=== PATIENT | female | born 1940 | race Caucasian/White ===

== ENCOUNTER → 2018-04-23 08:45 | Outpatient (CLI) | payer MEDICARE, OTHER, SELFPAY | PROVIDERS: PCP Family Medicine; Visit Provider Student in an Organized Health Care Education/Training Program | DX: M25.532 Pain in left wrist (principal); M65.4 Radial styloid tenosynovitis [de Quervain] | CPT/HCPCS: 20605; 99213; J1030 ==

== ENCOUNTER → 2018-04-30 02:07 | Outpatient (CLI) | payer MEDICARE, OTHER, SELFPAY ==
[2018-04-30 10:00] LABS: INR 2.4 (1.0-3.5); Prothrombin Time 22.4 sec (9.3-10.8)
== END ==
PROVIDERS: PCP Family Medicine; Visit Provider Family Medicine
DX: I34.0 Nonrheumatic mitral (valve) insufficiency (principal); Z95.2 Presence of prosthetic heart valve; Z79.01 Long term (current) use of anticoagulants
CPT/HCPCS: 36415; 85610

== ENCOUNTER → 2018-05-14 03:05 | Outpatient (CLI) | payer MEDICARE, OTHER, SELFPAY ==
[2018-05-14 11:35] LABS: INR 1.5 (1.0-3.5); Prothrombin Time 14.8 sec (9.3-10.8)
== END ==
PROVIDERS: PCP Family Medicine; Visit Provider Family Medicine
DX: I34.0 Nonrheumatic mitral (valve) insufficiency (principal); Z95.2 Presence of prosthetic heart valve; Z79.01 Long term (current) use of anticoagulants
CPT/HCPCS: 36415; 85610

== ENCOUNTER 2018-05-22 02:32 | Outpatient (CLI) | payer MEDICARE, SELFPAY ==
[2018-05-22 12:36] LABS: INR 2.2 (1.0-3.5); Prothrombin Time 21.3 sec (9.3-10.8)
== END 2018-05-22 02:52 ==
LOC: LBO 02:32 → LOS 12:49
PROVIDERS: PCP Family Medicine; Visit Provider Family Medicine
DX: Z95.2 Presence of prosthetic heart valve (principal); Z79.01 Long term (current) use of anticoagulants
CPT/HCPCS: 36415; 85610

== ENCOUNTER → 2018-05-23 05:48 | Outpatient (CLI) | payer MEDICARE, OTHER, SELFPAY ==
--- NOTE | 2018-05-23 11:50 | DI.RAD_ITS ---
SYMPTOMS/DIAGNOSIS: PAIN RT SHOULDER, M25.511 RIGHT SHOULDER: Five views. Mild hypertrophic changes are seen at the acromioclavicular joint. The glenohumeral joint appears well maintained. There are calcifications adjacent to the greater tuberosity suggesting calcific tendinitis. No acute fracture, dislocation, lytic or sclerotic lesion is seen. The soft tissues are unremarkable. IMPRESSION: Mild degenerative changes of the right shoulder.
== END ==
PROVIDERS: PCP Family Medicine; Visit Provider Family Medicine
DX: M25.511 Pain in right shoulder (principal); M19.011 Primary osteoarthritis, right shoulder
CPT/HCPCS: 73030

== ENCOUNTER 2018-05-29 01:53 | Outpatient (CLI) | payer MEDICARE, OTHER, SELFPAY ==
[2018-05-29 11:10] LABS: INR 3.8 (1.0-3.5); Prothrombin Time 35.8 sec (9.3-10.8)
== END 2018-05-29 02:13 ==
PROVIDERS: PCP Family Medicine; Visit Provider Family Medicine
DX: Z95.2 Presence of prosthetic heart valve (principal); Z79.01 Long term (current) use of anticoagulants; I34.0 Nonrheumatic mitral (valve) insufficiency
CPT/HCPCS: 36415; 85610

== ENCOUNTER 2018-06-05 02:23 | Outpatient (CLI) | payer MEDICARE, OTHER, SELFPAY ==
[2018-06-05 11:23] LABS: Prothrombin Time 45.9 sec (9.3-10.8)
== END 2018-06-05 02:43 ==
PROVIDERS: PCP Family Medicine; Visit Provider Family Medicine
DX: I34.0 Nonrheumatic mitral (valve) insufficiency (principal); Z79.52 Long term (current) use of systemic steroids; Z79.01 Long term (current) use of anticoagulants
CPT/HCPCS: 36415; 85610

== ENCOUNTER 2018-06-08 01:05 | Outpatient (CLI) | payer MEDICARE, OTHER, SELFPAY ==
[2018-06-08 11:42] LABS: INR 2.4 (1.0-3.5); Prothrombin Time 22.8 sec (9.3-10.8)
== END 2018-06-08 01:25 ==
PROVIDERS: PCP Family Medicine; Visit Provider Family Medicine
DX: Z95.2 Presence of prosthetic heart valve (principal); I48.91 Unspecified atrial fibrillation; Z79.01 Long term (current) use of anticoagulants
CPT/HCPCS: 36415; 85610

== ENCOUNTER 2018-06-15 00:54 | Outpatient (CLI) | payer MEDICARE, OTHER, SELFPAY ==
[2018-06-15 12:47] LABS: INR 2.7 (1.0-3.5); Prothrombin Time 25.2 sec (9.3-10.8)
== END 2018-06-15 01:14 ==
LOC: LBO 00:54 → LOS 12:31
PROVIDERS: PCP Family Medicine; Visit Provider Family Medicine
DX: I35.1 Nonrheumatic aortic (valve) insufficiency (principal); Z79.01 Long term (current) use of anticoagulants; Z95.2 Presence of prosthetic heart valve
CPT/HCPCS: 36415; 85610

== ENCOUNTER 2018-06-28 02:04 | Outpatient (CLI) | payer MEDICARE, OTHER, SELFPAY ==
[2018-06-28 12:57] LABS: INR 2.4 (1.0-3.5)
== END 2018-06-28 02:24 ==
PROVIDERS: PCP Family Medicine; Visit Provider Family Medicine
DX: Z95.2 Presence of prosthetic heart valve (principal); Z79.01 Long term (current) use of anticoagulants; I34.0 Nonrheumatic mitral (valve) insufficiency
CPT/HCPCS: 36415; 85610

== ENCOUNTER 2018-07-26 01:06 | Outpatient (CLI) | payer MEDICARE, OTHER, SELFPAY ==
[2018-07-26 11:19] LABS: INR 2.3 (1.0-3.5); Prothrombin Time 21.4 sec (9.3-10.8)
== END 2018-07-26 01:26 ==
PROVIDERS: PCP Family Medicine; Visit Provider Family Medicine
DX: I51.9 Heart disease, unspecified (principal); Z95.2 Presence of prosthetic heart valve; Z79.01 Long term (current) use of anticoagulants
CPT/HCPCS: 36415; 85610

== ENCOUNTER 2018-08-02 01:45 | Outpatient (CLI) | payer MEDICARE, OTHER, SELFPAY ==
[2018-08-02 11:38] LABS: INR 2.5 (1.0-3.5); Prothrombin Time 23.9 sec (9.3-10.8)
== END 2018-08-02 02:05 ==
PROVIDERS: PCP Family Medicine; Visit Provider Family Medicine
DX: Z79.01 Long term (current) use of anticoagulants (principal); Z95.2 Presence of prosthetic heart valve; I50.9 Heart failure, unspecified
CPT/HCPCS: 36415; 85610

== ENCOUNTER 2018-08-27 10:03 | Outpatient (CLI) | payer MEDICARE, OTHER, SELFPAY | END 2018-08-27 10:23 | PROVIDERS: PCP Family Medicine; Visit Provider Internal Medicine Interventional Cardiology | DX: I42.9 Cardiomyopathy, unspecified (principal); Z95.828 Presence of other vascular implants and grafts; I51.9 Heart disease, unspecified; I49.3 Ventricular premature depolarization; I47.1 Supraventricular tachycardia; I11.9 Hypertensive heart disease without heart failure | CPT/HCPCS: 93005; 93010; 99213 ==

== ENCOUNTER 2018-08-30 02:00 | Outpatient (CLI) | payer MEDICARE, OTHER, SELFPAY ==
[2018-08-30 11:29] LABS: Prothrombin Time 22.3 sec (9.3-10.8)
[2018-08-30 11:34] LABS: INR 2.4 (1.0-3.5)
== END 2018-08-30 02:20 ==
PROVIDERS: PCP Family Medicine; Visit Provider Family Medicine
DX: I34.0 Nonrheumatic mitral (valve) insufficiency (principal); Z95.2 Presence of prosthetic heart valve; Z79.01 Long term (current) use of anticoagulants
CPT/HCPCS: 36415; 85610

== ENCOUNTER 2018-09-16 11:05 | Emergency (ER) | payer MEDICARE, OTHER, SELFPAY ==
[2018-09-16 11:14] VITALS: BP 114/88; PULSE 70; RESP 17; TEMP 36.8; O2SAT 95
[2018-09-16 11:50] LABS: Abs Immature Grans 0.02 k/cumm (0.0-0.09); Absolute Basophil Count 0.02 k/cumm (0.0-0.2); Absolute Eosinophil Count 0.12 k/cumm (0.0-0.7); Absolute Lymphocyte Count 0.76 k/cumm (1.2-3.4); Absolute Monocyte Count 0.34 k/cumm (0.11-0.7); Absolute Neutrophil Count 4.33 k/cumm (1.2-6.7); Basophils % 0.4; Eosinophils % 2.1; HCT 39.9 % (36.0-46.0); HGB 13.2 g/dL (12.0-15.5); Immature Grans % 0.4; Lymphocytes % 13.6; Mean Corp. HGB Concentration 33.1 g/dL (32.0-36.0); Mean Corpuscular Hemoglobin 32.4 pg (27.0-33.0); Mean Corpuscular Volume 97.8 fL (80-95); Mean Platelet Volume 9.9 fL (8.0-11.0); Monocytes % 6.1; Neutrophils % 77.4; Platelet Count 218 x1000/uL (130-400); RBC 4.08 m/cumm (4.00-5.20); RBC Distribution Width 13.7 % (11.7-14.6); White Blood Cell Count 5.59 k/cumm (4.4-10.8)
[2018-09-16 12:03] LABS: ALT 34 U/L (12-78); AST 30 U/L (15-37); Albumin 3.9 g/dL (3.4-5.0); Alkaline Phosphatase 58 U/L (46-116); Anion Gap 8.9 mmol/L (3-11); BUN 27 mg/dL (7-18); Bilirubin, Total 0.5 mg/dL (0.2-1.0); CO2 27.1 mmol/L (21.0-32.0); Calcium 9.9 mg/dL (8.5-10.1); Chloride 102 mmol/L (98-107); Estimated GFR 53.62 (mL/min/1.73m2); Glucose 99 mg/dL (70-100); Potassium 4.5 mmol/L (3.5-5.1); Sodium 138 mmol/L (136-145); Total Protein 7.6 g/dL (6.4-8.2)
[2018-09-16 12:04] LABS: INR 2.8 (1.0-3.5); PTT Activated 32.7 sec (21.0-31.4); Prothrombin Time 27.9 sec (9.3-11.0)
--- NOTE | 2018-09-16 12:51 | ED.GENADUL_ITS ---
Discharge Plan Disposition Patient Disposition: HOME Condition: Stable Discharge Details Chief Complaint: EarProblem Clinical Impression: Otitis media, serous, TM rupture, Anticoagulated on warfarin Primary Care Provider: Tamanna Li ED Provider: Mino Vazquez Home Meds and New Rx's Prescriptions: New amoxicillin 875 mg tablet 875 mg PO BID Qty: 14 RF: 0 Continued metoprolol succinate 50 mg tablet extended release 24 hr 50 mg PO DAILY Qty: 90 RF: 4 docusate sodium [Colace] 100 MG capsule 100 mg PO BID Qty: 180 RF: 4 aspirin [Aspirin Low-Strength] 81 MG tablet,chewable 81 mg PO DAILY RF: 0 Centrum Silver 1 EACH tablet 1 ea PO DAILY RF: 0 calcium carbonate-vitamin D3 [Caltrate with Vitamin D3] 1 EACH tablet 1 ea PO BID RF: 0 melatonin-pyridoxine HCl (B6) 1 EACH tablet 5 mg PO HS RF: 0 nystatin 15 GM cream 1 applic Topical BID PRN (Reason: yeast) Qty: 30 RF: 12 simvastatin [Zocor] 40 MG tablet 40 mg PO HS Qty: 90 RF: 4 escitalopram oxalate 20 mg tablet 20 mg PO DAILY Qty: 90 RF: 11 metoprolol succinate 100 mg tablet extended release 24 hr 100 mg PO DAILY Qty: 90 RF: 3 warfarin [Coumadin] 2.5 mg tablet 2.5 mg PO DIRECTED Qty: 100 RF: 3 lisinopril 10 mg tablet 10 mg PO DAILY Qty: 90 RF: 12 spironolactone 25 mg tablet 25 mg PO DAILY Qty: 90 RF: 12 cholecalciferol (vitamin D3) 5,000 UNIT tablet 5,000 unit PO DAILY RF: 0 acetaminophen [Tylenol] 325 MG tablet 650 mg PO Q6H PRN PRNQty: 60 RF: 0 Discharge Instructions Instructions: Ruptured Eardrum (ED) Additional Instructions: Please take antibiotic as prescribed and until fully gone. Follow-up with your primary care provider for reassessment or return for any new or significant worsening symptoms Referrals: Tamanna Li MD, [place] [Primary Care Provider] - Discharge Data Discharge Date/Time-TO BE ENTERED AT DEPARTURE: 09/16/18 13:01 Medical Decision Making Patient presenting the emergency department for complaint of bleeding from left ear. Patient states that she woke up this morning and noticed significant spot of blood on her pillow. She states that she did not have any further bleeding. Patient denies any hearing loss, recent colds or infections, fever or chills. Patient is on Coumadin and she denies any other signs of bleeding, changes in medication, or any trauma to the head or ear pain. Physical exam shows a normal right TM, left TM has a clot present but no active bleeding. TM otherwise looks clear but there is concern for possible serous otitis media or acute otitis media causing ruptured TM. Plan to check patient's labs and INR level for any other signs of acute bleeding due to Coumadin but otherwise plan to place patient on amoxicillin for concern of otitis media causing TM rupture. Review of labs show an appropriate INR and no acute anemia otherwise nondiagnostic labs. patient to follow-up with primary care provider for reasse ssment and take amoxicillin for 7 days HPI General Mode of arrival: ambulatory . Date/Time Provider Initiated Documentation: 09/16/18 11:17 . Limitations to Documentation: no limitations . Information obtained by: patient, family and RN notes reviewed . History of Present Illness 78 year old F presents to the emergency department with the chief complaint of Bleeding from left ear, Quality is described as other (denies pain), and is localized to the left (ear). Patient started experiencing this hour(s) (3) and it has been now resolved. No relieving factors improve symptom(s), Patient notes no other symptoms.. Patient did receive the following treatments prior to arrival, none Related Data Home Medications Medication Instructions Recorded Confirmed Centrum Silver 1 ea PO DAILY tab 01/28/13 09/16/18 aspirin [Aspirin Low-Strength] 81 mg PO DAILY tab.chew 01/28/13 09/16/18 calcium carbonate-vitamin D3 1 ea PO BID tab 01/28/13 09/16/18 [Caltrate with Vitamin D3] docusate sodium [Colace] 100 mg PO BID #180 tab-cap 01/28/13 09/16/18 melatonin-pyridoxine HCl (B6) 5 mg PO HS 02/13/13 09/16/18 nystatin 100,000 unit/gram topical 1 applic TOPICAL BID PRN #30 gm 03/17/15 09/16/18 cream cholecalciferol (vitamin D3) 5,000 unit PO DAILY 03/03/17 09/16/18 simvastatin [Zocor] 40 mg PO HS #90 tab-cap 09/25/17 09/16/18 acetaminophen [Tylenol] 650 mg PO Q6H PRN PRN #60 tab 01/02/18 09/16/18 escitalopram 20 mg tablet 20 mg PO DAILY #90 tab-cap 18 09/16/18 metoprolol succinate ER 100 mg 100 mg PO DAILY #90 tab-cap 18 09/16/18 tablet,extended release 24 hr warfarin 2.5 mg tablet 2.5 mg PO DIRECTED #100 tab-cap 07/17/18 09/16/18 lisinopril 10 mg tablet 10 mg PO DAILY #90 tab-cap 08/16/18 09/16/18 spironolactone 25 mg tablet 25 mg PO DAILY #90 tab-cap 08/16/18 09/16/18 metoprolol succinate ER 50 mg 50 mg PO DAILY #90 tab 08/29/18 09/16/18 tablet,extended release 24 hr amoxicillin 875 mg PO BID #14 tab 09/16/18 Previous Rx's Medication Instructions Recorded simvastatin [Zocor] 40 mg PO HS #90 tab-cap 09/25/17 acetaminophen [Tylenol] 650 mg PO Q6H PRN PRN #60 tab 01/02/18 escitalopram 20 mg tablet 20 mg PO DAILY #90 tab-cap 07/17/18 metoprolol succinate ER 100 mg 100 mg PO DAILY #90 tab-cap 07/17/18 tablet,extended release 24 hr warfarin 2.5 mg tablet 2.5 mg PO DIRECTED #100 tab-cap 07/17/18 lisinopril 10 mg tablet 10 mg PO DAILY #90 tab-cap 08/16/18 spironolactone 25 mg tablet 25 mg PO DAILY #90 tab-cap 08/16/18 metoprolol succinate ER 50 mg 50 mg PO DAILY #90 tab 08/29/18 tablet,extended release 24 hr amoxicillin 875 mg PO BID #14 tab 09/16/18 Allergies Allergy/AdvReac Type Severity Reaction Status Date / Time No Known Allergies Allergy Unverified 09/16/18 11:54 General Stated Complaint: EarProblem EVELIA: 4 Review of Systems Constitutional Denies body ache(s), Denies chills and Denies fever(s) ENT Reports as per HPI, Reports ear discharge, Denies otalgia, Denies facial pain, Denies epistaxis, Denies mouth pain and Denies nasal discharge Gastrointestinal Denies melena, Denies hematochezia, Denies change in stool character, Denies coffee ground emesis and Denies hematemesis Integumentary/Breasts Denies unusual bruising [facility] Medical History Anticoagulated HTN (hypertension) Heart valve replaced Polyp of colon, adenomatous Surgical History AORTIC VALVE REPLACEMENT (~2001) Abdominal hysterectomy (~1979) Colonoscopy - IV Sedation (07/05/16) Extraction of cataract (07/17/13) Open Carpal Tunnel release (01/02/18) Family History Mother Essential hypertension Heart disease Father Essential hypertension Sister Alzheimer disease Maternal Grandmother Heart disease Paternal Grandmother Heart disease Lymphoma Daughter Heart disease Social History household members: other details: 2 current occupational status: retired pets and animals: Yes pets and animals: dog(s) frequency: 1-2 times per week duration: 45-60 minutes/day Smoking/Tobacco Use Status: Never alcohol intake: current alcohol intake frequency: a few times a month substance use type: does not use ag/bahai: Faith special ag needs: No Exam Const General: cooperative, no acute distress and not ill appearing Orientation: alert, awake and oriented x3 HENMT Head: normal to inspection, normocephalic and atraumatic Ears: TM normal on the right, mastoids normal, no periauricular adenopathy and EAC abnormal otic discharge bloody on the left General nose exam: external nose normal Face and sinus: normal facial exam Mouth: moist mucous membranes Resp Effort & Inspection: normal respiratory effort, able to speak in complete sentences and no respiratory distress Cardio Rate: regular rate Rhythm: regular rhythm Skin General skin exam: no rashes or lesions noted Neuro General: alert, awake, oriented x3, moves all extremities and no focal motor deficits Sensory Exam: no sensory deficits noted Course Vital Signs Temperature 36.8 C 12/30/18 11:14 Pulse 70 09/16/18 11:14 Respiratory Rate 17 09/16/18 11:14 Blood Pressure 114/88 09/16/18 11:14 Pulse Oximetry 95 09/16/18 11:14 Temperature 36.8 C 09/16/18 11:14 Temperature Source Skin 09/16/18 11:14 Pulse 70 09/16/18 11:14 Respiratory Rate 17 09/16/18 11:14 Respiratory Effort Non-Labored 09/16/18 11:52 Blood Pressure 114/88 09/16/18 11:14 Blood Pressure Position Sitting 09/16/18 11:14 Pulse Oximetry 95 09/16/18 11:14 Oxygen Delivery Method Room Air 09/16/18 11:14 Oxygen Flow Rate 0 09/16/18 11:14 Pain Level 0 09/16/18 11:53 Lab/Test Results Lab/Test Results: Laboratory Tests Range/Units 09/16/18 09/16/18 09/16/18 11:45 11:45 11:45 WBC (4.4-10.8) k/cumm 5.59 RBC (4.00-5.20) m/cumm 4.08 Hgb (12.0-15.5) g/dL 13.2 Hct (36.0-46.0) % 39.9 MCV (80-95) fL 97.8 H MCH (27.0-33.0) pg 32.4 MCHC (32.0-36.0) g/dL 33.1 RDW (11.7-14.6) % 13.7 Plt Count (130-400) x1000/uL 218 MPV (8.0-11.0) fL 9.9 Immature Gran % 0.4 Neutrophils % 77.4 Lymphocytes % 13.6 Monocytes % 6.1 Eosinophils % 2.1 Basophils % 0.4 Absolute Neutrophils (1.2-6.7) k/cumm 4.33 Absolute Lymphocytes (1.2-3.4) k/cumm 0.76 L Absolute Monocytes (0.11-0.7) k/cumm 0.34 Absolute Eosinophils (0.0-0.7) k/cumm 0.12 Absolute Basophils (0.0-0.2) k/cumm 0.02 PT (9.3-11.0) sec 27.9 H INR (1.0-3.5) 2.8 APTT (21.0-31.4) sec 32.7 H Sodium (136-145) mmol/L 138 Potassium (3.5-5.1) mmol/L 4.5 Chloride (98-107) mmol/L 102 Carbon Dioxide (21.0-32.0) mmol/L 27.1 Anion Gap (3-11) mmol/L 8.9 BUN (7-18) mg/dL 27 H Creatinine (0.55-1.02) mg/dL 1.00 Estimated GFR/1.73 m2 (mL/min/1.73m2) 53.62 Glucose (70-100) mg/dL 99 Calcium (8.5-10.1) mg/dL 9.9 Total Bilirubin (0.2-1.0) mg/dL 0.5 AST (15-37) U/L 30 ALT (12-78) U/L 34 Alkaline Phosphatase (46-116) U/L 58 Total Protein (6.4-8.2) g/dL 7.6 Albumin (3.4-5.0) g/dL 3.9
== END 2018-09-16 13:01 | disposition home or self-care (01) ==
PROVIDERS: Emergency Provider Nurse Practitioner Family; PCP Family Medicine
DX: H65.02 Acute serous otitis media, left ear (principal); H72.92 Unspecified perforation of tympanic membrane, left ear; Z79.01 Long term (current) use of anticoagulants; I10 Essential (primary) hypertension
CPT/HCPCS: 36415; 80053; 99283; 85025; 85610; 85730

== ENCOUNTER 2018-09-24 01:43 | Outpatient (CLI) | payer MEDICARE, OTHER, SELFPAY ==
[2018-09-24 11:51] LABS: INR 2.3 (0.9-1.1); Prothrombin Time 22.9 sec (9.3-11.0)
== END 2018-09-24 02:03 ==
PROVIDERS: PCP Family Medicine; Visit Provider Family Medicine
DX: I34.0 Nonrheumatic mitral (valve) insufficiency (principal); Z95.2 Presence of prosthetic heart valve; Z79.01 Long term (current) use of anticoagulants
CPT/HCPCS: 36415; 85610

== ENCOUNTER 2018-10-22 02:21 | Outpatient (CLI) | payer MEDICARE, OTHER, SELFPAY ==
[2018-10-22 13:07] LABS: INR 2.5 (0.9-1.1)
== END 2018-10-22 02:41 ==
PROVIDERS: PCP Family Medicine; Visit Provider Family Medicine
DX: Z95.2 Presence of prosthetic heart valve (principal); Z79.01 Long term (current) use of anticoagulants; I47.1 Supraventricular tachycardia
CPT/HCPCS: 36415; 85610

== ENCOUNTER 2018-11-19 02:35 | Outpatient (CLI) | payer MEDICARE, OTHER, SELFPAY ==
[2018-11-19 12:21] LABS: Prothrombin Time 20.1 sec (9.3-11.0)
== END 2018-11-19 02:55 ==
PROVIDERS: PCP Family Medicine; Visit Provider Family Medicine
DX: Z95.2 Presence of prosthetic heart valve (principal); Z79.01 Long term (current) use of anticoagulants; I34.0 Nonrheumatic mitral (valve) insufficiency
CPT/HCPCS: 36415; 85610

== ENCOUNTER → 2018-11-28 13:16 | Outpatient (BNVA) | payer MEDICARE, OTHER, SELFPAY | PROVIDERS: PCP Family Medicine; Referring Provider Family Medicine; Visit Provider Student in an Organized Health Care Education/Training Program | DX: M65.4 Radial styloid tenosynovitis [de Quervain] (principal); M25.531 Pain in right wrist; I10 Essential (primary) hypertension | CPT/HCPCS: 99212; 99213 ==

== ENCOUNTER 2018-12-03 09:09 | Outpatient (CLI) | payer MEDICARE, OTHER, SELFPAY ==
[2018-12-03 11:29] LABS: INR 1.8 (0.9-1.1); Prothrombin Time 18.4 sec (9.3-11.0)
== END 2018-12-03 09:29 ==
PROVIDERS: PCP Family Medicine; Visit Provider Family Medicine
DX: Z95.2 Presence of prosthetic heart valve (principal); Z79.01 Long term (current) use of anticoagulants
CPT/HCPCS: 36415; 85610

== ENCOUNTER 2018-12-10 01:59 | Outpatient (CLI) | payer MEDICARE, OTHER, SELFPAY ==
[2018-12-10 13:07] LABS: INR 2.9 (0.9-1.1); Prothrombin Time 29.2 sec (9.3-11.0)
== END 2018-12-10 02:19 ==
PROVIDERS: PCP Family Medicine; Visit Provider Family Medicine
DX: I34.0 Nonrheumatic mitral (valve) insufficiency (principal); Z95.2 Presence of prosthetic heart valve; Z79.01 Long term (current) use of anticoagulants
CPT/HCPCS: 36415; 85610

== ENCOUNTER 2019-01-07 01:52 | Outpatient (CLI) | payer MEDICARE, OTHER, SELFPAY ==
[2019-01-07 12:59] LABS: INR 3.2 (0.9-1.1); Prothrombin Time 32.8 sec (9.3-11.0)
== END 2019-01-07 02:12 ==
PROVIDERS: PCP Family Medicine; Visit Provider Family Medicine
DX: I34.0 Nonrheumatic mitral (valve) insufficiency (principal); Z95.2 Presence of prosthetic heart valve; Z79.01 Long term (current) use of anticoagulants
CPT/HCPCS: 36415; 85610

== ENCOUNTER 2019-01-30 02:25 | Outpatient (CLI) | payer MEDICARE, OTHER, SELFPAY ==
[2019-01-30 11:11] LABS: ALT 41 U/L (12-78); AST 34 U/L (15-37); Albumin 3.7 g/dL (3.4-5.0); Alkaline Phosphatase 60 U/L (46-116); Anion Gap 8.8 mmol/L (3-11); BUN 22 mg/dL (7-18); Bilirubin, Total 0.4 mg/dL (0.2-1.0); CO2 27.2 mmol/L (21.0-32.0); CREATININE 0.96 mg/dL (0.55-1.02); Calcium 9.5 mg/dL (8.5-10.1); Chloride 104 mmol/L (98-107); Estimated GFR 56.21 (mL/min/1.73m2); Glucose 94 mg/dL (70-100); Potassium 4.8 mmol/L (3.5-5.1); Sodium 140 mmol/L (136-145); Total Protein 6.8 g/dL (6.4-8.2)
[2019-01-30 11:48] LABS: Cholesterol 229 mg/dL (50-200); HDL Cholesterol 42 mg/dL (40-60); LDL CHOLESTEROL 142 mg/dL (<100); Triglyceride 195 mg/dL (30-150)
[2019-01-30 11:55] LABS: INR 4.6 (0.9-1.1)
== END 2019-01-30 02:45 ==
PROVIDERS: PCP Family Medicine; Visit Provider Family Medicine
DX: I10 Essential (primary) hypertension (principal); I25.10 Atherosclerotic heart disease of native coronary artery without angina pectoris; Z95.2 Presence of prosthetic heart valve; Z79.01 Long term (current) use of anticoagulants
CPT/HCPCS: 36415; 80053; 80061; 83721; 85610

== ENCOUNTER 2019-02-14 02:18 | Outpatient (CLI) | payer MEDICARE, OTHER, SELFPAY ==
[2019-02-14 12:57] LABS: INR 3.5 (0.9-1.1); Prothrombin Time 35.6 sec (9.3-11.0)
== END 2019-02-14 02:38 ==
PROVIDERS: PCP Family Medicine; Visit Provider Family Medicine
DX: I25.10 Atherosclerotic heart disease of native coronary artery without angina pectoris (principal); Z79.01 Long term (current) use of anticoagulants; Z95.2 Presence of prosthetic heart valve
CPT/HCPCS: 36415; 85610

== ENCOUNTER 2019-02-18 02:26 | Outpatient (CLI) | payer MEDICARE, OTHER, SELFPAY ==
--- NOTE | 2019-02-25 09:30 | HOLTER_ITS ---
DATE OF DICTATION: February 22, 2019 INDICATION: Atrial fibrillation. Baseline sinus rhythm. Average heart rate 72 bpm, minimum heart rate 58 bpm, maximum heart rate 91 bpm. Frequent ventricular ectopy. Predominantly isolated, accounting for 10.3% of total beats. Frequent ventricular couplets. One short burst of non-sustained VT lasting 4 beats. Rare isolated PAC's. No atrial fibrillation detected. No diary entries noted. No significant pauses or bradyarrhythmias. Overall sinus rhythm with frequent ventricular ectopy.
== END 2019-02-18 02:46 ==
PROVIDERS: PCP Family Medicine; Visit Provider Internal Medicine Interventional Cardiology
DX: I48.91 Unspecified atrial fibrillation (principal); I49.3 Ventricular premature depolarization; I47.1 Supraventricular tachycardia
CPT/HCPCS: 93225

== ENCOUNTER 2019-02-20 16:44 | Outpatient (CLI) | payer MEDICARE, OTHER, SELFPAY | END 2019-02-20 17:04 | PROVIDERS: PCP Family Medicine; Visit Provider Family Medicine | DX: I48.91 Unspecified atrial fibrillation (principal); I49.3 Ventricular premature depolarization; I47.1 Supraventricular tachycardia | CPT/HCPCS: 93226 ==

== ENCOUNTER 2019-02-21 02:05 | Outpatient (CLI) | payer MEDICARE, OTHER, SELFPAY ==
[2019-02-21 12:42] LABS: Prothrombin Time 47.3 sec (9.3-11.0)
[2019-02-21 12:56] LABS: INR 4.7 (0.9-1.1)
== END 2019-02-21 02:25 ==
PROVIDERS: PCP Family Medicine; Visit Provider Family Medicine
DX: I25.10 Atherosclerotic heart disease of native coronary artery without angina pectoris (principal); Z79.01 Long term (current) use of anticoagulants; Z95.2 Presence of prosthetic heart valve
CPT/HCPCS: 36415; 85610

== ENCOUNTER 2019-02-22 16:01 | Outpatient (CLI) | payer MEDICARE, OTHER, SELFPAY | END 2019-02-22 16:21 | PROVIDERS: PCP Family Medicine; Referring Provider Family Medicine; Visit Provider Internal Medicine Cardiovascular Disease | DX: I48.91 Unspecified atrial fibrillation (principal); I49.3 Ventricular premature depolarization; I47.1 Supraventricular tachycardia | CPT/HCPCS: 93227 ==

== ENCOUNTER 2019-02-25 02:15 | Outpatient (CLI) | payer MEDICARE, OTHER, SELFPAY ==
[2019-02-25 10:53] LABS: INR 2.7 (0.9-1.1)
== END 2019-02-25 02:35 ==
LOC: LBO 02:15 → LOS 11:52
PROVIDERS: PCP Family Medicine; Visit Provider Family Medicine
DX: Z79.01 Long term (current) use of anticoagulants (principal); Z95.2 Presence of prosthetic heart valve; R69 Illness, unspecified
CPT/HCPCS: 36415; 85610

== ENCOUNTER → 2019-02-25 11:19 | Outpatient (CLI) | payer MEDICARE, OTHER, SELFPAY | PROVIDERS: PCP Family Medicine; Visit Provider Internal Medicine Interventional Cardiology | DX: I42.9 Cardiomyopathy, unspecified (principal); Z95.2 Presence of prosthetic heart valve; I51.9 Heart disease, unspecified; I49.3 Ventricular premature depolarization; I47.1 Supraventricular tachycardia; I11.9 Hypertensive heart disease without heart failure; Z79.01 Long term (current) use of anticoagulants | CPT/HCPCS: 36415; 99214; 85610; 93005; 93010 ==

== ENCOUNTER 2019-03-11 02:31 | Outpatient (CLI) | payer MEDICARE, OTHER, SELFPAY ==
[2019-03-11 10:57] LABS: INR 2.5 (0.9-1.1); Prothrombin Time 25.6 sec (9.3-11.0)
== END 2019-03-11 02:51 ==
PROVIDERS: PCP Family Medicine; Visit Provider Family Medicine
DX: Z95.2 Presence of prosthetic heart valve (principal); Z79.01 Long term (current) use of anticoagulants
CPT/HCPCS: 36415; 85610

== ENCOUNTER 2019-04-08 01:49 | Outpatient (CLI) | payer MEDICARE, OTHER, SELFPAY ==
[2019-04-08 13:17] LABS: INR 2.7 (0.9-1.1); Prothrombin Time 26.9 sec (9.3-11.0)
== END 2019-04-08 02:09 ==
PROVIDERS: PCP Family Medicine; Visit Provider Family Medicine
DX: I25.10 Atherosclerotic heart disease of native coronary artery without angina pectoris (principal); I48.91 Unspecified atrial fibrillation; Z95.2 Presence of prosthetic heart valve; Z79.01 Long term (current) use of anticoagulants
CPT/HCPCS: 36415; 85610

== ENCOUNTER 2019-05-06 02:06 | Outpatient (CLI) | payer MEDICARE, OTHER, SELFPAY ==
[2019-05-06 12:58] LABS: INR 2.9 (0.9-1.1); Prothrombin Time 29.7 sec (9.3-11.0)
== END 2019-05-06 02:26 ==
PROVIDERS: PCP Family Medicine; Visit Provider Family Medicine
DX: I48.91 Unspecified atrial fibrillation (principal); Z95.2 Presence of prosthetic heart valve; Z79.01 Long term (current) use of anticoagulants
CPT/HCPCS: 36415; 85610

== ENCOUNTER 2019-05-15 02:47 | Outpatient (CLI) | payer MEDICARE, OTHER, SELFPAY | END 2019-05-15 03:07 | PROVIDERS: PCP Family Medicine; Visit Provider Internal Medicine Interventional Cardiology | DX: I49.3 Ventricular premature depolarization (principal); I47.1 Supraventricular tachycardia ==

== ENCOUNTER 2019-05-16 00:43 | Outpatient (CLI) | payer MEDICARE, OTHER, SELFPAY ==
--- NOTE | 2019-05-16 14:51 | MERGE_ITS ---
*[facility]* *[facility]* [address] [place] [address] Date of study: 05/16/2019 Transthoracic Echocardiography M-mode, complete 2D, complete spectral Doppler, and color Doppler *STUDY CONCLUSIONS* Summary: 1. Left ventricle: The cavity size was normal. Systolic function was mildly to moderately reduced. The estimated ejection fraction was 40-45%. Diffuse hypokinesis. 2. Ventricular septum: Septal motion showed paradoxical motion. 3. Aortic valve: A mechanical prosthesis was present. The prosthesis diskhad a normal range of motion. The sewing ring appeared normal. There was mild regurgitation. Peak velocity (S): 1.7m/sec. Mean gradient (S): 6.7mm Hg. VTI ratio of LVOT to aortic valve: 0.48. No PVL. 4. Mitral valve: Mildly calcified annulus. There was moderate regurgitation. 5. Left atrium: The atrium was mildly dilated. 6. Right ventricle: The cavity size was normal. Wall thickness was normal. Systolic function was normal. 7. Right atrium: The atrium was mildly dilated. 8. Atrial septum: No defect or patent foramen ovale was identified. 9. Tricuspid valve: There was moderate regurgitation. 10. Pulmonic valve: Peak gradient (S): 2.8mm Hg. *PATIENT PRESENTATION* Height: 160cm (63in ) S/D Pressure: 128 / 60 Weight: 82.6kg (181.6lb ) BSA: 1.95m^2 Test start time: 02:00 PM. Test stop time: 03:10 PM. CONSULTING Guillermo Muñoz MD ORDERING Guillermo Muñoz MD REFERRING Guillermo Muñoz MD PERFORMING Unknown PERFORMING [facility] QUILTING MACHINE OPERATOR Zeynep Palafoxpe, RT (R)(CT), RDCS *PROCEDURE DATA* Procedure information: This study was interpreted by [facility]. Pertinent images and digital data are archived for permanent storage and are available for subsequent review. Comparison was made to the study of 02/14/2018. Study status: Routine. Transthoracic echocardiography. M-mode, complete 2D, complete spectral Doppler, and color Doppler. A Transthoracic Echocardiogram was performed. Scanning was performed from the parasternal, apical, subcostal, and suprasternal notch acoustic windows. Images were obtained using an [id number] cardiac ultrasound machine. Image quality was adequate. Study completion: The patient tolerated the procedure well. 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 *CARDIAC ANATOMY* Left ventricle: The cavity size was normal. Systolic function was mildly to moderately reduced. The estimated ejection fraction was 40-45%. Diffuse hypokinesis. The study is not technically sufficient to allow evaluation of LV diastolic function. Aortic valve: A mechanical prosthesis was present. The prosthesis diskhad a normal range of motion. The sewing ring appeared normal. Doppler: There was mild regurgitation. VTI ratio of LVOT to aortic valve: 0.48. Valve area (VTI): 1.5cm^2. Indexed valve area (VTI): 0.8cm^2/m^2. Peak velocity ratio of LVOT to aortic valve: 0.44. Valve area (Vmax): 1.4cm^2. Indexed valve area (Vmax): 0.7cm^2/m^2. Mean velocity ratio of LVOT to aortic valve: 0.46. Valve area (Vmean): 1.4cm^2. Indexed valve area (Vmean): 0.7cm^2/m^2. Mean gradient (S): 6.7mm Hg. Peak gradient (S): 11.2mm Hg. Aorta: Aortic root: The aortic root was normal in size. Ascending aorta: The ascending aorta was moderately dilated. Mitral valve: Mildly calcified annulus. Doppler: There was no evidence for stenosis. There was moderate regurgitation. Peak gradient (D): 9mm Hg. Left atrium: The atrium was mildly dilated. Atrial septum: No defect or patent foramen ovale was identified. Right ventricle: The cavity size was normal. Wall thickness was normal. Systolic function was normal. Ventricular septum: Septal motion showed paradoxical motion. Pulmonic valve: Doppler: There was no evidence for stenosis. There was mild regurgitation. Peak gradient (S): 2.8mm Hg. Tricuspid valve: Doppler: There was moderate regurgitation. Pulmonary artery: Poorly visualized. Pulmonary systolic pressure was in the range of 30mm Hg to 40mm Hg. Right atrium: The atrium was mildly dilated. Pericardium: There was no pericardial effusion. Systemic veins: Inferior vena cava: Well visualized. The vessel was patent and normal in size. The respirophasic diameter changes were in the normal range (greater than or equal to 50%), consistent with normal central venous pressure. Measurements Left ventricle Value 02/14/2018 Reference LV ID, ED, PLAX 5.7 cm 5.3 3.5 - 6.0 LV ID, ES, PLAX (H) 4.6 cm 4.1 2.1 - 4.0 LV PW thickness, ED, PLAX 1.1 cm 1.2 LV end-diastolic volume, 95 ml 60 1-p A2C LV ejection fraction, 1-p 50 % 47 A2C LV end-diastolic volume, 76 ml 58 1-p A4C LV ejection fraction, 1-p 49 % 38 A4C LV e', lateral 0.106 m/sec 0.065 LV E/e', lateral 14 11 LV e', medial 0.073 m/sec 0.048 LV E/e', medial 20 15 LV e', average 0.09 m/sec 0.056 LV E/e', average 17 13 Ventricular septum Value 02/14/2018 Reference IVS thickness, ED, PLAX 1.3 cm 1.2 LVOT Value 02/14/2018 Reference LVOT ID, A-P 2.0 cm 2.0 LVOT area 3.1 cm^2 3.1 LVOT peak velocity, S 0.73 m/sec 0.92 LVOT mean velocity, S 0.57 m/sec 0.76 LVOT VTI, S 16.9 cm 21.8 LVOT peak gradient, S 2.1 mm Hg 3.4 LVOT mean gradient, S 1.5 mm Hg 2.4 Stroke volume (SV), LVOT 52 ml 68 DP Stroke index (SV/bsa), 27 ml/m^2 35 LVOT DP Aortic valve Value 02/14/2018 Reference Aortic valve peak 1.7 m/sec 1.9 velocity, S Aortic valve mean 1.2 m/sec 1.4 velocity, S Aortic valve VTI, S 35.0 cm 43.6 Aortic mean gradient, S 6.7 mm Hg 8.5 Aortic peak gradient, S 11.2 mm Hg 14 VTI ratio, LVOT/AV 0.48 0.5 Aortic valve area, VTI 1.5 cm^2 1.6 Velocity ratio, peak, 0.44 0.49 LVOT/AV Aortic valve area, peak 1.4 cm^2 1.5 velocity Velocity ratio, mean, 0.46 0.54 LVOT/AV Aortic valve area, mean 1.4 cm^2 1.7 velocity Aortic valve area/bsa, 0.7 cm^2/m^2 0.9 mean velocity Aorta Value 02/14/2018 Reference Aortic root ID, ED 3.2 cm 3.1 Ascending aorta ID, A-P, S 3.9 cm 3.7 Left atrium Value 02/14/2018 Reference LA ID, A-P, ES 3.3 cm LA ID/bsa, A-P 1.7 cm/m^2 <=2.2 LA volume/bsa, ES, 1-p A4C 46 ml/m^2 49 LA/aortic root ratio 1.03 Mitral valve Value 02/14/2018 Reference Mitral E-wave peak 1.5 m/sec 0.72 velocity Mitral peak gradient, D 9 mm Hg 2.1 Tricuspid valve Value 02/14/2018 Reference Tricuspid regurg peak 2.7 m/sec 2.7 velocity Tricuspid peak RV-RA 29.7 mm Hg 29.7 gradient Right atrium Value 02/14/2018 Reference RA area, ES, A4C (H) 19.7 cm^2 18.6 8.3 - 19.5 Pulmonic valve Value 02/14/2018 Reference Pulmonic peak gradient, S 2.8 mm Hg 3.1 Legend: (L) and (H) jasiel values outside specified reference range. I have personally reviewed the images and have reviewed and edited the reported findings. Electronically signed by Guillermo Muñoz MD 05/16/2019 17:30
== END 2019-05-16 01:03 ==
PROVIDERS: PCP Family Medicine; Visit Provider Internal Medicine Interventional Cardiology
DX: I49.3 Ventricular premature depolarization (principal); Z95.2 Presence of prosthetic heart valve; I08.3 Combined rheumatic disorders of mitral, aortic and tricuspid valves; I51.7 Cardiomegaly; I47.1 Supraventricular tachycardia
CPT/HCPCS: 93306; 93225

== ENCOUNTER 2019-05-20 11:26 | Outpatient (CLI) | payer MEDICARE, OTHER, SELFPAY ==
--- NOTE | 2019-05-23 06:59 | HOLTER_ITS ---
HOLTER MONITOR DATE OF DICTATION May 22, 2019 48 -Hour Study Baseline rhythm sinus. Rare single PAC. No SVT or atrial fibrillation. Very frequent single PVC, 23,231 total, 11.6% total beat. 6,488 couplet, 355 triplet. 6 burst NSVT, l ongest 4-beat duration, fastest 170 beats per minute. Complex ventricular ectopy appears to occur both during daytime and nocturnal hours. Ventricular ecto py would appear mostly monomorphic. No bradycardia. No symptoms. Average heart rate 78 beats per minute, range 60-104 beats per minute. Guillermo Muñoz M.D. VANESSA/itz T - 05/23/2019
== END 2019-05-20 11:46 ==
PROVIDERS: PCP Family Medicine; Visit Provider Internal Medicine Interventional Cardiology
DX: I49.3 Ventricular premature depolarization (principal); I47.1 Supraventricular tachycardia
CPT/HCPCS: 93226

== ENCOUNTER 2019-05-22 17:36 | Outpatient (CLI) | payer MEDICARE, OTHER, SELFPAY | END 2019-05-22 17:56 | PROVIDERS: PCP Family Medicine; Referring Provider Family Medicine; Visit Provider Internal Medicine Interventional Cardiology | DX: I49.3 Ventricular premature depolarization (principal); I47.1 Supraventricular tachycardia | CPT/HCPCS: 93227 ==

== ENCOUNTER 2019-05-27 12:54 | Outpatient (CLI) | payer MEDICARE, OTHER, SELFPAY ==
--- NOTE | 2019-05-27 13:00 | DI.RAD_ITS ---
SYMPTOMS/DIAGNOSIS: LOW BACK PAIN, M54.5, BILATERAL HIP PAIN, M25.559 LUMBOSACRAL SPINE: Five views were obtained. There is a marked right convex lumbar scoliosis. There is multilevel disc space narrowing and vacuum disc phenomenon consistent with disc degeneration throughout the lumbar spine. No gross compression fractures seen. Prominent hypertrophic spurring noted involving the vertebral endplates and facet joints throughout the lumbar region. CONCLUSION: Severe DJD, lumbar spine, associated with right convex lumbar scoliosis. BILATERAL HIPS AND PELVIS: Marked degenerative changes of the lumbar spine noted as described on radiographs of the lumbar spine. There is loss of the cartilaginous joint spaces of both hips superiorly with subchondral sclerosis and moderate acetabular spurring bilaterally. No other significant bony abnormality seen. Mild bilateral SI DJD noted. CONCLUSION: Moderate degenerative changes of both hips.
== END 2019-05-27 13:14 ==
PROVIDERS: PCP Family Medicine; Visit Provider Family Medicine
DX: M54.5 Low back pain (principal); M25.551 Pain in right hip; M25.552 Pain in left hip; M47.816 Spondylosis without myelopathy or radiculopathy, lumbar region; M16.0 Bilateral primary osteoarthritis of hip
CPT/HCPCS: 73521; 72110

== ENCOUNTER 2019-05-29 00:48 | Outpatient (CLI) | payer MEDICARE, OTHER, SELFPAY ==
--- NOTE | 2019-05-29 13:57 | DI.COMBO_ITS ---
SYMPTOM/DIAGNOSIS: RT BREAST LUMP DIAGNOSTIC BILATERAL MAMMOGRAM, RIGHT BREAST ULTRASOUND: Mammograms were interpreted according to the usual protocol including computer analysis with CAD system, tomosynthesis and C view imaging. A palpable abnormality is noted in the right breast near the nipple. Comparison is made with mammograms from 2010 through 2017. The breasts are composed of scattered fibroglandular densities, breast density category B. LEFT BREAST: Left Breast shows no evidence of masses or suspicious microcalcifications. There has been no change when compared with previous exams. IMPRESSION: Left breast Category 1, negative. breast density category B. RIGHT BREAST: In the subareolar tissue medial and superior to the nipple, there is an irregular mass measuring 2 x 2.6 cm. The margins appear spiculated. There is essential low density within the spiculated area which could represent fat necrosis. The patient relates a history of trauma to this area. The remainder of the breast shows no mass or suspicious calcifications. RIGHT BREAST ULTRASOUND: In the region of the palpable abnormality, 2 cm from the nipple, in the 12 o'clock position, there is an ovoid area of slightly hypoechoic echogenicity which appears homogeneous. There is some peripheral increased blood flow. There is no significant posterior shadowing. The findings could represent an area of fat necrosis. It measures 2.5 x 1.1 x 1.9 cm. There is a peripheral echogenic halo. IMPRESSION: Category 3, probably benign mammogram. Short interval follow up is recommended. Mammographic findings and ultrasound findings are suggestive of fat necrosis. MQSA ASSESSMENT OF FINDINGS: Probably benign. Three month follow-up recommended. Category 3. Patient will receive a letter notifying them of these results. BI-RADS category B. There are scattered areas of fibroglandular density.
== END 2019-05-29 01:08 ==
PROVIDERS: PCP Family Medicine; Visit Provider Family Medicine
DX: N63.10 Unspecified lump in the right breast, unspecified quadrant; N60.81 Other benign mammary dysplasias of right breast; N64.1 Fat necrosis of breast
CPT/HCPCS: 76642; 77062; 77066; G0279

== ENCOUNTER 2019-06-03 01:33 | Outpatient (CLI) | payer MEDICARE, OTHER, SELFPAY ==
[2019-06-03 13:14] LABS: INR 3.1 (0.9-1.1)
== END 2019-06-03 01:53 ==
PROVIDERS: PCP Family Medicine; Visit Provider Family Medicine
DX: I48.91 Unspecified atrial fibrillation (principal); Z95.2 Presence of prosthetic heart valve; Z79.01 Long term (current) use of anticoagulants
CPT/HCPCS: 36415; 85610

== ENCOUNTER 2019-06-10 08:14 | Outpatient (CLI) | payer MEDICARE, OTHER, SELFPAY | END 2019-06-10 08:34 | PROVIDERS: PCP Family Medicine; Visit Provider Internal Medicine Interventional Cardiology | DX: I42.9 Cardiomyopathy, unspecified (principal); Z95.2 Presence of prosthetic heart valve; I51.89 Other ill-defined heart diseases; I10 Essential (primary) hypertension | CPT/HCPCS: 99214; 93005; 93010 ==

== ENCOUNTER 2019-06-14 09:27 | Inpatient (IN) | payer MEDICARE, OTHER, SELFPAY ==
[2019-06-14] VITALS (34 sets, daily range): BP systolic 113–152; BP diastolic 54–91; PULSE 44–94; RESP 15–24; TEMP 36.6–36.9; O2SAT 93–97
[2019-06-14 09:59] LABS: Abs Immature Grans 0.03 k/cumm (0.0-0.09); Absolute Basophil Count 0.02 k/cumm (0.0-0.2); Absolute Eosinophil Count 0.06 k/cumm (0.0-0.7); Absolute Lymphocyte Count 0.86 k/cumm (1.2-3.4); Absolute Neutrophil Count 9.29 k/cumm (1.2-6.7); Basophils % 0.2; Eosinophils % 0.5; HCT 40.9 % (36.0-46.0); HGB 13.6 g/dL (12.0-15.5); Immature Grans % 0.3; Lymphocytes % 7.7; Mean Corp. HGB Concentration 33.3 g/dL (32.0-36.0); Mean Corpuscular Hemoglobin 31.6 pg (27.0-33.0); Mean Corpuscular Volume 95.1 fL (80-95); Mean Platelet Volume 10.1 fL (8.0-11.0); Monocytes % 8.1; Neutrophils % 83.2; Platelet Count 223 x1000/uL (130-400); RBC Distribution Width 14.9 % (11.7-14.6); White Blood Cell Count 11.16 k/cumm (4.4-10.8)
--- NOTE | 2019-06-14 10:03 | DI.CT_ITS ---
EXAM: CT ABDOMEN PELVIS W CLINICAL HISTORY: rectal bleeding, on warfarin, crampy abd pain. TECHNIQUE: COMPARISON: RENAL COLIC WO CONTRAST from 03/22/2014 FINDINGS: CT examination of the abdomen and pelvis was performed bolus infusion of 100 cc of Omnipaque 350. Im ages obtained through the lung bases show 5 millimeter intrapulmonary nodule which appears to have be en present on prior CT of 2013. Additionally a 4 millimeter pulmonary nodule is noted more superiorl y which appears to be located in portion the lung above prior scanning field. The liver and spleen appear normal. Pancreas is unremarkable. No biliary dilatation. Gallbladder i s CT normal. Adrenals and kidneys appear normal with no evidence of urinary tract calcification or o bstruction. Abdominal aorta shows significant wall calcification. No abdominal aortic aneurysm. Ce liac axis shows stenosis of probably 50-70 percent of the luminal diameter proximally. SMA renal art eries and FIDENCIO unremarkable. No significant abdominal wall hernia seen. No abdominal or pelvic adenopathy. Appendix is normal. There is marked wall thickening and edema of the colon from distal descending colon to the rectum. T here is associated pericolonic fat edema and there is a small quantity of free fluid in the pelvis. Findings as described are consistent with colitis of uncertain etiology. IMPRESSION: Findings consistent with colitis involving the distal colon as described above. the differential di agnosis would include infectious, inflammatory or ischemic etiology.
--- NOTE | 2019-06-14 10:05 | ED.GENADUL_ITS ---
Discharge Plan Disposition Patient Disposition: [facility] INPATIENT Condition: Stable Discharge Details Chief Complaint: GI Bleed Clinical Impression: Colitis Admit Date/Time: 06/14/19 14:09 Admit Provider: Jodee Do Attending Provider: Jodee Do Primary Care Provider: Tamanna Li ED Provider: Lee Ace Medical Decision Making 79-year-old female presents from home stating that she had large soft brown stool yesterday with bloody tinged, this morning 5 additional episodes of urge to defecate followed by predominantly bloody mucus in stool. Associated with crampy abdominal pain. She is anticoagulated on warfarin for mechanical aortic valve. She did not take today's dose due to the bleeding that began last night. She is afebrile, well-appearing with normal vital signs. Rectal exam reveals bloody tinged, heme positive mucus. No mass appreciated. IV placed, screening labs and type and screen obtained. Her INR is 2.4. Blood work otherwise notable for hematocrit of 40. White blood cell count 11, platelets 223. CT reveals thickened colonic wall consistent with colitis. No free air or perforation. Please see formal report. I did discuss the case with on-call surgery, Dr. Garcia. She recommends medical admission, clinical observation, deferred colonoscopy unless patient has brisk and persistent rectal bleeding. Case discussed with Dr. Do, patient be admitted for ongoing observation and management. Lab Data Lab results reviewed: Yes I reviewed the patient's lab results. Labs: Laboratory Results - last 24 hr 06/14/19 06/14/19 06/14/19 09:50 09:50 09:50 WBC 11.16 H RBC 4.30 Hgb 13.6 Hct 40.9 MCV 95.1 H MCH 31.6 MCHC 33.3 RDW 14.9 H Plt Count 223 MPV 10.1 Immature Gran % 0.3 Neutrophils % 83.2 Lymphocytes % 7.7 Monocytes % 8.1 Eosinophils % 0.5 Basophils % 0.2 Absolute Neutrophils 9.29 H Absolute Lymphocytes 0.86 L Absolute Monocytes 0.90 H Absolute Eosinophils 0.06 Absolute Basophils 0.02 PT 23.7 H INR 2.4 H APTT 34.5 H Sodium 138 Potassium 4.1 Chloride 104 Carbon Dioxide 27.8 Anion Gap 6.2 BUN 21 H Creatinine 1.06 H Estimated GFR/1.73 m2 50.01 Glucose 116 H Calcium 8.9 Magnesium Total Bilirubin 0.7 AST 29 ALT 33 Alkaline Phosphatase 65 Total Protein 7.6 Albumin 3.8 Patient ABO/Rh Antibody Screen 06/14/19 06/14/19 10:03 11:30 WBC RBC Hgb Hct MCV MCH MCHC RDW Plt Count MPV Immature Gran % Neutrophils % Lymphocytes % Monocytes % Eosinophils % Basophils % Absolute Neutrophils Absolute Lymphocytes Absolute Monocytes Absolute Eosinophils Absolute Basophils PT INR APTT Sodium Cancelled Potassium Cancelled Chloride Cancelled Carbon Dioxide Cancelled Anion Gap Cancelled BUN Cancelled Creatinine Cancelled Estimated GFR/1.73 m2 Cancelled Glucose Cancelled Calcium Cancelled Magnesium Cancelled Total Bilirubin Cancelled AST Cancelled ALT Cancelled Alkaline Phosphatase Cancelled Total Protein Cancelled Albumin Cancelled Patient ABO/Rh A Negative Antibody Screen Negative HPI General Mode of arrival: ambulatory . Date/Time Provider Initiated Documentation: 06/14/19 09:32 . Limitations to Documentation: no limitations . Information obtained by: patient . History of Present Illness 79 year old F presents to the emergency department with the chief complaint of Rectal bleeding with stool yesterday, predominantly blood today, described as moderate, Quality is described as constant, and is localized to the abdomen. Patient reports no radiation. Patient started experiencing this hour(s) and it has b een intermittent. No relieving factors improve symptom(s), No exacerbating factors reported . Patient notes other (Crampy abdominal pain); denies fever/chills. Patient did receive the following treatments prior to arrival, none Related Data Home Medications Medication Instructions Recorded Confirmed Centrum Silver 1 ea PO DAILY tab 01/28/13 06/14/19 aspirin [Aspirin Low-Strength] 81 mg PO DAILY tab.chew 01/28/13 06/14/19 calcium carbonate-vitamin D3 1 ea PO BID tab 01/28/13 06/14/19 [Caltrate with Vitamin D3] docusate sodium [Colace] 100 mg PO BID #180 tab-cap 01/28/13 06/14/19 cholecalciferol (vitamin D3) 5,000 unit PO DAILY 03/03/17 06/14/19 acetaminophen [Tylenol] 650 mg PO Q6H PRN PRN #60 tab 01/02/18 06/14/19 escitalopram oxalate 20 mg tablet 20 mg PO DAILY #90 tab-cap 05/27/19 06/14/19 spironolactone 25 mg tablet 25 mg PO DAILY #90 tab-cap 05/27/19 06/14/19 warfarin 2.5 mg tablet 2.5 mg PO DIRECTED #100 tab-cap 05/27/19 06/14/19 metoprolol succinate 200 mg 200 mg PO DAILY 06/11/19 06/14/19 tablet,extended release 24 hr Previous Rx's Medication Instructions Recorded acetaminophen [Tylenol] 650 mg PO Q6H PRN PRN #60 tab 01/02/18 escitalopram oxalate 20 mg tablet 20 mg PO DAILY #90 tab-cap 05/27/19 spironolactone 25 mg tablet 25 mg PO DAILY #90 tab-cap 05/27/19 warfarin 2.5 mg tablet 2.5 mg PO DIRECTED #100 tab-cap 05/27/19 Allergies Allergy/AdvReac Type Severity Reaction Status Date / Time No Known Allergies Allergy Unverified 06/10/19 13:23 General Stated Complaint: GI Bleed EVELIA: 3 Review of Systems Review of Systems Narrative: 6 systems reviewed and otherwise negative [facility] Medical History Anticoagulated Anticoagulated on warfarin (Chronic) AVR; INR goal 2.5-3.5 Arthralgia of ankle (Resolved) 01/13/08 ankle and/or foot Colette infection (Resolved) 03/17/15 Cardiac LV ejection fraction 21-40% (Chronic 03/22/17) Cholelithiasis without obstruction (Chronic) De Quervain's tenosynovitis, 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) De Quervain's tenosynovitis, right (Chronic 02/21/18) Injection: 02/21/18 Elev transaminase/LDH (Resolved) 03/24/09 Endometriosis (Resolved) s/p POOJA BSO 1980 Essential hypertension (Chronic) Fracture, tibial plateau (Resolved) 02/13/13 Heart valve replaced HTN (hypertension) Hydronephrosis (Resolved) 12/25/08 R UJV Calculus causing very mild hydronephrosis right Hyperlipidemia (Chronic) Low back pain (Chronic 08/17/04) per Xray-L2-L3 DDD/DJD, L3-L4; L4-L5 DDD and scoliosis Moderate obstructive sleep apnea (Chronic 05/30/17) Nuclear cataract (Resolved) 07/17/13 [facility]; S/P surgery right eye; 08/06/13 [facility] right eye Pain of left calf (Resolved) Pap smear vagina w LGSIL (Resolved) 08/17/03 neg HPV Polyp of colon, adenomatous Polyp of colon, adenomatous (Chronic) 2001 2011; 3 TUBULAR ADENOMAS 2012; 1 TUBULAR ADENOMA Proteinuria (Resolved) 08/17/052005; now resolved Right anterior shoulder pain (Resolved) Right carpal tunnel syndrome (Chronic 01/12/18) Ruptured eardrum (Acute) Strep throat (Resolved) 01/05/16 x 2 Stress due to spouse with dementia (Chronic 02/20/18) Wrist pain, chronic (Acute) Surgical History Abdominal hysterectomy (~1979) and BSO; endometriosis AORTIC VALVE REPLACEMENT (~2001) Colonoscopy - IV Sedation (07/05/16) Extraction of cataract (07/17/13) 07/17/13 [facility]; RIGHT EYE 08/06/13 [facility] LEFT EYE H/O aortic valve replacement (Resolved) 09/18/01 H/O cataract removal with insertion of prosthetic lens (Resolved) Open Carpal Tunnel release (01/02/18) (R) Presence of other heart-valve replacement (Chronic) last echo 04/24; reg. echos-stable EF=50%; aortic; 07/04 ECHO;[facility] [place] S/P abdominal hysterectomy (Resolved) and BSO; endometriosis Family History (Updated 05/27/19 @ 14:34 by Lucius Singh) Mother , AGE 75 Essential hypertension Heart disease Father , FALL/HEAD INJURY at age 90. Essential hypertension Sister Alzheimer disease Maternal Grandmother , AGE 61 Heart disease Paternal Grandmother , AGE 80 Heart disease Lymphoma Daughter Heart disease Sister No problems noted. Son No problems noted. Social History Smoking/Tobacco Use Status: Never Alcohol Intake: current Alcohol Intake frequency: holidays/special occasions only Alcohol type: wine Drug use: Never Substance use type: does not use Caregiver/Support person: No Household members: none Housing: house Communication Needs: None Do you need help understanding health information?: Often Pets and animals: Yes Pets and animals: dog(s) Sexually active: No Do you think of yourself as: straight/heterosexual What is your relationship status?: How often do you talk on the phone with friends or family?: three or more times per week How often do you get together with friends or relatives?: twice per week How often do you attend sabianist or gnosticism services?: decline to answer Do you belong to any clubs or organized social groups?: yes Panel score (0-1 are the most socially isolated patients): 2 What type of physical activity do you participate in: other Duration: 45-60 minutes/day Frequency: 1-2 times per week Antonia/Buddhist: Yarsani Special antonia needs: No Seatbelt use: always Helmet use: No Drive intox or ride w/intox bung driver: No Do you feel safe at home: Yes Do you feel safe in your relationship?: Yes Exam Narrative Exam Narrative: GEN: awake, alert, oriented 3. Pleasant, well groomed, interactive. HEAD: Normocephalic, atraumatic ENT: Mucous membranes moist, oropharynx unremarkable, External ear exam unremarkable EYES: PERRL, EOMI NECK: Full ROM, no DONAVON, no menigismus CHEST/RESP: Nontender, clear to auscultation bilateral, no wheeze/rhonchi/rales CARDIOVASCULAR: RRR, mechanical click. 2+ Rad pulse bilateral ABDOMEN: Soft, nontender, no mass. +Bowel sounds. Heme positive pink-tinged mucus on rectal exam, no mass. EXT: Full ROM, no edema, no rash Neuro: Grossly normal neurologic exam, conversant, interactive. Psych: Speech fluent, thoughts congruent, affect normal Course Vital Signs Vital signs: Vital Signs Temperature 36.7 C 06/14/19 09:32 Pulse 78 06/14/19 09:32 Respiratory Rate 16 06/14/19 09:32 Blood Pressure 115/74 06/14/19 09:32 Pulse Oximetry 97 06/14/19 09:32 Temperature 36.7 C 06/14/19 09:32 Temperature Source Tympanic 06/14/19 09:32 Pulse 78 06/14/19 09:32 Respiratory Rate 16 06/14/19 09:32 Respiratory Effort Non-Labored 06/14/19 09:57 Blood Pressure 115/74 06/14/19 09:32 Pulse Oximetry 97 06/14/19 09:32 Oxygen Delivery Method Room Air 06/14/19 09:32 Oxygen Flow Rate 0 06/14/19 09:32 Pain Level 0 06/14/19 09:32
[2019-06-14 10:13] LABS: INR 2.4 (0.9-1.1); PTT Activated 34.5 sec (21.0-31.4); Prothrombin Time 23.7 sec (9.3-11.0)
[2019-06-14 10:15] LABS: ALT 33 U/L (14-59); AST 29 U/L (15-37); Albumin 3.8 g/dL (3.4-5.0); Alkaline Phosphatase 65 U/L (46-116); Anion Gap 6.2 mmol/L (3-11); BUN 21 mg/dL (7-18); Bilirubin, Total 0.7 mg/dL (0.2-1.0); CO2 27.8 mmol/L (21.0-32.0); CREATININE 1.06 mg/dL (0.55-1.02); Calcium 8.9 mg/dL (8.5-10.1); Chloride 104 mmol/L (98-107); Estimated GFR 50.01 (mL/min/1.73m2); Glucose 116 mg/dL (70-100); Potassium 4.1 mmol/L (3.5-5.1); Sodium 138 mmol/L (136-145); Total Protein 7.6 g/dL (6.4-8.2)
[2019-06-14] MEDS: Omnipaque 350 MG/ML 100 ML BTL IJ (11:56)
--- NOTE | 2019-06-14 12:17 | NUR.NOTE ---
pt back from ct fluids cont pt resting in bed offers no new complaints Nursing Note:
--- NOTE | 2019-06-14 13:06 | NUR.NOTE ---
pt resting in bed no distress noted none stated Nursing Note:
--- NOTE | 2019-06-14 16:11 | HPE_ITS ---
Date of service: 06/14/19 Time of Service: 16:11 Assessment and Plan Assessment and plan (1) Bright red blood per rectum: Status: Acute Assessment and plan: In setting of anticoagulation with coumadin. Consult surgery. Colitis on CT - no fever, leucocytosis is very borderline. I do not see a strong indication to start antiboitics at this time. Hold coumadin tonight. Lowest permissible INR is 1.8 for mechanical AVR before requirements for bridging. Ok for clear liquids tonight. Monitor in ICU due to the risk of bleeding while anticoagulated. (2) History of aortic valve replacement: Status: Acute Assessment and plan: As above. Bridge with heparin gtt if INR<1.8. (3) Cardiomyopathy: Status: Chronic Assessment and plan: EF is 45% on latest echo. While patient is on clears, hold aldactone and provide gentle IVF. Carefully monitor respiratory status. (4) Moderate obstructive sleep apnea: Status: Chronic Assessment and plan: Provide CPAP at night - patient did not bring her own. 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 The blood is bright red. She has not had abdominal pain per se, but has had some cramping and tenesmus, mild nausea this morning, but no vomiting. No fevers. She did not take her coumadin yesterday when she noticed the bleeding. Denies dizziness, chest pain, palpiations, shortness of breath, nausea. The patient just had her last BM now, and there was a lot less blood in it. She last ate yesterday evening. Her INR is 2.4, and her HgB is 13.6. Review of Systems Review of Systems Narrative: 12 systems reviewed. Pertinent positives and negatives are as per HPI. 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, right (Chronic 02/21/18) Injection: 02/21/18 Elev transaminase/LDH (Resolved) 03/24/09 Endometriosis (Resolved) s/p POOJA BSO 1979 Essential hypertension (Chronic) Fracture, tibial plateau (Resolved) 02/13/13 Heart valve replaced HTN (hypertension) Hydronephrosis (Resolved) 12/25/08 R UJV Calculus causing very mild hydronephrosis right Hyperlipidemia (Chronic) Low back pain (Chronic 08/17/04) per Xray-L2-L3 DDD/DJD, L3-L4; L4-L5 DDD and scoliosis Moderate obstructive sleep apnea (Chronic 05/30/17) Nuclear cataract (Resolved) 07/17/13 [facility]; S/P surgery right eye; 08/06/13 [facility] right eye Pain of left calf (Resolved) Pap smear vagina w LGSIL (Resolved) 08/17/03 neg HPV Polyp of colon, adenomatous Polyp of colon, adenomatous (Chronic) 2001 2011; 3 TUBULAR ADENOMAS 2012; 1 TUBULAR ADENOMA Proteinuria (Resolved) 08/17/052005; now resolved Right anterior shoulder pain (Resolved) Right carpal tunnel syndrome (Chronic 01/12/18) Ruptured eardrum (Acute) Strep throat (Resolved) 01/05/16 x 2 Stress due to spouse with dementia (Chronic 02/20/18) Wrist pain, chronic (Acute) Surgical History Abdominal hysterectomy (~1979) and BSO; endometriosis AORTIC VALVE REPLACEMENT (~2001) Colonoscopy - IV Sedation (07/05/16) Extraction of cataract (07/17/13) 07/17/13 [facility]; RIGHT EYE 08/06/13 [facility] LEFT EYE H/O aortic valve replacement (Resolved) 09/18/01 H/O cataract removal with insertion of prosthetic lens (Resolved) Open Carpal Tunnel release (01/02/18) (R) Presence of other heart-valve replacement (Chronic) last echo 04/24; reg. echos-stable EF=50%; aortic; 07/04 ECHO;[facility] [place] S/P abdominal hysterectomy (Resolved) and BSO; endometriosis Family History (Updated 05/27/19 @ 14:34 by Lucius Singh) Mother , AGE 75 Essential hypertension Heart disease Father , FALL/HEAD INJURY at age 90. Essential hypertension Sister Alzheimer disease Maternal Grandmother , AGE 61 Heart disease Paternal Grandmother , AGE 80 Heart disease Lymphoma Daughter Heart disease Sister No problems noted. Son No problems noted. Social History Smoking/Tobacco Use Status: Never Alcohol Intake: current Alcohol Intake frequency: holidays/special occasions only Alcohol type: wine Drug use: Never Substance use type: does not use Caregiver/Support person: No Household members: none Housing: house Communication Needs: None Do you need help understanding health information?: Often Pets and animals: Yes Pets and animals: dog(s) Sexually active: No Do you think of yourself as: straight/heterosexual What is your relationship status?: How often do you talk on the phone with friends or family?: three or more times per week How often do you get together with friends or relatives?: twice per week How often do you attend episcopalian or hoahaoism services?: decline to answer Do you belong to any clubs or organized social groups?: yes Panel score (0-1 are the most socially isolated patients): 2 What type of physical activity do you participate in: other Duration: 45-60 minutes/day Frequency: 1-2 times per week Antonia/Confucianism: Quaker Special antonia needs: No Seatbelt use: always Helmet use: No Drive intox or ride w/intox recycle driver: No Do you feel safe at home: Yes Do you feel safe in your relationship?: Yes Meds Home Medications and Allergies Home Medications Medication Instructions Recorded Confirmed Type aspirin [Aspirin Low-Strength] 81 mg PO DAILY tab.chew 01/28/13 06/14/19 History docusate sodium [Colace] 100 mg PO BID #180 tab-cap 01/28/13 06/14/19 History cholecalciferol (vitamin D3) 5,000 unit PO DAILY 03/03/17 06/14/19 History acetaminophen [Tylenol] 650 mg PO Q6H PRN PRN #60 tab 01/02/18 06/14/19 Rx escitalopram oxalate 20 mg tablet 20 mg PO DAILY #90 tab-cap 05/27/19 06/14/19 Rx spironolactone 25 mg tablet 25 mg PO DAILY #90 tab-cap 05/27/19 06/14/19 Rx metoprolol succinate 200 mg 200 mg PO DAILY 06/11/19 06/14/19 History tablet,extended release 24 hr calcium citrate-vitamin D3 2 tab PO BID 06/14/19 06/14/19 History [Citracal + D Maximum] multivitamin with minerals 1 tab PO DAILY 06/14/19 06/14/19 History warfarin [Coumadin] 2.5 mg PO QPM 06/14/19 06/14/19 History Allergies Allergy/AdvReac Type Severity Reaction Status Date / Time No Known Allergies Allergy Unverified 06/10/19 13:23 Exam Narrative Exam Narrative: General: pale obese female, laying comfortably flat in bed, A&Ox3 Neuro: A&Ox3, no focal deficits Psych: appropriate speech pattern/content Skin: pale, dry, intact HEENT: Atraumatic, normocephalic, EOMI, dry MM, clear oropharynx, no submandibular or cervical lymphadenopathy, no goiter or JVD Heart: RRR with many extra beats, murmur of a mechanical aortic valve Lungs: coarse at B bases GI: abdomen is soft, nontender, nondistended Extremities: no e/c/c BLE's, 1+ pedal pulses B Results Imaging Additional studies: CT abdomen/pelvis: Findings consistent with colitis involving the distal colon as described above. the differential diagnosis would include infectious, inflammatory or ischemic etiology. Labs Result diagrams: 06/14/19 09:50 06/14/19 09:50 Labs: Laboratory Results - last 24 hr 06/14/19 06/14/19 06/14/19 09:50 09:50 09:50 WBC 11.16 H RBC 4.30 Hgb 13.6 Hct 40.9 MCV 95.1 H MCH 31.6 MCHC 33.3 RDW 14.9 H Plt Count 223 MPV 10.1 Immature Gran % 0.3 Neutrophils % 83.2 Lymphocytes % 7.7 Monocytes % 8.1 Eosinophils % 0.5 Basophils % 0.2 Absolute Neutrophils 9.29 H Absolute Lymphocytes 0.86 L Absolute Monocytes 0.90 H Absolute Eosinophils 0.06 Absolute Basophils 0.02 PT 23.7 H INR 2.4 H APTT 34.5 H Sodium 138 Potassium 4.1 Chloride 104 Carbon Dioxide 27.8 Anion Gap 6.2 BUN 21 H Creatinine 1.06 H Estimated GFR/1.73 m2 50.01 Glucose 116 H Calcium 8.9 Magnesium Total Bilirubin 0.7 AST 29 ALT 33 Alkaline Phosphatase 65 Total Protein 7.6 Albumin 3.8 Patient ABO/Rh Antibody Screen 06/14/19 06/14/19 10:03 11:30 WBC RBC Hgb Hct MCV MCH MCHC RDW Plt Count MPV Immature Gran % Neutrophils % Lymphocytes % Monocytes % Eosinophils % Basophils % Absolute Neutrophils Absolute Lymphocytes Absolute Monocytes Absolute Eosinophils Absolute Basophils PT INR APTT Sodium Cancelled Potassium Cancelled Chloride Cancelled Carbon Dioxide Cancelled Anion Gap Cancelled BUN Cancelled Creatinine Cancelled Estimated GFR/1.73 m2 Cancelled Glucose Cancelled Calcium Cancelled Magnesium Cancelled Total Bilirubin Cancelled AST Cancelled ALT Cancelled Alkaline Phosphatase Cancelled Total Protein Cancelled Albumin Cancelled Patient ABO/Rh A Negative Antibody Screen Negative Last Vital Signs Temp 36.6 C 06/14/19 15:08 Pulse 80 06/14/19 14:54 Resp 15 06/14/19 14:54 BP 146/65 H 06/14/19 14:54 Pulse Ox 96 06/14/19 14:54
[2019-06-14] MEDS: Normal Saline Flush 10 ML SYR IVP (16:14)
[2019-06-14] MEDS: Normal Saline 1,000 ML 75 ML IV (16:14)
[2019-06-14 16:37] LABS: HCT 38.9 % (36.0-46.0); HGB 12.7 g/dL (12.0-15.5)
[2019-06-14 16:50] LABS: Lactate 0.7 mmol/L (0.6-1.4)
--- NOTE | 2019-06-14 18:00 | W.SURGCON ---
Date of service: 06/14/19 Time of Service: 18:26 Assessment and Plan Assessment and plan (1) Bright red blood per rectum: Status: Acute Assessment and plan: 79 y/o female on chronic anticoagulation with Coumadin who presents with blood per rectum. H&P reviewed. CT findings suggestive of colitis. This correlates with reported cramping, loose stool, and mucus per rectum. Agree with bowel rest on clear liquids. Stool studies ordered to r/o infectious colitis. Differential diagnosis includes ischemic colitis. No plans for antibiotics at this time. Follow H/H. Continue supportive care. If patient clinically improves and H/H remains stable, then would recommend conservative management and possibly advancing diet in am with plans for follow-up colonoscopy as an outpatient in 4-6 weeks. If bleeding persists or worsens, then will plan on proceeding with sigmoidoscopy/ colonoscopy more urgently on this admission. Will continue to follow. Discussed with patient and daughter. All questions answered. They agree with plans. History of Present Illness History of Present Illness Chief Complaint: Blood per rectum Narrative: 79 y/o female seen with her daughter at the bedside in the ICU. Patient came to the ED this am for evaluation after noting blood in her stool. She has had some abdominal cramping and tenesmus but no pain per se. Occasional mild nausea but no emesis. She denies fevers, chills, dysuria, or hematuria. Patient had eaten a salad for lunch yesterday. She notes that salads sometimes bother her. She had a mushy brown bowel movement with streaks of blood yesterday afternoon followed by more gross blood mixed with stool. She denies any definite clots. She denies rectal pain. She had a mechanical heart valve placed in 2001. She has been on meterman anticoagulation with Coumadin. She notes that she has had a small amount of blood with bowel movements off and on since she has been anticoagulated but only a tiny amount at a time and none recently. She has had colonoscopies performed every 5 years or so. Her last colonoscopy was 3-4 years ago and unremarkable per patient. There is a colonoscopy report at [facility] from 06/2016 which notes a normal colon. Patient had a prior history of polyps. She had a total abdominal hysterectomy but denies any other abdominal surgeries. She has passed some mucus per rectum. Per discussion with Dr. Ace in the ED, patient was noted to have pinkish mucus which was hemoccult (+) on rectal exam in the ED. No rectal mass noted. CT abd/pelvis obtained in the ED. Report notes findings suggestive of colitis involving the distal descending colon down to the rectum. Consults Consult date: 06/14/19 Requesting physician: Jodee Do Review of Systems Review of Systems ROS Unobtainable: All systems reviewed & are unremarkable except as noted in HPI and below Constitutional Constitutional: Denies chills and Denies fever(s) Cardiovascular Cardiovascular: Denies chest pain, Reports chest pain at rest, Denies rapid heart rate and Denies dyspnea Respiratory Respiratory: Denies cough and Denies dyspnea Gastrointestinal Gastrointestinal: Reports melena, Reports hematochezia, Reports tenesmus, Denies constipation, Reports cramping, Reports loose stools and Denies vomiting [facility] Medical History Anticoagulated Anticoagulated on warfarin (Chronic) AVR; INR goal 2.5-3.5 Arthralgia of ankle (Resolved) 01/13/08 ankle and/or foot Colette infection (Resolved) 03/17/15 Cardiac LV ejection fraction 21-40% (Chronic 03/22/17) Cardiomyopathy (Chronic) Cholelithiasis without obstruction (Chronic) De Quervain's tenosynovitis, 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) De Quervain's tenosynovitis, right (Chronic 02/21/18) Injection: 02/21/18 Elev transaminase/LDH (Resolved) 03/24/09 Endometriosis (Resolved) s/p POOJA BSO 1979 Essential hypertension (Chronic) Fracture, tibial plateau (Resolved) 02/13/13 Heart valve replaced HTN (hypertension) Hydronephrosis (Resolved) 12/25/08 R UJV Calculus causing very mild hydronephrosis right Hyperlipidemia (Chronic) Low back pain (Chronic 08/17/04) per Xray-L2-L3 DDD/DJD, L3-L4; L4-L5 DDD and scoliosis Moderate obstructive sleep apnea (Chronic 05/30/17) Nuclear cataract (Resolved) 07/17/13 [facility]; S/P surgery right eye; 08/06/13 [facility] right eye Pain of left calf (Resolved) Pap smear vagina w LGSIL (Resolved) 08/17/03 neg HPV Polyp of colon, adenomatous Polyp of colon, adenomatous (Chronic) 2001 2011; 3 TUBULAR ADENOMAS 2012; 1 TUBULAR ADENOMA Proteinuria (Resolved) 08/17/052005; now resolved Right anterior shoulder pain (Resolved) Right carpal tunnel syndrome (Chronic 01/12/18) Ruptured eardrum (Acute) Strep throat (Resolved) 01/05/16 x 2 Stress due to spouse with dementia (Chronic 02/20/18) Wrist pain, chronic (Acute) Surgical History Abdominal hysterectomy (~1979) and BSO; endometriosis AORTIC VALVE REPLACEMENT (~2001) Colonoscopy - IV Sedation (07/05/16) Extraction of cataract (07/17/13) 07/17/13 [facility]; RIGHT EYE 08/06/13 [facility] LEFT EYE H/O aortic valve replacement (Resolved) 09/18/01 H/O cataract removal with insertion of prosthetic lens (Resolved) Open Carpal Tunnel release (01/02/18) (R) Presence of other heart-valve replacement (Chronic) last echo 04/24; reg. echos-stable EF=50%; aortic; 07/04 ECHO;[facility] S/P abdominal hysterectomy (Resolved) and BSO; endometriosis Family History Mother , AGE 75 Essential hypertension Heart disease Father , FALL/HEAD INJURY at age 90. Essential hypertension Sister Alzheimer disease Maternal Grandmother , AGE 61 Heart disease Paternal Grandmother , AGE 80 Heart disease Lymphoma Daughter Heart disease Sister No problems noted. Son No problems noted. Social History Smoking/Tobacco Use Status: Never Alcohol Intake: current Alcohol Intake frequency: holidays/special occasions only Alcohol type: wine Drug use: Never Substance use type: does not use Caregiver/Support person: No Household members: none Housing: house Communication Needs: None Do you need help understanding health information?: Often Pets and animals: Yes Pets and animals: dog(s) Sexually active: No Do you think of yourself as: straight/heterosexual What is your relationship status?: How often do you talk on the phone with friends or family?: three or more times per week How often do you get together with friends or relatives?: twice per week How often do you attend buddhism or jewish services?: decline to answer Do you belong to any clubs or organized social groups?: yes Panel score (0-1 are the most socially isolated patients): 2 What type of physical activity do you participate in: other Duration: 45-60 minutes/day Frequency: 1-2 times per week Antonia/Taoist: Anabaptist Special antonia needs: No Seatbelt use: always Helmet use: No Drive intox or ride w/intox set key driver: No Do you feel safe at home: Yes Do you feel safe in your relationship?: Yes Exam Const General: cooperative, comfortable, no acute distress and well developed Nutritional Appearance: well nourished Orientation: alert and oriented x3 HENMT Head: normocephalic and atraumatic Eyes Sclera: sclerae normal Neck Neck: no lymphadenopathy, supple, nontender and no JVD Resp Effort & Inspection: normal respiratory effort and able to speak in complete sentences Auscultation: clear to auscultation bilaterally Cardio Jugular venous pressure: no JVD Rate: regular rate Rhythm: regular rhythm GI Inspection: non-distended and obesity Palpation: soft, not firm, no guarding, no masses and nontender Auscultation: normal bowel sounds (active) Skin General skin exam: no rashes or lesions noted and no jaundice Neuro General: alert and oriented x3 Speech: speech normal Psych Affect: normal affect Attitude: cooperative Results Last Vital Signs Temp 36.6 C 06/14/19 15:08 Pulse 77 06/14/19 15:16 Resp 18 06/14/19 15:16 BP 152/64 H 06/14/19 15:16 Pulse Ox 94 L 06/14/19 15:01 Labs Result diagrams: 06/14/19 16:18 06/14/19 09:50 Labs: Laboratory Results - last 24 hr 06/14/19 06/14/19 06/14/19 09:50 09:50 09:50 WBC 11.16 H RBC 4.30 Hgb 13.6 Hct 40.9 MCV 95.1 H MCH 31.6 MCHC 33.3 RDW 14.9 H Plt Count 223 MPV 10.1 Immature Gran % 0.3 Neutrophils % 83.2 Lymphocytes % 7.7 Monocytes % 8.1 Eosinophils % 0.5 Basophils % 0.2 Absolute Neutrophils 9.29 H Absolute Lymphocytes 0.86 L Absolute Monocytes 0.90 H Absolute Eosinophils 0.06 Absolute Basophils 0.02 PT 23.7 H INR 2.4 H APTT 34.5 H Sodium 138 Potassium 4.1 Chloride 104 Carbon Dioxide 27.8 Anion Gap 6.2 BUN 21 H Creatinine 1.06 H Estimated GFR/1.73 m2 50.01 Glucose 116 H Lactate Calcium 8.9 Magnesium Total Bilirubin 0.7 AST 29 ALT 33 Alkaline Phosphatase 65 Total Protein 7.6 Albumin 3.8 Patient ABO/Rh Antibody Screen 06/14/19 06/14/19 06/14/19 10:03 11:30 16:18 WBC RBC Hgb 12.7 Hct 38.9 MCV MCH MCHC RDW Plt Count MPV Immature Gran % Neutrophils % Lymphocytes % Monocytes % Eosinophils % Basophils % Absolute Neutrophils Absolute Lymphocytes Absolute Monocytes Absolute Eosinophils Absolute Basophils PT INR APTT Sodium Cancelled Potassium Cancelled Chloride Cancelled Carbon Dioxide Cancelled Anion Gap Cancelled BUN Cancelled Creatinine Cancelled Estimated GFR/1.73 m2 Cancelled Glucose Cancelled Lactate Calcium Cancelled Magnesium Cancelled Total Bilirubin Cancelled AST Cancelled ALT Cancelled Alkaline Phosphatase Cancelled Total Protein Cancelled Albumin Cancelled Patient ABO/Rh A Negative Antibody Screen Negative 06/14/19 16:40 WBC RBC Hgb Hct MCV MCH MCHC RDW Plt Count MPV Immature Gran % Neutrophils % Lymphocytes % Monocytes % Eosinophils % Basophils % Absolute Neutrophils Absolute Lymphocytes Absolute Monocytes Absolute Eosinophils Absolute Basophils PT INR APTT Sodium Potassium Chloride Carbon Dioxide Anion Gap BUN Creatinine Estimated GFR/1.73 m2 Glucose Lactate 0.7 Calcium Magnesium Total Bilirubin AST ALT Alkaline Phosphatase Total Protein Albumin Patient ABO/Rh Antibody Screen Imaging CT scan - pelvis: report reviewed and image reviewed Imaging Studies: Patient Name: RADHA WHELAN #: [id number]: ER Ordering Provider: Lee Ace M.D. : REG ER Primary Care Provider: Tamanna Li M.D., DCDate of Exam: 06/14/19Sex: F : 1940Age: 79 Exam(s) a CT:CT abdomen & pelvis w EXAM: CT ABDOMEN PELVIS W CLINICAL HISTORY: rectal bleeding, on warfarin, crampy abd pain. TECHNIQUE: COMPARISON: RENAL COLIC WO CONTRAST from 03/22/2014 FINDINGS: CT examination of the abdomen and pelvis was performed bolus infusion of 100 cc of Omnipaque 350. Images obtained through the lung bases show 5 millimeter intrapulmonary nodule which appears to have been present on prior CT of 2013. Additionally a 4 millimeter pulmonary nodule is noted more superiorly which appears to be located in portion the lung above prior scanning field. The liver and spleen appear normal. Pancreas is unremarkable. No biliary dilatation. Gallbladder is CT normal. Adrenals and kidneys appear normal with no evidence of urinary tract calcification or obstruction. Abdominal aorta shows significant wall calcification. No abdominal aortic aneurysm. Celiac axis shows stenosis of probably 50-70 percent of the luminal diameter proximally. SMA renal arteries and FIDENCIO unremarkable. No significant abdominal wall hernia seen. No abdominal or pelvic adenopathy. Appendix is normal. There is marked wall thickening and edema of the colon from distal descending colon to the rectum. There is associated pericolonic fat edema and there is a small quantity of free fluid in the pelvis. Findings as described are consistent with colitis of uncertain etiology. IMPRESSION: Findings consistent with colitis involving the distal colon as described above. the differential diagnosis would include infectious, inflammatory or ischemic etiology. [id number]: Total DLP = 0.00 mGy-cm Ordered By: Lee Ace M.D. CC:
[2019-06-14] MEDS: Metoprolol CR 50 MG TABCR 200 MG PO (19:29)
[2019-06-14 22:35] LABS: HCT 37.5 % (36.0-46.0); HGB 12.3 g/dL (12.0-15.5)
[2019-06-15] VITALS (22 sets, daily range): BP systolic 105–142; BP diastolic 45–89; PULSE 61–116; RESP 12–28; TEMP 36.1–37.1; O2SAT 94–95
[2019-06-15] MEDS: Normal Saline 1,000 ML 75 ML IV ×2 (05:28→18:59)
[2019-06-15 07:31] LABS: INR 1.9 (0.9-1.1); Prothrombin Time 18.4 sec (9.3-11.0)
[2019-06-15 07:37] LABS: Abs Immature Grans 0.01 k/cumm (0.0-0.09); Absolute Basophil Count 0.01 k/cumm (0.0-0.2); Absolute Eosinophil Count 0.13 k/cumm (0.0-0.7); Absolute Lymphocyte Count 0.81 k/cumm (1.2-3.4); Absolute Monocyte Count 0.63 k/cumm (0.11-0.7); Absolute Neutrophil Count 5.43 k/cumm (1.2-6.7); Basophils % 0.1; Eosinophils % 1.9; HCT 37.5 % (36.0-46.0); HGB 12.1 g/dL (12.0-15.5); Immature Grans % 0.1; Lymphocytes % 11.5; Mean Corp. HGB Concentration 32.3 g/dL (32.0-36.0); Mean Corpuscular Hemoglobin 31.3 pg (27.0-33.0); Mean Corpuscular Volume 96.9 fL (80-95); Mean Platelet Volume 10.3 fL (8.0-11.0); Neutrophils % 77.4; Platelet Count 185 x1000/uL (130-400); RBC 3.87 m/cumm (4.00-5.20); RBC Distribution Width 14.9 % (11.7-14.6); White Blood Cell Count 7.02 k/cumm (4.4-10.8)
[2019-06-15 07:46] LABS: Anion Gap 8.8 mmol/L (3-11); BUN 10 mg/dL (7-18); CO2 24.2 mmol/L (21.0-32.0); CREATININE 0.81 mg/dL (0.55-1.02); Calcium 8.3 mg/dL (8.5-10.1); Chloride 109 mmol/L (98-107); Glucose 101 mg/dL (70-100); Magnesium 1.9 mg/dL (1.8-2.4); Potassium 3.9 mmol/L (3.5-5.1); Sodium 142 mmol/L (136-145)
--- NOTE | 2019-06-15 08:20 | PDOC.CMIN ---
- If Service Date Differs Date of service: 06/15/19 Time of Service: 08:20 Care Management Initial Assess REASON FOR HOSPITALIZATION:: Lower GI bleed, on anticoagulation r/t mechanical valve PAST MEDICAL HISTORY/PAST SURGICAL HISTORY:: Anticoagulated on warfarin (Chronic). AVR; INR goal 2.5-3.5 Arthralgia of ankle (Resolved). Cardiac LV ejection fraction 21-40% (Chronic 03/22/17). Cholelithiasis without obstruction (Chronic). 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 Essential hypertension (Chronic). Fracture, tibial plateau (Resolved). Heart valve replaced. HTN (hypertension). Hydronephrosis (Resolved). 12/25/08 R UJV Calculus causing very mild hydronephrosis right. Hyperlipidemia (Chronic). Low back pain (Chronic 08/17/04). DJD, L3-L4; L4-L5 DDD and scoliosis. Moderate obstructive sleep apnea (Chronic 05/30/17). [facility]; S/P surgery right eye; 08/06/13 [facility] right eye. Pap smear vagina w LGSIL (Resolved). 08/17/03 neg HPV. Polyp of colon, adenomatous. Right anterior shoulder pain (Resolved). Right carpal tunnel syndrome (Chronic 01/12/18). Ruptured eardrum (Acute). Stress due to spouse with dementia (Chronic 02/20/18). Surgical History . Abdominal hysterectomy (~1979). and BSO; endometriosis. AORTIC VALVE REPLACEMENT (~2001). Colonoscopy - IV Sedation (07/05/16). Extraction of cataract (07/17/13). H/O aortic valve replacement (Resolved). H/O cataract removal with insertion of prosthetic lens (Resolved). Open Carpal Tunnel release (01/02/18). Presence of other heart-valve replacement (Chronic). last echo 04/24; reg. echos-stable EF=50%; aortic; 2001. S/P abdominal hysterectomy (Resolved). and BSO; endometriosis PREVIOUS FUNCTIONAL STATUS/SOCIAL/FAMILY SUPPORTS:: Susan lives alone in [place], [place] her spouse a few months ago. Susan is independent at home her children are local and supportive. Her primary care is whom she reports a good relationship with. Susan is [facility]. CURRENT FUNCTIONAL STATUS:: Susan is sitting up in bed in the ICU during CM assessment. She states she feels she is improving. She is able to discuss the details prior to admission. She states she normally is constipated and takes stool softners twice a day. When she started feeling the cramping she did not realize she was having rectal bleeding once she did notice it she held of being taken to the hosptial as she did not want to worry her children or friends. She is currently on a Heparin drip and her coumadin is being restarted. She is now on bowel rest and states she had a form stool this afternoon. Susan remains in the ICU with a surgical consult. ADVANCE DIRECTIVES:: On file Has patient been provided with information about the portal?: Yes Did the patient sign up for the portal?: No CODE STATUS:: Full Code INSURANCE COVERAGE / FINANCIAL ISSUES:: Medicare and [employer] CURRENT HOME/COMMUNITY SERVICES/EQUIPMENT:: None PRIMARY CARE PHYSICIAN:: POTENTIAL DISCHARGE NEEDS:: Follow up with [facility] post discharge and recomended by surgery to have a colonoscopy in 4-6 weeks per notes. PATIENT/FAMILY EDUCATION NEEDS:: Discharge education, limitations and follow up plan of care including ask me three and self management. ANTICIPATED BARRIERS TO DISCHARGE:: None TRANSPORTATION:: Via private car with family at time of discharge. PLAN:: Susan will be discharged home with no anticipated services at time of discharge. will continue to provide support discharged planning and disposition.
[2019-06-15] MEDS: Cholecalciferol (Vitamin D3) 1,000 UNIT TAB 5000 UNITS PO (09:08)
[2019-06-15] MEDS: Escitalopram 20 MG TAB PO (09:09)
[2019-06-15] MEDS: Multivitamin w/Minerals TAB 1 TAB PO (09:09)
[2019-06-15] MEDS: Magnesium Oxide 400 MG TAB PO (09:34)
[2019-06-15] MEDS: Potassium Chloride 10 MEQ TABCR PO (09:34)
[2019-06-15 09:54] LABS: PTT Activated 32.6 sec (21.0-31.4)
--- NOTE | 2019-06-15 10:51 | IN_ITS ---
Date of service: 06/15/19 Time of Service: 10:00 PT Notes Inpatient Physical Therapy Evaluation Date: 06/15/19 Referring Doctor: Dr. Do PT Orders: PT CONSULT: limited ability to ambulate Precautions: fall, standard Patient Profile/Admitting Diagnosis: Patient admitted from ED after experiencing rectal bleeding. She's being monitored in ICU currently. PMHX: cardiomyopathy and aortic valve replacement, on chronic anti-coagulation; STEFANIE; chronic LBP managed with outpatient PT Social History/Home Situation: Patient lives alone in home with 3 ERIBERTO. She ambulates without assistive device, and states that she typically ambulates household and community distances, limited only by LBP. She denies history of falls. Current Functional Limitations: reports that her mobility feels at baseline to her Equipment Owned/DME: none Subjective: Patient states that she is feeling well. She has been up to the commode this morning, and states that she feels that she is moving at her baseline. Objective: General Observation: Resting in bed at initiation of session. IV in right upper extremity, telemetry in place. Mental Status: A and O x3 Pain: Left-sided low back pain, at baseline level of pain Vital Signs: Monitored on telemetry throughout ROM: Right Upper Extremity: WFL Left Upper Extremity: WFL Right Lower Extremity: WFL Left Lower Extremity: WFL Strength: Right Upper Extremity: 3/5 or greater for all shoulder and elbow motions. Lottery Sales Clerk is strong and equal. Left Upper Extremity: 3/5 or greater for all shoulder and elbow motions. Lottery Sales Clerk is strong and equal. Right Lower Extremity: Hip flexion 5/5. Quads 5/5. Hamstrings 4+/5. Ankle dorsiflexion 5/5. Left Lower Extremity: Hip flexion 5/5. Quads 5/5. Hamstrings 4+/5. Ankle dorsiflexion 5/5. Bed Mobility/Transfers: Supine?sit: Independent Sit?supine: Independent Sit?stand: Independent Stand?sit: Independent Gait: Patient ambulates 120 feet with supervision, and assistance for management of IV pole and telemetry. She ambulates without assistive device, without any significant ataxia. Balance: Static Sitting: Normal Dynamic Sitting: Normal Static Standing: Good Dynamic Standing: Good Patient tolerates small KEVON standing without UE support for 10 seconds. She tolerates partial tandem stance for 10 seconds without upper extremity support. Unable to transition to tandem stance without assistance (4 position balance test 2/4). Special Tests: Mobility Limitations Standardized Measure [facility] AM-PAC 6 clicks Basic Mobility Inpatient Short Form: Raw Score: 22 CMS Score: 20% Informed Consent/Education: Patient instructed in purpose of PT consult and plan of care. Assessment: Patient is a 79 year old female referred to physical therapy services with the diagnosis of rectal bleeding in patient on chronic anticoagulant. Patient presents with baseline level mobility, and demonstrates good safety and independence on evaluation today. She requires minimal level of assistance, exclusively to address her multiple lines. She will benefit from return to outpatient PT upon discharge, and does not require any additional PT intervention in acute care setting. Patient is assessed as a Low 32293 complexity based on the following: History: 79-year-old female admitted for medical management of rectal bleeding with chronic anticoagulation. Mobility is at baseline level. Examination: Patient demonstrates mild balance deficit and limitations in activity tolerance due to chronic LBP, both of which should be addressed in outpatient setting Presentation: stable Decision Making: low Plan of Care/Treatment Plan: No further PT intervention required in acute care setting. Patient is safe to return home once medically stable, with recommendation to return to outpatient PT. DISCHARGE RECOMMENDATIONS: outpatient PT TREATMENT CODE/TIME: 71939 (10:00-10:20) Lucille Aaron, PT, DPT [facility]
--- NOTE | 2019-06-15 11:08 | PHARADMIT ---
Addendum entered by Philipp Hernandez III 06/17/19 11:54: Pharmacy Note Subjective Patient continues to not have bloody stools and h&h has risen. INR 91.4) still sub-therapeutic. wants to keep her until INR therapeutic. (2-3) Heparin drip continues. Objective BP-149/68 HR-82 INR-1.4 H&H,Plts-up Lytes-OK, Wgt-83.7 kg Assessment Extra Warfarin given this AM Plan Awaiting INR Addendum entered by Philipp Hernandez III 06/16/19 10:28: Pharmacy Note Subjective Distal colitis, very little bleeding, H&H unchanged. Patient hasmechanical Aortic valve and requires anticoagulation. Both Heparin drip and Warfarin are ordered until INR of 2-3 is reached or bleed resurfaces. has advanced diet Objective VS-OK INR-1.4 Assessment Nurse held last nights Warfarin, extra dose give this AM. Plan To be transferred to Med/Surg later today. Original Note: Admission Pharmacy Clinical Review LOWER GI BLEED, H/O mechanical Aortic Valve (on Warfarin) Code Status Full Code Current Weight Wgt-83.2 kg Renally Cleared and Narrow Therapeutic Index Meds CrCl~ 54.7 mL/min Meds-OK QTc Value / Action Taken QTc-481 (Lexapro) BP Control, Fever BP 142/89 Tmax- 36.9C Electrolytes reviewed Na-142 K+3.9 Mag-1.9 DVT Prophylaxis Heparin drip, Warfarin Opiate Usage / Scheduled Bowel Regimen Ordered No Yes Plt/SCr for Heparin / Enoxaparin Plts-185 SCr-0.81 INR for Warfarin INR-1.9 (needs INR between 2-3) H/H stable, WBC/Bands H&H- 12.1/37.5 WBC- 7.02 Antibiotic appropriateness none Cultures and Sensitivities none Surgical ABX d/c within 24 hr NA DM control / Insulin Dosing BG-101 Heart Failure (Check EF%) (SADIE's, B-Block, Diuretics) Toprol-XL, IV to PO Switch No Home Meds Reviewed Yes Home Meds Not OrderedASA, Lisinopril, Spironolactne, Zocor, Nystatin, Comments
--- NOTE | 2019-06-15 11:31 | W.PM.PROGNOT ---
Date of Service Date of service: 06/15/19 Time of Service: 11:38 Assessment and Plan Assessment and plan (1) Bright red blood per rectum: Status: Acute Assessment and plan: 79 y/o female on chronic anticoagulation with Coumadin who presents with blood per rectum. H&P reviewed. CT findings suggestive of colitis. This correlates with reported cramping, loose stool, and mucus per rectum. Stool studies ordered to r/o infectious colitis are pending. Differential diagnosis includes ischemic colitis. No plans for antibiotics at this time. Follow H/H. Continue supportive care. Will advance diet to full liquids. If patient clinically improves and H/H remains stable, then would recommend conservative management and possibly advancing diet to regular in am with plans for follow-up colonoscopy as an outpatient in 4-6 weeks. If bleeding persists or worsens, then will plan on proceeding with sigmoidoscopy/ colonoscopy more urgently on this admission. Will continue to follow. Discussed with patient, nurse, and Dr. Dorantes. Subjective Subjective Interval history since last seen: Patient is sitting up in bed. Feels better overall. Notes only mild intermittent cramping. Had a small, loose, maroon stool this am. Decreased bowel movement frequency overnight. Denies abd pain, nausea, or vomiting. H/H stable at 12.1/37.5. Exam Const General: cooperative, comfortable, no acute distress and well developed Nutritional Appearance: well nourished Orientation: alert and oriented x3 HENMT Head: normocephalic and atraumatic Resp Effort & Inspection: normal respiratory effort and able to speak in complete sentences GI Inspection: non-distended Palpation: soft, not firm, no guarding, not rigid and tender (mildly tender lower abdomen) Skin General skin exam: no rashes or lesions noted and no jaundice Objective Objective Clinical Data: Abnormal lab results 06/15/19 06/15/19 06/15/19 Range/Units 06:35 07:10 07:10 RBC 3.87 L (4.00-5.20) m/cumm MCV 96.9 H (80-95) fL RDW 14.9 H (11.7-14.6) % Absolute Lymphocytes 0.81 L (1.2-3.4) k/cumm PT 18.4 H D (9.3-11.0) sec INR 1.9 H (0.9-1.1) APTT 32.6 H (21.0-31.4) sec Chloride 109 H (98-107) mmol/L Glucose 101 H (70-100) mg/dL Calcium 8.3 L (8.5-10.1) mg/dL Vital Signs Temperature 36.2 C L 06/15/19 08:45 Temperature Source Temporal Artery Scan 06/15/19 08:45 Pulse 116 H 06/15/19 10:30 Pulse 93 H 06/15/19 10:30 Respiratory Rate 17 06/15/19 10:30 Respiratory Effort 06/15/19 08:45 Respiratory Depth Normal 06/15/19 08:45 Respiratory Pattern Normal 06/15/19 08:45 Blood Pressure 142/89 H 06/15/19 10:30 Blood Pressure Mean 100 06/15/19 10:30 Blood Pressure Position Sitting 06/15/19 08:45 Pulse Oximetry 95 06/15/19 08:45 Oxygen Delivery Method Room Air 06/15/19 08:45 Oxygen Flow Rate 0 06/15/19 08:45 Pain Level 0 06/15/19 08:45 Intake & Output 06/14/19 06/14/19 06/15/19 11:59 23:59 11:59 Intake Total 150 / 150 1487.5 / 1487.5 Output Total 1000 / 1000 350 / 350 Balance -850 / -850 1137.5 / 1137.5 Weight 81.647 kg 81.647 kg 83.2 kg Intake: IV 992.5 / 992.5 Oral 150 / 150 495 / 495 Output: Urine 1000 / 1000 350 / 350 Other: Urine Color Yellow Yellow Urine Appearance Clear Clear Urine Odor Normal Comment mixed w/ bloody mucous/stool Emesis Description None Laboratory Results WBC 7.02 k/cumm (4.4-10.8) D 06/15/19 07:10 RBC 3.87 m/cumm (4.00-5.20) L 06/15/19 07:10 Hgb 12.1 g/dL (12.0-15.5) 06/15/19 07:10 Hct 37.5 % (36.0-46.0) 06/15/19 07:10 MCV 96.9 fL (80-95) H 06/15/19 07:10 MCH 31.3 pg (27.0-33.0) 06/15/19 07:10 MCHC 32.3 g/dL (32.0-36.0) 06/15/19 07:10 RDW 14.9 % (11.7-14.6) H 06/15/19 07:10 Plt Count 185 x1000/uL (130-400) 06/15/19 07:10 MPV 10.3 fL (8.0-11.0) 06/15/19 07:10 Immature Gran % 0.1 06/15/19 07:10 Neutrophils % 77.4 06/15/19 07:10 Lymphocytes % 11.5 06/15/19 07:10 Monocytes % 9.0 06/15/19 07:10 Eosinophils % 1.9 06/15/19 07:10 Basophils % 0.1 06/15/19 07:10 Absolute Neutrophils 5.43 k/cumm (1.2-6.7) 06/15/19 07:10 Absolute Lymphocytes 0.81 k/cumm (1.2-3.4) L 06/15/19 07:10 Absolute Monocytes 0.63 k/cumm (0.11-0.7) 06/15/19 07:10 Absolute Eosinophils 0.13 k/cumm (0.0-0.7) 06/15/19 07:10 Absolute Basophils 0.01 k/cumm (0.0-0.2) 06/15/19 07:10 PT 18.4 sec (9.3-11.0) H D 06/15/19 06:35 INR 1.9 (0.9-1.1) H 06/15/19 06:35 APTT 32.6 sec (21.0-31.4) H 06/15/19 06:35 Sodium 142 mmol/L (136-145) 06/15/19 07:10 Potassium 3.9 mmol/L (3.5-5.1) 06/15/19 07:10 Chloride 109 mmol/L (98-107) H 06/15/19 07:10 Carbon Dioxide 24.2 mmol/L (21.0-32.0) 06/15/19 07:10 Anion Gap 8.8 mmol/L (3-11) 06/15/19 07:10 BUN 10 mg/dL (7-18) D 06/15/19 07:10 Creatinine 0.81 mg/dL (0.55-1.02) 06/15/19 07:10 Estimated GFR/1.73 m2 >= 60.00 (mL/min/1.73m2) 06/15/19 07:10 Glucose 101 mg/dL (70-100) H 06/15/19 07:10 Lactate 0.7 mmol/L (0.6-1.4) 06/14/19 16:40 Calcium 8.3 mg/dL (8.5-10.1) L 06/15/19 07:10 Magnesium 1.9 mg/dL (1.8-2.4) 06/15/19 07:10 Total Bilirubin Cancelled 06/14/19 10:03 AST Cancelled 06/14/19 10:03 ALT Cancelled 06/14/19 10:03 Alkaline Phosphatase Cancelled 06/14/19 10:03 Total Protein Cancelled 06/14/19 10:03 Albumin Cancelled 06/14/19 10:03 Patient ABO/Rh A Negative 06/14/19 11:30 Antibody Screen Negative 06/14/19 11:30
--- NOTE | 2019-06-15 14:24 | PGE_ITS ---
Date of Service Date of service: 06/15/19 Time of Service: 14:24 Assessment and Plan Assessment and plan (1) Bright red blood per rectum: Status: Acute Assessment and plan: Potential colitis clinically and by imaging. - Await stool studies to rule out infectious etiology, and continue to hold off on antibiotic therapy at this time. - Continue to manage conservatively and monitor clinically. Will stop trending H/H as clinically patient has improved and remains with a normal Hemoglobin. - Advance diet today, resume anticoagulation, and monitor symptoms. If worsening will benefit from urgent [place]/Sigmoidoscopy as inpatient. Surgery aware and following. (2) Cardiomyopathy: Status: Chronic Assessment and plan: Last ECHO last month, LVEF 40-45%. Currently appears euvolemic. - Continue BB, restart Spironolactone tomorrow morning. Not on SADIE-I/ARB by home medication review. - Appears euvolemic. Monitor daily weights, ensure low sodium diet. (3) History of aortic valve replacement: Status: Acute Assessment and plan: INR subtherapeutic, and Hgb stable despite BRBPR. Given history of Mechanical Valve will initiate Heparin gtt, restart Warfarin, and monitor daily weights carefully. (4) Moderate obstructive sleep apnea: Status: Chronic Assessment and plan: Continue home CPAP. (5) DVT prophylaxis: Status: Acute Assessment and plan: On active anticoagulation. (6) Advance directive on file: Status: Acute Assessment and plan: Full Code. Subjective Subjective Interval history since last seen: 79 year old woman with a history of Mechanical Aortic Valve on chronic anticoagulation, admitted from [facility] Emergency Department on 06/14 with BRBPR. Mrs. Ash has a past Medical History significant for s/p AVR with a Mecha nical Aortic Valve in place, on chronic anticoagulation with Warfarin. Her other history includes cardiomyopathy with LVEF 45%, STEFANIE on CPAP therapy, PHTN, Dyslipidemia, and HTN. The patient initially presented to the ED complaining of BRBPR, with concurrent mild abdominal cramps. Labwork was essentially unremarkable, with an INR noted to be therapeutic, and Hgb that was normal. Imaging with CT showed findings consistent with potential colitis involving the distal colon, thought secondary to inflammatory, infectious, or ischemic etiology. Following admission her coumadin was held, and she was maintained on NPO status and off anticoagulation, with H/H trended over the day. This morning she reports some improvement in her bleeding overall, and stool is now reportedly blood streaked. No other events reported. Remains afebrile. Exam Narrative Exam Narrative: General: Patient appears comfortable, AAOX3, NAD Neck: Supple CV: Regular with mild ectopy, nontachycardic, S1S2, No rubs, murmurs, or gallops. Pulmonary: Clear to auscultation bilaterally, no crackles, wheezing, or rhonchi Abdomen: + Bowel Sounds, soft, nondistended. Mild LLQ discomfort with palpation. Vascular: No lower extremity edema Psych: Normal mood and affect. Objective Objective Clinical Data: Abnormal lab results 06/15/19 06/15/19 06/15/19 Range/Units 06:35 07:10 07:10 RBC 3.87 L (4.00-5.20) m/cumm MCV 96.9 H (80-95) fL RDW 14.9 H (11.7-14.6) % Absolute Lymphocytes 0.81 L (1.2-3.4) k/cumm PT 18.4 H D (9.3-11.0) sec INR 1.9 H (0.9-1.1) APTT 32.6 H (21.0-31.4) sec Chloride 109 H (98-107) mmol/L Glucose 101 H (70-100) mg/dL Calcium 8.3 L (8.5-10.1) mg/dL Vital Signs Temperature 36.1 C L 06/15/19 12:30 Temperature Source Temporal Artery Scan 06/15/19 12:30 Pulse 81 06/15/19 12:30 Pulse 77 06/15/19 12:24 Respiratory Rate 25 H 06/15/19 12:30 Respiratory Effort 06/15/19 12:30 Respiratory Depth Normal 06/15/19 12:30 Respiratory Pattern Normal 06/15/19 12:30 Blood Pressure 140/85 06/15/19 12:30 Blood Pressure Mean 103 06/15/19 12:30 Blood Pressure Position Sitting 06/15/19 12:30 Pulse Oximetry 95 06/15/19 12:30 Oxygen Delivery Method Room Air 06/15/19 12:30 Oxygen Flow Rate 0 06/15/19 12:30 Pain Level 0 06/15/19 12:30 Intake & Output 06/14/19 06/15/1906/15/19 23:59 11:59 23:59 Intake Total 150 / 150 1487.5 / 2067.5 580 / 2067.5 Output Total 1000 / 1000 350 / 1000 650 / 1000 Balance -850 / -850 1137.5 / 1067.5 -70 / 1067.5 Weight 81.647 kg 83.2 kg Intake: IV 992.5 / 992.5 Oral 150 / 150 495 / 1075 580 / 1075 Output: Urine 1000 / 1000 350 / 1000 650 / 1000 Other: Urine Color Yellow Yellow Light Supriya Urine Appearance Clear Clear Urine Odor Normal Comment mixed w/ bloody mucous/stool mixed w/ stool Stool Size Small Stool Characteristics Soft Liquid Brown Laboratory Results WBC 7.02 k/cumm (4.4-10.8) D 06/15/19 07:10 RBC 3.87 m/cumm (4.00-5.20) L 06/15/19 07:10 Hgb 12.1 g/dL (12.0-15.5) 06/15/19 07:10 Hct 37.5 % (36.0-46.0) 06/15/19 07:10 MCV 96.9 fL (80-95) H 06/15/19 07:10 MCH 31.3 pg (27.0-33.0) 06/15/19 07:10 MCHC 32.3 g/dL (32.0-36.0) 06/15/19 07:10 RDW 14.9 % (11.7-14.6) H 06/15/19 07:10 Plt Count 185 x1000/uL (130-400) 06/15/19 07:10 MPV 10.3 fL (8.0-11.0) 06/15/19 07:10 Immature Gran % 0.1 06/15/19 07:10 Neutrophils % 77.4 06/15/19 07:10 Lymphocytes % 11.5 06/15/19 07:10 Monocytes % 9.0 06/15/19 07:10 Eosinophils % 1.9 06/15/19 07:10 Basophils % 0.1 06/15/19 07:10 Absolute Neutrophils 5.43 k/cumm (1.2-6.7) 06/15/19 07:10 Absolute Lymphocytes 0.81 k/cumm (1.2-3.4) L 06/15/19 07:10 Absolute Monocytes 0.63 k/cumm (0.11-0.7) 06/15/19 07:10 Absolute Eosinophils 0.13 k/cumm (0.0-0.7) 06/15/19 07:10 Absolute Basophils 0.01 k/cumm (0.0-0.2) 06/15/19 07:10 PT 18.4 sec (9.3-11.0) H D 06/15/19 06:35 INR 1.9 (0.9-1.1) H 06/15/19 06:35 APTT 32.6 sec (21.0-31.4) H 06/15/19 06:35 Sodium 142 mmol/L (136-145) 06/15/19 07:10 Potassium 3.9 mmol/L (3.5-5.1) 06/15/19 07:10 Chloride 109 mmol/L (98-107) H 06/15/19 07:10 Carbon Dioxide 24.2 mmol/L (21.0-32.0) 06/15/19 07:10 Anion Gap 8.8 mmol/L (3-11) 06/15/19 07:10 BUN 10 mg/dL (7-18) D 06/15/19 07:10 Creatinine 0.81 mg/dL (0.55-1.02) 06/15/19 07:10 Estimated GFR/1.73 m2 >= 60.00 (mL/min/1.73m2) 06/15/19 07:10 Glucose 101 mg/dL (70-100) H 06/15/19 07:10 Lactate 0.7 mmol/L (0.6-1.4) 06/14/19 16:40 Calcium 8.3 mg/dL (8.5-10.1) L 06/15/19 07:10 Magnesium 1.9 mg/dL (1.8-2.4) 06/15/19 07:10 Total Bilirubin Cancelled 06/14/19 10:03 AST Cancelled 06/14/19 10:03 ALT Cancelled 06/14/19 10:03 Alkaline Phosphatase Cancelled 06/14/19 10:03 Total Protein Cancelled 06/14/19 10:03 Albumin Cancelled 06/14/19 10:03 Patient ABO/Rh A Negative 06/14/19 11:30 Antibody Screen Negative 06/14/19 11:30
[2019-06-15 16:50] LABS: PTT Activated 54.9 sec (21.0-31.4)
[2019-06-15] MEDS: Metoprolol CR 50 MG TABCR 200 MG PO (19:47)
[2019-06-16] VITALS (50 sets, daily range): BP systolic 124–137; BP diastolic 48–88; PULSE 44–106; RESP 13–32; TEMP 36.2–37.1; O2SAT 95–97
[2019-06-16 07:18] LABS: Abs Immature Grans 0.01 k/cumm (0.0-0.09); Absolute Basophil Count 0.02 k/cumm (0.0-0.2); Absolute Eosinophil Count 0.14 k/cumm (0.0-0.7); Absolute Lymphocyte Count 0.94 k/cumm (1.2-3.4); Absolute Neutrophil Count 4.34 k/cumm (1.2-6.7); Basophils % 0.3; Eosinophils % 2.4; HCT 37.6 % (36.0-46.0); Immature Grans % 0.2; Lymphocytes % 15.8; Mean Corp. HGB Concentration 31.9 g/dL (32.0-36.0); Mean Corpuscular Hemoglobin 31.2 pg (27.0-33.0); Mean Corpuscular Volume 97.7 fL (80-95); Mean Platelet Volume 10.5 fL (8.0-11.0); Monocytes % 8.4; Neutrophils % 72.9; Platelet Count 186 x1000/uL (130-400); RBC 3.85 m/cumm (4.00-5.20); RBC Distribution Width 14.9 % (11.7-14.6); White Blood Cell Count 5.95 k/cumm (4.4-10.8)
[2019-06-16 07:20] LABS: PTT Activated 67.9 sec (21.0-31.4); Prothrombin Time 14.4 sec (9.3-11.0)
[2019-06-16 07:25] LABS: Anion Gap 7.6 mmol/L (3-11); BUN 10 mg/dL (7-18); CO2 24.4 mmol/L (21.0-32.0); CREATININE 0.78 mg/dL (0.55-1.02); Calcium 8.2 mg/dL (8.5-10.1); Chloride 110 mmol/L (98-107); Glucose 98 mg/dL (70-100); Magnesium 1.9 mg/dL (1.8-2.4); Sodium 142 mmol/L (136-145)
[2019-06-16 07:37] LABS: INR 1.4 (0.9-1.1)
[2019-06-16] MEDS: Cholecalciferol (Vitamin D3) 1,000 UNIT TAB 5000 UNITS PO (07:58)
[2019-06-16] MEDS: Normal Saline 1,000 ML 75 ML IV (07:58)
[2019-06-16] MEDS: Spironolactone 25 MG TAB PO (07:59)
[2019-06-16] MEDS: Docusate Sodium 100 MG CAP PO ×2 (07:59→20:17)
[2019-06-16] MEDS: Multivitamin w/Minerals TAB 1 TAB PO (07:59)
[2019-06-16] MEDS: Escitalopram 20 MG TAB PO (07:59)
--- NOTE | 2019-06-16 08:41 | CMPROGNOTE_ITS ---
- If Service Date Differs Date of service: 06/16/19 Time of Service: 08:41 Care Management Progress Note S/O: Susan will change to acute status today. She states she is feeling better and not having the cramping she had on admission. Her abdomen is internal grinder tender. She is moving out to the medical surgical unit today. She is hopeful her INR will become therapeutic as she does not want to return home on Lovenox injections. CM will continue to follow and support discharge planning. A: Susan is a 79 year old female admitted with Lower GI bleed, on anticoagulation r/t mechanical valve P: Susan will be discharged home when medically ready. She is currently receiving heparin and her Coumadin was restarted, goal INR needs to be between 2-3 r/t mechanical valve. Susan will transport home with family at time of discharge.
[2019-06-16] MEDS: Magnesium Oxide 400 MG TAB PO (10:00)
--- NOTE | 2019-06-16 10:30 | W.PM.PROGNOT ---
Date of Service Date of service: 06/16/19 Time of Service: 10:31 Assessment and Plan Assessment and plan (1) Bright red blood per rectum: Status: Acute Assessment and plan: 79 y/o female on chronic anticoagulation with Coumadin who presented with blood per rectum. H&P reviewed. CT findings suggestive of colitis. This correlates with reported cramping, loose stool, and mucus per rectum. Abdomen mildly tender to palpation across lower abdomen. This may be related to bruising as well. Stool studies ordered to r/o infectious colitis are still pending. Differential diagnosis includes ischemic colitis. No plans for antibiotics at this time. H/H has remained stable. No further gross blood per rectum this morning. Continue supportive care. Will advance diet to soft/ regular. If patient clinically improves and H/H remains stable, then would recommend conservative management with plans for follow-up colonoscopy as an outpatient in 4-6 weeks. If bleeding persists or worsens, then will plan on proceeding with sigmoidoscopy/ colonoscopy more urgently on this admission. Discussed with patient, nurse, and Dr. Dorantes. Will sign out to Dr. Gamez in am. Subjective Subjective Interval history since last seen: Patient seen at bedside in the ICU. She denies any abdominal cramping this am. Still notes some mild tenderness to palpation across lower abdomen, about the same. She denies nausea or vomiting. She denies abdominal pain with eating. She is tolerating full liquids. She has had some small brown bowel movements this morning with no gross blood seen per patient. Exam Const General: cooperative, comfortable, no acute distress and well developed Nutritional Appearance: well nourished Orientation: alert and oriented x3 Resp Effort & Inspection: normal respiratory effort and able to speak in complete sentences GI Inspection: abdominal wall ecchymosis (bruising right lower quadrant abdominal wall), non-distended, obesity and other Palpation: soft, not firm, no guarding, not rigid and tender (mildly tender to palpation across lower abdomen) Other: Patient notes diffuse bruising secondary to chronic anticoagulation Skin General skin exam: no jaundice Objective Objective Clinical Data: Abnormal lab results 06/15/19 06/16/19 06/16/19 Range/Units 16:25 06:30 06:30 RBC 3.85 L (4.00-5.20) m/cumm MCV 97.7 H (80-95) fL MCHC 31.9 L (32.0-36.0) g/dL RDW 14.9 H (11.7-14.6) % Absolute Lymphocytes 0.94 L (1.2-3.4) k/cumm PT (9.3-11.0) sec INR (0.9-1.1) APTT 54.9 H D (21.0-31.4) sec Chloride 110 H (98-107) mmol/L Calcium 8.2 L (8.5-10.1) mg/dL 06/16/19 Range/Units 06:30 RBC (4.00-5.20) m/cumm MCV (80-95) fL MCHC (32.0-36.0) g/dL RDW (11.7-14.6) % Absolute Lymphocytes (1.2-3.4) k/cumm PT 14.4 H (9.3-11.0) sec INR 1.4 H (0.9-1.1) APTT 67.9 H (21.0-31.4) sec Chloride (98-107) mmol/L Calcium (8.5-10.1) mg/dL Vital Signs Temperature 36.2 C L 06/16/19 09:00 Temperature Source Temporal Artery Scan 06/16/19 09:00 Pulse 106 H 06/16/19 06:42 Pulse 86 06/16/19 06:42 Respiratory Rate 17 06/16/19 09:00 Respiratory Effort 06/16/19 09:00 Respiratory Depth Normal 06/16/19 09:00 Respiratory Pattern Normal 06/16/19 09:00 Blood Pressure 137/86 06/16/19 06:42 Blood Pressure Mean 94 06/16/19 06:42 Blood Pressure Position Supine 06/16/19 04:02 Pulse Oximetry 96 06/16/19 09:00 Oxygen Delivery Method Room Air 06/16/19 09:00 Oxygen Flow Rate 0 06/16/19 09:00 Pain Level 0 06/16/19 09:00 Intake & Output 06/15/19 06/15/19 06/16/19 11:59 23:59 11:59 Intake Total 1487.5 / 3629.833 2142.333 / 3629.833 1213.75 / 1213.75 Output Total 350 / 2100 1750 / 2100 1250 / 1250 Balance 1137.5 / 1529.833 392.333 / 1529.833 -36.25 / -36.25 Weight 83.2 kg 84.3 kg Intake: IV 992.5 / 4.833 1072.333 / 4.833 973.75 / 973.75 Oral 495 / 1565 1070 / 1565 240 / 240 Output: Urine 350 / 2100 1750 / 2100 1250 / 1250 Other: Urine Color Yellow Yellow Yellow Urine Appearance Clear Clear Cloudy Urine Odor Normal Normal Comment mixed with some stool. Small stool contamination. Stool Size Small Stool Characteristics Soft Brown Voiding Methods Bedside Commode Bedside Commode Laboratory Results WBC 5.95 k/cumm (4.4-10.8) 06/16/19 06:30 RBC 3.85 m/cumm (4.00-5.20) L 06/16/19 06:30 Hgb 12.0 g/dL (12.0-15.5) 06/16/19 06:30 Hct 37.6 % (36.0-46.0) 06/16/19 06:30 MCV 97.7 fL (80-95) H 06/16/19 06:30 MCH 31.2 pg (27.0-33.0) 06/16/19 06:30 MCHC 31.9 g/dL (32.0-36.0) L 06/16/19 06:30 RDW 14.9 % (11.7-14.6) H 06/16/19 06:30 Plt Count 186 x1000/uL (130-400) 06/16/19 06:30 MPV 10.5 fL (8.0-11.0) 06/16/19 06:30 Immature Gran % 0.2 06/16/19 06:30 Neutrophils % 72.9 06/16/19 06:30 Lymphocytes % 15.8 06/16/19 06:30 Monocytes % 8.4 06/16/19 06:30 Eosinophils % 2.4 06/16/19 06:30 Basophils % 0.3 06/16/19 06:30 Absolute Neutrophils 4.34 k/cumm (1.2-6.7) 06/16/19 06:30 Absolute Lymphocytes 0.94 k/cumm (1.2-3.4) L 06/16/19 06:30 Absolute Monocytes 0.50 k/cumm (0.11-0.7) 06/16/19 06:30 Absolute Eosinophils 0.14 k/cumm (0.0-0.7) 06/16/19 06:30 Absolute Basophils 0.02 k/cumm (0.0-0.2) 06/16/19 06:30 PT 14.4 sec (9.3-11.0) H 06/16/19 06:30 INR 1.4 (0.9-1.1) H 06/16/19 06:30 APTT 67.9 sec (21.0-31.4) H 06/16/19 06:30 Sodium 142 mmol/L (136-145) 06/16/19 06:30 Potassium 4.0 mmol/L (3.5-5.1) 06/16/19 06:30 Chloride 110 mmol/L (98-107) H 06/16/19 06:30 Carbon Dioxide 24.4 mmol/L (21.0-32.0) 06/16/19 06:30 Anion Gap 7.6 mmol/L (3-11) 06/16/19 06:30 BUN 10 mg/dL (7-18) 06/16/19 06:30 Creatinine 0.78 mg/dL (0.55-1.02) 06/16/19 06:30 Estimated GFR/1.73 m2 >= 60.00 (mL/min/1.73m2) 06/16/19 06:30 Glucose 98 mg/dL (70-100) 06/16/19 06:30 Lactate 0.7 mmol/L (0.6-1.4) 06/14/19 16:40 Calcium 8.2 mg/dL (8.5-10.1) L 06/16/19 06:30 Magnesium 1.9 mg/dL (1.8-2.4) 06/16/19 06:30 Total Bilirubin Cancelled 06/14/19 10:03 AST Cancelled 06/14/19 10:03 ALT Cancelled 06/14/19 10:03 Alkaline Phosphatase Cancelled 06/14/19 10:03 Total Protein Cancelled 06/14/19 10:03 Albumin Cancelled 06/14/19 10:03 Patient ABO/Rh A Negative 06/14/19 11:30 Antibody Screen Negative 06/14/19 11:30
--- NOTE | 2019-06-16 12:50 | PGE_ITS ---
Date of Service Date of service: 06/16/19 Time of Service: 12:52 Assessment and Plan Assessment and plan (1) Bright red blood per rectum: Status: Acute Assessment and plan: Potential colitis clinically and by imaging. - Await stool studies to rule out infectious etiology, and continue to hold off on antibiotic therapy at this time. - Continue to manage conservatively. Will stop trending H/H as clinically patient has improved and remains with a normal Hemoglobin. - Advance diet again today, continue anticoagulation, and monitor symptoms. If worsening will benefit from urgent [place]/Sigmoidoscopy as inpatient. Surgery aware and following. Patient remains stable and minimally symptomatic. Will benefit from an additional day of monitoring. If continued improvement/resolution of symptoms, plan on outpatient colonoscopy in 4-6 weeks. (2) Cardiomyopathy: Status: Chronic Assessment and plan: Last ECHO last month, LVEF 40-45%. Currently appears euvolemic. - Continue BB, with Spironolactone resumed this morning. Not on SADIE-I/ARB by home medication review. - Appears euvolemic. Monitor daily weights, ensure low sodium diet. Discontinue IVFs as patient has adequate oral intake at this time. (3) History of aortic valve replacement: Status: Acute Assessment and plan: INR subtherapeutic, and Hgb stable despite BRBPR. Given history of Mechanical Valve will need Heparin gtt as bridge. Continue Warfarin, and monitor daily weights carefully. (4) Moderate obstructive sleep apnea: Status: Chronic Assessment and plan: Continue home CPAP. (5) DVT prophylaxis: Status: Acute Assessment and plan: On active anticoagulation. (6) Advance directive on file: Status: Acute Assessment and plan: Full Code. Subjective Subjective Interval history since last seen: 79 year old woman with a history of Mechanical Aortic Valve on chronic anticoagulation, admitted from [facility] Emergency Department on 06/14 with BRBPR. Mrs. Ash has a past Medical History significant for s/p AVR with a Mechanical Aortic Valve in place, on chronic anticoagulation with Warfarin. Her other history includes cardiomyopathy with LVEF 45%, STEFANIE on CPAP therapy, PHTN, Dyslipidemia, and HTN. The patient initially presented to the ED complaining of BRBPR, with concurrent mild abdominal cramps. Labwork was essentially unremarkable, with an INR noted to be therapeutic, and Hgb that was normal. Imaging with CT showed findings consistent with potential colitis involving the distal colon, thought secondary to inflammatory, infectious, or ischemic etiology. Following admission her coumadin was held, and she was maintained on NPO status and off anticoagulation, with H/H trended over the day. This morning she reports continued improvement, now without a bowel movement over the last 12 hours, and with decreased abdominal cramping. She is also tolerating a full liquid diet. Hemoglobin remains stable and normal. No other events reported. Remains afebrile. Exam Narrative Exam Narrative: General: Patient appears comfortable, AAOX3, NAD Neck: Supple CV: Regular with mild ectopy, nontachycardic, S1S2, No rubs, murmurs, or gallops. Pulmonary: Clear to auscultation bilaterally, no crackles, wheezing, or rhonchi Abdomen: + Bowel Sounds, soft, nondistended. Mild LLQ discomfort with palpation, although improved. Vascular: No lower extremity edema Psych: Normal mood and affect. Objective Objective Clinical Data: Abnormal lab results 06/15/19 06/16/19 06/16/19 Range/Units 16:25 06:30 06:30 RBC 3.85 L (4.00-5.20) m/cumm MCV 97.7 H (80-95) fL MCHC 31.9 L (32.0-36.0) g/dL RDW 14.9 H (11.7-14.6) % Absolute Lymphocytes 0.94 L (1.2-3.4) k/cumm PT (9.3-11.0) sec INR (0.9-1.1) APTT 54.9 H D (21.0-31.4) sec Chloride 110 H (98-107) mmol/L Calcium 8.2 L (8.5-10.1) mg/dL 06/16/19 Range/Units 06:30 RBC (4.00-5.20) m/cumm MCV (80-95) fL MCHC (32.0-36.0) g/dL RDW (11.7-14.6) % Absolute Lymphocytes (1.2-3.4) k/cumm PT 14.4 H (9.3-11.0) sec INR 1.4 H (0.9-1.1) APTT 67.9 H (21.0-31.4) sec Chloride (98-107) mmol/L Calcium (8.5-10.1) mg/dL Vital Signs Temperature 36.2 C L 06/16/19 09:00 Temperature Source Temporal Artery Scan 06/16/19 09:00 Pulse 63 06/16/19 08:01 Pulse 77 06/16/19 11:00 Respiratory Rate 18 06/16/19 11:00 Respiratory Effort 06/16/19 09:00 Respiratory Depth Normal 06/16/19 09:00 Respiratory Pattern Normal 06/16/19 09:00 Blood Pressure 135/68 06/16/19 08:01 Blood Pressure Mean 84 06/16/19 08:01 Blood Pressure Position Supine 06/16/19 04:02 Pulse Oximetry 96 06/16/19 10:00 Oxygen Delivery Method Room Air 06/16/19 09:00 Oxygen Flow Rate 0 06/16/19 09:00 Pain Level 0 06/16/19 09:00 Intake & Output 06/15/19 06/16/19 06/16/19 23:59 11:59 23:59 Intake Total 2142.333 / 3629.833 1389.042 / 1389.042 Output Total 1750 / 2100 1250 / 1250 Balance 392.333 / 1529.833 139.042 / 139.042 Weight 84.3 kg Intake: IV 1072.333 / 2064.833 1149.042 / 1149.042 Oral 1070 / 1565 240 / 240 Output: Urine 1750 / 2100 1250 / 1250 Other: Urine Color Yellow Yellow Urine Appearance Clear Cloudy Urine Odor Normal Comment mixed with some stool. Small stool contamination. Stool Size Small Stool Characteristics Soft Brown Voiding Methods Bedside Commode Bedside Commode Laboratory Results WBC 5.95 k/cumm (4.4-10.8) 06/16/19 06:30 RBC 3.85 m/cumm (4.00-5.20) L 06/16/19 06:30 Hgb 12.0 g/dL (12.0-15.5) 06/16/19 06:30 Hct 37.6 % (36.0-46.0) 06/16/19 06:30 MCV 97.7 fL (80-95) H 06/16/19 06:30 MCH 31.2 pg (27.0-33.0) 06/16/19 06:30 MCHC 31.9 g/dL (32.0-36.0) L 06/16/19 06:30 RDW 14.9 % (11.7-14.6) H 06/16/19 06:30 Plt Count 186 x1000/uL (130-400) 06/16/19 06:30 MPV 10.5 fL (8.0-11.0) 06/16/19 06:30 Immature Gran % 0.2 06/16/19 06:30 Neutrophils % 72.9 06/16/19 06:30 Lymphocytes % 15.8 06/16/19 06:30 Monocytes % 8.4 06/16/19 06:30 Eosinophils % 2.4 06/16/19 06:30 Basophils % 0.3 06/16/19 06:30 Absolute Neutrophils 4.34 k/cumm (1.2-6.7) 06/16/19 06:30 Absolute Lymphocytes 0.94 k/cumm (1.2-3.4) L 06/16/19 06:30 Absolute Monocytes 0.50 k/cumm (0.11-0.7) 06/16/19 06:30 Absolute Eosinophils 0.14 k/cumm (0.0-0.7) 06/16/19 06:30 Absolute Basophils 0.02 k/cumm (0.0-0.2) 06/16/19 06:30 PT 14.4 sec (9.3-11.0) H 06/16/19 06:30 INR 1.4 (0.9-1.1) H 06/16/19 06:30 APTT 67.9 sec (21.0-31.4) H 06/16/19 06:30 Sodium 142 mmol/L (136-145) 06/16/19 06:30 Potassium 4.0 mmol/L (3.5-5.1) 06/16/19 06:30 Chloride 110 mmol/L (98-107) H 06/16/19 06:30 Carbon Dioxide 24.4 mmol/L (21.0-32.0) 06/16/19 06:30 Anion Gap 7.6 mmol/L (3-11) 06/16/19 06:30 BUN 10 mg/dL (7-18) 06/16/19 06:30 Creatinine 0.78 mg/dL (0.55-1.02) 06/16/19 06:30 Estimated GFR/1.73 m2 >= 60.00 (mL/min/1.73m2) 06/16/19 06:30 Glucose 98 mg/dL (70-100) 06/16/19 06:30 Lactate 0.7 mmol/L (0.6-1.4) 06/14/19 16:40 Calcium 8.2 mg/dL (8.5-10.1) L 06/16/19 06:30 Magnesium 1.9 mg/dL (1.8-2.4) 06/16/19 06:30 Total Bilirubin Cancelled 06/14/19 10:03 AST Cancelled 06/14/19 10:03 ALT Cancelled 06/14/19 10:03 Alkaline Phosphatase Cancelled 06/14/19 10:03 Total Protein Cancelled 06/14/19 10:03 Albumin Cancelled 06/14/19 10:03 Patient ABO/Rh A Negative 06/14/19 11:30 Antibody Screen Negative 06/14/19 11:30
--- NOTE | 2019-06-16 14:21 | NUR.NOTE ---
Nursing Note: Pt transferred from ICU to room 214. LS clear, HR irregular, click noted. denies all pain. up with SBG with steady gait. A&Ox3. no edema noted. Heparin drip running. Oriented to room.
[2019-06-16 17:08] LABS: PTT Activated 50.9 sec (21.0-31.4)
[2019-06-16] MEDS: Metoprolol CR 50 MG TABCR 200 MG PO (20:17)
[2019-06-17] VITALS (10 sets, daily range): BP systolic 114–149; BP diastolic 58–68; PULSE 43–94; RESP 16–18; TEMP 36.3–37.4; O2SAT 95–96
--- NOTE | 2019-06-17 07:07 | W.PM.PROGNOT ---
Date of Service Date of service: 06/17/19 Time of Service: 07:07 Assessment and Plan Assessment and plan (1) Bright red blood per rectum: Status: Acute Assessment and plan: Denies any further rectal bleeding. Tolerating Heart healthy diet. Will continue to monitor and will discuss follow up Colonoscopy. Subjective Subjective Interval history since last seen: Patient reports she was able to get a few hours sleep last night. (+) BM yesterday. Denies any further rectal bleeding. Exam Const General: cooperative, healthy appearing and comfortable Orientation: alert and oriented x3 Resp Effort & Inspection: normal respiratory effort, no audible wheezes and no cough GI Inspection: normal to inspection Palpation: soft, no guarding and tender in the RLQ Objective Objective Clinical Data: Abnormal lab results 06/16/19 06/16/19 06/16/19 Range/Units 06:30 06:30 06:30 RBC 3.85 L (4.00-5.20) m/cumm MCV 97.7 H (80-95) fL MCHC 31.9 L (32.0-36.0) g/dL RDW 14.9 H (11.7-14.6) % Absolute Lymphocytes 0.94 L (1.2-3.4) k/cumm PT 14.4 H (9.3-11.0) sec INR 1.4 H (0.9-1.1) APTT 67.9 H (21.0-31.4) sec Chloride 110 H (98-107) mmol/L Calcium 8.2 L (8.5-10.1) mg/dL 06/16/19 Range/Units 16:40 RBC (4.00-5.20) m/cumm MCV (80-95) fL MCHC (32.0-36.0) g/dL RDW (11.7-14.6) % Absolute Lymphocytes (1.2-3.4) k/cumm PT (9.3-11.0) sec INR (0.9-1.1) APTT 50.9 H D (21.0-31.4) sec Chloride (98-107) mmol/L Calcium (8.5-10.1) mg/dL Vital Signs Temperature 36.9 C 06/17/19 03:45 Temperature Source Tympanic 06/17/19 03:45 Pulse 77 06/17/19 03:45 Pulse Rhythm Irregular 06/17/19 00:20 Pulse 79 06/16/19 13:20 Respiratory Rate 17 06/17/19 03:45 Respiratory Effort 06/17/19 00:20 Respiratory Depth Normal 06/17/19 00:20 Respiratory Pattern Normal 06/17/19 00:20 Blood Pressure 149/66 H 06/17/19 03:45 Blood Pressure Mean 97 06/16/19 12:02 Blood Pressure Position Supine 06/16/19 04:02 Pulse Oximetry 95 06/17/19 03:45 Oxygen Delivery Method Room Air 06/17/19 03:45 Oxygen Flow Rate 0 06/17/19 03:45 Pain Level 0 06/17/19 03:45 Intake & Output 06/16/19 06/17/19 06/17/19 18:59 06:59 18:59 Intake Total 2238.400 / 2488.400 250 / 2488.400 Output Total 1300 / 1300 Balance 938.400 / 1188.400 250 / 1188.400 Intake: IV 1628.400 / 1628.400 Oral 610 / 860 250 / 860 Output: Urine 1300 / 1300 Other: Urine Color Yellow Yellow Urine Appearance Clear Clear Comment Small stool contamination. Voids independently in the toilet. NO voiding difficulties raised Stool Size Small Stool Characteristics Soft Voiding Methods Bedside Commode Toilet Laboratory Results WBC 5.95 k/cumm (4.4-10.8) 06/16/19 06:30 RBC 3.85 m/cumm (4.00-5.20) L 06/16/19 06:30 Hgb 12.0 g/dL (12.0-15.5) 06/16/19 06:30 Hct 37.6 % (36.0-46.0) 06/16/19 06:30 MCV 97.7 fL (80-95) H 06/16/19 06:30 MCH 31.2 pg (27.0-33.0) 06/16/19 06:30 MCHC 31.9 g/dL (32.0-36.0) L 06/16/19 06:30 RDW 14.9 % (11.7-14.6) H 06/16/19 06:30 Plt Count 186 x1000/uL (130-400) 06/16/19 06:30 MPV 10.5 fL (8.0-11.0) 06/16/19 06:30 Immature Gran % 0.2 06/16/19 06:30 Neutrophils % 72.9 06/16/19 06:30 Lymphocytes % 15.8 06/16/19 06:30 Monocytes % 8.4 06/16/19 06:30 Eosinophils % 2.4 06/16/19 06:30 Basophils % 0.3 06/16/19 06:30 Absolute Neutrophils 4.34 k/cumm (1.2-6.7) 06/16/19 06:30 Absolute Lymphocytes 0.94 k/cumm (1.2-3.4) L 06/16/19 06:30 Absolute Monocytes 0.50 k/cumm (0.11-0.7) 06/16/19 06:30 Absolute Eosinophils 0.14 k/cumm (0.0-0.7) 06/16/19 06:30 Absolute Basophils 0.02 k/cumm (0.0-0.2) 06/16/19 06:30 PT 14.4 sec (9.3-11.0) H 06/16/19 06:30 INR 1.4 (0.9-1.1) H 06/16/19 06:30 APTT 50.9 sec (21.0-31.4) H D 06/16/19 16:40 Sodium 142 mmol/L (136-145) 06/16/19 06:30 Potassium 4.0 mmol/L (3.5-5.1) 06/16/19 06:30 Chloride 110 mmol/L (98-107) H 06/16/19 06:30 Carbon Dioxide 24.4 mmol/L (21.0-32.0) 06/16/19 06:30 Anion Gap 7.6 mmol/L (3-11) 06/16/19 06:30 BUN 10 mg/dL (7-18) 06/16/19 06:30 Creatinine 0.78 mg/dL (0.55-1.02) 06/16/19 06:30 Estimated GFR/1.73 m2 >= 60.00 (mL/min/1.73m2) 06/16/19 06:30 Glucose 98 mg/dL (70-100) 06/16/19 06:30 Lactate 0.7 mmol/L (0.6-1.4) 06/14/19 16:40 Calcium 8.2 mg/dL (8.5-10.1) L 06/16/19 06:30 Magnesium 1.9 mg/dL (1.8-2.4) 06/16/19 06:30 Total Bilirubin Cancelled 06/14/19 10:03 AST Cancelled 06/14/19 10:03 ALT Cancelled 06/14/19 10:03 Alkaline Phosphatase Cancelled 06/14/19 10:03 Total Protein Cancelled 06/14/19 10:03 Albumin Cancelled 06/14/19 10:03 Stool Source Cancelled 06/16/19 18:04 Stool Campylobacter PCR Cancelled 06/16/19 18:04 Stool Salmonella PCR Cancelled 06/16/19 18:04 Stool Shigella PCR Cancelled 06/16/19 18:04 Cryptosporidium/Giardia Cancelled 06/16/19 18:04 Shiga Toxin (PCR) Cancelled 06/16/19 18:04 Parasite Rprt Status Cancelled 06/16/19 18:04 Patient ABO/Rh A Negative 06/14/19 11:30 Antibody Screen Negative 06/14/19 11:30
[2019-06-17 07:23] LABS: Abs Immature Grans 0.02 k/cumm (0.0-0.09); Absolute Basophil Count 0.02 k/cumm (0.0-0.2); Absolute Eosinophil Count 0.13 k/cumm (0.0-0.7); Absolute Lymphocyte Count 0.87 k/cumm (1.2-3.4); Absolute Monocyte Count 0.58 k/cumm (0.11-0.7); Absolute Neutrophil Count 4.27 k/cumm (1.2-6.7); Basophils % 0.3; Eosinophils % 2.2; HCT 38.2 % (36.0-46.0); HGB 12.5 g/dL (12.0-15.5); Immature Grans % 0.3; Lymphocytes % 14.8; Mean Corp. HGB Concentration 32.7 g/dL (32.0-36.0); Mean Corpuscular Hemoglobin 31.6 pg (27.0-33.0); Mean Corpuscular Volume 96.5 fL (80-95); Mean Platelet Volume 10.6 fL (8.0-11.0); Monocytes % 9.8; Neutrophils % 72.6; Platelet Count 202 x1000/uL (130-400); RBC 3.96 m/cumm (4.00-5.20); RBC Distribution Width 14.9 % (11.7-14.6); White Blood Cell Count 5.89 k/cumm (4.4-10.8)
[2019-06-17 07:33] LABS: Prothrombin Time 14.4 sec (9.3-11.0)
[2019-06-17 07:35] LABS: Anion Gap 9.3 mmol/L (3-11); BUN 14 mg/dL (7-18); CO2 26.7 mmol/L (21.0-32.0); CREATININE 0.92 mg/dL (0.55-1.02); Calcium 9.1 mg/dL (8.5-10.1); Chloride 105 mmol/L (98-107); Estimated GFR 58.89 (mL/min/1.73m2); Glucose 112 mg/dL (70-100); Magnesium 1.9 mg/dL (1.8-2.4); Potassium 4.2 mmol/L (3.5-5.1); Sodium 141 mmol/L (136-145)
[2019-06-17 07:39] LABS: INR 1.4 (0.9-1.1)
[2019-06-17] MEDS: Multivitamin w/Minerals TAB 1 TAB PO (08:06)
[2019-06-17] MEDS: Escitalopram 20 MG TAB PO (08:06)
[2019-06-17] MEDS: Cholecalciferol (Vitamin D3) 1,000 UNIT TAB 5000 UNITS PO (08:06)
[2019-06-17] MEDS: Docusate Sodium 100 MG CAP PO ×2 (08:06→19:47)
[2019-06-17] MEDS: Spironolactone 25 MG TAB PO (08:06)
--- NOTE | 2019-06-17 11:37 | W.PM.PROGNOT ---
Date of Service Date of service: 06/17/19 Time of Service: 11:37 Assessment and Plan Assessment and plan (1) Bright red blood per rectum: Status: Acute Assessment and plan: Potential colitis clinically and by imaging. - Await stool studies to rule out infection - although Fecal Leukocytes negative. Question possible ischemic colitis as etiology. - Continue to manage conservatively. Will stop trending H/H as clinically patient has improved and remains with a normal Hemoglobin. - Continue regular diet, continue anticoagulation, and monitor symptoms. At this point will plan on [place]/Sigmoidoscopy as outpatient. Surgery aware and following. Patient remains stable and minimally symptomatic. Will benefit from an additional day of monitoring. If continued improvement/resolution of symptoms, plan on outpatient colonoscopy in 4-6 weeks. (2) Cardiomyopathy: Status: Chronic Assessment and plan: Last ECHO last month, LVEF 40-45%. Currently appears euvolemic. - Continue BB, with Spironolactone resumed this morning. Not on SADIE-I/ARB by home medication review. - Appears euvolemic. Monitor daily weights, which appear stable, and ensure low sodium diet. (3) History of aortic valve replacement: Status: Acute Assessment and plan: INR subtherapeutic again, and Hgb stable despite prior BRBPR. Given history of Mechanical Valve will continue to need Heparin gtt as bridge. Continue Warfarin, administer another additional dose today, and monitor daily INR. If subtherapeutic again tomorrow, will plan on discharge with [place] Enoxaparin as bridge. (4) Moderate obstructive sleep apnea: Status: Chronic Assessment and plan: Continue home CPAP. (5) DVT prophylaxis: Status: Acute Assessment and plan: On active anticoagulation. (6) Advance directive on file: Status: Acute Assessment and plan: Full Code. Subjective Subjective Interval history since last seen: 79 year old woman with a history of Mechanical Aortic Valve on chronic anticoagulation, admitted from [facility] Emergency Department on 06/14 with BRBPR. Mrs. Ash has a past Medical History significant for s/p AVR with a Mechanical Aortic Valve in place, on chronic anticoagulation with Warfarin. Her other history includes cardiomyopathy with LVEF 45%, STEFANIE on CPAP therapy, PHTN, Dyslipidemia, and HTN. The patient initially presented to the ED complaining of BRBPR, with concurrent mild abdominal cramps. Labwork was essentially unremarkable, with an INR noted to be therapeutic, and Hgb that was normal. Imaging with CT showed findings consistent with potential colitis involving the distal colon, thought secondary to inflammatory, infectious, or ischemic etiology. Following admission her coumadin was held, and she was maintained on NPO status and off anticoagulation, with H/H trended over the day. This morning she reports continued improvement, no further blood in her stool, and vastly improved abdominal cramping. She is also tolerating a normal diet. Hemoglobin remains stable and normal. No other events reported. Remains afebrile. Exam Narrative Exam Narrative: General: Patient appears comfortable, AAOX3, NAD Neck: Supple CV: Regular with mild continued ectopy, nontachycardic, S1S2, No rubs, murmurs, or gallops. Pulmonary: Clear to auscultation bilaterally, no crackles, wheezing, or rhonchi Abdomen: + Bowel Sounds, soft, nondistended. Vascular: No lower extremity edema Psych: Normal mood and affect. Objective Objective Clinical Data: Abnormal lab results 06/16/19 06/17/19 06/17/19 Range/Units 16:40 06:55 06:55 RBC 3.96 L (4.00-5.20) m/cumm MCV 96.5 H (80-95) fL RDW 14.9 H (11.7-14.6) % Absolute Lymphocytes 0.87 L (1.2-3.4) k/cumm PT (9.3-11.0) sec INR (0.9-1.1) APTT 50.9 H D (21.0-31.4) sec Glucose 112 H (70-100) mg/dL 06/17/19 Range/Units 06:55 RBC (4.00-5.20) m/cumm MCV (80-95) fL RDW (11.7-14.6) % Absolute Lymphocytes (1.2-3.4) k/cumm PT 14.4 H (9.3-11.0) sec INR 1.4 H (0.9-1.1) APTT (21.0-31.4) sec Glucose (70-100) mg/dL Vital Signs Temperature 36.7 C 06/17/19 07:20 Temperature Source Tympanic 06/17/19 07:20 Pulse 82 06/17/19 07:32 Pulse Rhythm Irregular 06/17/19 08:00 Pulse 79 06/16/19 13:20 Respiratory Rate 18 06/17/19 07:20 Respiratory Effort 06/17/19 08:00 Respiratory Depth Normal 06/17/19 08:00 Respiratory Pattern Normal 06/17/19 08:00 Blood Pressure 149/68 H 06/17/19 07:20 Blood Pressure Mean 97 06/16/19 12:02 Blood Pressure Position Supine 06/16/19 04:02 Pulse Oximetry 96 06/17/19 07:20 Oxygen Delivery Method Room Air 06/17/19 07:20 Oxygen Flow Rate 0 06/17/19 07:20 Pain Level 0 06/17/19 08:00 Intake & Output 06/16/19 06/16/19 06/17/19 11:59 23:59 11:59 Intake Total 1509.042 / 2478.400 969.358 / 2478.400 490 / 490 Output Total 1250 / 1900 650 / 1900 Balance 259.042 / 578.400 319.358 / 578.400 490 / 490 Weight 84.3 kg 83.7 kg Intake: IV 1149.042 / 1628.400 479.358 / 1628.400 Oral 360 / 850 490 / 850 490 / 490 Output: Urine 1250 / 1900 650 / 1900 Other: Urine Color Yellow Yellow Urine Appearance Cloudy Clear Clear Urine Odor Normal Comment Small stool contamination. Voids independently in the toilet. NO voiding difficulties raised Stool Size Small Stool Characteristics Soft Voiding Methods Bedside Commode Toilet Laboratory Results WBC 5.89 k/cumm (4.4-10.8) 06/17/19 06:55 RBC 3.96 m/cumm (4.00-5.20) L 06/17/19 06:55 Hgb 12.5 g/dL (12.0-15.5) 06/17/19 06:55 Hct 38.2 % (36.0-46.0) 06/17/19 06:55 MCV 96.5 fL (80-95) H 06/17/19 06:55 MCH 31.6 pg (27.0-33.0) 06/17/19 06:55 MCHC 32.7 g/dL (32.0-36.0) 06/17/19 06:55 RDW 14.9 % (11.7-14.6) H 06/17/19 06:55 Plt Count 202 x1000/uL (130-400) 06/17/19 06:55 MPV 10.6 fL (8.0-11.0) 06/17/19 06:55 Immature Gran % 0.3 06/17/19 06:55 Neutrophils % 72.6 06/17/19 06:55 Lymphocytes % 14.8 06/17/19 06:55 Monocytes % 9.8 06/17/19 06:55 Eosinophils % 2.2 06/17/19 06:55 Basophils % 0.3 06/17/19 06:55 Absolute Neutrophils 4.27 k/cumm (1.2-6.7) 06/17/19 06:55 Absolute Lymphocytes 0.87 k/cumm (1.2-3.4) L 06/17/19 06:55 Absolute Monocytes 0.58 k/cumm (0.11-0.7) 06/17/19 06:55 Absolute Eosinophils 0.13 k/cumm (0.0-0.7) 06/17/19 06:55 Absolute Basophils 0.02 k/cumm (0.0-0.2) 06/17/19 06:55 PT 14.4 sec (9.3-11.0) H 06/17/19 06:55 INR 1.4 (0.9-1.1) H 06/17/19 06:55 APTT 50.9 sec (21.0-31.4) H D 06/16/19 16:40 Sodium 141 mmol/L (136-145) 06/17/19 06:55 Potassium 4.2 mmol/L (3.5-5.1) 06/17/19 06:55 Chloride 105 mmol/L (98-107) 06/17/19 06:55 Carbon Dioxide 26.7 mmol/L (21.0-32.0) 06/17/19 06:55 Anion Gap 9.3 mmol/L (3-11) 06/17/19 06:55 BUN 14 mg/dL (7-18) 06/17/19 06:55 Creatinine 0.92 mg/dL (0.55-1.02) 06/17/19 06:55 Estimated GFR/1.73 m2 58.89 (mL/min/1.73m2) 06/17/19 06:55 Glucose 112 mg/dL (70-100) H 06/17/19 06:55 Lactate 0.7 mmol/L (0.6-1.4) 06/14/19 16:40 Calcium 9.1 mg/dL (8.5-10.1) 06/17/19 06:55 Magnesium 1.9 mg/dL (1.8-2.4) 06/17/19 06:55 Total Bilirubin Cancelled 06/14/19 10:03 AST Cancelled 06/14/19 10:03 ALT Cancelled 06/14/19 10:03 Alkaline Phosphatase Cancelled 06/14/19 10:03 Total Protein Cancelled 06/14/19 10:03 Albumin Cancelled 06/14/19 10:03 Stool Source Cancelled 06/16/19 18:04 Stool Campylobacter PCR Cancelled 06/16/19 18:04 Stool Salmonella PCR Cancelled 06/16/19 18:04 Stool Shigella PCR Cancelled 06/16/19 18:04 Cryptosporidium/Giardia Cancelled 06/16/19 18:04 Shiga Toxin (PCR) Cancelled 06/16/19 18:04 Parasite Rprt Status Cancelled 06/16/19 18:04 Patient ABO/Rh A Negative 06/14/19 11:30 Antibody Screen Negative 06/14/19 11:30
--- NOTE | 2019-06-17 14:22 | CHAPLAIN ---
I had a short visit with Susan. She had family/friends visiting. I introduced myself, explained my role and offered support. I will visit tomorrow.
--- NOTE | 2019-06-17 16:01 | PDOC.CMPRO ---
Care Management Progress Note S/O: Susan continues to be closely monitored at this time. Per MD, her symptoms have resolved and she will discharge once her INR is stable per MD. CM will continue to follow and support discharge planning. CM continues to follow. A: Susan is a 79 year old female admitted with Lower GI bleed, on anticoagulation r/t mechanical valve P: Susan will be discharged home when medically ready-per MD when her INR becomes therapeutic. Susan will transport home with family at time of discharge, no additional services anticipated at this time.
[2019-06-17] MEDS: Metoprolol CR 50 MG TABCR 200 MG PO (19:45)
[2019-06-18] VITALS (8 sets, daily range): BP systolic 120–152; BP diastolic 55–84; PULSE 62–82; RESP 16–18; TEMP 36.2–36.8; O2SAT 94–98
[2019-06-18 07:11] LABS: Abs Immature Grans 0.02 k/cumm (0.0-0.09); Absolute Basophil Count 0.02 k/cumm (0.0-0.2); Absolute Eosinophil Count 0.19 k/cumm (0.0-0.7); Absolute Lymphocyte Count 0.89 k/cumm (1.2-3.4); Absolute Monocyte Count 0.49 k/cumm (0.11-0.7); Absolute Neutrophil Count 4.28 k/cumm (1.2-6.7); Basophils % 0.3; Eosinophils % 3.2; HCT 39.7 % (36.0-46.0); HGB 12.8 g/dL (12.0-15.5); Immature Grans % 0.3; Lymphocytes % 15.1; Mean Corp. HGB Concentration 32.2 g/dL (32.0-36.0); Mean Corpuscular Hemoglobin 31.1 pg (27.0-33.0); Mean Corpuscular Volume 96.4 fL (80-95); Mean Platelet Volume 10.5 fL (8.0-11.0); Monocytes % 8.3; Neutrophils % 72.8; Platelet Count 208 x1000/uL (130-400); RBC 4.12 m/cumm (4.00-5.20); RBC Distribution Width 14.8 % (11.7-14.6); White Blood Cell Count 5.89 k/cumm (4.4-10.8)
--- NOTE | 2019-06-18 07:13 | W.PM.PROGNOT ---
Date of Service Date of service: 06/18/19 Time of Service: 07:14 Assessment and Plan Assessment and plan (1) Bright red blood per rectum: Status: Acute Assessment and plan: Patient is tolerating regular diet. No further BRB with BMs, however BM yesterday was hemoccult (+). Denies any abdominal pain or discomfort. Stool studies results were negative. She is over due for screening Colonoscopy. Her last screening was in 2011 which was remarkable for Tubular adenoma x2 and Tubulovillious adenoma x 1. Upon D/C will set her up with outpatient pre-op for Colonoscopy in 4-6 weeks. Subjective Subjective Interval history since last seen: Patient reports she is feeling better. Denies any abdominal pain or BRB with BMs. Tolerating regular diet. Exam Const General: cooperative, healthy appearing and comfortable Resp Effort & Inspection: normal respiratory effort, no audible wheezes and no cough Objective Objective Clinical Data: Abnormal lab results 06/17/19 06/17/19 06/17/19 Range/Units 06:55 06:55 06:55 RBC 3.96 L (4.00-5.20) m/cumm MCV 96.5 H (80-95) fL RDW 14.9 H (11.7-14.6) % Absolute Lymphocytes 0.87 L (1.2-3.4) k/cumm PT 14.4 H (9.3-11.0) sec INR 1.4 H (0.9-1.1) Glucose 112 H (70-100) mg/dL Vital Signs Temperature 36.5 C 06/18/19 05:00 Temperature Source Tympanic 06/18/19 05:00 Pulse 72 06/18/19 05:00 Pulse Rhythm Irregular 06/18/19 03:00 Pulse 79 06/16/19 13:20 Respiratory Rate 17 06/18/19 05:00 Respiratory Effort 06/18/19 03:00 Respiratory Depth Normal 06/18/19 03:00 Respiratory Pattern Normal 06/18/19 03:00 Blood Pressure 138/82 06/18/19 05:00 Blood Pressure Mean 97 06/16/19 12:02 Blood Pressure Position Supine 06/16/19 04:02 Pulse Oximetry 98 06/18/19 05:00 Oxygen Delivery Method Room Air 06/18/19 05:00 Oxygen Flow Rate 0 06/18/19 05:00 Pain Level 0 06/18/19 05:00 Intake & Output 06/17/19 06/18/19 06/18/19 18:59 06:59 18:59 Intake Total 409.008 / 818.016 409.008 / 818.016 Balance 409.008 / 818.016 409.008 / 818.016 Intake: IV 169.008 / 338.016 169.008 / 338.016 Oral 240 / 480 240 / 480 Other: Urine Color Yellow Urine Appearance Clear Urine Odor None Comment VOIDED IN TOILET BUT VERY SMALL AMT GOT INTO HAT IN TOILET TO CAPTURE BMs THAT URINE WAS CLEAR, YELLOW. Stool Occult Blood Positive Stool Size Large Stool Characteristics Soft Voiding Methods Toilet Laboratory Results WBC 5.89 k/cumm (4.4-10.8) 06/17/19 06:55 RBC 3.96 m/cumm (4.00-5.20) L 06/17/19 06:55 Hgb 12.5 g/dL (12.0-15.5) 06/17/19 06:55 Hct 38.2 % (36.0-46.0) 06/17/19 06:55 MCV 96.5 fL (80-95) H 06/17/19 06:55 MCH 31.6 pg (27.0-33.0) 06/17/19 06:55 MCHC 32.7 g/dL (32.0-36.0) 06/17/19 06:55 RDW 14.9 % (11.7-14.6) H 06/17/19 06:55 Plt Count 202 x1000/uL (130-400) 06/17/19 06:55 MPV 10.6 fL (8.0-11.0) 06/17/19 06:55 Immature Gran % 0.3 06/17/19 06:55 Neutrophils % 72.6 06/17/19 06:55 Lymphocytes % 14.8 06/17/19 06:55 Monocytes % 9.8 06/17/19 06:55 Eosinophils % 2.2 06/17/19 06:55 Basophils % 0.3 06/17/19 06:55 Absolute Neutrophils 4.27 k/cumm (1.2-6.7) 06/17/19 06:55 Absolute Lymphocytes 0.87 k/cumm (1.2-3.4) L 06/17/19 06:55 Absolute Monocytes 0.58 k/cumm (0.11-0.7) 06/17/19 06:55 Absolute Eosinophils 0.13 k/cumm (0.0-0.7) 06/17/19 06:55 Absolute Basophils 0.02 k/cumm (0.0-0.2) 06/17/19 06:55 PT 14.4 sec (9.3-11.0) H 06/17/19 06:55 INR 1.4 (0.9-1.1) H 06/17/19 06:55 APTT 50.9 sec (21.0-31.4) H D 06/16/19 16:40 Sodium 141 mmol/L (136-145) 06/17/19 06:55 Potassium 4.2 mmol/L (3.5-5.1) 06/17/19 06:55 Chloride 105 mmol/L (98-107) 06/17/19 06:55 Carbon Dioxide 26.7 mmol/L (21.0-32.0) 06/17/19 06:55 Anion Gap 9.3 mmol/L (3-11) 06/17/19 06:55 BUN 14 mg/dL (7-18) 06/17/19 06:55 Creatinine 0.92 mg/dL (0.55-1.02) 06/17/19 06:55 Estimated GFR/1.73 m2 58.89 (mL/min/1.73m2) 06/17/19 06:55 Glucose 112 mg/dL (70-100) H 06/17/19 06:55 Lactate 0.7 mmol/L (0.6-1.4) 06/14/19 16:40 Calcium 9.1 mg/dL (8.5-10.1) 06/17/19 06:55 Magnesium 1.9 mg/dL (1.8-2.4) 06/17/19 06:55 Total Bilirubin Cancelled 06/14/19 10:03 AST Cancelled 06/14/19 10:03 ALT Cancelled 06/14/19 10:03 Alkaline Phosphatase Cancelled 06/14/19 10:03 Total Protein Cancelled 06/14/19 10:03 Albumin Cancelled 06/14/19 10:03 Stool Source Cancelled 06/16/19 18:04 Stool Campylobacter PCR Cancelled 06/16/19 18:04 Stool Salmonella PCR Cancelled 06/16/19 18:04 Stool Shigella PCR Cancelled 06/16/19 18:04 Cryptosporidium/Giardia Cancelled 06/16/19 18:04 Shiga Toxin (PCR) Cancelled 06/16/19 18:04 Parasite Rprt Status Cancelled 06/16/19 18:04 Patient ABO/Rh A Negative 06/14/19 11:30 Antibody Screen Negative 06/14/19 11:30
[2019-06-18 07:28] LABS: Anion Gap 8.3 mmol/L (3-11); BUN 16 mg/dL (7-18); CO2 25.7 mmol/L (21.0-32.0); Chloride 106 mmol/L (98-107); Estimated GFR 53.48 (mL/min/1.73m2); Glucose 108 mg/dL (70-100); Magnesium 1.9 mg/dL (1.8-2.4); Potassium 4.3 mmol/L (3.5-5.1); Sodium 140 mmol/L (136-145)
[2019-06-18 07:33] LABS: INR 1.9 (0.9-1.1); PTT Activated 52.4 sec (21.0-31.4); Prothrombin Time 18.5 sec (9.3-11.0)
[2019-06-18] MEDS: Escitalopram 20 MG TAB PO (07:41)
[2019-06-18] MEDS: Multivitamin w/Minerals TAB 1 TAB PO (07:41)
[2019-06-18] MEDS: Docusate Sodium 100 MG CAP PO (07:42)
[2019-06-18] MEDS: Cholecalciferol (Vitamin D3) 1,000 UNIT TAB 5000 UNITS PO (07:42)
[2019-06-18] MEDS: Spironolactone 25 MG TAB PO (07:42)
[2019-06-18] MEDS: Warfarin 1 MG TAB PO (09:33)
[2019-06-18 11:32] LABS: Campylobacter PCR SEE COMMENTS; Salmonella PCR SEE COMMENTS; Shiga Toxin PCR SEE COMMENTS; Shigella/Enteroinvasive Ecoli SEE COMMENTS
[2019-06-18 12:25] LABS: Prothrombin Time 19.6 sec (9.3-11.0)
--- NOTE | 2019-06-18 13:25 | W.PM.DS.N ---
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 Mrs. Ash has a past Medical History significant for s/p AVR with a Mechanical Aortic Valve in place, on chronic anticoagulation with Warfarin. Her other history includes cardiomyopathy with LVEF 45%, STEFANIE on CPAP therapy, PHTN, Dyslipidemia, and HTN. The patient initially presented to the ED complaining of BRBPR, with concurrent mild abdominal cramps. Labwork was essentially unremarkable, with an INR noted to be therapeutic, and Hgb that was normal. Imaging with CT showed findings consistent with potential colitis involving the distal colon, thought secondary to inflammatory, infectious, or ischemic etiology. Following admission her coumadin was initially held, and she was maintained on NPO status and off anticoagulation, with H/H trended over the day. Over the following days Mrs. Ash's symptoms rapidly improved, with no further blood in her stool, and vastly improved abdominal cramping. She was maintained on a heparin drip and Coumadin was reinitiated. Today her INR is 2. She is also tolerating a normal diet. Hemoglobin remains stable, normal, and essentially unchanged. No other events reported. Remains afebrile. Hospital Course: (1) Bright red blood per rectum: Potential colitis clinically and by imaging. - Stool studies to rule out infection still pending at time of discharge, although Fecal Leukocytes are negative. Question possible ischemic colitis as etiology. - Symptoms are resolved and patient has tolerated being on anticoagulation without further discomfort or significant bleeding. At this point will plan on [place]/Sigmoidoscopy as outpatient in 4-6 weeks - follow-up appointment with surgical services made prior to discharge. (2) Cardiomyopathy: ECHO last month, LVEF 40-45%. Currently appears euvolemic. - Continue BB, with Spironolactone resumed previously. Not on SADIE-I/ARB by home medication review. - Appears euvolemic with stable weights while hospitalized. Was maintained on low sodium diet while hospitalized. (3) History of aortic valve replacement: INR subtherapeutic again but climbing and now at 2. Given patient's Mechanical Aortic Valve with concurrent LV Systolic dysfunction, INR goal is 3 (2.5-3.5). - Continue home Coumadin dose, and will continue bridge with change to Enoxaparin for an additional 3 days tostart. - Plan will be to repeat INR in 2 days, with close outpatient PCP or cardiology clinic follow-up for further adjustment as necessary. - Patient is aware and has utilized bridge with Lovenox in the past. She does not wish to administer her own lovenox shots, but assures me that her neighbor is an RN and will be administering her shots. Declined Home Health. (4) Moderate obstructive sleep apnea: Continue home CPAP. (5) Advance directive on file: Full Code. Home Meds and New Rx's Prescriptions: New enoxaparin 80 mg/0.8 mL syringe 85 mg SC Q12H Qty: 8 RF: 0 Continued spironolactone 25 mg tablet 25 mg PO DAILY Qty: 90 RF: 12 escitalopram oxalate 20 mg tablet 20 mg PO DAILY Qty: 90 RF: 11 metoprolol succinate 200 mg tablet extended release 24 hr 200 mg PO QPM RF: 0 docusate sodium [Colace] 100 MG capsule 100 mg PO BID Qty: 180 RF: 4 aspirin [Aspirin Low-Strength] 81 MG tablet,chewable 81 mg PO QPM RF: 0 cholecalciferol (vitamin D3) 5,000 UNIT tablet 5,000 unit PO DAILY RF: 0 acetaminophen [Tylenol] 325 MG tablet 650 mg PO Q6H PRN PRNQty: 60 RF: 0 multivitamin with minerals Tablet 1 tab PO DAILY RF: 0 calcium citrate-vitamin D3 [Citracal + D Maximum] 315 mg- 250 unit Tablet 2 tab PO BID RF: 0 warfarin [Coumadin] 2.5 mg tablet 2.5 mg PO QPM RF: 0 Discharge Instructions Stand Alone Forms: Nursing Discharge Form Referrals: Rula Arora PA [[facility] [employer] [facility]] - 07/18/19 9:00 am Tamanna Li MD, [place] [Primary Care Provider] - 07/01/19 11:00 am Activity:: No strenuous activity Equipment/Supplies:: No Equipment Needed Diet:: Low Sodium Discharge Orders Discharge Orders: Discharge Order (Routine); Ordered 06/18/19 Ordered By: Lamine Dorantes DS: Summary Status at Discharge Functional status at discharge: independent ambulation Overall status at discharge: patient is back to baseline Mental Status: mental status grossly normal Speech and Movement: speech and movement normal Mood: congruent mood Affect: normal affect Exam Psych Mental Status: mental status grossly normal Speech and Movement: speech and movement normal Mood: congruent mood Affect: normal affect DS: Data Vitals/I&O Vitals and I&O: Vital Signs Temperature 36.8 C 06/18/19 11:45 Temperature Source Tympanic 06/18/19 11:45 Pulse 69 06/18/19 11:45 Pulse Rhythm Irregular 06/18/19 07:40 Pulse 79 06/16/19 13:20 Respiratory Rate 18 06/18/19 11:45 Respiratory Effort 06/18/19 07:40 Respiratory Depth Normal 06/18/19 07:40 Respiratory Pattern Normal 06/18/19 07:40 Blood Pressure 149/83 H 06/18/19 11:45 Blood Pressure Mean 97 06/16/19 12:02 Blood Pressure Position Supine 06/16/19 04:02 Pulse Oximetry 95 06/18/19 11:45 Oxygen Delivery Method Room Air 06/18/19 11:45 Oxygen Flow Rate 0 06/18/19 11:45 Pain Level 0 06/18/19 11:45 Comment 06/18/19 07:30 Intake & Output 06/17/19 06/18/19 06/18/19 23:59 11:59 23:59 Intake Total 578.016 / 1068.016 370 / 490 120 / 490 Balance 578.016 / 1068.016 370 / 490 120 / 490 Weight 83.8 kg Intake: IV 338.016 / 338.016 Oral 240 / 730 370 / 490 120 / 490 Other: Urine Color Yellow Urine Appearance Clear Urine Odor None Comment VOIDED IN TOILET BUT VERY SMALL AMT GOT INTO HAT IN TOILET TO CAPTURE BMs THAT URINE WAS CLEAR, YELLOW. Stool Occult Blood Positive Stool Size Large Stool Characteristics Soft Voiding Methods Toilet Data Completed and Pending Completed studies during hospitalization [Text1]: Exam(s) a CT:CT abdomen & pelvis w EXAM: CT ABDOMEN PELVIS W CLINICAL HISTORY: rectal bleeding, on warfarin, crampy abd pain. TECHNIQUE: COMPARISON: RENAL COLIC WO CONTRAST from 03/22/2014 FINDINGS: CT examination of the abdomen and pelvis was performed bolus infusion of 100 cc of Omnipaque 350. Images obtained through the lung bases show 5 millimeter intrapulmonary nodule which appears to have been present on prior CT of 2013. Additionally a 4 millimeter pulmonary nodule is noted more superiorly which appears to be located in portion the lung above prior scanning field. The liver and spleen appear normal. Pancreas is unremarkable. No biliary dilatation. Gallbladder is CT normal. Adrenals and kidneys appear normal with no evidence of urinary tract calcification or obstruction. Abdominal aorta shows significant wall calcification. No abdominal aortic aneurysm. Celiac axis shows stenosis of probably 50-70 percent of the luminal diameter proximally. SMA renal arteries and FIDENCIO unremarkable. No significant abdominal wall hernia seen. No abdominal or pelvic adenopathy. Appendix is normal. There is marked wall thickening and edema of the colon from distal descending colon to the rectum. There is associated pericolonic fat edema and there is a small quantity of free fluid in the pelvis. Findings as described are consistent with colitis of uncertain etiology. IMPRESSION: Findings consistent with colitis involving the distal colon as described above. the differential diagnosis would include infectious, inflammatory or ischemic etiology. Labs on day of discharge: Labs from last 24 hours 06/18/19 06/18/19 06/18/19 11:58 06:55 06:55 WBC 5.89 RBC 4.12 Hgb 12.8 Hct 39.7 MCV 96.4 H MCH 31.1 MCHC 32.2 RDW 14.8 H Plt Count 208 MPV 10.5 Immature Gran % 0.3 Neutrophils % 72.8 Lymphocytes % 15.1 Monocytes % 8.3 Eosinophils % 3.2 Basophils % 0.3 Absolute Neutrophils 4.28 Absolute Lymphocytes 0.89 L Absolute Monocytes 0.49 Absolute Eosinophils 0.19 Absolute Basophils 0.02 PT 19.6 H 18.5 H INR 2.0 H 1.9 H APTT 52.4 H Sodium Potassium Chloride Carbon Dioxide Anion Gap BUN Creatinine Estimated GFR/1.73 m2 Glucose Calcium Magnesium Stool Campylobacter PCR Stool Salmonella PCR Stool Shigella PCR Shiga Toxin (PCR) 06/18/19 06/16/19 06:55 20:30 WBC RBC Hgb Hct MCV MCH MCHC RDW Plt Count MPV Immature Gran % Neutrophils % Lymphocytes % Monocytes % Eosinophils % Basophils % Absolute Neutrophils Absolute Lymphocytes Absolute Monocytes Absolute Eosinophils Absolute Basophils PT INR APTT Sodium 140 Potassium 4.3 Chloride 106 Carbon Dioxide 25.7 Anion Gap 8.3 BUN 16 Creatinine 1.00 Estimated GFR/1.73 m2 53.48 Glucose 108 H Calcium 9.0 Magnesium 1.9 Stool Campylobacter PCR See comments Stool Salmonella PCR See comments Stool Shigella PCR See comments Shiga Toxin (PCR) See comments [facility] Medical History Anticoagulated Anticoagulated on warfarin (Chronic) AVR; INR goal 2.5-3.5 Arthralgia of ankle (Resolved) 01/13/08 ankle and/or foot Colette infection (Resolved) 03/17/15 Cardiac LV ejection fraction 21-40% (Chronic 03/22/17) Cardiomyopathy (Chronic) Cholelithiasis without obstruction (Chronic) De Quervain's tenosynovitis, 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) De Quervain's tenosynovitis, right (Chronic 02/21/18) Injection: 02/21/18 Elev transaminase/LDH (Resolved) 03/24/09 Endometriosis (Resolved) s/p POOJA BSO 1979 Essential hypertension (Chronic) Fracture, tibial plateau (Resolved) 02/13/13 Heart valve replaced HTN (hypertension) Hydronephrosis (Resolved) 12/25/08 R UJV Calculus causing very mild hydronephrosis right Hyperlipidemia (Chronic) Low back pain (Chronic 08/17/04) per Xray-L2-L3 DDD/DJD, L3-L4; L4-L5 DDD and scoliosis Moderate obstructive sleep apnea (Chronic 05/30/17) Nuclear cataract (Resolved) 07/17/13 [facility]; S/P surgery right eye; 08/06/13 [facility] right eye Pain of left calf (Resolved) Pap smear vagina w LGSIL (Resolved) 08/17/03 neg HPV Polyp of colon, adenomatous Polyp of colon, adenomatous (Chronic) 2001 2011; 3 TUBULAR ADENOMAS 2012; 1 TUBULAR ADENOMA Proteinuria (Resolved) 08/17/052005; now resolved Right anterior shoulder pain (Resolved) Right carpal tunnel syndrome (Chronic 01/12/18) Ruptured eardrum (Acute) Strep throat (Resolved) 01/05/16 x 2 Stress due to spouse with dementia (Chronic 02/20/18) Wrist pain, chronic (Acute) Surgical History Abdominal hysterectomy (~1979) and BSO; endometriosis AORTIC VALVE REPLACEMENT (~2001) Colonoscopy - IV Sedation (07/05/16) Extraction of cataract (07/17/13) 07/17/13 [facility]; RIGHT EYE 08/06/13 [facility] LEFT EYE H/O aortic valve replacement (Resolved) 09/18/01 H/O cataract removal with insertion of prosthetic lens (Resolved) Open Carpal Tunnel release (01/02/18) (R) Presence of other heart-valve replacement (Chronic) last echo 04/24; reg. echos-stable EF=50%; aortic; 07/04 ECHO;[facility] [place] S/P abdominal hysterectomy (Resolved) and BSO; endometriosis Family History Mother , AGE 75 Essential hypertension Heart disease Father , FALL/HEAD INJURY at age 90. Essential hypertension Sister Alzheimer disease Maternal Grandmother , AGE 61 Heart disease Paternal Grandmother , AGE 80 Heart disease Lymphoma Daughter Heart disease Sister No problems noted. Son No problems noted. Social History Smoking/Tobacco Use Status: Never Alcohol Intake: current Alcohol Intake frequency: holidays/special occasions only Alcohol type: wine Drug use: Never Substance use type: does not use Caregiver/Support person: No Household members: none Housing: house Communication Needs: None Do you need help understanding health information?: Often Pets and animals: Yes Pets and animals: dog(s) Sexually active: No Do you think of yourself as: straight/heterosexual What is your relationship status?: How often do you talk on the phone with friends or family?: three or more times per week How often do you get together with friends or relatives?: twice per week How often do you attend denominational or latter-day services?: decline to answer Do you belong to any clubs or organized social groups?: yes Panel score (0-1 are the most socially isolated patients): 2 What type of physical activity do you participate in: other Duration: 45-60 minutes/day Frequency: 1-2 times per week Antonia/Caodaism: Jain Special antonia needs: No Seatbelt use: always Helmet use: No Drive intox or ride w/intox power screwdriver operator: No Do you feel safe at home: Yes Do you feel safe in your relationship?: Yes
--- NOTE | 2019-06-18 18:25 | PDOC.CMDIS ---
LACE Index Scoring Tool - Questions: Length of Stay (in days): 3 Acuity (Admit via E.D.?): Yes Comorbidities: Cerebrovascular Disease E.D. Visits: 2 - Answers: Total Score: 9 Risk of Readmission: Low Risk Care Management Discharge Reason for Hospitalization: Lower GI bleed, on anticoagulation r/t mechanical valve Discharge Plan: Susan will return home when ready per MD. CM supported coordination of new Lovenox prescription. Susan will have her INR checked within a few days. She will follow up with her PCP and plan of care as prescribed. She will transport via private vehicle with her daughter. Patient/Family Education Needs: Review discharge instructions, discuss Ask Me Three.
== END 2019-06-18 16:10 | disposition home or self-care (01) | DRG 378 ==
LOC: ER 14:27 → ICU 14:52 → MS 06-16 16:21 → ICU 06-25 15:21
PROVIDERS: Surgery; Admitting Provider Internal Medicine; Emergency Provider Emergency Medicine; PCP Family Medicine; Visit Provider Internal Medicine
DX: K62.5 Hemorrhage of anus and rectum (principal); I42.9 Cardiomyopathy, unspecified; K52.9 Noninfective gastroenteritis and colitis, unspecified; R10.9 Unspecified abdominal pain; R19.8 Other specified symptoms and signs involving the digestive system and abdomen; Z95.2 Presence of prosthetic heart valve; Z79.01 Long term (current) use of anticoagulants; G47.33 Obstructive sleep apnea (adult) (pediatric); I27.20 Pulmonary hypertension, unspecified; E78.5 Hyperlipidemia, unspecified; I10 Essential (primary) hypertension; Z23 Encounter for immunization
CPT/HCPCS: 36415; 80048; 80053; 86850; 86900; 86901; 87329; 87505; 97161; 99221; 99223; 99232; 99233; 99239; 99252; 99285; 74177; 83605; 83630; 83735; 85014; 85018; 85025; 85610; 85730; 99284; J3490

== ENCOUNTER 2019-06-20 01:35 | Outpatient (CLI) | payer MEDICARE, OTHER, SELFPAY ==
[2019-06-20 13:22] LABS: INR 3.6 (0.9-1.1); Prothrombin Time 34.9 sec (9.3-11.0)
== END 2019-06-20 01:55 ==
PROVIDERS: PCP Family Medicine; Visit Provider Family Medicine
DX: I48.91 Unspecified atrial fibrillation (principal); Z95.2 Presence of prosthetic heart valve; Z79.01 Long term (current) use of anticoagulants
CPT/HCPCS: 36415; 85610

== ENCOUNTER 2019-06-22 14:09 | Outpatient (CLI) | payer MEDICARE, OTHER, SELFPAY ==
[2019-06-22 14:32] LABS: Prothrombin Time 34.6 sec (9.3-11.0)
[2019-06-22 14:42] LABS: INR 3.6 (0.9-1.1)
== END 2019-06-22 14:29 ==
PROVIDERS: PCP Family Medicine; Visit Provider Family Medicine
DX: I48.91 Unspecified atrial fibrillation (principal); Z95.2 Presence of prosthetic heart valve; Z79.01 Long term (current) use of anticoagulants
CPT/HCPCS: 36415; 85610

== ENCOUNTER 2019-06-28 02:45 | Outpatient (CLI) | payer MEDICARE, OTHER, SELFPAY ==
[2019-06-28 13:29] LABS: Prothrombin Time 29.6 sec (9.3-11.0)
== END 2019-06-28 03:05 ==
PROVIDERS: PCP Family Medicine; Visit Provider Family Medicine
DX: I35.1 Nonrheumatic aortic (valve) insufficiency (principal); Z95.2 Presence of prosthetic heart valve; Z79.01 Long term (current) use of anticoagulants
CPT/HCPCS: 36415; 85610

== ENCOUNTER 2019-07-12 01:56 | Outpatient (CLI) | payer MEDICARE, OTHER, SELFPAY ==
[2019-07-12 11:54] LABS: INR 3.4 (0.9-1.1); Prothrombin Time 33.3 sec (9.3-11.0)
== END 2019-07-12 02:16 ==
PROVIDERS: PCP Family Medicine; Visit Provider Family Medicine
DX: Z95.2 Presence of prosthetic heart valve (principal); Z79.01 Long term (current) use of anticoagulants; I35.1 Nonrheumatic aortic (valve) insufficiency
CPT/HCPCS: 36415; 85610

== ENCOUNTER → 2019-07-18 08:54 | Outpatient (BNVA) | payer MEDICARE, OTHER, SELFPAY | PROVIDERS: PCP Family Medicine; Referring Provider Family Medicine; Visit Provider Physical Therapy Assistant | DX: Z12.11 Encounter for screening for malignant neoplasm of colon (principal); I10 Essential (primary) hypertension ==

== ENCOUNTER 2019-07-18 12:02 | Outpatient (RCR) | payer SELFPAY ==
--- NOTE | 2019-07-09 10:32 | PR3E_ITS ---
79 year old female who graduated Cardiac Rehabilitation Phase 2 in 2017 and has returned to the maintenance phase, 2 days per week. PMH: Cardiomyopathy EF 40-45% April 2019, LHC 2016, AVR 2001, STEFANIE CPAP compliant, HTN, HLD, Obese, Sedentary First day of exercise: 07/04/19: BP at rest 159/77 , HR rest 79 bpm. Patient completed 20 minutes of exercise: NuStep 5 minutes, UBE 5 minutes X2, treadmill 5 minutes. HR w/ exercise ranged 75-107 bpm. ILDA RPB/RPE scores 11 . BP with exercise ranged 124-159/54-108. Tolerated exercise regimen without any adverse signs or symptoms. No concerns at this time, will continue to progress as tolerated.
== END 2019-07-18 23:59 | disposition home or self-care (01) ==
LOC: CR 12:02
PROVIDERS: PCP Family Medicine; Visit Provider Family Medicine
DX: Z51.89 Encounter for other specified aftercare (principal)

== ENCOUNTER 2019-07-25 00:04 | Outpatient (CLI) | payer MEDICARE, OTHER, SELFPAY ==
[2019-07-25 13:22] LABS: INR 2.6 (0.9-1.1); Prothrombin Time 25.4 sec (9.3-11.0)
== END 2019-07-25 00:24 ==
PROVIDERS: PCP Family Medicine; Visit Provider Family Medicine
DX: I25.10 Atherosclerotic heart disease of native coronary artery without angina pectoris (principal); Z95.2 Presence of prosthetic heart valve; Z79.01 Long term (current) use of anticoagulants
CPT/HCPCS: 36415; 85610

== ENCOUNTER 2019-08-06 06:03 | Day surgery (SDC) | payer MEDICARE, OTHER, SELFPAY ==
--- NOTE | 2019-08-06 06:19 | W.COLOREPORT ---
Date of service: 08/06/19 Time of Service: Colonoscopy Report Date of procedure: 08/06/19 Pre-op diagnosis general: Rectal bleeding and colitis on CT scan Post-op diagnosis procedure note: other (2 small polyps and Grade 1 internal hemorrhoids) Procedure: Colonoscopy with polypectomy Surgeon: Rosa Verma Anesthesia proc note operative: other (General/ ASA 2/Vik Fried, NURIA) Estimated blood loss (mL): 3 Pathology: other (Ascending polyp and transverse polyp) Complications: None Disposition: same day Indications: Mrs. Ash is a pleasant 79-year-old female who had a colonoscopy in 2016 which was unremarkable. She then came to the emergency department this year with some rectal bleeding and a CT scan showing colitis. A colonoscopy was recommended. Risks, benefits and complications have been reviewed. Complications include but are not limited to bleeding, pain, perforation, missed small lesion/polyp, sore throat, aspiration and adverse reaction to the medications. Questions were entertained and answered to their satisfaction and they wished to proceed. No guarantees were given or implied. Prep: Miralax/Dulcolax Procedure Start Time: Procedure End Time: : Retraction Time: 15 minutes Findings: 2 <5 mm sessile polyps Procedure Description: After informed consent was obtained the patient was taken to the procedure room and placed in a left decubitous position. Monitors were applied and a time out was done. The patients name, date of , procedure, allergies to medications and metal in their body was reviewed. The patient was then sedated. Once sedated and comfortable a rectal exam was done. External exam was normal. Internal exam revealed a normal sphincter tone and no palpable masses. The scope was then introduced and retro-flexed. Grade 1 internal hemorrhoids were identified. There were no masses or polyps noted on retro-flexion. The scope was then advanced to the cecum with some difficulty due to a tortuous colon. The TI and appendiceal orifice were identified. The prep was adequate. The scope was then slowly retracted over 15 minutes back into the rectum. Polyps were removed with cold forceps in the ascending colon x1 and Transverse colon x1. NO inflammation was noted throughout the colon. The scope was removed and the patient was woken up and taken back to Same day surgery in stable condition. The patient tolerated the procedure well and there were no immediate complications. Follow up: The patient should follow up as needed if they develop changes in bowel habits or other new gastrointestinal complaints.
--- NOTE | 2019-08-06 06:22 | W.PM.DSUDISC ---
Discharge Plan Disposition Patient Disposition: HOME Condition: Good Discharge Details Reason For Visit: rectal bleeding Attending Provider: Rosa Verma Primary Care Provider: Tamanna Li Home Meds and New Rx's Prescriptions: Continued spironolactone 25 mg tablet 25 mg PO DAILY Qty: 90 RF: 12 escitalopram oxalate 20 mg tablet 20 mg PO DAILY Qty: 90 RF: 11 metoprolol succinate 200 mg tablet extended release 24 hr 200 mg PO QPM RF: 0 docusate sodium [Colace] 100 MG capsule 100 mg PO BID Qty: 180 RF: 4 aspirin [Aspirin Low-Strength] 81 MG tablet,chewable 81 mg PO QPM RF: 0 enoxaparin [Lovenox] 100 mg/mL syringe 85 mg SC Q12H Qty: 15 RF: 1 cholecalciferol (vitamin D3) 5,000 UNIT tablet 5,000 unit PO DAILY RF: 0 acetaminophen [Tylenol] 325 MG tablet 650 mg PO Q6H PRN PRNQty: 60 RF: 0 multivitamin with minerals Tablet 1 tab PO DAILY RF: 0 calcium citrate-vitamin D3 [Citracal + D Maximum] 315 mg- 250 unit Tablet 2 tab PO BID RF: 0 warfarin [Coumadin] 2.5 mg tablet 2.5 mg PO QPM RF: 0 Discontinued polyethylene glycol 3350 17 gram/dose powder 238 g PO ONCE Qty: 238 RF: 0 bisacodyl [Dulcolax (bisacodyl)] 5 mg tablet,delayed release (DR/EC) 5 mg PO ONCE Qty: 4 RF: 0 Discharge Instructions Instructions: Colonoscopy (DC) Additional Instructions: Findings: 2 small polyps Small internal hemorrhoids Follow up: as needed Please call if you develop: fevers >101.5 Nausea or Vomiting Abdominal pain that is not transient DAY SURGERY UNIT POST ENDOSCOPY INSTRUCTIONS 1. Because there will be medication in your system for the next 24 hours, you may feel a little sleepy. Your coordination will be affected. Therefore: a. Do not drive or operate dangerous equipment for 24 hours. b. Do not drink alcohol beverages for 24 hours (not even beer). c. Plan to go home and rest for the day. 2. Generally there are no restrictions on your activity after a day or so has gone by, but you may feel a bit fatigued for a few days. 3 After you arrive home you may have a light meal and return to a normal diet as you can tolerate it without feeling sick to your stomach. 4. After surgery, you may feel pain or discomfort. This should be only transient, but if it persists please contact your doctor. 5. If there are any questions regarding the findings of your procedure, please feel free to contact your doctor. 6. If you are unable to contact your doctor with a problem, contact the hospital at [phone]. 7. Continue all your regular medications unless directed otherwise. I understand the above instructions and have no questions. Signature of Patient or Responsible Adult Escort Date/Time Name of Responsible Adult Escort Signature of Nurse Date/Time Activity:: Activity as Tolerated Diet:: As Tolerated Discharge Orders Discharge Orders: Discharge Order (Routine); Ordered 08/06/19 Ordered By: Rosa Verma DS: Diagnosis Discharge Diagnosis (1) S/P colonoscopy: Status: Acute (2) Colon polyps: Status: Acute (3) Internal hemorrhoids without complication: Status: Acute
[2019-08-06 06:35] VITALS: BP 145/71; PULSE 81; RESP 18; TEMP 36.3; O2SAT 96
[2019-08-06] MEDS: Lactated Ringers 1,000 ML 80 ML IV (07:20)
--- NOTE | 2019-08-06 07:43 | BOWEL_PTH ---
PATIENT: Susan Ash LOC: [facility] U#:[id number] AGE/SX: 79/F ROOM: RE08/06/[address]: Rosa Verma MD : 1940 BED: DIS: 08/06/2019 SPEC #: [id number] RECD: 08/06/19 12:32 STATUS: KHLOE REQ #: [id number] DAMASO: 08/06/19 07:[address]: Rosa Verma DEPT: Surgical Specimen RECD BY: Melina Sdaler ENTERED: 08/06/19 12:33 SP TYPE: Bowel OTHR DR: Tamanna Li MD, DC Tissues: 1 - BIOPSY BOWEL 2 - BIOPSY BOWEL Procedures: GROSS AND MICRO LEVEL 4 Comments: [id number]
[2019-08-06 08:45] VITALS: BP 112/51; PULSE 59; RESP 14; TEMP 36.7; O2SAT 95
== END 2019-08-06 09:45 | disposition home or self-care (01) ==
PROVIDERS: PCP Family Medicine; Visit Provider Surgery
PROC: 0DJD8ZZ Inspection of Lower Intestinal Tract, Via Natural or Artificial Opening Endoscopic (ICD-10-PCS; CPT 45378; principal; 2019-08-06 07:30)
DX: K62.5 Hemorrhage of anus and rectum (principal); K64.0 First degree hemorrhoids; D12.2 Benign neoplasm of ascending colon; D12.3 Benign neoplasm of transverse colon; Z79.01 Long term (current) use of anticoagulants; I10 Essential (primary) hypertension; G47.33 Obstructive sleep apnea (adult) (pediatric); Z86.010 Personal history of colon polyps; Q43.8 Other specified congenital malformations of intestine; R93.3 Abnormal findings on diagnostic imaging of other parts of digestive tract
CPT/HCPCS: 45380; 88305; J2250; J3010

== ENCOUNTER 2019-08-08 11:27 | Outpatient (RCR) | payer SELFPAY | END 2019-08-17 23:59 | disposition home or self-care (01) | LOC: CR 11:27 | PROVIDERS: PCP Family Medicine; Visit Provider Family Medicine | DX: Z51.89 Encounter for other specified aftercare (principal); I42.9 Cardiomyopathy, unspecified ==

== ENCOUNTER 2019-08-09 02:00 | Outpatient (CLI) | payer MEDICARE, OTHER, SELFPAY ==
[2019-08-09 11:01] LABS: INR 1.7 (0.9-1.1); Prothrombin Time 16.9 sec (9.3-11.0)
== END 2019-08-09 02:20 ==
PROVIDERS: PCP Family Medicine; Visit Provider Family Medicine
DX: I25.10 Atherosclerotic heart disease of native coronary artery without angina pectoris (principal); Z79.01 Long term (current) use of anticoagulants
CPT/HCPCS: 36415; 85610

== ENCOUNTER 2019-08-12 03:19 | Outpatient (CLI) | payer MEDICARE, OTHER, SELFPAY ==
[2019-08-12 13:50] LABS: INR 4.6 (0.9-1.1)
== END 2019-08-12 03:39 ==
PROVIDERS: PCP Family Medicine; Visit Provider Family Medicine
DX: I25.10 Atherosclerotic heart disease of native coronary artery without angina pectoris (principal); Z95.2 Presence of prosthetic heart valve; Z79.01 Long term (current) use of anticoagulants
CPT/HCPCS: 36415; 85610

== ENCOUNTER 2019-08-19 01:18 | Outpatient (CLI) | payer MEDICARE, OTHER, SELFPAY ==
[2019-08-19 11:13] LABS: INR 2.4 (0.9-1.1); Prothrombin Time 23.3 sec (9.3-11.0)
== END 2019-08-19 01:38 ==
PROVIDERS: PCP Family Medicine; Visit Provider Family Medicine
DX: I25.10 Atherosclerotic heart disease of native coronary artery without angina pectoris (principal); Z95.2 Presence of prosthetic heart valve; Z79.01 Long term (current) use of anticoagulants
CPT/HCPCS: 36415; 85610

== ENCOUNTER 2019-08-26 00:17 | Outpatient (CLI) | payer MEDICARE, OTHER, SELFPAY ==
[2019-08-26 14:03] LABS: INR 2.7 (0.9-1.1); Prothrombin Time 26.3 sec (9.3-11.0)
== END 2019-08-26 00:37 ==
PROVIDERS: PCP Family Medicine; Visit Provider Family Medicine
DX: I25.10 Atherosclerotic heart disease of native coronary artery without angina pectoris (principal); Z95.2 Presence of prosthetic heart valve; Z79.01 Long term (current) use of anticoagulants
CPT/HCPCS: 36415; 85610

== ENCOUNTER 2019-09-09 01:39 | Outpatient (CLI) | payer MEDICARE, OTHER, SELFPAY ==
[2019-09-09 13:58] LABS: INR 2.9 (0.9-1.1); Prothrombin Time 28.6 sec (9.3-11.0)
== END 2019-09-09 01:59 ==
PROVIDERS: PCP Family Medicine; Visit Provider Family Medicine
DX: I25.10 Atherosclerotic heart disease of native coronary artery without angina pectoris (principal); Z95.2 Presence of prosthetic heart valve; Z79.01 Long term (current) use of anticoagulants
CPT/HCPCS: 36415; 85610

== ENCOUNTER 2019-09-12 11:00 | Outpatient (RCR) | payer SELFPAY | END 2019-09-17 23:59 | disposition home or self-care (01) | LOC: CR 11:00 | PROVIDERS: PCP Family Medicine; Visit Provider Family Medicine | DX: Z51.89 Encounter for other specified aftercare (principal) ==

== ENCOUNTER 2019-10-01 11:00 | Outpatient (RCR) | payer SELFPAY | END 2019-10-18 23:59 | disposition home or self-care (01) | LOC: CR 11:00 | PROVIDERS: PCP Family Medicine; Visit Provider Family Medicine | DX: Z51.89 Encounter for other specified aftercare (principal) ==

== ENCOUNTER 2019-10-04 01:17 | Outpatient (CLI) | payer MEDICARE, OTHER, SELFPAY ==
[2019-10-04 12:22] LABS: HCT 43.1 % (36.0-46.0); HGB 13.9 g/dL (12.0-15.5); Mean Corp. HGB Concentration 32.3 g/dL (32.0-36.0); Mean Corpuscular Hemoglobin 30.9 pg (27.0-33.0); Mean Corpuscular Volume 95.8 fL (80-95); Mean Platelet Volume 10.4 fL (8.0-11.0); Platelet Count 298 x1000/uL (130-400); RBC Distribution Width 14.3 % (11.7-14.6); White Blood Cell Count 7.11 k/cumm (4.4-10.8)
[2019-10-04 12:53] LABS: ALT 39 U/L (14-59); AST 32 U/L (15-37); Albumin 3.8 g/dL (3.4-5.0); Alkaline Phosphatase 73 U/L (46-116); Anion Gap 6.1 mmol/L (3-11); BUN 16 mg/dL (7-18); Bilirubin, Total 0.4 mg/dL (0.2-1.0); CO2 30.9 mmol/L (21.0-32.0); CREATININE 0.88 mg/dL (0.55-1.02); Calcium 9.7 mg/dL (8.5-10.1); Calculated LDL 169 mg/dL; Chloride 105 mmol/L (98-107); Cholesterol 271 mg/dL (<200); Glucose 90 mg/dL (74-106); HDL Cholesterol 46 mg/dL (40-60); Sodium 142 mmol/L (136-145); Total Protein 7.3 g/dL (6.4-8.2); Triglyceride 283 mg/dL (<150)
[2019-10-04 13:25] LABS: INR 2.5 (0.9-1.1); Prothrombin Time 24.7 sec (9.3-11.0)
== END 2019-10-04 01:37 ==
PROVIDERS: PCP Family Medicine; Visit Provider Family Medicine
DX: E78.5 Hyperlipidemia, unspecified (principal); I10 Essential (primary) hypertension; G47.33 Obstructive sleep apnea (adult) (pediatric); Z95.2 Presence of prosthetic heart valve; Z79.01 Long term (current) use of anticoagulants
CPT/HCPCS: 36415; 80053; 80061; 85027; 85610

== ENCOUNTER 2019-10-19 04:06 | Outpatient (RCR) | payer SELFPAY | END 2019-11-16 23:59 | disposition home or self-care (01) | LOC: CR 04:06 | PROVIDERS: PCP Family Medicine; Visit Provider Family Medicine | DX: Z51.89 Encounter for other specified aftercare (principal) ==

== ENCOUNTER 2019-11-17 03:43 | Outpatient (RCR) | payer SELFPAY | END 2019-12-17 23:59 | disposition home or self-care (01) | LOC: CR 03:43 | PROVIDERS: PCP Family Medicine; Visit Provider Family Medicine | DX: Z51.89 Encounter for other specified aftercare (principal) ==

== ENCOUNTER 2020-01-14 07:36 | Outpatient (CLI) | payer MEDICARE, OTHER, SELFPAY ==
--- NOTE | 2020-01-14 09:15 | DI.RAD_ITS ---
EXAM: XR HUMERUS RT CLINICAL HISTORY: Fell, pain in right arm,M79.601 TECHNIQUE: COMPARISON: No exams were available for comparison FINDINGS: Three views were obtained. No humeral fracture identified. IMPRESSION:
== END 2020-01-14 07:56 ==
PROVIDERS: PCP Family Medicine; Visit Provider Family Medicine
DX: M79.601 Pain in right arm (principal); Z91.81 History of falling
CPT/HCPCS: 73060

== ENCOUNTER 2020-01-20 02:11 | Outpatient (CLI) | payer MEDICARE, OTHER, SELFPAY ==
--- NOTE | 2020-01-20 | DI.US_ITS ---
APPROVED REPORT EXAM: Comprehensive 2D, Doppler, and color-flow Echocardiogram Patient Location: Out-Patient [facility] Hand: April Aiken RDCS (AE) Indications: Cardiomyopathy, Mechanical Aortic Valve Other Information Study Quality: Adequate Conclusion Mild concentric left ventricular hypertrophy with estimated ejection fraction 45 to 50%. Stage I jose stolic dysfunction. The left atrium is moderately dilated. The right atrium is mildly dilated. There is a mechanical aortic valve prosthesis. There is trace aortic regurgitation. Aortic valve gr adients are appropriate There is mitral annular calcification and mildly thickened mitral leaflets. There is mild mitral reg urgitation There is trace to mild tricuspid regurgitation Findings are similar to an echocardiogram from 2019 Wall motion Left Ventricle The left ventricle is normal size. Left ventricular systolic function is mildly decreased. Mild ramo ntric left ventricular hypertrophy. Regional wall motion is grossly normal. Stage I diastolic dysfunc tion There is no ventricular septal defect visualized. LVEF is 45-50%. Right Ventricle The right ventricle is normal size. The right ventricular systolic function is normal. Atria Left atrium is moderately dilated. Right atrium is mildly dilated. The interatrial septum is intact w ith no evidence for an atrial septal defect. Aortic Valve No hemodynamically significant valvular aortic stenosis. Trace aortic regurgitation. Mechanical aorti c valve is present. Mitral Valve There is mitral annular calcification. No evidence of mitral valve stenosis. Mild mitral regurgitatio n. Tricuspid Valve The tricuspid valve is normal in structure. There is no tricuspid valve stenosis. Trace to mild tricu spid regurgitation. Pulmonic Valve Pulmonic valve is not well visualized. There is no pulmonic valvular stenosis. Trace to mild pulmonic regurgitation. Great Vessels The aortic root is normal in size. Ascending aorta is borderline. IVC is normal in size and collapses >50% with inspiration. Pericardium There is no pericardial effusion. 2D Dimensions IVSD d PLAX 1.20 cm F: 0.6-1.0 LV Vol A2C d MOD 55.8 mL LVPW d PLAX 1.23 cm F: 0.6 - 1.0 LV Vol A4C d MOD 89.8 mL LVID d PLAX 5.81 cm F: 3.8 - 5.2 LA vol/ BSA A2C s A-L 31.5 mL/m2 LVDs 4.65 cm F: 2.2 - 3.5 LA vol/ BSA A4C s A-L 34.2 mL/m2 Ao Root d 2.43 cm F: 2.7 - 3.3 LA Vol/ BSA Biplane s A-L 34.0 mL/m2 RA Area A4C 14.73 cm2 LA Area A4C s MOD 21.40 cm2 RA Vol/ BSA A4C s A-L 20.3 mL/m2 LA Area A2C s MOD 19.83 cm2 Ao Asc Diam d 3.78 cm F: 2.3 - 3.1 LV EF A4C MOD 46.6 % LV EF Teichholz 39.2 % LV EF A2C MOD 45.9 % LVEF (Zhou's) 45.33 % F: 54 - 74 LV EF Biplane MOD 45.3 % LV Volume 55.79 mL F: 46 - 106 LV Volume Index 30.15 mL/m2 F: 29 - 61 LV Vol Biplane MOD 72.6 mL FS 19.30 % M-Mode TAPSE 1.46 cm (M/F) >1.7 LV Diastology MV E' medial 0.056 (>0.07 m/s) E/A Ratio 0.8 LV E/e MED 16.30 (<14) MV E Vmax 0.92 (0.4-1.3 m/s) MV E' lateral 0.057 (>0.1 m/s) MV A Vmax 1.20 (0.4-1.3 m/s) LV E/e LAT 16.00 (<14) MV E/A Ratio 0.75 MV E/E' medial 16.35 MV E/E' lateral 16.00 Aortic Valve LVOT Area 2.79 cm2 AoV Area Vmax 1.31 cm2 LVOT Vmax 0.86 m/s AoV Area/ BSA (Vmax) 0.71 cm2/m2 LVOT Mean Johnny. 0.57 m/s SHELBY Mean Johnny. 1.23 cm2 LVOT Peak Grad 3.0 mmHg SHELBY Mean Johnny. Index 0.66 cm2/m2 LVOT Mean Grad 1.5 mmHg LVOT VTI 0.197 m LVOT Diam s 1.85 cm (M/F) 1.5-2.5 AoV Vmax 1.83 (0.5-1.3 m/s) Velocity Ratio 0.46 AoV Mean Johnny. 1.29 m/s AoV Peak Grad 13.4 mmHg LVOT SV 54.94 mL AoV Mean Grad 7.5 (<5 mmHg) AoV VTI 0.369 (0.18-0.25 m) AoV Area VTI 1.49 (2.5-4.5 cm2) AoV Area/ BSA (VTI) 0.80 cm/m2 Mitral Valve MV DT 192 (160-240 msec) MV PHT 56 msec MV Area PHT 3.95 cm2 Pulmonary Valve PV Vmax 1.06 (0.5-1.5 m/s) RVOT Peak Gr. 2.22 mmHg PV Peak Grad 4.5 mmHg RVOT Mean Gr. 1.10 mmHg PV Mean Grad 2.3 mmHg RVOT VTI 0.158 m PV VTI 0.203 m RVOT Vmax 0.74 m/s Tricuspid Valve TR Peak Grad 26.8 mmHg TR Vmax 2.59 m/s RA Pressure 3.00 mmHg RVSP (TR) 29.9 mmHg
== END 2020-01-20 02:31 ==
PROVIDERS: PCP Family Medicine; Visit Provider Internal Medicine Interventional Cardiology
DX: I42.9 Cardiomyopathy, unspecified (principal); Z95.2 Presence of prosthetic heart valve; I49.3 Ventricular premature depolarization; I50.30 Unspecified diastolic (congestive) heart failure
CPT/HCPCS: 93306; 93225

== ENCOUNTER 2020-01-23 08:45 | Outpatient (CLI) | payer MEDICARE, OTHER, SELFPAY | END 2020-01-23 09:05 | PROVIDERS: PCP Family Medicine; Visit Provider Internal Medicine Interventional Cardiology | DX: I49.3 Ventricular premature depolarization (principal) | CPT/HCPCS: 93227; 93226 ==

== ENCOUNTER 2020-02-14 02:38 | Outpatient (CLI) | payer MEDICARE, OTHER, SELFPAY | END 2020-02-14 02:58 | PROVIDERS: PCP Family Medicine; Visit Provider Internal Medicine Interventional Cardiology | DX: Z53.8 Procedure and treatment not carried out for other reasons (principal) ==

== ENCOUNTER 2020-03-02 02:06 | Outpatient (CLI) | payer MEDICARE, OTHER, SELFPAY ==
[2020-03-02 14:43] LABS: Prothrombin Time 29.1 sec (9.3-11.0)
== END 2020-03-02 02:26 ==
PROVIDERS: PCP Family Medicine; Visit Provider Family Medicine
DX: Z95.2 Presence of prosthetic heart valve (principal); Z79.01 Long term (current) use of anticoagulants
CPT/HCPCS: 36415; 85610

== ENCOUNTER 2020-03-17 02:40 | Outpatient (CLI) | payer MEDICARE, OTHER, SELFPAY ==
[2020-03-17 12:59] LABS: INR 2.6 (0.9-1.1); Prothrombin Time 25.2 sec (9.3-11.0)
== END 2020-03-17 03:00 ==
PROVIDERS: PCP Family Medicine; Visit Provider Family Medicine
DX: I25.10 Atherosclerotic heart disease of native coronary artery without angina pectoris (principal); Z79.01 Long term (current) use of anticoagulants
CPT/HCPCS: 36415; 85610

== ENCOUNTER 2020-04-14 03:51 | Outpatient (CLI) | payer MEDICARE, OTHER, SELFPAY ==
[2020-04-14 12:56] LABS: INR 2.4 (0.9-1.1); Prothrombin Time 23.2 sec (9.3-11.0)
== END 2020-04-14 04:11 ==
PROVIDERS: PCP Family Medicine; Visit Provider Family Medicine
DX: Z79.01 Long term (current) use of anticoagulants (principal)
CPT/HCPCS: 36415; 85610

== ENCOUNTER 2020-04-16 10:06 | Outpatient (CLI) | payer MEDICARE, OTHER, SELFPAY ==
--- NOTE | 2020-04-16 14:45 | DI.RAD_ITS ---
EXAM: XR SHOULDER RT COMPLETE 2+V CLINICAL HISTORY: fell months ago; shoulder still hurt,RT ARM PAIN, M79.601 TECHNIQUE: 2D digital imaging was performed. COMPARISON: No exams were available for comparison FINDINGS: There is mild spurring at the AC joint and tip of the acromion. There is spurring at the greater tub erosity. The glenohumeral joint space is well maintained. There is mild spurring at the inferior gl enoid the and inferior humeral head. Faint tendon calcifications are seen. Sternal wires are noted. IMPRESSION: Mild degenerative changes and mild calcific tendinosis.
== END 2020-04-16 10:26 ==
PROVIDERS: PCP Family Medicine; Visit Provider Family Medicine
DX: M19.011 Primary osteoarthritis, right shoulder; M79.601 Pain in right arm; M75.31 Calcific tendinitis of right shoulder
CPT/HCPCS: 73030

== ENCOUNTER 2020-04-21 01:43 | Outpatient (CLI) | payer MEDICARE, OTHER, SELFPAY ==
[2020-04-21 12:51] LABS: INR 3.2 (0.9-1.1); Prothrombin Time 30.8 sec (9.3-11.0)
== END 2020-04-21 02:03 ==
PROVIDERS: PCP Family Medicine; Visit Provider Family Medicine
DX: Z79.01 Long term (current) use of anticoagulants (principal)
CPT/HCPCS: 36415; 85610

== ENCOUNTER 2020-05-20 05:17 | Outpatient (CLI) | payer MEDICARE, OTHER, SELFPAY ==
[2020-05-20 12:45] LABS: INR 2.3 (0.9-1.1); Prothrombin Time 22.9 sec (9.3-11.0)
== END 2020-05-20 05:37 ==
PROVIDERS: PCP Family Medicine; Visit Provider Family Medicine
DX: Z79.01 Long term (current) use of anticoagulants (principal); I25.10 Atherosclerotic heart disease of native coronary artery without angina pectoris
CPT/HCPCS: 36415; 85610

== ENCOUNTER 2020-06-18 05:37 | Outpatient (CLI) | payer MEDICARE, OTHER, SELFPAY ==
[2020-06-18 13:57] LABS: INR 2.5 (0.9-1.1); Prothrombin Time 24.4 sec (9.3-11.0)
== END 2020-06-18 05:57 ==
PROVIDERS: PCP Family Medicine; Visit Provider Family Medicine
DX: I25.10 Atherosclerotic heart disease of native coronary artery without angina pectoris (principal); Z95.4 Presence of other heart-valve replacement; Z79.01 Long term (current) use of anticoagulants
CPT/HCPCS: 36415; 85610

== ENCOUNTER 2020-07-16 02:45 | Outpatient (CLI) | payer MEDICARE, OTHER, SELFPAY ==
[2020-07-16 14:06] LABS: INR 2.3 (0.9-1.1); Prothrombin Time 22.5 sec (9.3-11.0)
== END 2020-07-16 03:05 ==
PROVIDERS: PCP Family Medicine; Visit Provider Family Medicine
DX: I25.10 Atherosclerotic heart disease of native coronary artery without angina pectoris (principal); Z79.01 Long term (current) use of anticoagulants
CPT/HCPCS: 36415; 85610

== ENCOUNTER 2020-07-30 02:26 | Outpatient (CLI) | payer MEDICARE, OTHER, SELFPAY ==
[2020-07-30 12:38] LABS: INR 2.3 (0.9-1.1); Prothrombin Time 22.7 sec (9.3-11.0)
== END 2020-07-30 02:46 ==
PROVIDERS: PCP Family Medicine; Visit Provider Family Medicine
DX: I25.10 Atherosclerotic heart disease of native coronary artery without angina pectoris (principal); Z79.01 Long term (current) use of anticoagulants
CPT/HCPCS: 36415; 85610

== ENCOUNTER 2020-08-27 05:02 | Outpatient (CLI) | payer MEDICARE, OTHER, SELFPAY ==
[2020-08-27 12:31] LABS: INR 2.5 (0.9-1.1); Prothrombin Time 24.6 sec (9.3-11.0)
== END 2020-08-27 05:22 ==
PROVIDERS: PCP Family Medicine; Visit Provider Family Medicine
DX: I25.10 Atherosclerotic heart disease of native coronary artery without angina pectoris (principal); Z79.01 Long term (current) use of anticoagulants
CPT/HCPCS: 36415; 85610

== ENCOUNTER 2020-09-24 02:23 | Outpatient (CLI) | payer MEDICARE, OTHER, SELFPAY ==
[2020-09-24 13:35] LABS: Prothrombin Time 24.1 sec (9.3-11.0)
[2020-09-24 13:41] LABS: INR 2.4 (0.9-1.1)
== END 2020-09-24 02:43 ==
PROVIDERS: PCP Family Medicine; Visit Provider Family Medicine
DX: I25.10 Atherosclerotic heart disease of native coronary artery without angina pectoris (principal); Z79.01 Long term (current) use of anticoagulants
CPT/HCPCS: 36415; 85610

== ENCOUNTER 2020-10-02 01:06 | Outpatient (CLI) | payer MEDICARE, OTHER, SELFPAY ==
[2020-10-02 12:54] LABS: HCT 42.2 % (36.0-46.0); HGB 13.8 g/dL (11.2-15.7); MCH 31.9 pg (27.0-33.0); MCHC 32.7 % (32.0-36.0); MCV 97.7 fL (80-95); MPV 10.7 fL (8.0-11.0); Platelet Count 221 10^3/uL (130-400); RBC 4.32 10^6/uL (3.93-5.22); RDW 13.6 % (11.7-14.6); RDW-SD 49.1 fL; WBC 5.23 10^3/uL (4.4-10.8)
[2020-10-02 13:05] LABS: ALT 40 U/L (14-59); AST 30 U/L (15-37); Albumin 3.7 g/dL (3.4-5.0); Alkaline Phosphatase 54 U/L (46-116); Anion Gap 9.4 mmol/L (3-11); BUN 22 mg/dL (7-18); Bilirubin, Total 0.4 mg/dL (0.2-1.0); CO2 26.6 mmol/L (21.0-32.0); CREATININE 1.04 mg/dL (0.55-1.02); Calcium 9.3 mg/dL (8.5-10.1); Chloride 103 mmol/L (98-107); Estimated GFR 50.99 (mL/min/1.73m2); Glucose 154 mg/dL (74-106); Potassium 4.4 mmol/L (3.5-5.1); Sodium 139 mmol/L (136-145)
[2020-10-02 13:19] LABS: INR 2.5 (0.9-1.1); Prothrombin Time 24.5 sec (9.3-11.0)
== END 2020-10-02 01:26 ==
PROVIDERS: PCP Family Medicine; Visit Provider Family Medicine
DX: I10 Essential (primary) hypertension (principal); F32.9 Major depressive disorder, single episode, unspecified; Z95.4 Presence of other heart-valve replacement; Z79.01 Long term (current) use of anticoagulants
CPT/HCPCS: 36415; 80053; 85027; 85610

== ENCOUNTER 2020-10-15 02:48 | Outpatient (CLI) | payer MEDICARE, OTHER, SELFPAY ==
[2020-10-15 12:38] LABS: INR 2.8 (0.9-1.1); Prothrombin Time 27.6 sec (9.3-11.0)
== END 2020-10-15 03:08 ==
PROVIDERS: PCP Family Medicine; Visit Provider Family Medicine
DX: I25.10 Atherosclerotic heart disease of native coronary artery without angina pectoris (principal); Z79.01 Long term (current) use of anticoagulants
CPT/HCPCS: 36415; 85610

== ENCOUNTER 2020-11-12 03:00 | Outpatient (CLI) | payer MEDICARE, OTHER, SELFPAY ==
[2020-11-12 12:37] LABS: INR 3.5 (0.9-1.1); Prothrombin Time 34.2 sec (9.3-11.0)
== END 2020-11-12 03:01 | disposition home or self-care (01) ==
LOC: LOS 03:00
PROVIDERS: PCP Family Medicine; Visit Provider Family Medicine
DX: I25.10 Atherosclerotic heart disease of native coronary artery without angina pectoris (principal); Z95.2 Presence of prosthetic heart valve; Z79.01 Long term (current) use of anticoagulants
CPT/HCPCS: 36415; 85610

== ENCOUNTER 2021-02-17 03:11 | Outpatient (CLI) | payer MEDICARE, OTHER, SELFPAY ==
[2021-02-17 12:42] LABS: INR 3.3 (0.9-1.1); Prothrombin Time 31.9 sec (9.3-11.0)
== END 2021-02-17 03:12 | disposition home or self-care (01) ==
LOC: LOS 03:11
PROVIDERS: PCP Family Medicine; Visit Provider Family Medicine
DX: I25.10 Atherosclerotic heart disease of native coronary artery without angina pectoris (principal); Z95.3 Presence of xenogenic heart valve; Z79.01 Long term (current) use of anticoagulants
CPT/HCPCS: 36415; 85610

== ENCOUNTER 2021-02-24 02:54 | Outpatient (RCR) | payer MEDICARE, OTHER, SELFPAY ==
--- NOTE | 2021-02-24 11:00 | HOLTER_ITS ---
APPROVED REPORT Conclusion 48-hour monitor ordered for indication of PVCs. Patient was in normal sinus rhythm for the majority the recording with an average heart rate of 73 bp m. There were no episodes of SVT and rare PACs. There were 7 episodes of NSVT with the longest lasting 5 beats. There were frequent (5%) PVCs. There were no episodes of atrial fibrillation, no pauses greater than 3 seconds and no evidence of hi gh degree heart block. There was 1 patient diary event associated with sinus rhythm with a PVC.
== END 2021-03-17 23:59 | disposition home or self-care (01) ==
LOC: RT 02:54
PROVIDERS: PCP Family Medicine; Visit Provider Internal Medicine Interventional Cardiology
DX: I49.3 Ventricular premature depolarization (principal); I47.2 Ventricular tachycardia
CPT/HCPCS: 93227; 93225; 93226

== ENCOUNTER 2021-03-17 02:55 | Outpatient (CLI) | payer MEDICARE, OTHER, SELFPAY ==
[2021-03-17 12:49] LABS: INR 2.7 (0.9-1.1); Prothrombin Time 26.7 sec (9.3-11.0)
== END 2021-03-17 02:56 | disposition home or self-care (01) ==
LOC: LOS 02:55
PROVIDERS: PCP Family Medicine; Visit Provider Family Medicine
DX: Z95.4 Presence of other heart-valve replacement (principal); Z79.01 Long term (current) use of anticoagulants; I25.10 Atherosclerotic heart disease of native coronary artery without angina pectoris
CPT/HCPCS: 36415; 85610

== ENCOUNTER 2021-05-13 03:31 | Outpatient (CLI) | payer MEDICARE, OTHER, SELFPAY ==
[2021-05-13 13:02] LABS: INR 2.6 (0.9-1.1); Prothrombin Time 25.6 sec (9.3-11.0)
== END 2021-05-13 03:32 | disposition home or self-care (01) ==
LOC: LOS 03:31
PROVIDERS: PCP Family Medicine; Visit Provider Family Medicine
DX: I25.10 Atherosclerotic heart disease of native coronary artery without angina pectoris (principal); Z95.4 Presence of other heart-valve replacement; Z79.01 Long term (current) use of anticoagulants
CPT/HCPCS: 36415; 85610

== ENCOUNTER 2021-06-11 02:04 | Outpatient (CLI) | payer MEDICARE, OTHER, SELFPAY ==
[2021-06-11 13:11] LABS: INR 3.5 (0.9-1.1); Prothrombin Time 34.2 sec (9.3-11.0)
== END 2021-06-11 02:05 | disposition home or self-care (01) ==
LOC: LOS 02:04
PROVIDERS: PCP Family Medicine; Visit Provider Family Medicine
DX: I25.10 Atherosclerotic heart disease of native coronary artery without angina pectoris (principal); Z95.4 Presence of other heart-valve replacement; Z79.01 Long term (current) use of anticoagulants
CPT/HCPCS: 36415; 85610

== ENCOUNTER 2021-07-09 01:56 | Outpatient (CLI) | payer MEDICARE, OTHER, SELFPAY ==
[2021-07-09 10:04] LABS: INR 3.1 (0.9-1.1); Prothrombin Time 29.9 sec (9.3-11.0)
== END 2021-07-09 01:57 | disposition home or self-care (01) ==
LOC: LOS 01:56
PROVIDERS: PCP Family Medicine; Visit Provider Family Medicine
DX: I25.10 Atherosclerotic heart disease of native coronary artery without angina pectoris (principal); Z52.4 Kidney donor; Z79.01 Long term (current) use of anticoagulants
CPT/HCPCS: 36415; 85610

== ENCOUNTER 2022-02-08 03:22 | Outpatient (CLI) | payer MEDICARE, OTHER, SELFPAY ==
[2022-02-08 12:41] LABS: HGB 12.2 g/dL (11.2-15.7); MCH 31.5 pg (27.0-33.0); MCHC 32.1 % (32.0-36.0); MCV 98 fL (80-95); MPV 10.7 fL (8.0-11.0); Platelet Count 223 10^3/uL (130-400); RBC 3.87 10^6/uL (3.93-5.22); RDW 13.9 % (11.7-14.6); RDW-SD 50.4 fL; WBC 5.57 10^3/uL (4.4-10.8)
[2022-02-08 12:48] LABS: INR 3.2 (0.9-1.1); Prothrombin Time 31.3 sec (9.3-11.0)
[2022-02-08 13:09] LABS: ALT 31 U/L (14-59); AST 28 U/L (15-37); Albumin 3.8 g/dL (3.4-5.0); Alkaline Phosphatase 57 U/L (46-116); Anion Gap 6.7 mmol/L (3-11); BUN 20 mg/dL (7-18); Bilirubin, Total 0.5 mg/dL (0.2-1.0); CO2 33.3 mmol/L (21.0-32.0); CREATININE 1.1 mg/dL (0.55-1.02); Calcium 9.2 mg/dL (8.5-10.1); Calculated LDL 158 mg/dL (<100); Chloride 104 mmol/L (98-107); Cholesterol 248 mg/dL (<200); Estimated GFR 47.67 (mL/min/1.73m2); Glucose 107 mg/dL (74-106); HDL Cholesterol 48 mg/dL (40-60); Potassium 4.5 mmol/L (3.5-5.1); Sodium 144 mmol/L (136-145); TSH (W/Ref FT4) 2.54 uIU/mL (0.36-3.74); Total Protein 6.8 g/dL (6.4-8.2); Triglyceride 213 mg/dL (<150)
== END 2022-02-08 03:23 | disposition home or self-care (01) ==
LOC: LOS 03:22
PROVIDERS: PCP Family Medicine; Visit Provider Family Medicine
DX: E78.5 Hyperlipidemia, unspecified (principal); I25.10 Atherosclerotic heart disease of native coronary artery without angina pectoris; I10 Essential (primary) hypertension; Z79.01 Long term (current) use of anticoagulants
CPT/HCPCS: 36415; 80053; 80061; 85027; 84443; 85610

== ENCOUNTER 2022-03-17 02:28 | Outpatient (CLI) | payer MEDICARE, OTHER, SELFPAY | END 2022-03-17 02:29 | disposition home or self-care (01) | LOC: LBO 02:28 | PROVIDERS: PCP Family Medicine; Visit Provider Family Medicine ==

== ENCOUNTER 2022-05-30 03:39 | Outpatient (CLI) | payer MEDICARE, OTHER, SELFPAY ==
[2022-05-30 12:15] LABS: HCT 37.7 % (36.0-46.0); HGB 12.6 g/dL (11.2-15.7); MCH 31.9 pg (27.0-33.0); MCHC 33.4 % (32.0-36.0); MCV 95 fL (80-95); MPV 10.2 fL (8.0-11.0); Platelet Count 228 10^3/uL (130-400); RBC 3.95 10^6/uL (3.93-5.22); RDW 13.5 % (11.7-14.6); RDW-SD 48.1 fL; WBC 6.14 10^3/uL (4.4-10.8)
[2022-05-30 12:27] LABS: ALT 33 U/L (14-59); AST 33 U/L (15-37); Albumin 3.6 g/dL (3.4-5.0); Alkaline Phosphatase 53 U/L (46-116); Anion Gap 7.2 mmol/L (3-11); BUN 22 mg/dL (7-18); Bilirubin, Total 0.3 mg/dL (0.2-1.0); CO2 28.8 mmol/L (21.0-32.0); Calcium 9.1 mg/dL (8.5-10.1); Chloride 104 mmol/L (98-107); Estimated GFR 56.25 (mL/min/1.73m2); Glucose 99 mg/dL (74-106); Potassium 4.4 mmol/L (3.5-5.1); Sodium 140 mmol/L (136-145); Total Protein 7.3 g/dL (6.4-8.2)
[2022-05-30 12:36] LABS: Prothrombin Time 39.1 sec (9.3-11.0)
[2022-05-30 13:08] LABS: INR 4.3 (0.9-1.1)
== END 2022-05-30 03:40 | disposition home or self-care (01) ==
LOC: LOS 03:39
PROVIDERS: PCP Family Medicine; Visit Provider Family Medicine
DX: I10 Essential (primary) hypertension (principal); I42.9 Cardiomyopathy, unspecified; Z79.01 Long term (current) use of anticoagulants; R29.6 Repeated falls
CPT/HCPCS: 36415; 80053; 85027; 85610

== ENCOUNTER 2022-06-06 03:30 | Outpatient (CLI) | payer MEDICARE, OTHER, SELFPAY ==
[2022-06-06 12:23] LABS: INR 2.4 (0.9-1.1); Prothrombin Time 22.6 sec (9.3-11.0)
== END 2022-06-06 03:31 | disposition home or self-care (01) ==
LOC: LOS 03:31
PROVIDERS: PCP Family Medicine; Visit Provider Family Medicine
DX: Z95.4 Presence of other heart-valve replacement (principal)
CPT/HCPCS: 36415; 85610

== ENCOUNTER 2022-06-14 03:09 | Outpatient (CLI) | payer MEDICARE, OTHER, SELFPAY ==
[2022-06-14 12:46] LABS: INR 2.8 (0.9-1.1); Prothrombin Time 26.1 sec (9.3-11.0)
== END 2022-06-14 03:10 | disposition home or self-care (01) ==
LOC: LOS 03:10
PROVIDERS: PCP Family Medicine; Visit Provider Family Medicine
DX: I25.10 Atherosclerotic heart disease of native coronary artery without angina pectoris (principal); Z95.4 Presence of other heart-valve replacement; Z79.01 Long term (current) use of anticoagulants
CPT/HCPCS: 36415; 85610

== ENCOUNTER 2022-06-21 08:13 | Outpatient (CLI) | payer MEDICARE, OTHER, SELFPAY ==
--- NOTE | 2022-06-21 08:00 | RT.EKG_ITS ---
APPROVED REPORT Exam: Resting ECG Reason for Exam: [facility] Patient Location: O HR:79 bpm ECG Measurements Heart Rate 79 AXIS LA 229 P 58 QRSd 137 QRS 3 QT 401 T 137 QTc 460 Conclusion Sinus arrhythmia...V-rate 70- 92, variation>10% Multiple ventricular premature complexes...V complexes w/ short R-R intervls Prolonged LA interval...LA >220, V-rate 50- 90 Left bundle branch block...QRSd>120, broad/notched R
== END 2022-06-21 08:14 | disposition home or self-care (01) ==
LOC: DI.CARD 08:14
PROVIDERS: PCP Family Medicine; Visit Provider Internal Medicine Cardiovascular Disease
DX: I42.9 Cardiomyopathy, unspecified (principal); I10 Essential (primary) hypertension; Z95.2 Presence of prosthetic heart valve; I44.7 Left bundle-branch block, unspecified
CPT/HCPCS: 93010

== ENCOUNTER → 2022-06-21 11:16 | Outpatient (BNVA) | payer MEDICARE, OTHER, SELFPAY | PROVIDERS: PCP Family Medicine; Referring Provider Family Medicine; Visit Provider Internal Medicine Cardiovascular Disease | DX: Z95.4 Presence of other heart-valve replacement (principal); Z79.01 Long term (current) use of anticoagulants; I10 Essential (primary) hypertension; I42.9 Cardiomyopathy, unspecified | CPT/HCPCS: 93005; 99203; 99214 ==

== ENCOUNTER 2022-06-28 02:56 | Outpatient (CLI) | payer MEDICARE, OTHER, SELFPAY ==
[2022-06-28 12:38] LABS: INR 2.3 (0.9-1.1); Prothrombin Time 21.9 sec (9.3-11.0)
== END 2022-06-28 02:57 | disposition home or self-care (01) ==
LOC: LOS 02:56
PROVIDERS: PCP Family Medicine; Visit Provider Family Medicine
DX: I25.10 Atherosclerotic heart disease of native coronary artery without angina pectoris (principal); Z95.4 Presence of other heart-valve replacement; Z79.01 Long term (current) use of anticoagulants
CPT/HCPCS: 36415; 85610

== ENCOUNTER 2022-07-11 02:36 | Outpatient (CLI) | payer MEDICARE, OTHER, SELFPAY ==
[2022-07-11 12:31] LABS: INR 3.1 (0.9-1.1); Prothrombin Time 28.9 sec (9.3-11.0)
== END 2022-07-11 02:37 | disposition home or self-care (01) ==
PROVIDERS: PCP Family Medicine; Visit Provider Family Medicine
DX: I25.10 Atherosclerotic heart disease of native coronary artery without angina pectoris (principal); Z95.4 Presence of other heart-valve replacement; Z79.01 Long term (current) use of anticoagulants
CPT/HCPCS: 36415; 85610

== ENCOUNTER 2023-01-23 16:15 | Emergency (ER) | payer MEDICARE, OTHER, SELFPAY ==
[2023-01-23 16:15] VITALS: BP 153/62; PULSE 84; RESP 20; TEMP 39.2
--- NOTE | 2023-01-23 16:30 | DI.RAD_ITS ---
Exam(s) XR CHEST 2V PA LATERAL EXAM: XR CHEST 2V PA LATERAL CLINICAL HISTORY: cough, fever. TECHNIQUE: 2D digital imaging was performed. COMPARISON: CR CHEST 2 VIEWS PA,LAT from 03/03/2017 FINDINGS: 2 views: There was not any wires and there is a prosthetic aortic valve. Heart size is normal. The mediastinum is not widened. Lungs are clear. No infiltrates nor pleural effusions. No evidence of pulmonary edema. IMPRESSION: No acute pulmonary findings. Mild cardiomegaly. Sternotomy. Prosthetic aortic valve. DATA REPOSITORY: RADIATION DOSE DELIVERED:
--- NOTE | 2023-01-23 16:30 | DI.CT_ITS ---
Exam(s) CT HEAD CERVICAL SPINE WO EXAM: CT HEAD CERVICAL SPINE WO CLINICAL HISTORY: fall, HI on coumadin. TECHNIQUE: Imaging Protocol: Axial computed tomography images with coronal and sagittal reformatted images were created and reviewed COMPARISON: No exams were available for comparison FINDINGS: BRAIN: There are no skull fractures nor fluid in the visualized paranasal sinuses. There is no evidence of intracranial hemorrhage, mass effect, or shift of midline structures. There are no extra-axial fluid collections. The ventricles are not enlarged or shifted and there is no blo od within the ventricular system nor within the basal cisterns. There is abundant bilateral periventricular hypodensity consistent chronic small vessel disease. 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 No obvious acute territoria l infarct. CERVICAL SPINE: There is no evidence of fracture nor listhesis. No significant prevertebral soft tissue swelling. There is advanced disc space narrowing at C5-6. Also small Luschka joint osteophytes bilaterally at level. There is moderate disc space narrowing at C6-7 level. There is multilevel facet arthropathy. No facet malalignment. There is no significant facet joint malalignment. No significant osseous lesions evident. IMPRESSION: No acute intracranial findings on this noninfused CT scan of the brain.Chronic small-vessel white mat ter ischemic changes but no obvious acute intracranial findings. No evidence of hemorrhage. Chronic degenerative changes the cervical spine as described above. No evidence of cervical spine fracture, malalignment, nor acute compromise of the cervical spinal can al. RADIATION DOSE DELIVERED: 1,533.81mGy.cm Total DLP DATA REPOSITORY: All CT scans at this facility are submitted to the National Radiology Data Registry (NRDR) Dose Index Registry (DIR) with the [employer] ([employer]). RADIATION OPTIMIZATION: All CT scans at this facility use at least one of these dose optimization te chniques: automated exposure control; mA and/or kV adjustment per patient size (includes targeted exa ms where dose is matched to clinical indication); or iterative reconstruction.
--- NOTE | 2023-01-23 16:30 | DI.RAD_ITS ---
Exam(s) XR KNEE LT 3V AP,LAT,ENRIQUE EXAM: XR KNEE LT 3V AP,LAT,ENRIQUE CLINICAL HISTORY: left knee pain. TECHNIQUE: 2D digital imaging was performed. COMPARISON: No exams were available for comparison FINDINGS: 3 views No evidence acute fracture. There does appear to be a small joint effusion. Chondrocalcinosis in ap th medial lateral compartments noted. No tibial plateau fracture evident. No joint space narrowing. IMPRESSION: No obvious fracture. Small joint effusion. DATA REPOSITORY: RADIATION DOSE DELIVERED:
[2023-01-23] MEDS: Acetaminophen 325 MG TAB 650 MG PO (17:40)
[2023-01-23] MEDS: Lactated Ringers 1,000 ML 1000 ML IV (17:40)
[2023-01-23 17:45] LABS: Bilirubin Negative (Negative); Blood Trace-intact (Negative); Clarity Clear (Clear); Glucose Negative (Negative); Ketones Negative (Negative); Leukocyte Esterase Negative (Negative); Nitrite Negative (Negative); Urobilinogen 0.2 mg/dL (Up to 0.2)
[2023-01-23 17:47] LABS: Lactate 1.2 mmol/L (0.6-1.4)
[2023-01-23 17:51] LABS: Abs Immature Grans 0.05 10^3/uL (0.0-0.06); Absolute Basophil Count 0.03 10^3/uL (0.0-0.2); Absolute Eosinophil Count 0.01 10^3/uL (0.0-0.7); Absolute Lymphocyte Count 0.49 10^3/uL (1.2-3.4); Absolute Monocyte Count 1.09 10^3/uL (0.1-0.8); Absolute Neutrophil Count 7.71 10^3/uL (1.2-6.7); Basophils % 0.3; Eosinophils % 0.1; HCT 37.6 % (36.0-46.0); HGB 12.6 g/dL (11.2-15.7); Immature Grans % 0.5; Lymphocytes % 5.2; MCH 31.8 pg (27.0-33.0); MCHC 33.5 % (32.0-36.0); MCV 95 fL (80-95); Monocytes % 11.6; Neutrophils % 82.3; RBC 3.96 10^6/uL (3.93-5.22); RDW 13.9 % (11.7-14.6); RDW-SD 48.8 fL; WBC 9.38 10^3/uL (4.4-10.8)
[2023-01-23 17:58] LABS: Bacteria Negative HPF (Negative); C & S Indicated? No; Casts Negative LPF (Negative); Crystals Negative HPF (Negative); Epithelial Cells Rare HPF (Negative); Mucus Negative (Negative); RBC 0-2 HPF (0-2); WBC 0-2 HPF (0-5)
[2023-01-23 18:00] LABS: INR 3.1 (0.9-1.1)
[2023-01-23 18:05] LABS: ALT 53 U/L (14-59); AST 45 U/L (15-37); Albumin 3.7 g/dL (3.4-5.0); Alkaline Phosphatase 70 U/L (46-116); BUN 19 mg/dL (7-18); Bilirubin, Total 0.4 mg/dL (0.2-1.0); Calcium 9.4 mg/dL (8.5-10.1); Chloride 100 mmol/L (98-107); Diff Comment PLT Morph Reviewed; Estimated GFR 56.25 (mL/min/1.73m2); Glucose 85 mg/dL (74-106); Potassium 4.3 mmol/L (3.5-5.1); RBC Morphology Normal; Sodium 136 mmol/L (136-145); Total Protein 7.7 g/dL (6.4-8.2)
[2023-01-23 18:54] LABS: Influenza A PCR Negative (Negative); Influenza B PCR Negative (Negative); RSV PCR Negative (Negative)
[2023-01-23 19:00] LABS: COVID-19 PCR Positive (Negative); Source Nasopharynx
--- NOTE | 2023-01-23 19:20 | DI.VRAD_ITS ---
PROCEDURE INFORMATION: Exam: XR Chest Exam date and time: 01/23/2023 6:34 PM Age: 82 years old Clinical indication: Other: Cough, fever; Prior surgery; Surgery date: 6+ months; Surgery type: Open heart surgery TECHNIQUE: Imaging protocol: Radiologic exam of the chest. Views: 2 views. COMPARISON: CR CHEST 2 VIEWS PA,LAT 03/03/2017 9:48 AM FINDINGS: Lungs: There has been interval development of moderate pulmonary vascular congestion. No acute infiltrate. Pleural spaces: No evidence of pleural fluid or pneumothorax. Heart/Mediastinum: Unremarkable. No cardiomegaly. Bones/joints: Sternotomy wires remain in place. Degenerative changes noted in the spine. No acute osseous abnormality IMPRESSION: Interval development of moderate pulmonary vascular congestion Dictated and Authenticated by: Juan Smart MD. Ordering:DUNIA Summers MD
--- NOTE | 2023-01-23 19:21 | DI.VRAD_ITS ---
PROCEDURE INFORMATION: Exam: XR Left Knee Exam date and time: 01/23/2023 6:38 PM Age: 82 years old Clinical indication: Other: Left knee pain, fall TECHNIQUE: Imaging protocol: Radiologic exam of the left knee. Views: 3 views. COMPARISON: No relevant prior studies available. FINDINGS: Bones/joints: Osseous alignment is normal. No acute fracture or significant arthritic change. Small amount of joint fluid noted in the suprapatellar region. Soft tissues: Normal. IMPRESSION: No acute fracture. Small amount of joint fluid Dictated and Authenticated by: Juan Smart MD. Ordering:DUNIA Summers MD
--- NOTE | 2023-01-23 19:24 | DI.VRAD_ITS ---
PROCEDURE INFORMATION: Exam: CT Head Without Contrast Exam date and time: 01/23/2023 6:11 PM Age: 82 years old Clinical indication: Other: Fall, hi on coumadin TECHNIQUE: Imaging protocol: Computed tomography of the head without contrast. Radiation optimization: All CT scans at this facility use at least one of these dose optimization techniques: automated exposure control; mA and/or kV adjustment per patient size (includes targeted exams where dose is matched to clinical indication); or iterative reconstruction. COMPARISON: No relevant prior studies available. FINDINGS: Brain: No acute intracranial hemorrhage, mass-effect, midline shift, or extra-axial collection is seen. There is patchy white matter hypoattenuation, nonspecific but commonly seen as a chronic sequela of small vessel ischemic disease. 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 Otherwise, the matthews white matter differentiation appears preserved. Cerebral ventricles: The ventricular system and basilar cisterns appear appropriate in size and configuration. Paranasal sinuses: There is patchy mucoperiosteal thickening in the ethmoid region. Otherwise, the paranasal sinuses appear clear. Mastoid air cells: The mastoid air cells appear well-aerated. Auditory system: The middle ear cavities appear clear. Orbital cavities: The globes and intraorbital structures appear grossly intact. Bones/joints: The bony calvarium appears intact. No depressed skull fracture is seen. Soft tissues: No gross focal scalp hematoma is seen. IMPRESSION: No acute intracranial hemorrhage or depressed skull fracture. PROCEDURE INFORMATION: Exam: CT Cervical Spine Without Contrast Exam date and time: 01/23/2023 6:11 PM Age: 82 years old Clinical indication: Other: Fall, hi on coumadin TECHNIQUE: Imaging protocol: Computed tomography of the cervical spine without contrast. Radiation optimization: All CT scans at this facility use at least one of these dose optimization techniques: automated exposure control; mA and/or kV adjustment per patient size (includes targeted exams where dose is matched to clinical indication); or iterative reconstruction. COMPARISON: CR XR SHOULDER RT COMPLETE 2+V 04/16/2020 2:55 PM FINDINGS: Bones/joints: No acute cervical fracture or vertebral malalignment is seen. C1-C2: Complete loss of the joint space between the anterior arch of C1 and the odontoid process of C2. Large degenerative pannus posterior to the odontoid process but no significant cervical stenosis. C2-C3: Disc height preserved. Moderate left-sided facet arthrosis. No significant cervical stenosis or right-sided foraminal narrowing. Mild left-sided foraminal narrowing. C3-C4: Mild loss of posterior disc height. Severe bilateral facet arthrosis. No significant cervical stenosis. Mild-moderate bilateral foraminal narrowing. C4-C5: Mild loss of disc height. Posterior osteophytic ridging. No significant cervical stenosis. Mild bilateral foraminal narrowing. C5-C6: Severe discogenic degeneration with complete loss of disc height, endplate irregularity, anterior osteophyte formation, posterior osteophytic ridging, and bilateral uncovertebral hypertrophy. No significant cervical stenosis. Mild-moderate right and moderate left-sided foraminal narrowing. C6-C7: Loss of disc height with endplate irregularity, anterior osteophyte formation, and mild posterior osteophytic ridging with mild bilateral uncovertebral hypertrophy. No significant cervical stenosis. Mild bilateral foraminal narrowing. C7-T1: No significant cervical stenosis or foraminal narrowing. Thyroid: Thyroid gland partially obscured by artifact and not well evaluated but grossly normal in size. Lungs: The lung apices appear clear. Vasculature: There is atherosclerotic calcification at the carotid bifurcations bilaterally. Soft tissues: Within the limits of the exam, no gross soft tissue fluid collection is seen in the neck. IMPRESSION: No acute cervical fracture or malalignment is seen. Dictated and Authenticated by: Danyel Yee MD. Ordering:DUNIA Summers MD
--- NOTE | 2023-01-23 19:43 | ED.GENADUL_ITS ---
Discharge Plan Disposition Patient Disposition: Home Discharge Details Clinical Impression: COVID-19, Contusion of knee Primary Care Provider: Tamanna Li ED Provider: Melina Medrano Home Meds and New Rx's Prescriptions: Continued docusate sodium [Colace] 100 MG capsule 100 mg PO BID Qty: 180 aspirin [Aspirin Low-Strength] 81 MG tablet,chewable 81 mg PO QPM warfarin 2.5 mg tablet 2.5 mg PO DAILY Qty: 180 4RF Protocol: Dose Management Condition: Monday Dose/Route: 2.5 mg Instruction: 1 x 2.5 mg tablet Condition: Monday Dose/Route: 2.5 mg Instruction: 1 x 2.5 mg tablet Condition: Monday Dose/Route: 2.5 mg Instruction: 1 x 2.5 mg tablet Condition: Monday Dose/Route: 2.5 mg Instruction: 1 x 2.5 mg tablet Condition: Dose/Route: 2.5 mg Instruction: 1 x 2.5 mg tablet Condition: Monday Dose/Route: 2.5 mg Instruction: 1 x 2.5 mg tablet Condition: Monday Dose/Route: 2.5 mg Instruction: 1 x 2.5 mg tablet Protocol Text: Adjustment Start Date: Monday01/23/23 INR Value: 3.3 INR Date: 01/23/23 Recheck Date: 02/06/23 spironolactone 25 mg tablet 25 mg PO DAILY Qty: 90 12RF metoprolol succinate 200 mg tablet extended release 24 hr 200 mg PO QPM Qty: 90 12RF escitalopram oxalate 20 mg tablet 20 mg PO DAILY Qty: 90 12RF cholecalciferol (vitamin D3) 5,000 UNIT tablet 5,000 unit PO DAILY acetaminophen [Tylenol] 325 MG tablet 650 mg PO Q6H PRN PRNQty: 60 0RF multivitamin with minerals Tablet 1 tab PO DAILY calcium citrate-vitamin D3 [Citracal + D Maximum] 315 mg- 250 unit Tablet 2 tab PO BID Discharge Instructions Instructions: Contusion in Adults (ED), Viral Syndrome (ED) Additional Instructions: Please have your Coumadin level checked every several days as the Paxlovid medication which is the antiviral can increase your levels Take Tylenol as needed for discomfort Follow-up with your doctor and let them know you are COVID-19 positive Use your walker with ambulation Please return immediately should you have oxygen levels less than 90%, or have any new or worsening complaints Keep yourself hydrated with fluids Referrals: Tamanna Li MD, [place] [Primary Care Provider] - Medical Decision Making 82-year-old female who presents with head injury and fever Report of head injury yesterday and left knee injury, CT head and left knee do not show evidence of acute abnormality per radiology interpretation INR 3.1 Diagnostic labs do not show evidence of acute abnormality although patient is COVID-19 positive, will initiate Paxlovid and encouraged her to watch her INR carefully as she is at increased risk for supratherapeutic INR She is ambulatory with antalgic but steady gait, she will use her walker, a knee brace is applied She is fully alert and oriented with a nonfocal exam throughout this encounter and request discharge home at this time I did discuss all results with family Chest x-ray shows vascular congestion, patient is not short of breath and does not look significantly volume overloaded, I will have her follow-up with her doctor regarding this finding as needed and she may need a repeat film after COVID-19 virus has resolved Return precautions reviewed and patient and family expressed understanding, discharged home in stable condition with stable vitals Recheck in 48 to 72 hours recommended HPI General Date/Time Provider Initiated Documentation: 01/23/23 16:18 . HPI Narrative: This 82-year-old female presents with headache and left knee pain after a fall yesterday. She reportedly was sleeping in a different bed which was up higher than she is used to and she fell, hitting her head and her left knee. She states she is also have a sore throat. She denies any weakness or shortness of breath. She denies any chest discomfort. She does states she had cough today which was new. She was on memorial service over the weekend in [place] and just arrived home this morning per patient. Denies any weakness, confusion, chest pain, shortness of breath. States has been getting around okay today but has had pain in her left knee. Describes mild headache. Denies any loss of consciousness. Took her Coumadin this morning, was 3.3 reportedly. She does have a history of mechanical valve. Fully vaccinated for COVID-19 for patient. Related Data Home Medications Medication Instructions Recorded Confirmed aspirin 81 mg chewable tablet 81 mg PO QPM 01/28/13 01/23/23 (Aspirin Low-Strength) docusate sodium 100 mg capsule 100 mg PO BID #180 tab-caps 01/28/13 01/23/23 (Colace) cholecalciferol (vitamin D3) 125 5,000 unit PO DAILY 03/03/17 01/23/23 mcg (5,000 unit) tablet acetaminophen 325 mg tablet 650 mg PO Q6H PRN PRN #60 tabs 01/02/18 01/23/23 (Tylenol) calcium citrate 315 mg 2 tab PO BID 06/14/19 01/23/23 calcium-vitamin D3 6.25 mcg (250 unit) tablet (Citracal + Vitamin D Maximum) multivitamin with minerals 1 tab PO DAILY 06/14/19 01/23/23 escitalopram oxalate 20 mg tablet 20 mg PO DAILY #90 tab-caps 06/28/22 01/23/23 metoprolol succinate 200 mg 200 mg PO QPM #90 tabs 06/28/22 01/23/23 tablet,extended release 24 hr spironolactone 25 mg tablet 25 mg PO DAILY #90 tab-caps 06/28/22 01/23/23 warfarin 2.5 mg tablet 2.5 mg PO DAILY #180 tabs 06/28/22 01/23/23 Previous Rx's Medication Instructions Recorded acetaminophen 325 mg tablet 650 mg PO Q6H PRN PRN #60 tabs 01/02/18 (Tylenol) escitalopram oxalate 20 mg tablet 20 mg PO DAILY #90 tab-caps 06/28/22 metoprolol succinate 200 mg 200 mg PO QPM #90 tabs 06/28/22 tablet,extended release 24 hr spironolactone 25 mg tablet 25 mg PO DAILY #90 tab-caps 06/28/22 warfarin 2.5 mg tablet 2.5 mg PO DAILY #180 tabs 06/28/22 Allergies Allergy/AdvReac Type Severity Reaction Status Date / Time No Known Allergies Allergy Verified 01/23/23 15:15 General Stated Complaint: Fall/Non TraumaCriteria EVELIA: 3 PFSH All Active Problems (Updated 01/23/23 @ 19:42 by RYLAN Carson) COVID-19 (Acute) Contusion of knee (Acute) Fall (Acute) Wart of hand (Acute) DNR (do not resuscitate) (Acute) Physician orders for life-sustaining treatment (POLST) form indicates patient wish for [id number] status (Acute) Chronic anticoagulation (Acute) Internal hemorrhoids without complication (Acute) Cardiomyopathy (Chronic) Low back pain (Chronic 08/17/04) per Xray-L2-L3 DDD/DJD, L3-L4; L4-L5 DDD and scoliosis Right carpal tunnel syndrome (Chronic 01/12/18) Presence of other heart-valve replacement (Chronic) last echo 04/24; reg. 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) Injection: 02/21/18 De Quervain's tenosynovitis, 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) Cholelithiasis without obstruction (Chronic) Cardiac LV ejection fraction 21-40% (Chronic 03/22/17) Anticoagulated on warfarin (Chronic) AVR; INR goal 2.5-3.5 Medical History Advance directive on file Arm pain, right Arthralgia of ankle 01/13/08 ankle and/or foot Arthralgia of left ankle or foot (01/13/08) Bright red blood per rectum Colette infection 03/17/15 DVT prophylaxis Elev transaminase/LDH 03/24/09 Elevation of level of transaminase and lactic acid dehydrogenase (LDH) (03/24/09) Endometriosis s/p POOJA BSO 1979 Endometriosis Fracture, tibial plateau 02/13/13 HTN (hypertension) Hydronephrosis 12/25/08 R [facility] Calculus causing very mild hydronephrosis right Hydronephrosis (12/25/08) Nuclear cataract 07/17/13 [facility]; S/P surgery right eye; 08/06/13 [facility] right eye Nuclear cataract Pain of left calf Pain of left calf Pap smear vagina w LGSIL 08/17/03 neg HPV Proteinuria 08/17/052005; now resolved Right anterior shoulder pain Ruptured eardrum Strep pharyngitis Strep throat 01/05/16 x 2 Stress due to spouse with dementia (02/20/18) Wrist pain, chronic Surgical History Colonoscopy - IV Sedation (07/05/16) Extraction of cataract (07/17/13) 07/17/13 [facility]; RIGHT EYE 08/06/13 [facility] LEFT EYE H/O aortic valve replacement 09/18/01 last echo 04/24; reg. echos-stable EF=50%; aortic; 2002 History of colonoscopy (~07/2019) 08/06: Tubular adenoma x2. Open Carpal Tunnel release (01/02/18) (R) S/P abdominal hysterectomy and BSO; endometriosis S/P colonoscopy Family History Mother , AGE 75 Essential hypertension Heart disease Father , FALL/HEAD INJURY at age 90. Essential hypertension Sister Alzheimer disease Maternal Grandmother , AGE 61 Heart disease Paternal Grandmother , AGE 80 Heart disease Lymphoma Daughter Heart disease Sister No problems noted. Son No problems noted. Social History Smoking/Tobacco Use Status: Never Second Hand Exposure: Yes Smoking risk assessment performed?: Yes Alcohol Intake: current Alcohol Intake frequency: holidays/special occasions only Alcohol type: wine Drug use: Never Substance use type: does not use Caregiver/Support person: No Household members: none Housing: house Communication Needs: None Do you need help understanding health information?: Often Pets and animals: Yes Pets and animals: dog(s) Sexually active: No Do you think of yourself as: straight/heterosexual Current gender identity: female What is your relationship status?: How often do you talk on the phone with friends or family?: three or more times per week How often do you get together with friends or relatives?: three or more times per week How often do you attend mu-ism or amish services?: decline to answer Do you belong to any clubs or organized social groups?: no Panel score (0-1 are the most socially isolated patients): 1 Duration: < 15 minutes/day Antonia/Congregational: Adventist Special antonia needs: No Seatbelt use: always Helmet use: No Drive intox or ride w/intox sanitation truck driver: No Do you feel safe at home: Yes Do you feel safe in your relationship?: Yes Additional Social history: Lives alone Exam Const General: cooperative, comfortable and no acute distress Orientation: alert and oriented x3 HENMT Head: normal to inspection Throat: uvula midline Other: oropharynx patent Eyes Pupils: PERRL Neck Other: no midline tenderness Resp Effort & Inspection: normal respiratory effort Auscultation: clear to auscultation bilaterally Cardio Rate: regular rate Rhythm: regular rhythm GI Inspection: normal to inspection Other: non-tender exam Back/Spine/Pelvis Back: no CVA tenderness Other: no midline tenderness Skin General skin exam: no rashes or lesions noted Neuro General: patient alert and patient oriented x3 Cranial Nerves: CN's II-XI intact bilaterally Cognition: normal cognition Speech: speech normal Gait: normal gait Motor: strength 5/5 throughout Sensory Exam: no sensory deficits noted Course Vital Signs Vital signs: Vital Signs Temperature 39.2 C H 01/23/23 16:15 Pulse 84 01/23/23 16:15 Respiratory Rate 20 01/23/23 16:15 Blood Pressure 153/62 H 01/23/23 16:15 Temperature 39.2 C H 01/23/23 16:15 Temperature Source Temporal Artery Scan 01/23/23 16:15 Pulse 84 01/23/23 16:15 Respiratory Rate 20 01/23/23 16:15 Respiratory Effort Normal, Non-Labored 01/23/23 16:41 Blood Pressure 153/62 H 01/23/23 16:15 Blood Pressure Position Sitting 01/23/23 16:15 Oxygen Delivery Method Room Air 01/23/23 16:15 Oxygen Flow Rate 0 01/23/23 16:15 Pain Level 4 01/23/23 16:15 Lab/Test Results Lab/Test Results: 01/23/23 17:52 Blood Blood Culture - Pending 01/23/23 16:44 Blood Blood Culture - Pending Laboratory Tests Range/Units 01/23/23 01/23/23 01/23/23 17:30 17:30 17:30 WBC (4.4-10.8) 10^3/uL RBC (3.93-5.22) 10^6/uL Hgb (11.2-15.7) g/dL Hct (36.0-46.0) % MCV (80-95) fL MCH (27.0-33.0) pg MCHC (32.0-36.0) % RDW (11.7-14.6) % Plt Count (130-400) 10^3/uL MPV (8.0-11.0) fL Immature Gran % Neutrophils % Lymphocytes % Monocytes % Eosinophils % Basophils % Nucleated RBC % (0.0-0.3) % Absolute Neutrophils (1.2-6.7) 10^3/uL Absolute Lymphocytes (1.2-3.4) 10^3/uL Absolute Monocytes (0.1-0.8) 10^3/uL Absolute Eosinophils (0.0-0.7) 10^3/uL Absolute Basophils (0.0-0.2) 10^3/uL RBC Morphology PT (9.3-11.0) sec INR (0.9-1.1) VBG Lactate (0.6-1.4) mmol/L 1.2 Sodium (136-145) mmol/L 136 Potassium (3.5-5.1) mmol/L 4.3 Chloride (98-107) mmol/L 100 Carbon Dioxide (21.0-32.0) mmol/L 31.0 Anion Gap (3-11) mmol/L 5.0 BUN (7-18) mg/dL 19 H Creatinine (0.55-1.02) mg/dL 1.0 Est GFR (CKD-EPI 2020) (mL/min/1.73m2) 56.25 Glucose (74-106) mg/dL 85 Calcium (8.5-10.1) mg/dL 9.4 Total Bilirubin (0.2-1.0) mg/dL 0.4 AST (15-37) U/L 45 H ALT (14-59) U/L 53 Alkaline Phosphatase (46-116) U/L 70 Total Protein (6.4-8.2) g/dL 7.7 Albumin (3.4-5.0) g/dL 3.7 Urine Color (Yellow) Urine Clarity (Clear) Urine pH (5-8) Ur Specific [place] (1.005-1.025) Urine Protein (Negative) mg/dL Urine Ketones (Negative) mg/dL Urine Blood (Negative) Urine Nitrite (Negative) Urine Bilirubin (Negative) Urine Urobilinogen (Up to 0.2) mg/dL Ur Leukocyte Esterase (Negative) Urine RBC (0-2) HPF Urine WBC (0-5) HPF Ur Epithelial Cells (Negative) HPF Urine Crystals (Negative) HPF Urine Bacteria (Negative) HPF Urine Casts (Negative) LPF Urine Mucus (Negative) Ur Culture Indicated? Urine Glucose (Negative) mg/dL COVID-19 Source Nasopharynx SARS-CoV-2 (PCR) (Negative) Positive A Influenza Type A (PCR) (Negative) Negative Influenza Type B (PCR) (Negative) Negative RSV (PCR) (Negative) Negative Range/Units 01/23/23 01/23/23 01/23/23 17:30 17:30 17:34 WBC (4.4-10.8) 10^3/uL 9.38 RBC (3.93-5.22) 10^6/uL 3.96 Hgb (11.2-15.7) g/dL 12.6 Hct (36.0-46.0) % 37.6 MCV (80-95) fL 95 MCH (27.0-33.0) pg 31.8 MCHC (32.0-36.0) % 33.5 RDW (11.7-14.6) % 13.9 Plt Count (130-400) 10^3/uL MPV (8.0-11.0) fL Immature Gran % 0.5 Neutrophils % 82.3 Lymphocytes % 5.2 Monocytes % 11.6 Eosinophils % 0.1 Basophils % 0.3 Nucleated RBC % (0.0-0.3) % 0.0 Absolute Neutrophils (1.2-6.7) 10^3/uL 7.71 H Absolute Lymphocytes (1.2-3.4) 10^3/uL 0.49 L Absolute Monocytes (0.1-0.8) 10^3/uL 1.09 H Absolute Eosinophils (0.0-0.7) 10^3/uL 0.01 Absolute Basophils (0.0-0.2) 10^3/uL 0.03 RBC Morphology Normal PT (9.3-11.0) sec 31.0 H INR (0.9-1.1) 3.1 H VBG Lactate (0.6-1.4) mmol/L Sodium (136-145) mmol/L Potassium (3.5-5.1) mmol/L Chloride (98-107) mmol/L Carbon Dioxide (21.0-32.0) mmol/L Anion Gap (3-11) mmol/L BUN (7-18) mg/dL Creatinine (0.55-1.02) mg/dL Est GFR (CKD-EPI 2020) (mL/min/1.73m2) Glucose (74-106) mg/dL Calcium (8.5-10.1) mg/dL Total Bilirubin (0.2-1.0) mg/dL AST (15-37) U/L ALT (14-59) U/L Alkaline Phosphatase (46-116) U/L Total Protein (6.4-8.2) g/dL Albumin (3.4-5.0) g/dL Urine Color (Yellow) Yellow Urine Clarity (Clear) Clear Urine pH (5-8) 7.0 Ur Specific [place] (1.005-1.025) 1.020 Urine Protein (Negative) mg/dL Negative Urine Ketones (Negative) mg/dL Negative Urine Blood (Negative) Trace-intact H Urine Nitrite (Negative) Negative Urine Bilirubin (Negative) Negative Urine Urobilinogen (Up to 0.2) mg/dL 0.2 Ur Leukocyte Esterase (Negative) Negative Urine RBC (0-2) HPF 0-2 Urine WBC (0-5) HPF 0-2 Ur Epithelial Cells (Negative) HPF Rare Urine Crystals (Negative) HPF Negative Urine Bacteria (Negative) HPF Negative Urine Casts (Negative) LPF Negative Urine Mucus (Negative) Negative Ur Culture Indicated? No Urine Glucose (Negative) mg/dL Negative COVID-19 Source SARS-CoV-2 (PCR) (Negative) Influenza Type A (PCR) (Negative) Influenza Type B (PCR) (Negative) RSV (PCR) (Negative)
[2023-01-23 20:44] VITALS: BP 151/86; PULSE 87; RESP 18; TEMP 37.8; O2SAT 97
== END 2023-01-23 20:25 | disposition home or self-care (01) ==
PROVIDERS: Emergency Provider Physician Assistant; PCP Family Medicine
DX: U07.1 COVID-19 (principal); S80.02XA Contusion of left knee, initial encounter; W19.XXXA Unspecified fall, initial encounter
CPT/HCPCS: 29505; 36415; 73562; 80053; 87040; 87637; 96360; 96361; 99285; 70450; 71046; 72125; 81003; 81015; 83605; 85025; 85610; 99284

== ENCOUNTER 2023-01-25 14:44 | Outpatient (CLI) | payer MEDICARE, OTHER, SELFPAY ==
[2023-01-25 17:02] LABS: INR 3.4 (0.9-1.1); Prothrombin Time 34.3 sec (9.3-11.0)
== END 2023-01-25 14:45 | disposition home or self-care (01) ==
LOC: LBO 14:46
PROVIDERS: PCP Family Medicine; Visit Provider Family Medicine
DX: I25.10 Atherosclerotic heart disease of native coronary artery without angina pectoris (principal); Z95.4 Presence of other heart-valve replacement; Z79.01 Long term (current) use of anticoagulants
CPT/HCPCS: 36415; 85610

== ENCOUNTER 2023-01-26 02:33 | Outpatient (CLI) | payer MEDICARE, OTHER, SELFPAY ==
[2023-01-26 12:35] LABS: INR 3.4 (0.9-1.1); Prothrombin Time 34.5 sec (9.3-11.0)
== END 2023-01-26 02:34 | disposition home or self-care (01) ==
LOC: LOS 02:33
PROVIDERS: PCP Family Medicine; Visit Provider Family Medicine
DX: Z95.4 Presence of other heart-valve replacement (principal); I25.10 Atherosclerotic heart disease of native coronary artery without angina pectoris; Z79.01 Long term (current) use of anticoagulants
CPT/HCPCS: 36415; 85610

== ENCOUNTER 2023-01-30 02:58 | Outpatient (CLI) | payer MEDICARE, OTHER, SELFPAY ==
[2023-01-30 12:47] LABS: INR 2.5 (0.9-1.1); Prothrombin Time 25.7 sec (9.3-11.0)
== END 2023-01-30 02:59 | disposition home or self-care (01) ==
LOC: LOS 02:58
PROVIDERS: PCP Family Medicine; Visit Provider Family Medicine
DX: I25.10 Atherosclerotic heart disease of native coronary artery without angina pectoris (principal); Z95.4 Presence of other heart-valve replacement; Z79.01 Long term (current) use of anticoagulants
CPT/HCPCS: 36415; 85610

== ENCOUNTER 2023-02-27 04:32 | Outpatient (CLI) | payer MEDICARE, OTHER, SELFPAY ==
[2023-02-27 12:31] LABS: INR 3.5 (0.9-1.1); Prothrombin Time 35.4 sec (9.3-11.0)
== END 2023-02-27 04:33 | disposition home or self-care (01) ==
LOC: LOS 04:32
PROVIDERS: PCP Family Medicine; Visit Provider Family Medicine
DX: Z95.4 Presence of other heart-valve replacement (principal); I25.10 Atherosclerotic heart disease of native coronary artery without angina pectoris; Z79.1 Long term (current) use of non-steroidal anti-inflammatories (NSAID)
CPT/HCPCS: 36415; 85610

== ENCOUNTER 2023-03-07 11:17 | Outpatient (CLI) | payer MEDICARE, OTHER, SELFPAY ==
[2023-03-07 12:19] LABS: Abs Immature Grans 0.08 10^3/uL (0.0-0.06); Absolute Basophil Count 0.05 10^3/uL (0.0-0.2); Absolute Eosinophil Count 0.17 10^3/uL (0.0-0.7); Absolute Lymphocyte Count 0.76 10^3/uL (1.2-3.4); Absolute Monocyte Count 0.51 10^3/uL (0.1-0.8); Absolute Neutrophil Count 4.77 10^3/uL (1.2-6.7); Basophils % 0.8; Eosinophils % 2.7; HCT 37.4 % (36.0-46.0); HGB 12.3 g/dL (11.2-15.7); Immature Grans % 1.3; MCH 32.3 pg (27.0-33.0); MCHC 32.9 % (32.0-36.0); MCV 98 fL (80-95); MPV 10.5 fL (8.0-11.0); Neutrophils % 75.2; Platelet Count 197 10^3/uL (130-400); RBC 3.81 10^6/uL (3.93-5.22); RDW 14.4 % (11.7-14.6); RDW-SD 51.6 fL; WBC 6.34 10^3/uL (4.4-10.8)
[2023-03-07 12:47] LABS: INR 3.3 (0.9-1.1); Prothrombin Time 33.6 sec (9.3-11.0)
[2023-03-07 21:17] LABS: Bilirubin Small (Negative); Blood Large (Negative); Clarity Cloudy (Clear); Glucose Negative (Negative); Ketones Trace mg/dL (Negative); Leukocyte Esterase Negative (Negative); Nitrite Negative (Negative); Urobilinogen 0.2 mg/dL (Up to 0.2)
[2023-03-07 21:36] LABS: Bacteria Rare HPF (Negative); C & S Indicated? No; Casts Negative LPF (Negative); Crystals Negative HPF (Negative); Epithelial Cells Rare HPF (Negative); Mucus Negative (Negative); RBC >50 HPF (0-2); WBC Negative HPF (0-5)
== END 2023-03-07 11:18 | disposition home or self-care (01) ==
LOC: LOS 11:18
PROVIDERS: PCP Family Medicine; Referring Provider Nurse Practitioner Family; Visit Provider Nurse Practitioner Family
DX: R31.9 Hematuria, unspecified (principal); I25.10 Atherosclerotic heart disease of native coronary artery without angina pectoris; Z79.01 Long term (current) use of anticoagulants
CPT/HCPCS: 36415; 81003; 81015; 85025; 85610

== ENCOUNTER 2023-03-08 11:17 | Emergency (ER) | payer MEDICARE, OTHER, SELFPAY ==
[2023-03-08 11:29] VITALS: BP 127/63; PULSE 54; RESP 17; TEMP 37.1
--- NOTE | 2023-03-08 12:15 | DI.CT_ITS ---
Exam(s) CT ABDOMEN PELVIS W EXAM: CT ABDOMEN PELVIS W CLINICAL HISTORY: gross hematuria, flank pain TECHNIQUE: Imaging Protocol: Axial computed tomography images with coronal and sagittal reformatted images were created and reviewed CONTRAST MATERIAL: Intravenous: Omnipaque 350 Contrast volume:100 mL Oral: No COMPARISON: CT CT ABDOMEN PELVIS W from 06/14/2019 FINDINGS: ABDOMEN: Lung Bases: Coronary artery calcification and/or stents are noted. There is a stable 4 mm nodule in the periphery of the left lower lobe. Liver: Normal density. No measurable mass. Portal, Superior Mesenteric, and Splenic Veins: Unremarkable. Gallbladder and Biliary Tract: No radiodense calculus or dilation. Pancreas: Normal density, no abnormal calcifications or inflammatory process. Spleen: Normal. Adrenals: No masses seen. Kidneys: Normal size, contour and axis. No radiodense stones or obstructive uropathy. No masses seen. Abdominal Aorta: Abdominal portion non-dilated. Atherosclerosis. Bowel: No obstruction or bowel wall thickening. Appendix is unremarkable. Peritoneal Cavity: No ascites, collection or mesenteric inflammatory response. No free air. Lymph Nodes: Within normal limits. Bones: Within normal limits for the patient's age. There is a right convex lumbar scoliosis. Soft Tissues: Unremarkable. PELVIS: Bladder: There is mild thickening of the wall of the urinary bladder particularly anteriorly. There is mild stranding in the associated soft tissues. Reproductive Organs: Status post hysterectomy. Lymph Nodes: Within normal limits. Bones: Within normal limits for the patient's age. IMPRESSION: 1. No evidence of nephrolithiasis or hydronephrosis. 2. Mild thickening of the wall of the urinary bladder particularly anteriorly. There is mild strandi ng of the so seated soft tissues. This may represent a cystitis. Mass cannot be entirely excluded. Urology consult should be considered. 3. Findings were discussed with Melina Medrano at 3:10 p.m. on 03/08/2023. RADIATION DOSE DELIVERED: 1,018.45mGy.cm Total DLP DATA REPOSITORY: All CT scans at this facility are submitted to the National Radiology Data Registry (NRDR) Dose Index Registry (DIR) with the [employer] ([employer]). RADIATION OPTIMIZATION: All CT scans at this facility use at least one of these dose optimization te chniques: automated exposure control; mA and/or kV adjustment per patient size (includes targeted exa ms where dose is matched to clinical indication); or iterative reconstruction.
[2023-03-08 12:39] LABS: Abs Immature Grans 0.05 10^3/uL (0.0-0.06); Absolute Basophil Count 0.03 10^3/uL (0.0-0.2); Absolute Eosinophil Count 0.18 10^3/uL (0.0-0.7); Absolute Lymphocyte Count 0.82 10^3/uL (1.2-3.4); Absolute Monocyte Count 0.58 10^3/uL (0.1-0.8); Absolute Neutrophil Count 5.91 10^3/uL (1.2-6.7); Basophils % 0.4; Eosinophils % 2.4; HGB 12.4 g/dL (11.2-15.7); Immature Grans % 0.7; Lymphocytes % 10.8; MCH 32.3 pg (27.0-33.0); MCHC 33.5 % (32.0-36.0); MCV 96 fL (80-95); MPV 9.7 fL (8.0-11.0); Monocytes % 7.7; Platelet Count 219 10^3/uL (130-400); RBC 3.84 10^6/uL (3.93-5.22); RDW 14.3 % (11.7-14.6); RDW-SD 50.1 fL; WBC 7.57 10^3/uL (4.4-10.8)
[2023-03-08 12:39] LABS: Clarity Cloudy (Clear); Leukocyte Esterase Color Interference (Negative); Nitrite Color Interference (Negative); Specific Gravity 1.015 (1.005-1.025)
[2023-03-08 12:40] LABS: Bilirubin Color Interference (Negative); Blood Color Interference (Negative); Glucose Color Interference mg/dL (Negative); Ketones Color Interference mg/dL (Negative); Urobilinogen Color Interference mg/dL (Up to 0.2)
[2023-03-08 12:41] LABS: C & S Indicated? Yes; RBC >50 HPF (0-2)
[2023-03-08 12:55] LABS: INR 3.5 (0.9-1.1); Prothrombin Time 35.6 sec (9.3-11.0)
[2023-03-08 13:02] LABS: ALT 36 U/L (14-59); AST 31 U/L (15-37); Albumin 3.8 g/dL (3.4-5.0); Alkaline Phosphatase 63 U/L (46-116); Anion Gap 6.9 mmol/L (3-11); BUN 25 mg/dL (7-18); Bilirubin, Total 0.4 mg/dL (0.2-1.0); CO2 31.1 mmol/L (21.0-32.0); CREATININE 1.1 mg/dL (0.55-1.02); Calcium 9.7 mg/dL (8.5-10.1); Chloride 102 mmol/L (98-107); Estimated GFR 50.17 (mL/min/1.73m2); Glucose 104 mg/dL (74-106); Potassium 3.9 mmol/L (3.5-5.1); Sodium 140 mmol/L (136-145); Total Protein 7.6 g/dL (6.4-8.2)
[2023-03-08] MEDS: MORPHine 10 MG/ML VIAL 2 MG IVP (14:08)
[2023-03-08] MEDS: Omnipaque 350 MG/ML 100 ML BTL IJ (14:41)
[2023-03-08] MEDS: Normal Saline - Diluent 50 ML VIAL IJ (14:41)
[2023-03-08] MEDS: fentaNYL 100 MCG/2 ML VIAL 50 MCG IVP (15:20)
--- NOTE | 2023-03-08 15:48 | NUR.NOTE ---
Nursing Note: PT needs follow up with [facility] for Gross hematuria. Viji, ED
[2023-03-08 16:05] VITALS: RESP 18; O2SAT 98
[2023-03-08] MEDS: Cefuroxime 500 MG TAB PO (16:05)
--- NOTE | 2023-03-09 08:52 | W.ED.GENAD ---
Discharge Plan Disposition Patient Disposition: Home Discharge Details Clinical Impression: Gross hematuria, Cystitis Primary Care Provider: Tamanna Li ED Provider: Melina Medrano Home Meds and New Rx's Prescriptions: New cefpodoxime 200 mg tablet 200 mg PO BID Qty: 14 0RF Rx Instructions: must administer with a meal/food Continued nystatin 100,000 unit/gram powder 1 applic topical BID Qty: 60 4RF escitalopram oxalate 20 mg tablet 20 mg PO DAILY Qty: 90 12RF metoprolol succinate 200 mg tablet extended release 24 hr 200 mg PO QPM Qty: 90 12RF spironolactone 25 mg tablet 25 mg PO DAILY Qty: 90 12RF warfarin 2.5 mg tablet 2.5 mg PO DAILY Qty: 180 4RF Protocol: Dose Management Condition: Monday Dose/Route: 2.5 mg Instruction: 1 x 2.5 mg tablet Condition: Monday Dose/Route: 2.5 mg Instruction: 1 x 2.5 mg tablet Condition: Monday Dose/Route: 2.5 mg Instruction: 1 x 2.5 mg tablet Condition: Monday Dose/Route: 2.5 mg Instruction: 1 x 2.5 mg tablet Condition: Dose/Route: 2.5 mg Instruction: 1 x 2.5 mg tablet Condition: Monday Dose/Route: 2.5 mg Instruction: 1 x 2.5 mg tablet Condition: Monday Dose/Route: 2.5 mg Instruction: 1 x 2.5 mg tablet Protocol Text: Adjustment Start Date: Monday03/07/23 INR Value: 3.3 INR Date: 03/07/23 Recheck Date: 04/06/23 docusate sodium [Colace] 100 MG capsule 100 mg PO BID Qty: 180 aspirin [Aspirin Low-Strength] 81 MG tablet,chewable 81 mg PO QPM cholecalciferol (vitamin D3) 5,000 UNIT tablet 5,000 unit PO DAILY acetaminophen [Tylenol] 325 MG tablet 650 mg PO Q6H PRN PRNQty: 60 0RF multivitamin with minerals Tablet 1 tab PO DAILY calcium citrate-vitamin D3 [Citracal + D Maximum] 315 mg- 250 unit Tablet 2 tab PO BID Discharge Instructions Instructions: Hematuria (ED) Additional Instructions: Take cefpodoxime as prescribed repeat INR tomorrow Skip your dose of Coumadin tonight only, you will need to resume it tomorrow to keep your INR between 2.5 and 3.5, it is 3.5 today Yogurt daily while on antibiotic You will need close outpatient follow-up with urology, I placed you on the list, call tomorrow to schedule an appointment and return immediately should you develop new or worsening complaints including weakness, dizziness, fever, chills Take Tylenol 650 every 4-6 hours do not exceed 3 g daily Referrals: Will Lindo MD [ [facility] STAFF PHYSICIAN] - Discharge Data Discharge Date/Time-TO BE ENTERED AT DEPARTURE: 03/08/23 16:06 Medical Decision Making 82-year-old female, presenting with gross hematuria for the past 3 days, suspected urinary tract infection, CT abdomen pelvis was ordered secondary to gross hematuria and chronic anticoagulation and shows possible cystitis versus bladder mass Higher suspicion for cystitis given acuity of symptoms No evidence of hydronephrosis or obstructive uropathy, no evidence on CT of pyelonephritis Vitals are stable here Hemodynamically stable, INR 3.5 Goal INR 2.5-3.5, given the gross materia we will have patient skip 1 single dose of Coumadin and resume tomorrow after rechecking her INR, given lab slip for recheck I did consider the risk of stroke associated with skipping 1 tablet Coumadin with her history of prosthetic valve, however she has reserve and has been stable with her INR's Urine culture pending Started on cefpodoxime 500 mg twice a day for the next 7 days Case discussed with Sirena Salgado, nurse practitioner urology and patient will be seen acutely in the outpatient setting I think at this time she is stable for discharge home, she will have close outpatient follow-up She is aware that if her symptoms are not resolving she will need closer reassessment Return precautions reviewed and patient feels understanding, discharged home in stable condition with stable vitals, small amount of opiate analgesia was supplied, risk of addiction reviewed HPI General Date/Time Provider Initiated Documentation: 03/08/23 11:40. HPI Narrative: This 82-year-old female presents with gross hematuria and flank pain. Past medical history with mechanical heart valve,, chronic anticoagulation on warfarin, renal stones CHF, hyperlipidemia, hypertension presents with report of worsening pain and persisting gross hematuria since Monday. Evaluated by primary care physician and ordered outpatient ultrasound of kidneys. Denies any weakness or dizziness. Denies any nausea or vomiting. Denies any anterior abdominal pain. States the pain in her flank is intermittent. Denies fever or chills. INR yesterday 3.3 per patient Related Data Home Medications Medication Instructions Recorded Confirmed aspirin 81 mg chewable tablet 81 mg PO QPM 01/28/13 03/08/23 (Aspirin Low-Strength) docusate sodium 100 mg capsule 100 mg PO BID #180 tab-caps 01/28/13 03/08/23 (Colace) cholecalciferol (vitamin D3) 125 5,000 unit PO DAILY 03/03/17 03/08/23 mcg (5,000 unit) tablet acetaminophen 325 mg tablet 650 mg PO Q6H PRN PRN #60 tabs 01/02/18 03/08/23 (Tylenol) calcium citrate 315 mg 2 tab PO BID 06/14/19 03/08/23 calcium-vitamin D3 6.25 mcg (250 unit) tablet (Citracal + Vitamin D Maximum) multivitamin with minerals 1 tab PO DAILY 06/14/19 03/08/23 escitalopram oxalate 20 mg tablet 20 mg PO DAILY #90 tab-caps 02/28/23 03/08/23 metoprolol succinate 200 mg 200 mg PO QPM #90 tabs 02/28/23 03/08/23 tablet,extended release 24 hr nystatin 100,000 unit/gram topical 1 applic topical BID #60 grams 02/28/23 03/08/23 powder spironolactone 25 mg tablet 25 mg PO DAILY #90 tab-caps 02/28/23 03/08/23 warfarin 2.5 mg tablet 2.5 mg PO DAILY #180 tabs 02/28/23 03/08/23 cefpodoxime 200 mg tablet 200 mg PO BID #14 tabs 03/08/23 Previous Rx's Medication Instructions Recorded acetaminophen 325 mg tablet 650 mg PO Q6H PRN PRN #60 tabs 01/02/18 (Tylenol) escitalopram oxalate 20 mg tablet 20 mg PO DAILY #90 tab-caps 02/28/23 metoprolol succinate 200 mg 200 mg PO QPM #90 tabs 02/28/23 tablet,extended release 24 hr nystatin 100,000 unit/gram topical 1 applic topical BID #60 grams 02/28/23 powder spironolactone 25 mg tablet 25 mg PO DAILY #90 tab-caps 02/28/23 warfarin 2.5 mg tablet 2.5 mg PO DAILY #180 tabs 02/28/23 cefpodoxime 200 mg tablet 200 mg PO BID #14 tabs 03/08/23 Allergies Allergy/AdvReac Type Severity Reaction Status Date / Time No Known Allergies Allergy Verified 03/07/23 10:30 General Stated Complaint: Urinary EVELIA: 4 PFSH All Active Problems (Updated 03/08/23 @ 15:56 by RYLAN Carson) Gross hematuria (Acute) Cystitis (Acute) Chronic left hip pain (Acute) COVID-19 (Acute) Fall (Acute) Wart of hand (Acute) DNR (do not resuscitate) (Acute) Physician orders for life-sustaining treatment (POLST) form indicates patient wish for [id number] status (Acute) Chronic anticoagulation (Acute) Internal hemorrhoids without complication (Acute) Cardiomyopathy (Chronic) Low back pain (Chronic 08/17/04) per Xray-L2-L3 DDD/DJD, L3-L4; L4-L5 DDD and scoliosis Right carpal tunnel syndrome (Chronic 01/12/18) Presence of other heart-valve replacement (Chronic) last echo 04/24; reg. 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) Injection: 02/21/18 De Quervain's tenosynovitis, 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) Cholelithiasis without obstruction (Chronic) Cardiac LV ejection fraction 21-40% (Chronic 03/22/17) Anticoagulated on warfarin (Chronic) AVR; INR goal 2.5-3.5 Medical History Advance directive on file Arm pain, right Arthralgia of ankle 01/13/08 ankle and/or foot Arthralgia of left ankle or foot (01/13/08) Bright red blood per rectum Colette infection 03/17/15 DVT prophylaxis Elev transaminase/LDH 03/24/09 Elevation of level of transaminase and lactic acid dehydrogenase (LDH) (03/24/09) Endometriosis s/p POOJA BSO 1979 Endometriosis Fracture, tibial plateau 02/13/13 HTN (hypertension) Hydronephrosis 12/25/08 R UJV Calculus causing very mild hydronephrosis right Hydronephrosis (12/25/08) Nuclear cataract 07/17/13 [facility]; S/P surgery right eye; 08/06/13 [facility] right eye Nuclear cataract Pain of left calf Pain of left calf Pap smear vagina w LGSIL 08/17/03 neg HPV Proteinuria 08/17/052005; now resolved Right anterior shoulder pain Ruptured eardrum Strep pharyngitis Strep throat 01/05/16 x 2 Stress due to spouse with dementia (02/20/18) Wrist pain, chronic Surgical History Colonoscopy - IV Sedation (07/05/16) Extraction of cataract (07/17/13) 07/17/13 [facility]; RIGHT EYE 08/06/13 [facility] LEFT EYE H/O aortic valve replacement 09/18/01 last echo 04/24; reg. echos-stable EF=50%; aortic; 2001 History of colonoscopy (~07/2019) 08/06: Tubular adenoma x2. Open Carpal Tunnel release (01/02/18) (R) S/P abdominal hysterectomy and BSO; endometriosis S/P colonoscopy Family History Mother , AGE 75 Essential hypertension Heart disease Father , FALL/HEAD INJURY at age 90. Essential hypertension Sister Alzheimer disease Maternal Grandmother , AGE 61 Heart disease Paternal Grandmother , AGE 80 Heart disease Lymphoma Daughter Heart disease Sister No problems noted. Son No problems noted. Social History (Updated 03/04/23 @ 10:11 by Diane Hunter) Smoking/Tobacco Use Status: Never Second Hand Exposure: Yes Smoking risk assessment performed?: Yes Alcohol Intake: current Alcohol Intake frequency: a few times a month Alcohol type: wine Drug use: Never Substance use type: does not use Caregiver/Support person: No Household members: none Housing: house Communication Needs: None Do you need help understanding health information?: Often Pets and animals: Yes Pets and animals: dog(s) Sexually active: No Do you think of yourself as: straight/heterosexual Current gender identity: female What is your relationship status?: How often do you talk on the phone with friends or family?: three or more times per week How often do you get together with friends or relatives?: three or more times per week How often do you attend catholic or latter day services?: decline to answer Do you belong to any clubs or organized social groups?: no Panel score (0-1 are the most socially isolated patients): 1 Duration: < 15 minutes/day Antonia/Rastafari: Mandaeism Special antonia needs: No Seatbelt use: always Helmet use: No Drive intox or ride w/intox wagon driver: No Do you feel safe at home: Yes Do you feel safe in your relationship?: Yes Additional Social history: Lives alone Exam Narrative Exam Narrative: Calm and cooperative, alert and oriented, intermittent right flank pain, mild CVA tenderness on assessment, no abdominal tenderness, no pallor, respiratory rate within normal limits, no respiratory distress, no dysrhythmia or tachycardia Course Vital Signs Vital signs: Vital Signs Temperature 37.1 C 03/08/23 11:29 Pulse 54 L 03/08/23 11:29 Respiratory Rate 17 03/08/23 11:29 Blood Pressure 127/63 03/08/23 11:29 Temperature 37.1 C 03/08/23 11:29 Temperature Source Oral 03/08/23 11:29 Pulse 54 L 03/08/23 11:29 Respiratory Rate 18 03/08/23 16:05 Respiratory Effort Normal, Non-Labored 03/08/23 11:37 Blood Pressure 127/63 03/08/23 11:29 Pulse Oximetry 98 03/08/23 16:05 Pain Level 8 03/08/23 11:29 Comment It only hurts when I try to pee, and it doesn't come out. It gong. 03/08/23 11:29 Lab/Test Results Lab/Test Results: 03/08/23 12:20 Urine - Reflex from Ua Urine Culture - Pending Laboratory Tests Range/Units 03/08/23 03/08/23 03/08/23 12:20 12:31 12:31 WBC (4.4-10.8) 10^3/uL 7.57 RBC (3.93-5.22) 10^6/uL 3.84 L Hgb (11.2-15.7) g/dL 12.4 Hct (36.0-46.0) % 37.0 MCV (80-95) fL 96 H MCH (27.0-33.0) pg 32.3 MCHC (32.0-36.0) % 33.5 RDW (11.7-14.6) % 14.3 Plt Count (130-400) 10^3/uL 219 MPV (8.0-11.0) fL 9.7 Immature Gran % 0.7 Neutrophils % 78.0 Lymphocytes % 10.8 Monocytes % 7.7 Eosinophils % 2.4 Basophils % 0.4 Nucleated RBC % (0.0-0.3) % 0.0 Absolute Neutrophils (1.2-6.7) 10^3/uL 5.91 Absolute Lymphocytes (1.2-3.4) 10^3/uL 0.82 L Absolute Monocytes (0.1-0.8) 10^3/uL 0.58 Absolute Eosinophils (0.0-0.7) 10^3/uL 0.18 Absolute Basophils (0.0-0.2) 10^3/uL 0.03 PT (9.3-11.0) sec INR (0.9-1.1) Sodium (136-145) mmol/L 140 Potassium (3.5-5.1) mmol/L 3.9 Chloride (98-107) mmol/L 102 Carbon Dioxide (21.0-32.0) mmol/L 31.1 Anion Gap (3-11) mmol/L 6.9 BUN (7-18) mg/dL 25 H Creatinine (0.55-1.02) mg/dL 1.1 H Est GFR (CKD-EPI 2020) (mL/min/1.73m2) 50.17 Glucose (74-106) mg/dL 104 Calcium (8.5-10.1) mg/dL 9.7 Total Bilirubin (0.2-1.0) mg/dL 0.4 AST (15-37) U/L 31 ALT (14-59) U/L 36 Alkaline Phosphatase (46-116) U/L 63 Total Protein (6.4-8.2) g/dL 7.6 Albumin (3.4-5.0) g/dL 3.8 Urine Color (Yellow) Red Urine Clarity (Clear) Cloudy Urine pH (5-8) Ur Specific [place] (1.005-1.025) 1.015 Urine Protein (Negative) mg/dL Color Interference Urine Ketones (Negative) mg/dL Color Interference Urine Blood (Negative) Color Interference Urine Nitrite (Negative) Color Interference Urine Bilirubin (Negative) Color Interference Urine Urobilinogen (Up to 0.2) mg/dL Color Interference Ur Leukocyte Esterase (Negative) Color Interference Urine RBC (0-2) HPF >50 H Urine WBC Not Applicable Ur Epithelial Cells Not Applicable Urine Crystals Not Applicable Urine Bacteria Not Applicable Urine Mucus Not Applicable Ur Culture Indicated? Yes Urine Glucose (Negative) mg/dL Color Interference Patient ABO/Rh Antibody Screen Range/Units 03/08/23 03/08/23 12:31 12:31 WBC (4.4-10.8) 10^3/uL RBC (3.93-5.22) 10^6/uL Hgb (11.2-15.7) g/dL Hct (36.0-46.0) % MCV (80-95) fL MCH (27.0-33.0) pg MCHC (32.0-36.0) % RDW (11.7-14.6) % Plt Count (130-400) 10^3/uL MPV (8.0-11.0) fL Immature Gran % Neutrophils % Lymphocytes % Monocytes % Eosinophils % Basophils % Nucleated RBC % (0.0-0.3) % Absolute Neutrophils (1.2-6.7) 10^3/uL Absolute Lymphocytes (1.2-3.4) 10^3/uL Absolute Monocytes (0.1-0.8) 10^3/uL Absolute Eosinophils (0.0-0.7) 10^3/uL Absolute Basophils (0.0-0.2) 10^3/uL PT (9.3-11.0) sec 35.6 H INR (0.9-1.1) 3.5 H Sodium (136-145) mmol/L Potassium (3.5-5.1) mmol/L Chloride (98-107) mmol/L Carbon Dioxide (21.0-32.0) mmol/L Anion Gap (3-11) mmol/L BUN (7-18) mg/dL Creatinine (0.55-1.02) mg/dL Est GFR (CKD-EPI 2020) (mL/min/1.73m2) Glucose (74-106) mg/dL Calcium (8.5-10.1) mg/dL Total Bilirubin (0.2-1.0) mg/dL AST (15-37) U/L ALT (14-59) U/L Alkaline Phosphatase (46-116) U/L Total Protein (6.4-8.2) g/dL Albumin (3.4-5.0) g/dL Urine Color (Yellow) Urine Clarity (Clear) Urine pH (5-8) Ur Specific [place] (1.005-1.025) Urine Protein (Negative) mg/dL Urine Ketones (Negative) mg/dL Urine Blood (Negative) Urine Nitrite (Negative) Urine Bilirubin (Negative) Urine Urobilinogen (Up to 0.2) mg/dL Ur Leukocyte Esterase (Negative) Urine RBC (0-2) HPF Urine WBC Ur Epithelial Cells Urine Crystals Urine Bacteria Urine Mucus Ur Culture Indicated? Urine Glucose (Negative) mg/dL Patient ABO/Rh A Negative Antibody Screen NEGATIVE
== END 2023-03-08 16:06 | disposition home or self-care (01) ==
PROVIDERS: Emergency Provider Physician Assistant; PCP Family Medicine
DX: N30.91 Cystitis, unspecified with hematuria (principal); R31.0 Gross hematuria
CPT/HCPCS: 80053; 86850; 86900; 86901; 96374; 96375; 99285; 74177; 81003; 81015; 85025; 85610; 87086; 99284; J2270; J3010; J3490

== ENCOUNTER 2023-03-09 16:28 | Outpatient (CLI) | payer MEDICARE, OTHER, SELFPAY ==
[2023-03-09 14:10] LABS: INR 2.8 (0.9-1.1); Prothrombin Time 28.2 sec (9.3-11.0)
== END 2023-03-09 16:29 | disposition home or self-care (01) ==
LOC: LBO 16:30
PROVIDERS: PCP Family Medicine; Visit Provider Physician Assistant
DX: I25.10 Atherosclerotic heart disease of native coronary artery without angina pectoris (principal); Z79.01 Long term (current) use of anticoagulants
CPT/HCPCS: 36415; 85610

== ENCOUNTER 2023-03-15 02:13 | Outpatient (CLI) | payer MEDICARE, OTHER, SELFPAY ==
--- NOTE | 2023-03-15 10:51 | DI.US_ITS ---
APPROVED REPORT EXAM: Comprehensive 2D, Doppler, and color-flow Echocardiogram Patient Location: Out-Patient Composition Worker: Satish Horne RDMS, RVT Indications: eval LV function, AVR, cardiomyopathy Other Information Study Quality: Adequate Conclusion Mild concentric left ventricular hypertrophy. Ejection fraction is 45 to 50%. There is mild global hypokinesis Normal right ventricular size and systolic function Both atria are moderately dilated Patient is status post mechanical aortic valve replacement. Peak gradient is 12, mean gradient is 6. Thickened mitral leaflets, mild mitral regurgitation Normal tricuspid valve with mild regurgitation. Estimated right ventricular systolic pressure is 38 mmHg Mildly dilated ascending aorta Wall motion Left Ventricle The left ventricle is normal size. Left ventricular systolic function is mildly decreased. Borderline concentric left ventricular hypertrophy. There is global hypokinesis of the left ventricle. There is no ventricular septal defect visualized. LVEF is 48%. Right Ventricle The right ventricle is normal size. Right ventricular systolic function is grossly normal. The RVSP i s 38.0 mmHg. Atria Left atrium is moderately dilated. Right atrium is moderately dilated. The interatrial septum is inta ct with no evidence for an atrial septal defect. Aortic Valve Mechanical aortic valve is present. No aortic regurgitation is present. Mechanical aortic valve is pr esent. Mitral Valve Thickened mitral leaflets No evidence of mitral valve stenosis. Mild mitral regurgitation. Tricuspid Valve The tricuspid valve is normal in structure. There is no tricuspid valve stenosis. Mild tricuspid regu rgitation. Pulmonic Valve The pulmonary valve is normal in structure. There is no pulmonic valvular stenosis. Trace pulmonic re gurgitation. Great Vessels The aortic root is normal in size. The ascending aorta is mildly dilated. Aortic arch is normal in ca liber. IVC is normal in size and collapses >50% with inspiration. Pericardium There is no pericardial effusion. 2D Dimensions IVSD d PLAX 1.00 cm F: 0.6-1.0 LV Vol A2C d MOD 89.2 mL LVPW d PLAX 1.00 cm F: 0.6 - 1.0 LV Vol A4C d MOD 100.9 mL LVID d PLAX 5.09 cm F: 3.8 - 5.2 LA vol/ BSA A4C s A-L 65.6 mL/m2 LVDs 3.70 cm F: 2.2 - 3.5 LA Area A4C s MOD 31.42 cm2 Ao Root d 2.62 cm F: 2.7 - 3.3 LV EF A4C MOD 46.8 % Ao Asc Diam d 3.38 cm F: 2.3 - 3.1 LV EF A2C MOD 46.9 % LV EF Teichholz 52.8 % LV EF Biplane MOD 46.9 % LVEF (Zhou's) 46.85 % F: 54 - 74 SV 45.80 mL LV Volume 75.62 mL F: 46 - 106 SV Index 25.06 mL/m2 LV Volume Index 41.32 mL/m2 F: 29 - 61 LV Vol Biplane MOD 97.8 mL FS 27.30 % M-Mode TAPSE 1.96 cm (M/F) >1.7 LV Diastology MV E' lateral 0.059 (>0.1 m/s) E/A Ratio 0.7 LV E/e LAT 14.55 (<14) MV E Vmax 0.86 (0.4-1.3 m/s) MV E/E' lateral 14.59 MV A Vmax 1.20 (0.4-1.3 m/s) MV E/A Ratio 0.69 Aortic Valve LVOT Area 2.92 cm2 AoV Area Vmax 2.00 cm2 LVOT Vmax 1.20 m/s AoV Area/ BSA (Vmax) 1.09 cm2/m2 LVOT Mean Johnny. 0.90 m/s SHELBY Mean Johnny. 2.18 cm2 LVOT Peak Grad 5.7 mmHg SHELBY Mean Johnny. Index 1.19 cm2/m2 LVOT Mean Grad 3.5 mmHg LVOT VTI 0.268 m LVOT Diam s 1.90 cm AoV Vmax 1.75 m/s Velocity Ratio 0.69 AoV Mean Johnny. 1.21 m/s AoV Peak Grad 12.2 mmHg LVOT SV 78.37 mL AoV Mean Grad 6.6 mmHg AoV VTI 0.412 m AoV Area VTI 1.90 cm2 AoV Area/ BSA (VTI) 1.04 cm/m2 Mitral Valve MV DT 209 (160-240 msec) MV PHT 61 msec MV Area PHT 3.63 cm2 MV VTI 0.388 m MV Area VTI 2.02 (4.0-6.0 cm2) Pulmonary Valve PV Vmax 0.92 (0.5-1.5 m/s) RVOT Peak Gr. 1.58 mmHg PV Peak Grad 3.4 mmHg RVOT Mean Gr. 0.75 mmHg PV Mean Grad 1.9 mmHg RVOT VTI 0.143 m PV VTI 0.215 m RVOT Vmax 0.63 m/s Tricuspid Valve TR Peak Grad 34.9 mmHg TR Vmax 2.96 m/s RA Pressure 3.00 mmHg RVSP (TR) 38.0 mmHg
== END 2023-03-15 02:33 ==
LOC: DI 02:13
PROVIDERS: PCP Family Medicine; Visit Provider Internal Medicine Cardiovascular Disease
DX: I42.9 Cardiomyopathy, unspecified (principal); Z95.2 Presence of prosthetic heart valve
CPT/HCPCS: 93306

== ENCOUNTER → 2023-03-20 10:57 | Outpatient (BNVA) | payer MEDICARE, OTHER, SELFPAY | PROVIDERS: PCP Family Medicine; Referring Provider Family Medicine; Visit Provider Internal Medicine Cardiovascular Disease | DX: I42.9 Cardiomyopathy, unspecified (principal); Z95.4 Presence of other heart-valve replacement; Z79.01 Long term (current) use of anticoagulants; I10 Essential (primary) hypertension | CPT/HCPCS: 99213 ==

== ENCOUNTER → 2023-03-20 13:51 | Outpatient (BNVA) | payer MEDICARE, OTHER, SELFPAY | PROVIDERS: PCP Family Medicine; Referring Provider Family Medicine; Visit Provider Nurse Practitioner Gerontology | DX: R31.0 Gross hematuria (principal); R10.9 Unspecified abdominal pain; Z87.442 Personal history of urinary calculi | CPT/HCPCS: 81003; 99215; 99213 ==

== ENCOUNTER 2023-03-20 17:47 | Outpatient (REF) | payer MEDICARE, OTHER, SELFPAY ==
[2023-03-20 18:17] LABS: Bilirubin Negative (Negative); Blood Small (Negative); Clarity Clear (Clear); Glucose Negative (Negative); Ketones Negative (Negative); Leukocyte Esterase Small (Negative); Nitrite Negative (Negative); Urobilinogen 0.2 mg/dL (Up to 0.2)
[2023-03-20 18:28] LABS: Bacteria Few HPF (Negative); C & S Indicated? Yes; Casts 0-2 Hyaline LPF (Negative); Crystals Negative HPF (Negative); Epithelial Cells Rare HPF (Negative); Mucus Trace (Negative)
== END 2023-03-20 17:48 | disposition home or self-care (01) ==
LOC: LBN 17:47
PROVIDERS: PCP Family Medicine; Visit Provider Nurse Practitioner Gerontology
DX: R31.0 Gross hematuria (principal)
CPT/HCPCS: 81003; 81015; 87086

== ENCOUNTER 2023-03-27 02:48 | Outpatient (CLI) | payer MEDICARE, OTHER, SELFPAY ==
[2023-03-27 12:49] LABS: Prothrombin Time 30.7 sec (9.3-11.0)
== END 2023-03-27 02:49 | disposition home or self-care (01) ==
LOC: LOS 02:49
PROVIDERS: PCP Family Medicine; Visit Provider Family Medicine
DX: Z95.4 Presence of other heart-valve replacement (principal); Z79.01 Long term (current) use of anticoagulants
CPT/HCPCS: 36415; 85610

== ENCOUNTER 2023-04-11 02:50 | Outpatient (CLI) | payer MEDICARE, OTHER, SELFPAY ==
--- NOTE | 2023-04-11 08:00 | DI.US_ITS ---
Exam(s) US RENAL EXAM: US RENAL CLINICAL HISTORY: gross hematuria,r31.9 TECHNIQUE: Ultrasound of both kidneys performed using standard protocol. COMPARISON: US US ECHOCARDIOGRAM from 03/15/2023 FINDINGS: RIGHT KIDNEY: Measures 9 cm in length. No cysts evident. Normal cortical thickness and corticomedullary differentia tion .No solid masses No intrarenal calculi nor hydronephrosis. LEFT KIDNEY: Measures 10 cm in length. No cysts evident. Normal cortical thickness and corticomedullary different iaion. No solids masses. No intrarenal calculi nor hydonephrosis. URINARY BLADDER: Prevoid volume is 160 cc Postvoid volume is 0 cc Mild thickening of the wall of the bladder which appears relatively uniform Ureterovesical jets: Both identified and appear symmetrical IMPRESSION: 1. No significant ultrasound findings in the kidneys. 2. Mild thickening of the urinary bladder wall. DATA REPOSITORY:
== END 2023-04-11 03:10 ==
LOC: DI 02:50
PROVIDERS: PCP Family Medicine; Visit Provider Nurse Practitioner Family
DX: R31.9 Hematuria, unspecified (principal); N32.89 Other specified disorders of bladder
CPT/HCPCS: 76770

== ENCOUNTER 2023-04-18 14:19 | Outpatient (REF) | payer MEDICARE, OTHER, SELFPAY ==
[2023-04-18 21:40] LABS: Bilirubin Negative (Negative); Blood Negative (Negative); Clarity Clear (Clear); Glucose Negative (Negative); Ketones Negative (Negative); Leukocyte Esterase Negative (Negative); Nitrite Negative (Negative); Specific Gravity 1.015 (1.005-1.025); Urobilinogen 0.2 mg/dL (Up to 0.2); pH 6.5 (5-8)
== END 2023-04-18 14:20 | disposition home or self-care (01) ==
LOC: LBN 14:19
PROVIDERS: PCP Family Medicine; Visit Provider Family Medicine
DX: N39.0 Urinary tract infection, site not specified (principal)
CPT/HCPCS: 81003

== ENCOUNTER 2023-05-09 04:31 | Outpatient (CLI) | payer MEDICARE, OTHER, SELFPAY ==
[2023-05-09 12:33] LABS: Bilirubin Negative (Negative); Blood Negative (Negative); Clarity Sl Cloudy (Clear); Glucose Negative (Negative); Ketones Negative (Negative); Leukocyte Esterase Trace (Negative); Nitrite Negative (Negative); Specific Gravity 1.025 (1.005-1.025); Urobilinogen 0.2 mg/dL (Up to 0.2)
[2023-05-09 12:37] LABS: INR 2.4 (0.9-1.1); Prothrombin Time 24.3 sec (9.3-11.0)
[2023-05-09 12:56] LABS: Bacteria Moderate HPF (Negative); C & S Indicated? No/Sq. Contamination; Casts Negative LPF (Negative); Crystals Negative HPF (Negative); Epithelial Cells Many HPF (Negative); Mucus Trace (Negative); RBC 0-2 HPF (0-2)
== END 2023-05-09 04:32 | disposition home or self-care (01) ==
LOC: LOS 04:31
PROVIDERS: PCP Family Medicine; Visit Provider Family Medicine
DX: R31.9 Hematuria, unspecified (principal); Z95.4 Presence of other heart-valve replacement; Z79.01 Long term (current) use of anticoagulants; I25.10 Atherosclerotic heart disease of native coronary artery without angina pectoris
CPT/HCPCS: 36415; 81003; 81015; 85610

== ENCOUNTER 2023-05-23 02:31 | Outpatient (CLI) | payer MEDICARE, OTHER, SELFPAY ==
[2023-05-23 13:12] LABS: INR 2.8 (0.9-1.1)
== END 2023-05-23 02:32 | disposition home or self-care (01) ==
LOC: LOS 02:32
PROVIDERS: PCP Family Medicine; Visit Provider Family Medicine
DX: Z95.4 Presence of other heart-valve replacement (principal); I25.10 Atherosclerotic heart disease of native coronary artery without angina pectoris; Z79.01 Long term (current) use of anticoagulants
CPT/HCPCS: 36415; 85610

== ENCOUNTER 2023-06-20 01:27 | Outpatient (CLI) | payer MEDICARE, OTHER, SELFPAY ==
[2023-06-20 12:25] LABS: INR 2.8 (0.9-1.1); Prothrombin Time 28.4 sec (9.3-11.0)
== END 2023-06-20 01:28 | disposition home or self-care (01) ==
LOC: LOS 01:27
PROVIDERS: PCP Family Medicine; Visit Provider Family Medicine
DX: Z95.4 Presence of other heart-valve replacement; I25.10 Atherosclerotic heart disease of native coronary artery without angina pectoris; Z79.01 Long term (current) use of anticoagulants
CPT/HCPCS: 36415; 85610

== ENCOUNTER 2024-01-01 17:24 | Outpatient (CLI) | payer MEDICARE, OTHER, SELFPAY ==
[2024-01-01 12:08] LABS: HCT 34.4 % (36.0-46.0); HGB 10.7 g/dL (11.2-15.7); MCH 30.4 pg (27.0-33.0); MCHC 31.1 % (32.0-36.0); MCV 98 fL (80-95); MPV 10.6 fL (8.0-11.0); Platelet Count 270 10^3/uL (130-400); RBC 3.52 10^6/uL (3.93-5.22); RDW 15.6 % (11.7-14.6); RDW-SD 55.8 fL
[2024-01-01 12:28] LABS: ALT 27 U/L (14-59); AST 23 U/L (15-37); Albumin 3.3 g/dL (3.4-5.0); Alkaline Phosphatase 63 U/L (46-116); BUN 24 mg/dL (7-18); Bilirubin, Total 0.3 mg/dL (0.2-1.0); CREATININE 1.1 mg/dL (0.55-1.02); Calcium 9.3 mg/dL (8.5-10.1); Chloride 106 mmol/L (98-107); Estimated GFR 49.86 (mL/min/1.73m2); Glucose 101 mg/dL (74-106); NT-proBNP 3531 pg/mL (<300); Potassium 4.7 mmol/L (3.5-5.1); Sodium 141 mmol/L (136-145); Total Protein 7.3 g/dL (6.4-8.2)
[2024-01-01 12:45] LABS: Calculated LDL 113 mg/dL (<100); Cholesterol 196 mg/dL (<200); HDL Cholesterol 41 mg/dL (40-60); Triglyceride 214 mg/dL (<150)
[2024-01-01 13:21] LABS: Hemoglobin A1C 6.2 % (<5.7)
== END 2024-01-01 17:25 | disposition home or self-care (01) ==
PROVIDERS: PCP Family Medicine; Visit Provider Family Medicine
DX: I10 Essential (primary) hypertension (principal); E03.9 Hypothyroidism, unspecified; E11.9 Type 2 diabetes mellitus without complications; R06.02 Shortness of breath; I50.9 Heart failure, unspecified
CPT/HCPCS: 36415; 80053; 80061; 85027; 83036; 83880; 84443

== ENCOUNTER → 2024-01-05 00:33 | Outpatient (CLI) | payer MEDICARE, OTHER, SELFPAY ==
--- NOTE | 2024-01-05 14:08 | DI.CT_ITS ---
Exam(s) CT CHEST WO EXAM: CT CHEST WO CLINICAL HISTORY: continued SOB after pneumonia,sleep apnea,R06.02. TECHNIQUE: Imaging protocol: Axial computed tomography images were obtained and coronal and sagittal reformatted images were created and reviewed. CONTRAST MATERIAL: Noncontrast COMPARISON: CT RENAL COLIC WO CONTRAST from 12/24/2008 CT RIGHT LOWER EXTREM WO CONTRAST from 02/14/2013 CR,XR XR CHEST 2V PA LATERAL from 01/23/[address] ABDOMEN PELVIS W from 03/08/2023 FINDINGS: Pulmonary parenchyma: No consolidation. No suspicious nodules. Mild scarring right upper lobe. Mild scarring left lower lobe. Emphysema: None. Tracheobronchial tree: No mucous plugging. No bronchiectasis . Interstitial changes: None. Pleura: No effusion or pneumothorax. Heart: The heart is moderately dilated. The coronary arteries show moderatecalcifications. Aortic valve prosthesis. Aorta: Ascending aorta measures 3.9 cm. Severeatherosclerotic changes. Lymph nodes: No enlarged lymph nodes. Bones: Scoliosis and degenerative changes are seen. No evidence of compression fracture. Upper abdomen: Unremarkable. Soft tissues: Unremarkable. IMPRESSION: No acute abnormality. RADIATION DOSE DELIVERED: 542.62mGy.cm Total DLP 542.62mGy.cm Total DLP DATA REPOSITORY: All CT scans at this facility are submitted to the National Radiology Data Registry (NRDR) Dose Index Registry (DIR) with the [employer] (ACR). RADIATION OPTIMIZATION: All CT scans at this facility use at least one of these dose optimization te chniques: automated exposure control; mA and/or kV adjustment per patient size (includes targeted exa ms where dose is matched to clinical indication); or iterative reconstruction.
== END ==
PROVIDERS: PCP Family Medicine; Visit Provider Family Medicine
DX: I42.9 Cardiomyopathy, unspecified (principal); R94.30 Abnormal result of cardiovascular function study, unspecified; G47.33 Obstructive sleep apnea (adult) (pediatric); R06.02 Shortness of breath
CPT/HCPCS: 71250

== ENCOUNTER → 2024-01-18 04:22 | Outpatient (CLI) | payer MEDICARE, OTHER, SELFPAY ==
--- NOTE | 2024-01-18 14:30 | DI.US_ITS ---
APPROVED REPORT EXAM: Comprehensive 2D, Doppler, and color-flow Echocardiogram Patient Location: Out-Patient [place] [facility] Repairer: Satish Horne RDCS (AE) Indications: EF from 40-20, SOB Conclusion Mild concentric left ventricular hypertrophy. Left ventricle is mildly dilated. LV function is redu miguel a. EF is approximately 40%. Patient is in bigeminy with [id number] variation Normal right ventricular size and function Both atria are mildly dilated Patient has mechanical aortic valve replacement. There is trace aortic regurgitation as would be exp ected with this valve type Mild to moderate mitral regurgitation Mild to moderate tricuspid regurgitation. 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 Left ventricular systolic function is moderately decreased. Mild co ncentric left ventricular hypertrophy. There is global hypokinesis of the left ventricle. There is no ventricular septal defect visualized. LVEF is 40%. Right Ventricle The right ventricle is normal size. The right ventricular systolic function is normal. Atria Left atrium is mildly dilated. Right atrium is mildly dilated. Aortic Valve Mechanical aortic valve is present. Mild aortic regurgitation. Mitral Valve Mitral valve leaflets are mildly thickened. Mild mitral annular calcification. No evidence of mitral valve stenosis. Mild to moderate mitral regurgitation. Tricuspid Valve The tricuspid valve is normal in structure. There is no tricuspid valve stenosis. Mild to moderate tr icuspid regurgitation. Unable to assess PA pressure. Pulmonic Valve The pulmonary valve is normal in structure. There is no pulmonic valvular stenosis. Mild pulmonic reg urgitation. Great Vessels The aortic root is normal in size. The ascending aorta is mildly dilated. Aortic arch is not well vis ualized. IVC is normal in size and collapses >50% with inspiration. Pericardium There is no pericardial effusion. 2D Dimensions IVSD d PLAX 1.18 cm F: 0.6-1.0 Ao Root d 2.40 cm F: 2.7 - 3.3 LVPW d PLAX 1.21 cm F: 0.6 - 1.0 Ao Asc Diam d 3.65 cm F: 2.3 - 3.1 LVID d PLAX 5.84 cm F: 3.8 - 5.2 LVDs 4.00 cm F: 2.2 - 3.5 LV EF Teichholz 40.0 % FS 31.54 % LV EDV (Teich) 169.0 mL LV ESV (Teich) 69.8 mL Stroke Vol Index (Teich) 56.34 M-Mode TAPSE 3.26 cm (M/F) >1.7 Auto EF LV EDV A4C 116.5 mL LV EDV A2C 99.1 mL LV EDV BP 106.2 mL LV ESV A4C 70.2 mL LV ESV A2C 59.2 mL LV ESV BP 65.2 mL LVEF(%) A4C 39.8 % LVEF(%) A2C 40.2 % LVEF(%) BP 38.6 % LV SV A4C 46.3 ml LV SV A2C 39.8 ml LV SV BP 41.0 ml LV CO A4C 3.1 L/min LV CO A2C 2.3 L/min LV CO BP 2.7 L/min HR A4C 66.79 BPM HR A2C 57.60 BPM LV EDV Index (BP) LA Volume LA Length A4C 5.2 cm LA Length A2C 5.8 cm LA Area A4C s 13.28 cm2 LA Area A2C s 12.76 cm2 LA Vol A4C A-L 28.56 mL LA Vol A2C A-L 23.72 mL LA Vol Biplane A-L 27.4 mL LA Vol/BSA A4C A-L LA Vol/BSA A2C A-L LA Vol/BSA BP A-L 15.6 mL/m2 LA Vol A4C MOD 26.5 mL LA Vol A2C MOD 23.4 mL LA Vol BP MOD 24.4 mL RA Volume RA Area A4C 11.4 cm2 RA ESV A4C (A-L) 22.5mL RA Vol/BSA A4C A-L RA Length A4C 4.9 cm RA ESV A4C (MOD) 21.8mL LV Diastology MV E' medial 0.054 (>0.07 m/s) MV E Vmax 1.07 (0.4-1.3 m/s) MV E/E' MED 19.95 (<14) MV A Vmax 1.10 (0.4-1.3 m/s) MV E' lateral 0.051 (>0.1 m/s) E/A Ratio 1.0 MV E/E' LAT 21.00 (<14) MV E' Average 0.052 m/s MV E/E'(average) 20.46 Aortic Valve AoV Vmax 1.69 m/s LVOT Vmax 0.85 m/s AoV Peak Grad 11.4 mmHg LVOT Peak Grad 2.9 mmHg AoV Area (Vmax) 1.22 cm2 LVOT VTI 0.217 m AoV VTI 0.387 m LVOT Mean Grad 1.7 mmHg AoV Mean Johnny. 1.27 m/s LVOT SV 52.65 mL AoV Mean Grad 7.0 mmHg LVOT Diam s 1.75 cm AoV Area (VTI) 1.36 cm2 Velocity Ratio 0.50 Mitral Valve MV DT 225 (160-240 msec) MR Vmax 5.30 m/s MV Vmax TIPS 1.26 m/s MR VTI 2.073 m MV Mean Grad 2.2 (<2mmHg) MR Peak Grad 112.3 mmHg MV VTI 0.468 m MR Mean Grad 84.1 mmHg Pulmonary Valve PV Vmax 0.90 (0.5-1.5 m/s) RVOT Vmax 0.55 m/s PV Peak Grad 3.3 mmHg RVOT Peak Gr. 1.2 mmHg PV Mean Johnny 0.64 m/s RVOT VTI 0.135 m PV Mean Grad 1.9 mmHg RVOT Mean Gr. 0.6 mmHg
== END ==
PROVIDERS: PCP Family Medicine; Visit Provider Family Medicine
DX: R06.02 Shortness of breath (principal); R94.30 Abnormal result of cardiovascular function study, unspecified; I42.2 Other hypertrophic cardiomyopathy
CPT/HCPCS: 93306

== ENCOUNTER 2024-01-22 14:52 | Outpatient (CLI) | payer MEDICARE, OTHER, SELFPAY ==
--- NOTE | 2024-01-22 14:45 | RT.EKG_ITS ---
APPROVED REPORT Exam: Resting ECG Reason for Exam: Low BP Patient Location: O HR:68 bpm ECG Measurements Heart Rate 68 AXIS NH 251 P 33 QRSd 128 QRS -5 QT 441 T 111 QTc 470 Conclusion Sinus rhythm...normal P axis, V-rate 50- 99 Prolonged NH interval...NH >220, V-rate 50- 90 Probable left atrial enlargement...P >50mS, <-0.10mV V1 Left bundle branch block...QRSd>120, broad/notched R
== END 2024-01-22 14:53 | disposition home or self-care (01) ==
LOC: DI.CM 14:53
PROVIDERS: PCP Family Medicine; Visit Provider Nurse Practitioner Family
DX: I95.9 Hypotension, unspecified (principal)
CPT/HCPCS: 93010

== ENCOUNTER 2024-02-27 05:28 | Outpatient (CLI) | payer MEDICARE, OTHER, SELFPAY ==
--- NOTE | 2024-02-27 16:36 | TELEFU_ITS ---
Date of service: 02/27/24 Time of Service: 16:00 Nutrition Note NOTE: Susan arrives for referred nutrition appt with her daughter and daughter in-law (lives with dtr in law in [place] winter months) regarding vitamin K intake and supervisor intermediates anti-coagulation therapy. Has been on warfarin for for years but says just lately her INR has become inconsistent. Gets INR weekly every Monday and was 3.9 on 02/26. States she was told to try and eat high vitamin K food serving every-other day to stay consistent. Agreed with consistent vitamin K intake and reviewed with family multiple vitamin K handouts regarding anti-coagulation therapy. She takes generic MVI comparable to Cenrum Silver, which most likely has 30mcg K. Denies other ONS supplements and herbal supplements that may contribute to vitamin K intake or contribute to thinning blood (like tumeric, fish oil etc..). They recently re alized that she drinks cranberry juice often and have just stopped this - I supported this as it may be possible this and grape juice can interact with warfarin from what I have read and recommended not drinking juice regardless as a healthy nutrition strategy - always eat whole fruit instead. Reviewed high vitamin K foods and suggested a serving every other day as was suggested to her. also reviewed list of foods with less than 30mcg K and suggested these can be eaten daily as they represent many variety of food choices. Susan took my card with contact info - they would like to email me some of her days of intake to review and be sure they are not offering consistent K intake. Told them I'd be glad to comment on and diet history they can relay. Time Spent in Nutritional Counseling and Treatment: 20 min
== END 2024-02-27 05:29 | disposition home or self-care (01) ==
PROVIDERS: PCP Family Medicine; Visit Provider Dietitian, Registered
DX: Z79.01 Long term (current) use of anticoagulants (principal)
CPT/HCPCS: 00123; 97802

== ENCOUNTER 2024-03-18 04:36 | Outpatient (CLI) | payer MEDICARE, OTHER, SELFPAY ==
[2024-03-18 12:21] LABS: Abs Immature Grans 0.04 10^3/uL (0.0-0.06); Absolute Basophil Count 0.05 10^3/uL (0.0-0.2); Absolute Eosinophil Count 0.16 10^3/uL (0.0-0.7); Absolute Monocyte Count 0.46 10^3/uL (0.1-0.8); Absolute Neutrophil Count 6.12 10^3/uL (1.2-6.7); Basophils % 0.7 %; Eosinophils % 2.1 %; HCT 32.6 % (36.0-46.0); HGB 10.5 g/dL (11.2-15.7); Immature Grans % 0.5 %; Lymphocytes % 9.3 %; MCHC 32.2 % (32.0-36.0); MCV 96 fL (80-95); MPV 10.8 fL (8.0-11.0); Monocytes % 6.1 %; Neutrophils % 81.3 %; Platelet Count 241 10^3/uL (130-400); RBC 3.39 10^6/uL (3.93-5.22); RDW 14.8 % (11.7-14.6); RDW-SD 52.3 fL; WBC 7.53 10^3/uL (4.4-10.8)
[2024-03-18 13:02] LABS: ALT 37 U/L (14-59); AST 32 U/L (15-37); Albumin 3.6 g/dL (3.4-5.0); Alkaline Phosphatase 131 U/L (46-116); BUN 35 mg/dL (7-18); Bilirubin, Total 0.45 mg/dL (0.2-1.0); CREATININE 1.5 mg/dL (0.55-1.02); Calcium 9.4 mg/dL (8.5-10.1); Chloride 105 mmol/L (98-107); Estimated GFR 34.36 (mL/min/1.73m2); Ferritin 85 ng/mL (8-252); Folate > 20.0 ng/mL (8.6-20.0); Glucose 94 mg/dL (74-106); Potassium 4.9 mmol/L (3.5-5.1); Sodium 141 mmol/L (136-145); Total Protein 7.4 g/dL (6.4-8.2); Vitamin B12 621 pg/mL (193-986)
[2024-03-18 13:20] LABS: NT-proBNP 1451 pg/mL (<300)
== END 2024-03-18 04:37 | disposition home or self-care (01) ==
LOC: LOS 04:37
PROVIDERS: PCP Family Medicine; Visit Provider Nurse Practitioner Family
DX: I95.9 Hypotension, unspecified (principal); I50.20 Unspecified systolic (congestive) heart failure
CPT/HCPCS: 36415; 80053; 82607; 82728; 82746; 83880; 85025

== ENCOUNTER → 2024-03-19 09:15 | Outpatient (BNVA) | payer MEDICARE, OTHER, SELFPAY | PROVIDERS: PCP Family Medicine; Visit Provider Internal Medicine Cardiovascular Disease | DX: Z95.2 Presence of prosthetic heart valve (principal); I42.9 Cardiomyopathy, unspecified; Z95.4 Presence of other heart-valve replacement | CPT/HCPCS: 99213 ==

== ENCOUNTER 2024-03-26 20:52 | Outpatient (CLI) | payer MEDICARE, OTHER, SELFPAY ==
[2024-03-26 15:45] LABS: Prothrombin Time 55.9 sec (9.1-11.1)
[2024-03-26 16:10] LABS: INR 6.6 (0.9-1.1)
== END 2024-03-26 20:53 | disposition home or self-care (01) ==
LOC: LBO 20:52
PROVIDERS: PCP Family Medicine; Visit Provider Family Medicine
DX: I25.10 Atherosclerotic heart disease of native coronary artery without angina pectoris (principal); Z95.2 Presence of prosthetic heart valve; Z79.01 Long term (current) use of anticoagulants
CPT/HCPCS: 36415; 85610

== ENCOUNTER 2024-03-28 13:49 | Outpatient (CLI) | payer MEDICARE, OTHER, SELFPAY ==
[2024-03-28 10:08] LABS: INR 2.5 (0.9-1.1); Prothrombin Time 23.3 sec (9.1-11.1)
== END 2024-03-28 13:50 | disposition home or self-care (01) ==
LOC: LBO 13:50
PROVIDERS: PCP Family Medicine; Visit Provider Family Medicine
DX: Z95.4 Presence of other heart-valve replacement (principal); Z79.01 Long term (current) use of anticoagulants
CPT/HCPCS: 36415; 85610

== ENCOUNTER 2024-04-03 12:57 | Outpatient (CLI) | payer MEDICARE, OTHER, SELFPAY ==
[2024-04-03 14:29] LABS: INR 2.3 (0.9-1.1); Prothrombin Time 21.4 sec (9.1-11.1)
== END 2024-04-03 12:58 | disposition home or self-care (01) ==
LOC: LBO 12:58
PROVIDERS: PCP Family Medicine; Visit Provider Family Medicine
DX: Z95.4 Presence of other heart-valve replacement (principal); Z79.01 Long term (current) use of anticoagulants
CPT/HCPCS: 36415; 85610

== ENCOUNTER 2024-07-02 02:28 | Outpatient (CLI) | payer MEDICARE, OTHER, SELFPAY ==
[2024-07-02 13:16] LABS: ALT 57 U/L (14-59); AST 56 U/L (15-37); Albumin 3.8 g/dL (3.4-5.0); Alkaline Phosphatase 282 U/L (46-116); Anion Gap 8.4 mmol/L (3-11); BUN 36 mg/dL (7-18); Bilirubin, Total 0.52 mg/dL (0.2-1.0); CO2 27.6 mmol/L (21.0-32.0); CREATININE 1.8 mg/dL (0.55-1.02); Calcium 9.6 mg/dL (8.5-10.1); Chloride 108 mmol/L (98-107); Estimated GFR 27.44 (mL/min/1.73m2); Glucose 86 mg/dL (74-106); Sodium 144 mmol/L (136-145); Total Protein 7.6 g/dL (6.4-8.2)
[2024-07-02 16:58] LABS: Hemoglobin A1C 5.8 % (<5.7)
== END 2024-07-02 02:29 | disposition home or self-care (01) ==
LOC: LOS 02:28
PROVIDERS: PCP Family Medicine; Visit Provider Family Medicine
DX: I10 Essential (primary) hypertension (principal); E11.9 Type 2 diabetes mellitus without complications
CPT/HCPCS: 36415; 80053; 83036

== ENCOUNTER 2025-03-24 08:00 | Outpatient (CLI) | payer MEDICARE, OTHER, SELFPAY ==
--- NOTE | 2025-03-24 08:00 | RT.EKG_ITS ---
APPROVED REPORT Exam: Resting ECG Reason for Exam: cardiac evaluation Patient Location: O HR:59 bpm ECG Measurements Heart Rate 59 AXIS WA 244 P 50 QRSd 133 QRS -19 QT 461 T 116 QTc 457 Conclusion Sinus rhythm...normal P axis, V-rate 50- 99 Multiple ventricular premature complexes...V complexes w/ short R-R intervls Prolonged WA interval...WA >220, V-rate 50- 90 Left bundle branch block...QRSd>120, broad/notched R Baseline wander in lead(s) V2
== END 2025-03-24 08:01 | disposition home or self-care (01) ==
LOC: DI.CARD 08:00
PROVIDERS: PCP Family Medicine; Visit Provider Registered Nurse
DX: R94.30 Abnormal result of cardiovascular function study, unspecified (principal); I10 Essential (primary) hypertension; I42.9 Cardiomyopathy, unspecified; I50.20 Unspecified systolic (congestive) heart failure; Z95.4 Presence of other heart-valve replacement
CPT/HCPCS: 93010

== ENCOUNTER → 2025-03-24 14:39 | Outpatient (BNVA) | payer MEDICARE, OTHER, SELFPAY | PROVIDERS: PCP Family Medicine; Visit Provider Registered Nurse | DX: I42.9 Cardiomyopathy, unspecified (principal); Z95.4 Presence of other heart-valve replacement; I10 Essential (primary) hypertension; I50.20 Unspecified systolic (congestive) heart failure | CPT/HCPCS: 99214; 93005 ==

== ENCOUNTER 2025-04-08 02:11 | Outpatient (CLI) | payer MEDICARE, OTHER, SELFPAY ==
--- NOTE | 2025-04-08 07:30 | DI.US_ITS ---
APPROVED REPORT EXAM: Comprehensive 2D, Doppler, and color-flow Echocardiogram Patient Location: Out-Patient [employer] Subassembler: April Aiken RDCS (AE) Indications: Cardiomyopathy, SOB Other Information Study Quality: Adequate. Technically limited study due to body habitus. Conclusion Mildly dilated left ventricle. Ejection fraction is 40 to 45%. There appears to be global hypokinesis Grossly normal right ventricular size and function Both atria are enlarged There is a prosthetic aortic valve with 2 tiny perivalvular leaks. Mean gradient is 6 mmHg Mitral annular calcification. Moderate mitral regurgitation Moderate tricuspid regurgitation. Estimated right ventricular systolic pressure is 31 mmHg Ascending aorta measures 3.64 cm Wall motion Left Ventricle Left ventricle is mildly dilated. Left ventricular systolic function is mildly decreased. Arrhythmia throughout exam. Beat to beat variation. There is normal left ventricular wall thickness. There is global hypokinesis of the left ventricle. There is no ventricular septal defect visualized. LVEF is 43%. Right Ventricle Right ventricle is grossly normal in size. Right ventricular systolic function is grossly normal. Atria Left atrium is moderately dilated. Right atrium is moderately dilated. The interatrial septum is intact with no evidence for an atrial septal defect. Aortic Valve Small perivalvular leaks visible. Prosthetic aortic valve is not well visualized. Mitral Valve Mild mitral annular calcification. No evidence of mitral valve stenosis. Moderate mitral regurgitation. Tricuspid Valve The tricuspid valve is normal in structure. There is no tricuspid valve stenosis. Moderate tricuspid regurgitation. The RVSP is 30.8mmHg. Pulmonic Valve The pulmonary valve is normal in structure. There is no pulmonic valvular stenosis. Trace pulmonic regurgitation. Great Vessels The aortic root is normal in size. The ascending aorta is mildly dilated. Aortic arch is not well visualized. IVC is normal in size and collapses >50% with inspiration. Pericardium There is no pericardial effusion. 2D Dimensions IVSD d PLAX 1.01 cm F: 0.6-1.0 Ao Root d 2.80 cm F: 2.7 - 3.3 LVPW d PLAX 1.00 cm F: 0.6 - 1.0 Ao Asc Diam d 3.64 cm F: 2.3 - 3.1 LVID d PLAX 5.86 cm F: 3.8 - 5.2 LVDs 4.62 cm F: 2.2 - 3.5 LV EF Teichholz 42.2 % FS 21.09 % LV EDV (Teich) 170.4 mL LV ESV (Teich) 98.4 mL M-Mode TAPSE 2.61 cm (M/F) >1.7 Auto EF LV EDV A4C 104.3 mL LV EDV A2C 110.9 mL LV EDV BP 107.7 mL LV ESV A4C 58.2 mL LV ESV A2C 61.0 mL LV ESV BP 59.9 mL LVEF(%) A4C 44.2 % LVEF(%) A2C 45.0 % LVEF(%) BP 44.4 % LV SV A4C 46.1 ml LV SV A2C 49.9 ml LV SV BP 47.8 ml LV CO A4C 4.0 L/min LV CO A2C 3.6 L/min LV CO BP 3.8 L/min HR A4C 87.81 BPM HR A2C 72.44 BPM LV EDV Index (BP) LA Volume LA Length A4C 6.7 cm LA Length A2C 5.9 cm LA Area A4C s 27.78 cm2 LA Area A2C s 26.41 cm2 LA Vol A4C A-L 97.53 mL LA Vol A2C A-L 100.48 mL LA Vol Biplane A- L 105.7 mL LA Vol/BSA A4C A-L LA Vol/BSA A2C A-L LA Vol/BSA BP A-L 59.7 mL/m2 LA Vol A4C MOD 87.9 mL LA Vol A2C MOD 94.7 mL LA Vol BP MOD 97.1 mL RA Volume RA Area A4C 17.8 cm2 RA ESV A4C (A-L) 50.1mL RA Vol/BSA A4C A-L RA Length A4C 5.4 cm RA ESV A4C (MOD) 48.2mL LV Diastology MV E' lateral 0.069 (>0.1 m/s) MV E Vmax 1.10 (0.4-1.3 m/s) MV E/E' LAT 15.96 (<14) MV A Vmax 1.00 (0.4-1.3 m/s) E/A Ratio 1.1 Aortic Valve AoV Vmax 1.50 m/s LVOT Vmax 0.70 m/s AoV Peak Grad 9.5 mmHg LVOT Peak Grad 1.9 mmHg AoV Area (Vmax) 1.14 cm2 LVOT VTI 0.188 m AoV VTI 0.355 m LVOT Mean Grad 1.3 mmHg AoV Mean Johnny. 1.13 m/s LVOT SV 46.26 mL AoV Mean Grad 5.9 mmHg LVOT Diam s 1.75 cm AoV Area (VTI) 1.30 cm2 Velocity Ratio 0.47 Mitral Valve MV DT 270 (160-240 msec) MV Vmax TIPS 1.34 m/s MV Mean Grad 4.5 (<2mmHg) MV VTI 0.407 m Pulmonary Valve PV Vmax 0.88 (0.5-1.5 m/s) RVOT Vmax 0.81 m/s PV Peak Grad 3.1 mmHg RVOT Peak Gr. 2.6 mmHg PV Mean Johnny 0.65 m/s RVOT VTI 0.189 m PV Mean Grad 1.9 mmHg RVOT Mean Gr. 1.5 mmHg Tricuspid Valve RA Pressure 3.00 mmHg TR Vmax 2.62 m/s TV S' 0.12 m/s TR Peak Grad 27.7 mmHg RVSP (TR) 30.8 mmHg
== END 2025-04-08 02:31 ==
LOC: DI 02:11
PROVIDERS: PCP Family Medicine; Visit Provider Internal Medicine Cardiovascular Disease
DX: I42.9 Cardiomyopathy, unspecified (principal)
CPT/HCPCS: 93306

== ENCOUNTER 2025-04-14 14:10 | Outpatient (CLI) | payer MEDICARE, OTHER, SELFPAY ==
--- NOTE | 2025-04-14 14:07 | DI.RAD_ITS ---
Exam(s) XR CHEST 2V PA LATERAL EXAM: XR CHEST 2V PA LATERAL CLINICAL HISTORY: J39.8 Chest congestion,Other specified diseases of Upper respiratory tract TECHNIQUE: 2D digital imaging was performed. Two views. COMPARISON: CT CT CHEST WO from 01/05/2024 FINDINGS: HEART: Mildly enlarged. Valve prosthesis. Aorta: Not dilated. PULMONARY VASCULATURE: Normal. MEDIASTINUM: Unremarkable. LUNGS: Clear. PLEURAL SPACE: No pleural effusion or pneumothorax. BONE:Sternal wires. Mild degenerative changes in the spine SOFT TISSUES: Unremarkable. IMPRESSION: No acute abnormality. DATA REPOSITORY: RADIATION DOSE DELIVERED:
== END 2025-04-14 14:30 ==
LOC: DI 14:11
PROVIDERS: PCP Family Medicine; Visit Provider Family Medicine
DX: J39.8 Other specified diseases of upper respiratory tract (principal)
CPT/HCPCS: 71046

== ENCOUNTER 2025-04-18 02:11 | Outpatient (CLI) | payer MEDICARE, OTHER, SELFPAY ==
[2025-04-18 12:37] LABS: HCT 34.6 % (36.0-46.0); HGB 10.9 g/dL (11.2-15.7); MCH 30.4 pg (27.0-33.0); MCHC 31.5 % (32.0-36.0); MCV 97 fL (80-95); MPV 11.2 fL (8.0-11.0); Platelet Count 229 10^3/uL (130-400); RBC 3.58 10^6/uL (3.93-5.22); RDW 14.2 % (11.7-14.6); RDW-SD 50.4 fL; WBC 8.77 10^3/uL (4.4-10.8)
[2025-04-18 12:45] LABS: Hemoglobin A1C 5.6 % (<5.7)
[2025-04-18 12:58] LABS: Iron 65 ug/dL (50-170)
[2025-04-18 13:07] LABS: ALT 54 U/L (14-59); AST 49 U/L (15-37); Albumin 3.7 g/dL (3.4-5.0); Alkaline Phosphatase 267 U/L (46-116); Anion Gap 7.0 mmol/L (3-11); BUN 45 mg/dL (7-18); Bilirubin, Total 0.6 mg/dL (0.2-1.0); CO2 28.0 mmol/L (21.0-32.0); Calcium 9.5 mg/dL (8.5-10.1); Chloride 104 mmol/L (98-107); Estimated GFR 27.44 (mL/min/1.73m2); Ferritin 81 ng/mL (8-252); Glucose 108 mg/dL (74-106); Potassium 5.8 mmol/L (3.5-5.1); Sodium 139 mmol/L (136-145); Total Protein 7.3 g/dL (6.4-8.2)
[2025-04-18 13:09] LABS: INR 2.8 (0.9-1.1); Prothrombin Time 26.6 sec (9.1-11.1)
== END 2025-04-18 02:12 | disposition home or self-care (01) ==
PROVIDERS: PCP Family Medicine; Visit Provider Family Medicine
DX: D64.9 Anemia, unspecified (principal); Z79.01 Long term (current) use of anticoagulants; E11.9 Type 2 diabetes mellitus without complications; I10 Essential (primary) hypertension
CPT/HCPCS: 36415; 80053; 85027; 82728; 83036; 83540; 85610

== ENCOUNTER 2025-04-23 02:25 | Outpatient (CLI) | payer MEDICARE, OTHER, SELFPAY ==
[2025-04-23 13:14] LABS: ALT 75 U/L (14-59); AST 63 U/L (15-37); Albumin 3.6 g/dL (3.4-5.0); Alkaline Phosphatase 306 U/L (46-116); Anion Gap 5.4 mmol/L (3-11); BUN 42 mg/dL (7-18); Bilirubin, Total 0.3 mg/dL (0.2-1.0); CO2 27.6 mmol/L (21.0-32.0); Calcium 9.8 mg/dL (8.5-10.1); Chloride 107 mmol/L (98-107); Estimated GFR 34.15 (mL/min/1.73m2); Glucose 147 mg/dL (74-106); Potassium 4.6 mmol/L (3.5-5.1); Sodium 140 mmol/L (136-145); Total Protein 7.2 g/dL (6.4-8.2)
== END 2025-04-23 02:26 | disposition home or self-care (01) ==
LOC: LOS 02:25
PROVIDERS: PCP Family Medicine; Visit Provider Family Medicine
DX: R79.89 Other specified abnormal findings of blood chemistry (principal); I10 Essential (primary) hypertension
CPT/HCPCS: 36415; 80053

== ENCOUNTER 2025-05-01 01:41 | Outpatient (CLI) | payer MEDICARE, OTHER, SELFPAY ==
--- NOTE | 2025-05-01 08:40 | DI.US_ITS ---
Exam(s) US ABDOMEN LIMITED EXAM: US ABDOMEN LIMITED CLINICAL HISTORY: elevated LFTs,r79.89 TECHNIQUE: Ultrasound of the right upper quadrant performed using standard protocol. COMPARISON: CT CT ABDOMEN PELVIS W from 03/08/2023 FINDINGS: LIVER: Normal size. Normalechogenicity. No focal liver lesions are seen.. GALLBLADDER: No evidence of cholelithiasis. No evidence of wall thickening. No pericholecystic fluid identified. MALONEY'S SIGN: Negative. BILIARY SYSTEM: No intrahepatic or extrahepatic biliary ductal dilation. RIGHT KIDNEY: Normal size. No evidence of renal calculi. No evidence of hydronephrosis. No suspicious renal mass. No cyst identified. PANCREAS: Normal where visualized. ABDOMINAL AORTA AND IVC: Visualized portions normal caliber. ASCITES: None seen. IMPRESSION: Normal sonographic appearance of the right upper quadrant. DATA REPOSITORY:
== END 2025-05-01 02:01 ==
LOC: DI 01:41
PROVIDERS: PCP Family Medicine; Visit Provider Family Medicine
DX: R79.89 Other specified abnormal findings of blood chemistry (principal)
CPT/HCPCS: 76705

== ENCOUNTER → 2025-05-26 14:24 | Outpatient (BNVA) | payer MEDICARE, OTHER, SELFPAY | PROVIDERS: PCP Family Medicine; Referring Provider Family Medicine; Visit Provider Registered Nurse | DX: I42.9 Cardiomyopathy, unspecified (principal); Z79.02 Long term (current) use of antithrombotics/antiplatelets; Z79.01 Long term (current) use of anticoagulants | CPT/HCPCS: 99215 ==

== ENCOUNTER 2025-06-16 04:28 | Outpatient (CLI) | payer MEDICARE, OTHER, SELFPAY ==
[2025-06-16 23:33] LABS: Hepatitis A Antibody IgM Negative (Negative); Hepatitis C Ab w Rflx HCV PCR Negative (Negative)
== END 2025-06-16 04:29 | disposition home or self-care (01) ==
LOC: LOS 04:28
PROVIDERS: PCP Family Medicine; Visit Provider Family Medicine
DX: R79.89 Other specified abnormal findings of blood chemistry (principal)
CPT/HCPCS: 36415; 86704; 86709; 86803; 87340

== ENCOUNTER 2025-06-16 11:04 | Observation (INO) | payer MEDICARE, OTHER, SELFPAY ==
[2025-06-16 11:08] VITALS: BP 128/54; PULSE 55; RESP 18; TEMP 36.4; O2SAT 94
--- NOTE | 2025-06-16 11:15 | DI.RAD_ITS ---
Exam(s) XR PELVIS AP EXAM: XR PELVIS AP CLINICAL HISTORY: left hip pain. TECHNIQUE: 2D digital imaging was performed. COMPARISON: No exams were available for comparison FINDINGS: Single AP view of the pelvis-hips No evidence of pelvic nor hip fracture. Mild degenerative changes in both hips noted. 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 SI joints unremarkable. Bone density normal. No osseous lesions. IMPRESSION: No acute osseous findings in the pelvis and hips. DATA REPOSITORY: RADIATION DOSE DELIVERED:
--- NOTE | 2025-06-16 11:15 | DI.RAD_ITS ---
Exam(s) XR FEMUR LT EXAM: XR FEMUR LT CLINICAL HISTORY: left hip pain. TECHNIQUE: 2D digital imaging was performed. COMPARISON: No exams were available for comparison FINDINGS: Two views No evidence of left hip nor left femur fracture. There are mild degenerative changes in the left hip. Bone density normal. No osseous lesions. At the level of the knee there is a small osteophytic density seen adjacent to the outer cortex of the upper medial femoral condyle. This may be related to prior medial collateral ligament injury/Jerilyn-Stieda finding. There are moderate degenerative changes in the knee. Age-related vascular calcification is noted in the arteries of the lower extremity. IMPRESSION: No acute osseous findings in the left femur. [id number] calcification in the soft tissues at the knee level, as described above DATA REPOSITORY: RADIATION DOSE DELIVERED:
--- NOTE | 2025-06-16 11:28 | W.ED.GENAD ---
Discharge Plan Disposition Patient Disposition: Home W/Home Health Services Condition: Improving Discharge Details Clinical Impression: Tear of left hamstring Primary Care Provider: Tamanna Li ED Midlevel Provider: [place] Donaldson ED Provider: Ricco Delgado Recommendations for Follow Up Recommended tests to be ordered by follow up provider: INR, CBC Discharge Data Discharge Date/Time-TO BE ENTERED AT DEPARTURE: 06/16/25 19:16 HPI General Date/Time Provider Initiated Documentation: 06/16/25 11:23. HPI Narrative: MDM This is an uncomfortable appearing normothermic and not tachycardic 85-year-old male with atraumatic left hip and buttocks pain concerning for the possibility of sprain versus fracture for which patient will undergo x-ray and if unremarkable CT scan given limited mechanism of injury. No fluctuance to suggest abscess. No pain out of proportion to suggest necrotizing soft tissue infection. No dysuria or frequency to suggest UTI. No erythema nor warmth to suggest cellulitis. Patient has no abdominal pain to suggest referred pain from diverticulitis. No rash to suggest zoster. Patient has intact range of motion passively in her left hip so no concern for septic joint. I feel she requires arthrocentesis. No history of gouty arthritis to suggest acute exacerbation of gout. If patient is unremarkable x-ray and CT scan anticipate ambulatory trial with PT. I considered DVT however the patient had no medial thigh tenderness and I did not feel she required a duplex study. She was having no significant new back pain to suggest cauda equina syndrome I did not feel she required an MRI. 4:17 PM Basic metabolic panel showing CKD no BROOK. No acute electrolyte abnormalities. CBC showing no anemia. No thrombocytopenia. Mildly supratherapeutic INR. 06/17 Late charting due to patient care. I was in touch with Dr. Maldonado with the hospitalist team who graciously agreed to accept patient for hospitalization cervical. Left hamstrings tear. I ordered physical therapy consultation. HPI The patient presents for left hip pain. The patient experienced a popping sensation in her left hip while reaching forward with her left foot at approximately 8:30. She did not fall and was able to catch herself. This is the first occurrence of such an incident. She reports no numbness or tingling in the foot. Since the incident, she has been having difficulty walking and has been using a walker for mobility. She prefers to limit her movement as much as possible. She reports no history of hip surgery on the left side or any fractures in her pelvis. She also reports no fevers, numbness, or tingling anywhere else. She experiences pain in the upper part of her hip, specifically in the buttock area, when she moves it. Prior to this incident, she was feeling well. Exam General: Well-appearing in no acute distress speaking in complete sentences. Head: Normocephalic, atraumatic. Eye: Extraocular eye movements intact. No conjunctival injection. No scleral icterus. Ear, nose, mouth, throat: Grossly normal inspection. Normal voice, handling secretions normally. Neck: Trachea midline. Cardiovascular: Well-perfused distal extremities. Respiratory: Nonlabored respiration. Gastrointestinal: Nondistended abdomen. Musculoskeletal: No edema. Moving all 4 extremities spontaneously. Left foot warm well-perfused intact PT and DP pulse. 5 out of 5 left foot strength dorsi and plantarflexion. Patient is able to straight leg raise on the left. Patient has tenderness in her left buttocks. No signs of sacral decubitus ulcers. No erythema nor warmth. No fluctuance. Patient is a pelvis stable. She has no significant pain with passive flexion and extension of her left lower extremity. Skin: Normal for age and race, grossly normal temperature and turgor. No acute rash. Neurologic: Alert and appropriate, no apparent acute deficits. Psychiatric: Mood and manner are appropriate. Grooming and personal hygiene are appropriate. Related Data Home Medications ?Medication ?Instructions ?Recorded ?Confirmed aspirin 81 mg chewable tablet 81 mg PO QPM 01/28/13 06/16/25 (Aspirin Low-Strength) multivitamin with minerals 1 tab PO DAILY 06/14/19 06/16/25 nystatin 100,000 unit/gram topical 1 applic topical BID #60 grams 02/28/23 06/16/25 powder Held on 06/17/25. Instructions: Resume on 06/25/25. discussed with PCP - duplicate vit C 250 mg-vit E 90 mg-zinc 40 1 tab PO BID 06/28/23 06/16/25 mg-copper 1 [id number] capsule (PreserVision AREDS-2) nystatin 100,000 unit/gram topical 1 applic topical BID #30 grams 01/01/24 06/16/25 cream mauro.stocking,knee,reg,smal #2 ea 01/23/24 06/16/25 atorvastatin 40 mg tablet 40 mg PO QHS #90 tabs 03/20/25 06/16/25 escitalopram oxalate 20 mg tablet 20 mg PO DAILY #90 tab-caps 03/20/25 06/16/25 metoprolol succinate 25 mg 25 mg PO DAILY #90 tabs 03/20/25 06/16/25 tablet,extended release 24 hr sacubitril 24 mg-valsartan 26 mg 1 tab PO BID #180 tabs 03/20/25 06/16/25 tablet (Entresto) warfarin 2.5 mg tablet 2.5 mg PO DAILY #180 tabs 03/20/25 06/16/25 calcium carbonate (Tums E-X) 300 mg PO BID 03/24/25 06/16/25 metoprolol succinate 25 mg 25 mg PO DAILY #14 tabs 03/28/25 06/16/25 tablet,extended release 24 hr Held on 06/17/25. Instructions: Resume on 06/26/25. discussed with PCP - duplicate warfarin 2.5 mg tablet 2.5 mg PO DAILY #30 tabs 03/28/25 06/16/25 Held on 06/17/25. Instructions: Resume on 06/26/25. discussed with PCP - duplicate torsemide 20 mg tablet 20 mg PO QAM #90 tabs 05/26/25 06/16/25 acetaminophen 325 mg tablet 1,000 mg PO TID PRN 06/16/25 06/16/25 (Tylenol) Held on 06/17/25. Instructions: Resume on 06/22/25. Resume on 06/22/2025 - after stopping the scheduled acetaminophen acetaminophen 325 mg tablet 650 mg (2 x 325 mg) PO QID #36 tabs 06/17/25 Previous Rx's ?Medication ?Instructions ?Recorded nystatin 100,000 unit/gram topical 1 applic topical BID #60 grams 02/28/23 powder Held on 06/17/25. Instructions: Resume on 06/25/25. discussed with PCP - duplicate nystatin 100,000 unit/gram topical 1 applic topical BID #30 grams 01/01/24 cream mauro.stocking,knee,reg,smal #2 ea 01/23/24 atorvastatin 40 mg tablet 40 mg PO QHS #90 tabs 03/20/25 escitalopram oxalate 20 mg tablet 20 mg PO DAILY #90 tab-caps 03/20/25 metoprolol succinate 25 mg 25 mg PO DAILY #90 tabs 03/20/25 tablet,extended release 24 hr sacubitril 24 mg-valsartan 26 mg 1 tab PO BID #180 tabs 03/20/25 tablet (Entresto) warfarin 2.5 mg tablet 2.5 mg PO DAILY #180 tabs 03/20/25 metoprolol succinate 25 mg 25 mg PO DAILY #14 tabs 03/28/25 tablet,extended release 24 hr Held on 06/17/25. Instructions: Resume on 06/26/25. discussed with PCP - duplicate warfarin 2.5 mg tablet 2.5 mg PO DAILY #30 tabs 03/28/25 Held on 06/17/25. Instructions: Resume on 06/26/25. discussed with PCP - duplicate torsemide 20 mg tablet 20 mg PO QAM #90 tabs 05/26/25 acetaminophen 325 mg tablet 650 mg (2 x 325 mg) PO QID #36 tabs 06/17/25 Allergies Allergy/AdvReac Type Severity Reaction Status Date / Time No Known Allergies Allergy Verified 06/16/25 11:19 General Stated Complaint: Orthopedic EVELIA: 3 Course Vital Signs Vital signs: Vital Signs Temperature 36.4 C 06/16/25 11:08 Pulse 55 L 06/16/25 11:08 Respiratory Rate 18 06/16/25 11:08 Blood Pressure 128/54 L 06/16/25 11:08 Pulse Oximetry 94 06/16/25 11:08 Temperature 36.4 C 06/16/25 11:08 Temperature Source Oral 06/16/25 11:08 Pulse 55 L 06/16/25 11:08 Respiratory Rate 18 06/16/25 11:08 Blood Pressure 128/54 L 06/16/25 11:08 Blood Pressure Position Sitting 06/16/25 11:08 Pulse Oximetry 94 06/16/25 11:08 Oxygen Delivery Method Room Air 06/16/25 11:08 Oxygen Flow Rate 0 06/16/25 11:08 Pain Level 3 06/16/25 11:08 Comment 11/25 just sitting. but 06/27 if she attempts to walk 06/16/25 11:08 Medical Decision Making Quality:SDOH Health Related Social Needs: Health related social needs risk of homeless PFSH All Active Problems (Updated 06/17/25 @ 06:58 by Tamanna Li MD, [place]) Hamstring tear (Acute) Chronic kidney disease (CKD) (Chronic) Tear of left hamstring (Acute) Elevated LFTs (Acute) Anemia (Chronic) Congestion of upper respiratory tract (Acute) Heart failure with reduced ejection fraction (Chronic) Weakness generalized (Acute) Eardrum trauma (Acute) Ambulatory dysfunction (Acute) Hematuria (Acute) Chronic left hip pain (Acute) COVID-19 (Acute) Fall (Acute) Wart of hand (Acute) DNR (do not resuscitate) (Acute) Physician orders for life-sustaining treatment (POLST) form indicates patient wish for [id number] status (Acute) Chronic anticoagulation (Acute) Internal hemorrhoids without complication (Acute) Cardiomyopathy (Chronic) Low back pain (Chronic 08/17/04) per Xray-L2-L3 DDD/DJD, L3-L4; L4-L5 DDD and scoliosis Right carpal tunnel syndrome (Chronic 01/12/18) Presence of other heart-valve replacement (Chronic) last echo 04/24; reg. 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) Injection: 02/21/18 De Quervain's tenosynovitis, 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) Cholelithiasis without obstruction (Chronic) Cardiac LV ejection fraction 21-40% (Chronic 03/22/17) Anticoagulated on warfarin (Chronic) AVR; INR goal 2.5-3.5 Medical History Arm pain, right Advance directive on file DVT prophylaxis Bright red blood per rectum Arthralgia of left ankle or foot (01/13/08) Elevation of level of transaminase and lactic acid dehydrogenase (LDH) (03/24/09) Endometriosis Hydronephrosis (12/25/08) Nuclear cataract Pain of left calf Strep pharyngitis Nuclear cataract 07/17/13 [facility]; S/P surgery right eye; 08/06/13 [facility] right eye Endometriosis s/p POOJA BSO 1979 Pain of left calf Pap smear vagina w LGSIL 08/17/03 neg HPV Proteinuria 08/17/052005; now resolved Arthralgia of ankle 01/13/08 ankle and/or foot Hydronephrosis 12/25/08 [facility] Calculus causing very mild hydronephrosis right Elev transaminase/LDH 03/24/09 Fracture, tibial plateau 02/13/13 Colette infection 03/17/15 Strep throat 01/05/16 x 2 Wrist pain, chronic Ruptured eardrum Stress due to spouse with dementia (02/20/18) Right anterior shoulder pain HTN (hypertension) Surgical History History of colonoscopy (~07/2019) 08/06: Tubular adenoma x2. S/P colonoscopy S/P abdominal hysterectomy and BSO; endometriosis H/O aortic valve replacement 09/18/01 last echo 04/24; reg. echos-stable EF=50%; aortic; 2001 Open Carpal Tunnel release (01/02/18) (R) Colonoscopy - IV Sedation (07/05/16) Extraction of cataract (07/17/13) 07/17/13 [facility]; RIGHT EYE 08/06/13 [facility] LEFT EYE Family History Mother , AGE 75 Essential hypertension Heart disease Father , FALL/HEAD INJURY at age 90. Essential hypertension Sister Alzheimer disease Maternal Grandmother , AGE 61 Heart disease Paternal Grandmother , AGE 80 Heart disease Lymphoma Daughter Heart disease Sister No problems noted. Son No problems noted. Social History Smoking/Tobacco Use Status: Never Second Hand Exposure: Yes Smoking risk assessment performed?: Yes Alcohol Intake: former Drug use: Never Substance use type: does not use Adopted: No Caregiver/Support person: No Household members: other Details: Son and Daughter In Law Housing: house Number of Children: 2 number of grandchildren: 7 Communication Needs: None Education Level: high school Do you need help understanding health information?: Rarely current occupation: Retired Pets and animals: Yes Pets and animals: dog(s) Sexually active: No Do you think of yourself as: straight/heterosexual Current gender identity: female What is your relationship status?: How often do you talk on the phone with friends or family?: twice per week How often do you get together with friends or relatives?: three or more times per week How often do you attend lutheran or mormon services?: decline to answer Do you belong to any clubs or organized social groups?: no Panel score (0-1 are the most socially isolated patients): 1 What type of physical activity do you participate in: walking and other Details: physical therapy Frequency: 3-4 times per week Antonia/Restoration: Non yazdanism Special antonia needs: No Agree to transfusion: No Seatbelt use: always Working smoke detector in home: Yes Carbon monox detector in home: Yes Firearms in home: Yes Firearms unloaded and locked: No Do you feel safe at home: Yes Additional Social history: Lives with Son and Daughter in Law
--- NOTE | 2025-06-16 12:45 | DI.CT_ITS ---
Exam(s) CT LOWER EXTREMITY LT WO EXAM: CT LOWER EXTREMITY LT WO CLINICAL HISTORY: Left hip pain. TECHNIQUE: Imaging Protocol: Axial computed tomography images with coronal and sagittal reformatted images were created and reviewed. CONTRAST MATERIAL: Intravenous: None COMPARISON: Plain x-rays reviewed from earlier today FINDINGS: OSSEOUS: No evidence of fracture nor dislocation. Some chondrocalcinosis or labral calcification is noted in the left hip. Mild-moderate degenerative changes. No degenerative subarticular cysts. No osseous lesions. No pubic rami fractures. SOFT TISSUES: Slight thickening of the common hamstrings tendon at the level the left ischial tuberosity noted. IMPRESSION: No acute fractures evident. Other findings as above. If clinically indicated rapid hip protocol MRI can be performed Report called by myself to ER physician 06/16/2025 at 1:26 p.m. RADIATION DOSE DELIVERED: Total DLP DATA REPOSITORY: All CT scans at this facility are submitted to the National Radiology Data Registry (NRDR) Dose Index Registry (DIR) with the [employer] (A[employer]). RADIATION OPTIMIZATION: All CT scans at this facility use at least one of these dose optimization techniques: automated exposure control; mA and/or kV adjustment per patient size (includes targeted exams where dose is matched to clinical indication); or iterative reconstruction.
[2025-06-16] MEDS: Lidocaine 5% Patch 1 PATCH TP (12:53)
--- NOTE | 2025-06-16 13:30 | DI.MRI_ITS ---
Exam(s) MR LOWER JOINT LT WO EXAM: MR LOWER JOINT LT WO CLINICAL HISTORY: Left hip pain TECHNIQUE: Multiplanar multisequence MRI of the hip was performed. COMPARISON: Plain films and CT scan from earlier today were reviewed. FINDINGS: MARROW:There is no evidence of fracture, bone contusion, nor avascular necrosis. Also no fracture seen elsewhere in the pelvis. There are no significant osseous lesions. HIP JOINT SPACE: No hip joint effusion. Mild degenerative changes. No obvious labral tear LABRUM: There is no evidence of obvious labral tear nor evidence of paralabral cyst. SOFT TISSUES: There is abundant soft tissue signal abnormality behind the hip. There is high-grade tear of the common hamstrings tendon at the ischial tuberosity level. There is no abnormal intraosseous signal within the ipsilateral ischial tuberosity. There is signal abnormality consistent with an element of tearing of the gemellus and obturator internus musculature IMPRESSION: 1. In the he no evidence of hip fracture, hip joint effusion, nor other acute osseous findings. However, there is significant muscular soft tissue injury including high-grade tear of the hamstrings attachment at the ischial tuberosity as well as injury signal evident in the gemellus inferior and obturator internus Findings called by myself to ER physician 06/16/2025 at 3 p.m. DATA REPOSITORY:
[2025-06-16 15:50] LABS: Abs Immature Grans 0.03 10^3/uL (0.0-0.06); HCT 35.9 % (36.0-46.0); HGB 11.4 g/dL (11.2-15.7); Immature Grans % 0.4 %; MCH 29.9 pg (27.0-33.0); MCHC 31.8 % (32.0-36.0); MCV 94 fL (80-95); MPV 10.4 fL (8.0-11.0); Platelet Count 207 10^3/uL (130-400); RBC 3.81 10^6/uL (3.93-5.22); RDW 14.9 % (11.7-14.6); RDW-SD 52.3 fL; WBC 7.72 10^3/uL (4.4-10.8)
[2025-06-16 15:58] LABS: Anion Gap 6.8 mmol/L (3-11); BUN 33 mg/dL (7-18); CO2 31.2 mmol/L (21.0-32.0); Calcium 9.4 mg/dL (8.5-10.1); Chloride 104 mmol/L (98-107); Estimated GFR 40.30 (mL/min/1.73m2); Glucose 125 mg/dL (74-106); Potassium 3.7 mmol/L (3.5-5.1); Sodium 142 mmol/L (136-145)
[2025-06-16 15:59] LABS: INR 2.7 (0.9-1.1); Prothrombin Time 25.3 sec (9.1-11.1)
--- NOTE | 2025-06-16 16:40 | W.PM.HP.N ---
Date of service: 06/16/25 Time of Service: 16:40 Assessment and Plan Assessment and plan (1) Tear of left hamstring: Status: Acute Assessment and plan: unable to be safely re-ambulated referred to observation PT consult orthopedic consult ICE therapy pain management: schedule apap, avoid nsaids in setting of history of CKD, oxycodone prn, (2) Anticoagulated on warfarin: Status: Chronic Assessment and plan: INR therapeutic continue coumadin for goal 2-3 may consider reducing to closer to 2 with risk of bleeding monitor INR and CBC closely (3) Essential hypertension: Status: Chronic Assessment and plan: stable continue home meds. (4) Chronic kidney disease (CKD): Status: Chronic Assessment and plan: creatinine below baseline, avoid neprotoxic drugs, renal dose as needed. (5) Heart failure with reduced ejection fraction: Status: Chronic Assessment and plan: appears euvolemic with no decompensation continue home medication and monitor fluid volume status discussed with DR Maldonado History of Present Illness Narrative: presents to ED for evaluation of left leg/buttock pain that came on suddenly after losing balance catching herself with outstretch left leg. she did not fall, she denies any similar pain in the past. she has no numbness or tingling distally, no obvious deformity. Her work up in the ED shows a hamstring tear on left. she received apap and was unable to be safely re-ambulated. plan to admit to med/surg under hospitalist services. orthopedic consultation. Review of Systems All systems reviewed & are unremarkable except as noted in HPI and below PFSH All Active Problems (Updated 06/17/25 @ 06:58 by Tamanna Li MD, DC) Hamstring tear (Acute) Chronic kidney disease (CKD) (Chronic) Tear of left hamstring (Acute) Elevated LFTs (Acute) Anemia (Chronic) Congestion of upper respiratory tract (Acute) Heart failure with reduced ejection fraction (Chronic) Weakness generalized (Acute) Eardrum trauma (Acute) Ambulatory dysfunction (Acute) Hematuria (Acute) Chronic left hip pain (Acute) COVID-19 (Acute) Fall (Acute) Wart of hand (Acute) DNR (do not resuscitate) (Acute) Physician orders for life-sustaining treatment (POLST) form indicates patient wish for fz-ucx-jteuzcqugfh status (Acute) Chronic anticoagulation (Acute) Internal hemorrhoids without complication (Acute) Cardiomyopathy (Chronic) Low back pain (Chronic 08/17/04) per Xray-L2-L3 DDD/DJD, L3-L4; L4-L5 DDD and scoliosis Right carpal tunnel syndrome (Chronic 01/12/18) Presence of other heart-valve replacement (Chronic) last echo 04/24; reg. echos-stable EF=50%; aortic; [place]04 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) Injection: 02/21/18 De Quervain's tenosynovitis, 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) Cholelithiasis without obstruction (Chronic) Cardiac LV ejection fraction 21-40% (Chronic 03/22/17) Anticoagulated on warfarin (Chronic) AVR; INR goal 2.5-3.5 Medical History Arm pain, right Advance directive on file DVT prophylaxis Bright red blood per rectum Arthralgia of left ankle or foot (01/13/08) Elevation of level of transaminase and lactic acid dehydrogenase (LDH) (03/24/09) Endometriosis Hydronephrosis (12/25/08) Nuclear cataract Pain of left calf Strep pharyngitis Nuclear cataract 07/17/13 [facility]; S/P surgery right eye; 08/06/13 [facility] right eye Endometriosis s/p POOJA BSO 1980 Pain of left calf Pap smear vagina w LGSIL 08/17/03 neg HPV Proteinuria 08/17/052005; now resolved Arthralgia of ankle 01/13/08 ankle and/or foot Hydronephrosis 12/25/08 R UJV Calculus causing very mild hydronephrosis right Elev transaminase/LDH 03/24/09 Fracture, tibial plateau 02/13/13 Colette infection 03/17/15 Strep throat 01/05/16 x 2 Wrist pain, chronic Ruptured eardrum Stress due to spouse with dementia (02/20/18) Right anterior shoulder pain HTN (hypertension) Surgical History History of colonoscopy (~07/2019) 08/06: Tubular adenoma x2. S/P colonoscopy S/P abdominal hysterectomy and BSO; endometriosis H/O aortic valve replacement 09/18/01 last echo 04/24; reg. echos-stable EF=50%; aortic; 2001 Open Carpal Tunnel release (01/02/18) (R) Colonoscopy - IV Sedation (07/05/16) Extraction of cataract (07/17/13) 07/17/13 [facility]; RIGHT EYE 08/06/13 [facility] LEFT EYE Family History Mother , AGE 75 Essential hypertension Heart disease Father , FALL/HEAD INJURY at age 90. Essential hypertension Sister Alzheimer disease Maternal Grandmother , AGE 61 Heart disease Paternal Grandmother , AGE 80 Heart disease Lymphoma Daughter Heart disease Sister No problems noted. Son No problems noted. Social History Smoking/Tobacco Use Status: Never Second Hand Exposure: Yes Smoking risk assessment performed?: Yes Alcohol Intake: former Drug use: Never Substance use type: does not use Adopted: No Caregiver/Support person: No Household members: other Details: Son and Daughter In Law Housing: house Number of Children: 2 number of grandchildren: 7 Communication Needs: None Education Level: high school Do you need help understanding health information?: Rarely current occupation: Retired Pets and animals: Yes Pets and animals: dog(s) Sexually active: No Do you think of yourself as: straight/heterosexual Current gender identity: female What is your relationship status?: How often do you talk on the phone with friends or family?: twice per week How often do you get together with friends or relatives?: three or more times per week How often do you attend sikhism or congregation services?: decline to answer Do you belong to any clubs or organized social groups?: no Panel score (0-1 are the most socially isolated patients): 1 What type of physical activity do you participate in: walking and other Details: physical therapy Frequency: 3-4 times per week Antonia/Anabaptism: Non taoist Special antonia needs: No Agree to transfusion: No Seatbelt use: always Working smoke detector in home: Yes Carbon monox detector in home: Yes Firearms in home: Yes Firearms unloaded and locked: No Do you feel safe at home: Yes Additional Social history: Lives with Son and Daughter in Law Meds Allergies and Home Medications Allergies Allergy/AdvReac Type Severity Reaction Status Date / Time No Known Allergies Allergy Verified 06/16/25 11:19 Home Medications ?Medication ?Instructions ?Recorded ?Confirmed ?Type aspirin 81 mg chewable tablet 81 mg PO QPM 01/28/13 06/16/25 History (Aspirin Low-Strength) multivitamin with minerals 1 tab PO DAILY 06/14/19 06/16/25 History nystatin 100,000 unit/gram topical 1 applic topical BID #60 grams 02/28/23 06/16/25 Rx powder Held on 06/17/25. Instructions: Resume on 06/25/25. discussed with PCP - duplicate vit C 250 mg-vit E 90 mg-zinc 40 1 tab PO BID 06/28/23 06/16/25 History mg-copper 1 vo-olrtvj-zqlrjn capsule (PreserVision AREDS-2) nystatin 100,000 unit/gram topical 1 applic topical BID #30 grams 01/01/24 06/16/25 Rx cream mauro.stocking,knee,reg,smal #2 ea 01/23/24 06/16/25 Rx atorvastatin 40 mg tablet 40 mg PO QHS #90 tabs 03/20/25 06/16/25 Rx escitalopram oxalate 20 mg tablet 20 mg PO DAILY #90 tab-caps 03/20/25 06/16/25 Rx metoprolol succinate 25 mg 25 mg PO DAILY #90 tabs 03/20/25 06/16/25 Rx tablet,extended release 24 hr sacubitril 24 mg-valsartan 26 mg 1 tab PO BID #180 tabs 03/20/25 06/16/25 Rx tablet (Entresto) warfarin 2.5 mg tablet 2.5 mg PO DAILY #180 tabs 03/20/25 06/16/25 Rx calcium carbonate (Tums E-X) 300 mg PO BID 03/24/25 06/16/25 History metoprolol succinate 25 mg 25 mg PO DAILY #14 tabs 03/28/25 06/16/25 Rx tablet,extended release 24 hr Held on 06/17/25. Instructions: Resume on 06/26/25. discussed with PCP - duplicate warfarin 2.5 mg tablet 2.5 mg PO DAILY #30 tabs 03/28/25 06/16/25 Rx Held on 06/17/25. Instructions: Resume on 06/26/25. discussed with PCP - duplicate torsemide 20 mg tablet 20 mg PO QAM #90 tabs 05/26/25 06/16/25 Rx acetaminophen 325 mg tablet 1,000 mg PO TID PRN 06/16/25 06/16/25 History (Tylenol) Held on 06/17/25. Instructions: Resume on 06/22/25. Resume on 06/22/2025 - after stopping the scheduled acetaminophen acetaminophen 325 mg tablet 650 mg (2 x 325 mg) PO QID #36 tabs 06/17/25 Rx Exam Const General: cooperative and comfortable Nutritional Appearance: average body habitus Orientation: alert, awake and oriented x3 HENMT Head: normal to inspection, normocephalic and atraumatic Resp Effort & Inspection: normal respiratory effort and able to speak in complete sentences Cardio Rate: regular rate Extrem General: normal to inspection Right lower extremity: hip/thigh (no bruising or obvious deformity); ROM limited Results Labs 06/17/25 06:00 06/17/25 06:00 Labs: Laboratory Results - last 24 hr 06/16/25 15:43 WBC 7.72 RBC 3.81 L Hgb 11.4 Hct 35.9 L MCV 94 MCH 29.9 MCHC 31.8 L RDW 14.9 H Plt Count 207 MPV 10.4 Immature Gran % 0.4 Neutrophils % 79.4 Lymphocytes % 11.8 Monocytes % 6.0 Eosinophils % 1.9 Basophils % 0.5 Nucleated RBC % 0.0 Absolute Neutrophils 6.13 Absolute Lymphocytes 0.91 L Absolute Monocytes 0.46 Absolute Eosinophils 0.15 Absolute Basophils 0.04 PT 25.3 H INR 2.7 H Sodium 142 Potassium 3.7 Chloride 104 Carbon Dioxide 31.2 Anion Gap 6.8 BUN 33 H Creatinine 1.3 H Est GFR (CKD-EPI 2020) 40.30 Glucose 125 H Calcium 9.4 Last Vital Signs Temp 36.4 C 06/16/25 11:08 Pulse 55 L 06/16/25 11:08 Resp 18 06/16/25 11:08 BP 128/54 L 06/16/25 11:08 Pulse Ox 94 06/16/25 11:08 Time Spent Time spent with Patient: 55-74 minutes Time was spent: preparing to see the patient(eg.review tests), ordering medications,tests, procedures and indepentently interpreting results
[2025-06-16] MEDS: Acetaminophen 325 MG TAB 650 MG PO (20:40)
[2025-06-16] MEDS: Calcium Carbonate *TUMS* 500 MG CHEW 750 MG CH (20:41)
[2025-06-16] MEDS: Aspirin 81 MG CHEW PO (20:41)
[2025-06-16] MEDS: Atorvastatin 40 MG TAB PO (20:41)
[2025-06-16 20:46] VITALS: BP 127/48; PULSE 80; O2SAT 97
--- NOTE | 2025-06-17 05:10 | OCONE_ITS ---
Date of service: 06/17/25 Time of Service: 07:15 History of Present Illness History of Present Illness Chief Complaint: Left Hip Pain Narrative: Susan is a 85-year-old female who was reaching forward to stomp on a bug she felt a pop in her left hip and buttock region. She immediate pain. She did not fall initially. However, she subsequently had difficulty with weightbearing and the pain continued to increase which prompted presentation to the emergency department. Initial imaging was negative for fracture and MRI was obtained which showed complete rupture of the proximal hamstrings tendon from the ischium with tearing and high intensity signal seen within some of her external rotators and posterior soft tissues. She denies any previous issue with the left hip or buttock region. She is usually functionally independent without utilizing any assistive device. She denies any numbness or tingling. She has pain when she tries to move the left hip, particular in the flexion and as she tries initiate any standing or any walking. She is also on Coumadin chronically for an artificial heart valve. Overnight, she was able to mobilize with nursing up to the commode. She does feel that is getting better when she moves in bed. Consults Consult date: 06/16/25 Requesting physician: Ilir Branch Consult Reason Left Hamstring Rupture Assessment and Plan Assessment and plan (1) Tear of left hamstring: Status: Acute Assessment and plan: Susan is an 85-year-old female who unfortunately suffered a near complete rupture of the hamstring tendon with some adjacent involvement of her external rotators and posterior soft tissues. This is also likely worsened with her anticoagulation as this can bleed significantly into a large open space posteriorly. Nevertheless, this is still a stable injury. Hamstring repair can be considered but it usually is not necessary nor is it usually performed. Particular, an 85 years old, this should heal and allow her the ability to ambulate with minimal issue. However, will be painful initially. Heat to the posterior soft tissues can be beneficial does not adjacent to the ischium. Ice directly over the ischium at the point of rupture can be helpful. She may be weightbearing as tolerated with a walker. We should avoid unnecessary hip flexion as well as active extension. This will be most notable when trying get out of a chair or out of the bed but she really cannot hurt it anymore than what it is already done. She may use the left leg as needed without risk of exacerbating the underlying issue. I recommend physical therapy today and then home with physical therapy on discharge. Offloading pillow to the ischium can also be helpful while sitting. I do expect she should be able to regain her ability to ambulate with some pain control and discharge back to home with physical therapy. I do not see any indication for hamstring repair but this could be followed on the outpatient basis. She also plans to go back to [place] in the next few weeks. She does make progress I see no issues with that and we will help arrange for physical therapy in [place]. Review of Systems All systems reviewed & are unremarkable except as noted in HPI and below PFSH All Active Problems (Updated 06/17/25 @ 06:58 by Tamanna Li MD, DC) Hamstring tear (Acute) Chronic kidney disease (CKD) (Chronic) Tear of left hamstring (Acute) Elevated LFTs (Acute) Anemia (Chronic) Congestion of upper respiratory tract (Acute) Heart failure with reduced ejection fraction (Chronic) Weakness generalized (Acute) Eardrum trauma (Acute) Ambulatory dysfunction (Acute) Hematuria (Acute) Chronic left hip pain (Acute) COVID-19 (Acute) Fall (Acute) Wart of hand (Acute) DNR (do not resuscitate) (Acute) Physician orders for life-sustaining treatment (POLST) form indicates patient wish for gv-qgs-lugsetrekdz status (Acute) Chronic anticoagulation (Acute) Internal hemorrhoids without complication (Acute) Cardiomyopathy (Chronic) Low back pain (Chronic 08/17/04) per Xray-L2-L3 DDD/DJD, L3-L4; L4-L5 DDD and scoliosis Right carpal tunnel syndrome (Chronic 01/12/18) Presence of other heart-valve replacement (Chronic) last echo 04/24; reg. 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) Injection: 02/21/18 De Quervain's tenosynovitis, 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) Cholelithiasis without obstruction (Chronic) Cardiac LV ejection fraction 21-40% (Chronic 03/22/17) Anticoagulated on warfarin (Chronic) AVR; INR goal 2.5-3.5 Medical History Arm pain, right Advance directive on file DVT prophylaxis Bright red blood per rectum Arthralgia of left ankle or foot (01/13/08) Elevation of level of transaminase and lactic acid dehydrogenase (LDH) (03/24/09) Endometriosis Hydronephrosis (12/25/08) Nuclear cataract Pain of left calf Strep pharyngitis Nuclear cataract 07/17/13 [facility]; S/P surgery right eye; 08/06/13 [facility] right eye Endometriosis s/p POOJA BSO 1979 Pain of left calf Pap smear vagina w LGSIL 08/17/03 neg HPV Proteinuria 08/17/052005; now resolved Arthralgia of ankle 01/13/08 ankle and/or foot Hydronephrosis 12/25/08 R UJV Calculus causing very mild hydronephrosis right Elev transaminase/LDH 03/24/09 Fracture, tibial plateau 02/13/13 Colette infection 03/17/15 Strep throat 01/05/16 x 2 Wrist pain, chronic Ruptured eardrum Stress due to spouse with dementia (02/20/18) Right anterior shoulder pain HTN (hypertension) Surgical History History of colonoscopy (~07/2019) 08/06: Tubular adenoma x2. S/P colonoscopy S/P abdominal hysterectomy and BSO; endometriosis H/O aortic valve replacement 09/18/01 last echo 04/24; reg. echos-stable EF=50%; aortic; 2001 Open Carpal Tunnel release (01/02/18) (R) Colonoscopy - IV Sedation (07/05/16) Extraction of cataract (07/17/13) 07/17/13 [facility]; RIGHT EYE 08/06/13 [facility] LEFT EYE Family History Mother , AGE 75 Essential hypertension Heart disease Father , FALL/HEAD INJURY at age 90. Essential hypertension Sister Alzheimer disease Maternal Grandmother , AGE 61 Heart disease Paternal Grandmother , AGE 80 Heart disease Lymphoma Daughter Heart disease Sister No problems noted. Son No problems noted. Social History Smoking/Tobacco Use Status: Never Second Hand Exposure: Yes Smoking risk assessment performed?: Yes Alcohol Intake: former Drug use: Never Substance use type: does not use Adopted: No Caregiver/Support person: No Household members: other Details: Son and Daughter In Law Housing: house Number of Children: 2 number of grandchildren: 7 Communication Needs: None Education Level: high school Do you need help understanding health information?: Rarely current occupation: Retired Pets and animals: Yes Pets and animals: dog(s) Sexually active: No Do you think of yourself as: straight/heterosexual Current gender identity: female What is your relationship status?: How often do you talk on the phone with friends or family?: twice per week How often do you get together with friends or relatives?: three or more times per week How often do you attend oriental orthodox or nondenominational services?: decline to answer Do you belong to any clubs or organized social groups?: no Panel score (0-1 are the most socially isolated patients): 1 What type of physical activity do you participate in: walking and other Details: physical therapy Frequency: 3-4 times per week Antonia/Rastafari: Non pentecostalism Special antonia needs: No Agree to transfusion: No Seatbelt use: always Working smoke detector in home: Yes Carbon monox detector in home: Yes Firearms in home: Yes Firearms unloaded and locked: No Do you feel safe at home: Yes Additional Social history: Lives with Son and Daughter in Law Exam Narrative Exam Narrative: Laying supine in the hospital stretcher. No acute distress. Sleeping but awakes appropriately. Evaluation of the left lower extremity shows no significant ecchymosis about the left thigh except for very pinpoint area overlying the ischium. She has some tenderness palpation around the ischium and the proximal aspect of the posterior chain muscles. However, no significant pain along the distal or midportion of the hamstrings and posterior chain musculature. The posterior muscles feel swollen but there is no soft tissue swelling noted. No significant pain with hip internal and external rotation. Sensation intact to light touch over the deep and superficial peroneal nerve and tibial nerve. Palpable DP pulse. Results Last Vital Signs Temp 36.4 C 06/16/25 11:08 Pulse 80 06/16/25 20:46 Resp 18 06/16/25 11:08 BP 127/48 L 06/16/25 20:46 Pulse Ox 97 06/16/25 20:46 Labs 06/17/25 06:00 06/17/25 06:00 Labs: Laboratory Results - last 24 hr 06/16/25 15:43 WBC 7.72 RBC 3.81 L Hgb 11.4 Hct 35.9 L MCV 94 MCH 29.9 MCHC 31.8 L RDW 14.9 H Plt Count 207 MPV 10.4 Immature Gran % 0.4 Neutrophils % 79.4 Lymphocytes % 11.8 Monocytes % 6.0 Eosinophils % 1.9 Basophils % 0.5 Nucleated RBC % 0.0 Absolute Neutrophils 6.13 Absolute Lymphocytes 0.91 L Absolute Monocytes 0.46 Absolute Eosinophils 0.15 Absolute Basophils 0.04 PT 25.3 H INR 2.7 H Sodium 142 Potassium 3.7 Chloride 104 Carbon Dioxide 31.2 Anion Gap 6.8 BUN 33 H Creatinine 1.3 H Est GFR (CKD-EPI 2020) 40.30 Glucose 125 H Calcium 9.4 Imaging Imaging Studies: X-ray of the left femur and the left hip shows no signs of fracture. There are some moderate arthritic changes seen within the hip joint, both sides, slightly worse on the left. Vascular calcifications are seen all the way through the entirety of the film into the femoral vasculature. There also appears to be some notable arthritic change in the lower lumbar spine with scoliotic deformity. CT scan of the left hip shows no sign of fracture. Previously mention mod arthritic changes are seen. MRI of the left hip performed yesterday shows complete rupture of the proximal hamstring tendons with significant mount of bleeding around the insertion to the ischium and extending with some signal within the after externus and gemellus muscles. No sign of fracture on the MRI sequence.
[2025-06-17 06:16] LABS: Abs Immature Grans 0.03 10^3/uL (0.0-0.06); HCT 32.9 % (36.0-46.0); HGB 10.7 g/dL (11.2-15.7); Immature Grans % 0.3 %; MCH 31.2 pg (27.0-33.0); MCHC 32.5 % (32.0-36.0); MCV 96 fL (80-95); MPV 10.6 fL (8.0-11.0); Platelet Count 197 10^3/uL (130-400); RBC 3.43 10^6/uL (3.93-5.22); RDW 14.9 % (11.7-14.6); RDW-SD 52.8 fL; WBC 8.62 10^3/uL (4.4-10.8)
[2025-06-17 06:17] VITALS: BP 149/43; PULSE 78; RESP 16; O2SAT 98
[2025-06-17 06:45] LABS: INR 2.4 (0.9-1.1); Prothrombin Time 22.3 sec (9.1-11.1)
[2025-06-17 06:54] LABS: ALT 37 U/L (14-59); AST 38 U/L (15-37); Albumin 3.4 g/dL (3.4-5.0); Alkaline Phosphatase 353 U/L (46-116); Anion Gap 7.3 mmol/L (3-11); BUN 42 mg/dL (7-18); Bilirubin, Total 0.4 mg/dL (0.2-1.0); CO2 29.7 mmol/L (21.0-32.0); Calcium 9.2 mg/dL (8.5-10.1); Chloride 106 mmol/L (98-107); Estimated GFR 44.36 (mL/min/1.73m2); Glucose 105 mg/dL (74-106); Potassium 3.8 mmol/L (3.5-5.1); Sodium 143 mmol/L (136-145); Total Protein 6.7 g/dL (6.4-8.2)
[2025-06-17] MEDS: Preservision CAPSULE 1 CAP PO (08:25)
[2025-06-17] MEDS: Escitalopram 20 MG TAB PO (08:26)
[2025-06-17] MEDS: Acetaminophen 325 MG TAB 650 MG PO (08:27)
[2025-06-17] MEDS: Calcium Carbonate *TUMS* 500 MG CHEW 750 MG CH (08:29)
[2025-06-17] MEDS: Torsemide 20 MG TAB PO (08:30)
[2025-06-17] MEDS: Metoprolol CR 25 MG TABCR PO (08:30)
[2025-06-17] MEDS: Patch Removal 1 EACH TP (08:31)
[2025-06-17 08:44] VITALS: BP 151/89; PULSE 66; RESP 18; O2SAT 97
--- NOTE | 2025-06-17 09:43 | W.PM.PROGNOT ---
Date of Service Date of service: 06/17/25 Time of Service: 09:44 Assessment and Plan Assessment and plan (1) Tear of left hamstring: Status: Acute Assessment and plan: unable to be safely re-ambulated referred to observation Orthopedics consult: No surgery at this time - oupatient f/u -anticoagulation- increase risk of bleeding -Heat - to soft tissues not adjacent to ischium -Ice directly over ischium PT consult pending weightbearing as tolerated with a walker. PT on discharge Ongoing pain management: schedule apap, avoid nsaids in setting of history of CKD, oxycodone prn, (2) Anticoagulated on warfarin: Status: Chronic Assessment and plan: INR therapeutic- 2.4 Coumadin for goal 2-3- accpeting goal closer to 2.0 d/t increase bleeding risk a the site of injury Ongoing INR and CBC trending (3) Essential hypertension: Status: Chronic Assessment and plan: stable continue home meds. (4) Chronic kidney disease (CKD): Status: Chronic Assessment and plan: creatinine below baseline, avoid neprotoxic drugs, renal dose as needed. (5) Heart failure with reduced ejection fraction: Status: Chronic Assessment and plan: appears euvolemic with no decompensation continue home medication and monitor fluid volume status discussed with DR Maldonado Objective Last Vital Signs Temp 36.4 C 06/16/25 11:08 Pulse 66 06/17/25 08:44 Resp 18 06/17/25 08:44 BP 151/89 H 06/17/25 08:44 Pulse Ox 97 06/17/25 08:44 Laboratory Results - last 24 hr 06/16/25 06/17/25 15:43 06:00 WBC 7.72 8.62 RBC 3.81 L 3.43 L Hgb 11.4 10.7 L Hct 35.9 L 32.9 L MCV 94 96 H MCH 29.9 31.2 MCHC 31.8 L 32.5 RDW 14.9 H 14.9 H Plt Count 207 197 MPV 10.4 10.6 Immature Gran % 0.4 0.3 Neutrophils % 79.4 78.5 Lymphocytes % 11.8 8.8 Monocytes % 6.0 9.7 Eosinophils % 1.9 2.2 Basophils % 0.5 0.5 Nucleated RBC % 0.0 0.0 Absolute Neutrophils 6.13 6.76 H Absolute Lymphocytes 0.91 L 0.76 L Absolute Monocytes 0.46 0.84 H Absolute Eosinophils 0.15 0.19 Absolute Basophils 0.04 0.04 PT 25.3 H 22.3 H INR 2.7 H 2.4 H Sodium 142 143 Potassium 3.7 3.8 Chloride 104 106 Carbon Dioxide 31.2 29.7 Anion Gap 6.8 7.3 BUN 33 H 42 H Creatinine 1.3 H 1.2 H Est GFR (CKD-EPI 2020) 40.30 44.36 Glucose 125 H 105 Calcium 9.4 9.2 Total Bilirubin 0.4 AST 38 H ALT 37 Alkaline Phosphatase 353 H Total Protein 6.7 Albumin 3.4
--- NOTE | 2025-06-17 10:54 | PT.INIE ---
PT Notes Visit Reasons: Left Hamstring Tear, Ambulatory Dysfunction Physical Therapy Inpatient Initial Evaluation Date: 06/17/2025 Referring Doctor: Argentina Donaldson APRN PT Orders: PT CONSULT: Safety consult for discharge eval for assistive device fall safety assessment Precautions: Weightbearing as tolerated with use of walker Patient Profile/Admitting Diagnosis: Patient is 85-year-old female presented to the ED status post sudden onset pain in the left buttock after attempting to stomp on a bug. X-ray negative for fractures. MRI revealed there is significant muscular soft tissue injury including high-grade tear of the hamstrings attachment at the ischial tuberosity as well as injury signal evident in the gemellus inferior and obturator internus. Ortho consulted patient made weightbearing as tolerated with use of walker no surgical intervention indicated at this time. PMHX: Hamstring tear (Acute) Chronic kidney disease (CKD) (Chronic) Tear of left hamstring (Acute) Elevated LFTs (Acute) Anemia (Chronic) Congestion of upper respiratory tract (Acute) Heart failure with reduced ejection fraction (Chronic) Weakness generalized (Acute) Eardrum trauma (Acute) Ambulatory dysfunction (Acute) Hematuria (Acute) Chronic left hip pain (Acute) COVID-19 (Acute) Fall (Acute) Wart of hand (Acute) DNR (do not resuscitate) (Acute) Physician orders for life-sustaining treatment (POLST) form indicates patient wish for ho-ahu-ziwngcdrtga status (Acute) Chronic anticoagulation (Acute) Internal hemorrhoids without complication (Acute) Cardiomyopathy (Chronic) Low back pain (Chronic 08/17/04) per Xray-L2-L3 DDD/DJD, L3-L4; L4-L5 DDD and scoliosis Right carpal tunnel syndrome (Chronic 01/12/18) Presence of other heart-valve replacement (Chronic) last echo 04/24; reg. 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) Injection: 02/21/18De Quervain's tenosynovitis, 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) Cholelithiasis without obstruction (Chronic) Cardiac LV ejection fraction 21-40% (Chronic 03/22/17) Anticoagulated on warfarin (Chronic) AVR; INR goal 2.5-3.5 Medical History Arm pain, right Advance directive on file DVT prophylaxis Bright red blood per rectum Arthralgia of left ankle or foot (01/13/08) Elevation of level of transaminase and lactic acid dehydrogenase (LDH) (03/24/09) Endometriosis Hydronephrosis (12/25/08) Nuclear cataract Pain of left calf Strep pharyngitis Nuclear cataract 07/17/13 [facility]; S/P surgery right eye; 08/06/13 [facility] right eye Endometriosis s/p POOJA BSO 1980Pain of left calf Pap smear vagina w LGSIL 08/17/03 neg HPVProteinuria 08/17/052005; now resolved Arthralgia of ankle 01/13/08 ankle and/or foot Hydronephrosis 12/25/08 R UJV Calculus causing very mild hydronephrosis right Elev transaminase/LDH 03/24/09Fracture, tibial plateau 3Candida infection 03/17/15Strep throat 01/05/16 x 2Wrist pain, chronic Ruptured eardrum Stress due to spouse with dementia (02/20/18) Right anterior shoulder pain HTN (hypertension) Surgical History History of colonoscopy (~07/2019) 08/06: Tubular adenoma x2.S/P colonoscopy S/P abdominal hysterectomy and BSO; endometriosisH/O aortic valve replacement 09/18/01 last echo 04/24; reg. echos-stable EF=50%; aortic; 2002Open Carpal Tunnel release (01/02/18) (R)Colonoscopy - IV Sedation (07/05/16) Extraction of cataract (07/17/13) 07/17/13 [facility]; RIGHT EYE 08/06/13 [facility] LEFT EYE Social History/Home Situation: Patient resides in an in-law apartment of the basement of family home. Patient has steps to enter her home and then stair lift down to lower level apartment. Patient independent with walker, ADLs. Patient resides in [place] for part of the year and will be returning in 2 weeks Equipment Owned/DME: [facility] Subjective: Patient states she feels much better than she did last night when this first happened. She is hoping to go home soon. She states she is returning to [place] in 2 weeks. Objective: [] General Observation: Patient presented supine on stretcher Mental Status: Alert and oriented x 4, cooperative, able to follow instructions, agreeable to participate in evaluation Pain: Left buttock 0/10 at rest, 4/10 with ambulation increased to 6/10 with stairs ROM: [] Right Upper Extremity: Within normal limits Left Upper Extremity: Within normal limits Right Lower Extremity: Within normal limits Left Lower Extremity: Hip flexion 90 degrees abduction 10 degrees extension to neutral, knee and ankle within normal limits Strength: [] Right Upper Extremity: 5/5 Left Upper Extremity: 5/5 Right Lower Extremity: Hip 4/5, knee 5/5, ankle 5/5 Left Lower Extremity: Patient demonstrates active movement left hip to 90 degrees abduction to 10 degrees knee extension and ankle 3/5 Sensation: Intact Bed Mobility/Transfers: [] Supine to sit SBA Sit to stand SBA Stand to sit SBA Bed to chair SBA with FWW Gait: Ambulated with FWW 50 feet with SBA patient with antalgic pattern left lower extremity ;impaired knee flexion in swing phase decreased step length Balance: [] Static Sitting: Normal Dynamic Sitting: Good Static Standing: Good with upper extremity support Dynamic Standing: Fair with upper extremity support Special Tests: [] Mobility Limitations Standardized Measure [] [employer] AM-PAC 6 clicks Basic Mobility Inpatient Short Form: [] Raw Score: 21 CMS Score: 28.97% Informed Consent/Education: Patient instructed in purpose of PT consult. Treatment: 82132 Sit to stand transfers from various surfaces with and without armrests including chair bed toilet SBA Surface to surface transfers with FWW SBA [id number] Ambulation with FWW SBA 50 feet x 2 decreased knee flexion left during swing phase decreased step length antalgic left Stairs: Two 6 inch steps x 3 trials with rail and cane contact-guard assist step to pattern Assessment: Patient is an 85-year-old female who presents with clinical signs and symptoms consistent with current/admitting diagnoses that have resulted to mobility limitations, gait instability, generalized weakness, and impairment of motor control as demonstrated by the following impairment level findings: 1. Decreased strength to left LE major muscle groups 2. Impaired standing balance 3. Limitation of joint range of motion in left hip 4. pain left buttock 5. Impaired functional activity tolerance Impairments are contributing to the following functional limitations: 1. Inability to safely ambulate without assistive device 2. Increase completion time for mobility ADL performance 3. Increased fall risk 4. Difficulty performing stairs without assistance Despite stated deficits above patient is appropriate for discharge to home with use of FWW. Patient benefit from home health PT Patient is assessed as a low complexity based on the following: History: 85-year-old female with impairment level findings, functional limitations, and past medical history as indicated above Examination: Demonstrable impairment in strength, balance, and mobility level with underlying impairments and functional limitations as documented above Presentation: Evolving/stable Decision Making: Low Goals: N/A. PT evaluation and 1-2 treatment sessions only for functional mobility training using recommended AD and for HEP instruction. Plan of Care/Treatment Plan: N/A. PT evaluation and 1-2 treatment session only for functional mobility training using recommended AD and for HEP instruction. DISCHARGE RECOMMENDATIONS: Home with HHPT and use of walker for ambulation; cane stairs TREATMENT CODE/TIME: 94610, [id number], [id number] Thank you for the opportunity to participate in the care of this patient. Emily Bey, PT [facility]
--- NOTE | 2025-06-17 11:44 | W.PM.DS.N ---
Date of service: 06/17/25 Time of Service: 11:44 DS: Diagnosis Discharge Diagnosis (1) Tear of left hamstring: Status: Acute (2) Anticoagulated on warfarin: Status: Chronic (3) Essential hypertension: Status: Chronic (4) Chronic kidney disease (CKD): Status: Chronic (5) Heart failure with reduced ejection fraction: Status: Chronic Discharge Plan Disposition Patient Disposition: Home W/Home Health Services Condition: Improving Discharge Details Reason For Visit: Left Hamstring Tear, Ambulatory Dysfunction Admit Date/Time: 06/16/25 16:32 Admit Provider: J Carlos Maldonado Attending Provider: J Carlos Maldonado Primary Care Provider: Tamanna Li [facility] Hospital Course: This 85 years female patient with a past medical historyfor HFpEF, HTN, pacemaker , on chronic anticoagulation with warfarin presents to ED for evaluation of left leg/buttock pain that came on suddenly after losing balance catching herself with outstretch left leg on 06/16/25. Workup in the ED showed significant muscular soft tissue injury including high-grade tear of the hamstrings attachment at the ischial tuberosity as well as injury signal evident in the gemellus inferior and obturator internus, blood work was unremarkable. Orthopedic consult completed with recommendations for pain management physical therapy and HHPT, weight bearing as tolerated with walker and follow-up with orthopedic services outpatient. The patient improved clinically and was able to ambulate and transfer with walker as per PT report, pain was minimal on acetaminophen. INR 2.4 and H&H stable at 10.7 & 32.9. The patient will be discharged home will home health PT and nursing with CBC and INR for Monday. Discussed with Dr. Conrad Recommendations for Follow Up Recommended tests to be ordered by follow up provider: INR, CBC Home Meds and New Rx's Prescriptions: New acetaminophen 325 mg Tablet 650 mg PO QID Qty: 36 0RF Continued nystatin 100,000 unit/gram cream 1 applic topical BID Qty: 30 4RF (DME) mauro.stocking,knee,reg,smal Misc See Rx Instructions .Route Qty: 2 0RF Rx Instructions: As directed Tums E-X 300 mg (750 mg) tablet,chewable 300 mg PO BID torsemide 20 mg tablet 20 mg PO QAM Qty: 90 8RF PreserVision AREDS-2 250-90-40-1 mg capsule 1 tab PO BID aspirin [Aspirin Low-Strength] 81 MG tablet,chewable 81 mg PO QPM metoprolol succinate 25 mg tablet extended release 24 hr 25 mg PO DAILY Qty: 90 3RF warfarin 2.5 mg tablet 2.5 mg PO DAILY Qty: 180 4RF Protocol: Dose Management Condition: Monday Dose/Route: 2.5 mg Instruction: 1 x 2.5 mg tablet Condition: Monday Dose/Route: 2.5 mg Instruction: 1 x 2.5 mg tablet Condition: Monday Dose/Route: 0 mg Instruction: 0 tablets Condition: Monday Dose/Route: 2.5 mg Instruction: 1 x 2.5 mg tablet Condition: Dose/Route: 0 mg Instruction: 0 tablets Condition: Monday Dose/Route: 2.5 mg Instruction: 1 x 2.5 mg tablet Condition: Monday Dose/Route: 2.5 mg Instruction: 1 x 2.5 mg tablet Protocol Text: Adjustment Start Date: Monday06/10/25 INR Value: 3.4 INR Date: 06/10/25 Recheck Date: 06/17/25 escitalopram oxalate 20 mg tablet 20 mg PO DAILY Qty: 90 12RF atorvastatin 40 mg tablet 40 mg PO QHS Qty: 90 4RF sacubitril-valsartan [Entresto] 24-26 mg tablet 1 tab PO BID Qty: 180 4RF multivitamin with minerals Tablet 1 tab PO DAILY Held nystatin 100,000 unit/gram powder 1 applic topical BID Qty: 60 4RF Hold Instructions: Resume on 06/25/25. discussed with PCP - duplicate metoprolol succinate 25 mg tablet extended release 24 hr 25 mg PO DAILY Qty: 14 0RF Hold Instructions: Resume on 06/26/25. discussed with PCP - duplicate warfarin 2.5 mg tablet 2.5 mg PO DAILY Qty: 30 0RF Hold Instructions: Resume on 06/26/25. discussed with PCP - duplicate Protocol: Dose Management Condition: Monday Dose/Route: 2.5 mg Instruction: 1 x 2.5 mg tablet Condition: Monday Dose/Route: 2.5 mg Instruction: 1 x 2.5 mg tablet Condition: Monday Dose/Route: 0 mg Instruction: 0 tablets Condition: Monday Dose/Route: 2.5 mg Instruction: 1 x 2.5 mg tablet Condition: Dose/Route: 0 mg Instruction: 0 tablets Condition: Monday Dose/Route: 2.5 mg Instruction: 1 x 2.5 mg tablet Condition: Monday Dose/Route: 2.5 mg Instruction: 1 x 2.5 mg tablet Protocol Text: Adjustment Start Date: Monday06/10/25 INR Value: 3.4 INR Date: 06/10/25 Recheck Date: 06/17/25 acetaminophen [Tylenol] 325 MG tablet 1,000 mg PO TID PRN Hold Instructions: Resume on 06/22/25. Resume on 06/22/2025 - after stopping the scheduled acetaminophen Discharge Instructions Referrals: Tamanna Li MD, [place] [Primary Care Provider, Medicine] Referral Note: Follow-up within 7 days of discharge please Wil Clarke MD [ [facility] STAFF PHYSICIAN, Orthopaedic Surgical] Referral Note: Referral for the week of June 22 to June 27 2025, please Activity:: Activity as Tolerated Equipment/Supplies:: Walker Diet:: heart healthy Discharge Orders Other Ambulatory Orders: Complete Blood Count w/Diff (Routine) Timeframe: 20250620 Facility: [facility] - Location: Laboratory Outpatient - [facility] Ordered By: Argentina Donaldson Prothrombin Time (Routine) Timeframe: 20250620 Facility: [facility] - Location: Laboratory Outpatient - [facility] Ordered By: Argentina Donaldson DS: Summary Time Spent with Patient providing and/or coordinating discharge services: Greater than 30 minutes Status at Discharge Functional status at discharge: uses cane/walker Overall status at discharge: patient is progressing back to baseline Mental Status: mental status grossly normal Speech and Movement: speech and movement normal Mood: congruent mood Affect: normal affect Quality:SDOH Health Related Social Needs: Health related social needs risk of homeless Exam Narrative Exam Narrative: Frail elderly 85 yo female patient, looking of stated age, cooperative , without acute distress, clear lungs, S1 S2, irregular , no murmur, abdomen is non-distended, soft and non-tender, posterior aspect of left thigh , with minimal tenderness to palpation and hip flexion, no major bruising seen, positive left pedal pulse Psych Mental Status: mental status grossly normal Speech and Movement: speech and movement normal Mood: congruent mood Affect: normal affect DS: Data Vitals/I&O Vitals and I&O: Vital Signs Temperature 36.4 C 06/16/25 11:08 Temperature Source Oral 06/16/25 11:08 Pulse 66 06/17/25 08:44 Respiratory Rate 18 06/17/25 08:44 Blood Pressure 151/89 H 06/17/25 08:44 Blood Pressure Mean 109 06/17/25 08:44 Blood Pressure Position Sitting 06/16/25 11:08 Pulse Oximetry 97 06/17/25 08:44 Oxygen Delivery Method Room Air 06/17/25 08:44 Oxygen Flow Rate 0 06/17/25 08:44 Pain Level 3 06/16/25 11:08 Comment 11/25 just sitting. but 06/27 if she attempts to walk 06/16/25 11:08 Intake & Output 06/16/25 06/16/25 06/17/25 11:59 23:59 11:59 Intake Total Balance Weight 79.379 kg Intake: IV Data Completed and Pending Labs on day of discharge: Labs from last 24 hours 06/17/25 06/16/25 06:00 15:43 WBC 8.62 7.72 RBC 3.43 L 3.81 L Hgb 10.7 L 11.4 Hct 32.9 L 35.9 L MCV 96 H 94 MCH 31.2 29.9 MCHC 32.5 31.8 L RDW 14.9 H 14.9 H Plt Count 197 207 MPV 10.6 10.4 Immature Gran % 0.3 0.4 Neutrophils % 78.5 79.4 Lymphocytes % 8.8 11.8 Monocytes % 9.7 6.0 Eosinophils % 2.2 1.9 Basophils % 0.5 0.5 Nucleated RBC % 0.0 0.0 Absolute Neutrophils 6.76 H 6.13 Absolute Lymphocytes 0.76 L 0.91 L Absolute Monocytes 0.84 H 0.46 Absolute Eosinophils 0.19 0.15 Absolute Basophils 0.04 0.04 PT 22.3 H 25.3 H INR 2.4 H 2.7 H Sodium 143 142 Potassium 3.8 3.7 Chloride 106 104 Carbon Dioxide 29.7 31.2 Anion Gap 7.3 6.8 BUN 42 H 33 H Creatinine 1.2 H 1.3 H Est GFR (CKD-EPI 2020) 44.36 40.30 Glucose 105 125 H Calcium 9.2 9.4 Total Bilirubin 0.4 AST 38 H ALT 37 Alkaline Phosphatase 353 H Total Protein 6.7 Albumin 3.4 PFSH All Active Problems (Updated 06/17/25 @ 06:58 by Tamanna Li MD, [place]) Hamstring tear (Acute) Chronic kidney disease (CKD) (Chronic) Tear of left hamstring (Acute) Elevated LFTs (Acute) Anemia (Chronic) Congestion of upper respiratory tract (Acute) Heart failure with reduced ejection fraction (Chronic) Weakness generalized (Acute) Eardrum trauma (Acute) Ambulatory dysfunction (Acute) Hematuria (Acute) Chronic left hip pain (Acute) COVID-19 (Acute) Fall (Acute) Wart of hand (Acute) DNR (do not resuscitate) (Acute) Physician orders for life-sustaining treatment (POLST) form indicates patient wish for fm-yce-juuwvjpsuof status (Acute) Chronic anticoagulation (Acute) Internal hemorrhoids without complication (Acute) Cardiomyopathy (Chronic) Low back pain (Chronic 08/17/04) per Xray-L2-L3 DDD/DJD, L3-L4; L4-L5 DDD and scoliosis Right carpal tunnel syndrome (Chronic 01/12/18) Presence of other heart-valve replacement (Chronic) last echo 04/24; reg. 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) Injection: 02/21/18 De Quervain's tenosynovitis, 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) Cholelithiasis without obstruction (Chronic) Cardiac LV ejection fraction 21-40% (Chronic 03/22/17) Anticoagulated on warfarin (Chronic) AVR; INR goal 2.5-3.5 Medical History Arm pain, right Advance directive on file DVT prophylaxis Bright red blood per rectum Arthralgia of left ankle or foot (01/13/08) Elevation of level of transaminase and lactic acid dehydrogenase (LDH) (03/24/09) Endometriosis Hydronephrosis (12/25/08) Nuclear cataract Pain of left calf Strep pharyngitis Nuclear cataract 07/17/13 [facility]; S/P surgery right eye; 08/06/13 [facility] right eye Endometriosis s/p POOJA BSO 1979 Pain of left calf Pap smear vagina w LGSIL 08/17/03 neg HPV Proteinuria 08/17/052005; now resolved Arthralgia of ankle 01/13/08 ankle and/or foot Hydronephrosis 12/25/08 R UJV Calculus causing very mild hydronephrosis right Elev transaminase/LDH 03/24/09 Fracture, tibial plateau 02/13/13 [place] infection 03/17/15 Strep throat 01/05/16 x 2 Wrist pain, chronic Ruptured eardrum Stress due to spouse with dementia (02/20/18) Right anterior shoulder pain HTN (hypertension) Surgical History History of colonoscopy (~07/2019) 08/06: Tubular adenoma x2. S/P colonoscopy S/P abdominal hysterectomy and BSO; endometriosis H/O aortic valve replacement 09/18/01 last echo 04/24; reg. echos-stable EF=50%; aortic; 2001 Open Carpal Tunnel release (01/02/18) (R) Colonoscopy - IV Sedation (07/05/16) Extraction of cataract (07/17/13) 07/17/13 [facility]; RIGHT EYE 08/06/13 [facility] LEFT EYE Family History Mother , AGE 75 Essential hypertension Heart disease Father , FALL/HEAD INJURY at age 90. Essential hypertension Sister Alzheimer disease Maternal Grandmother , AGE 61 Heart disease Paternal Grandmother , AGE 80 Heart disease Lymphoma Daughter Heart disease Sister No problems noted. Son No problems noted. Social History Smoking/Tobacco Use Status: Never Second Hand Exposure: Yes Smoking risk assessment performed?: Yes Alcohol Intake: former Drug use: Never Substance use type: does not use Adopted: No Caregiver/Support person: No Household members: other Details: Son and Daughter In Law Housing: house Number of Children: 2 number of grandchildren: 7 Communication Needs: None Education Level: high school Do you need help understanding health information?: Rarely current occupation: Retired Pets and animals: Yes Pets and animals: dog(s) Sexually active: No Do you think of yourself as: straight/heterosexual Current gender identity: female What is your relationship status?: How often do you talk on the phone with friends or family?: twice per week How often do you get together with friends or relatives?: three or more times per week How often do you attend caodaism or anabaptism services?: decline to answer Do you belong to any clubs or organized social groups?: no Panel score (0-1 are the most socially isolated patients): 1 What type of physical activity do you participate in: walking and other Details: physical therapy Frequency: 3-4 times per week Antonia/Tenriism: Non sikhism Special antonia needs: No Agree to transfusion: No Seatbelt use: always Working smoke detector in home: Yes Carbon monox detector in home: Yes Firearms in home: Yes Firearms unloaded and locked: No Do you feel safe at home: Yes Additional Social history: Lives with Son and Daughter in Law Time Spent with Patient Time Spent with Patient: >85 minutes Time was spent: preparing to see the patient(eg.review tests), obtaining and/or reviewing separately otained hiistory, ordering medications,tests, procedures, referring, communicating with other health administrator health care facility, indepentently interpreting results, counseling the patient, care coordination and other
--- NOTE | 2025-06-17 12:28 | PDOC.HHF2F_ITS ---
Date of service: 06/17/25 Time of Service: 12:28 Home Health Referral Home Health Orders Clinical synopsis of why skilled professionals are needed: This 85 years female patient with a past medical historyfor HFpEF, HTN, pacemaker , on chronic anticoagulation with warfarin presents to ED for evaluation of left leg/buttock pain that came on suddenly after losing balance catching herself with outstretch left leg on 06/16/25. Workup in the ED showed significant muscular soft tissue injury including high-grade tear of the hamstrings attachment at the ischial tuberosity as well as injury signal evident in the gemellus inferior and obturator internus, blood work was unremarkable. Orthopedic consult completed with recommendations for pain management physical therapy and HHPT, weight bearing as tolerated with walker and follow-up with rthopedic services outpatient. The patient improved clinically and was able to ambulate and transfer with walker as per PT report, pain was minimal on acetaminophen. INR 2.4 and H&H stable at 10.7 & 32.9. The patient will be discharged home will home health PT and nursing with CBC and INR for Monday. Discussed with Dr. Conrad Recommendations for Follow Up Recommended tests to be ordered by follow up provider: INR, CBC - ordered for 06/20/25 by RN - results to Dr. Li please Registered Nurse: Check all that apply Instruct on new or changed medication(s)/assess compliance: Ordered Assess for exacerbation of medical condition, instruct patient/caregivers on signs and symptoms to report for early detection: Ordered Physical Therapist: Check all that apply Increase strength & endurance for safe mobility at home: Ordered To design/establish home maintenance program: Ordered Fall reduction therapy program for patient with history of frequent falls: Ordered Home safety evaluation and teaching/gait training including stair management (if applicable): Ordered Home Bound Status Requires the aid of supportive device (check all that apply): Walker Describe why leaving home would require a considerable and taxing effort: Requires frequent rest periods Encounter Date and Reason: I certify that a FTF encounter for this patient was performed on June 17, 2025 and that such encounter was related to the primary reason the patient requi res home health services. The encounter was conducted in the following manner: * By me as the certifying physician, SKIVER MACHINE OPERATOR, PA or * By an inpatient physician, SKIVER MACHINE OPERATOR or PA during an inpatient stay who communicated findings to me, Certification And Authentication I certify that I composed the above information based on my clinical judgment relating to this patient's medical condition and, if applicable, clinical findings communicated to me by the NPP or inpatient physician who performed the FTF encounter. Name of Provider that will be monitoring home health services: Tamanna Li
--- NOTE | 2025-06-18 07:15 | NUR.NOTE ---
Access chart to determine the discharge status. To remove from EDHold. Nursing Note:
--- NOTE | 2025-06-18 14:23 | NUR.NOTE ---
Access chart to print the Home Health Referral note to fax to them. Nursing Note:
== END 2025-06-18 07:20 | disposition home health service (06) ==
LOC: ER 11:27 → EDHOLD 19:13
PROVIDERS: Nurse Practitioner Acute Care; Admitting Provider Hospitalist; Emergency Provider Emergency Medicine; PCP Family Medicine; Responsible Provider Nurse Practitioner Acute Care; Visit Provider Hospitalist
DX: S76.312A Strain of muscle, fascia and tendon of the posterior muscle group at thigh level, left thigh, initial encounter (principal); I13.0 Hypertensive heart and chronic kidney disease with heart failure and stage 1 through stage 4 chronic kidney disease, or unspecified chronic kidney disease; I50.20 Unspecified systolic (congestive) heart failure; R26.2 Difficulty in walking, not elsewhere classified; N18.9 Chronic kidney disease, unspecified; D64.9 Anemia, unspecified; I42.9 Cardiomyopathy, unspecified; K64.8 Other hemorrhoids; M51.360 Other intervertebral disc degeneration, lumbar region with discogenic back pain only; Z95.4 Presence of other heart-valve replacement; G47.33 Obstructive sleep apnea (adult) (pediatric); X50.9XXA Other and unspecified overexertion or strenuous movements or postures, initial encounter; Z79.01 Long term (current) use of anticoagulants; Z66 Do not resuscitate
CPT/HCPCS: 00123; 36415; 73552; 73721; 80048; 80053; 97116; 97161; 97530; 99285; 72170; 73700; 85025; 85610; G0378; J3490

== ENCOUNTER 2025-06-20 10:37 | Outpatient (CLI) | payer MEDICARE, OTHER, SELFPAY ==
[2025-06-20 16:11] LABS: Abs Immature Grans 0.02 10^3/uL (0.0-0.06); HCT 33.3 % (36.0-46.0); HGB 10.4 g/dL (11.2-15.7); Immature Grans % 0.2 %; MCH 30.6 pg (27.0-33.0); MCHC 31.2 % (32.0-36.0); MCV 98 fL (80-95); MPV 10.9 fL (8.0-11.0); Platelet Count 224 10^3/uL (130-400); RBC 3.40 10^6/uL (3.93-5.22); RDW 14.9 % (11.7-14.6); RDW-SD 53.9 fL; WBC 8.45 10^3/uL (4.4-10.8)
[2025-06-20 16:27] LABS: INR 3.7 (0.9-1.1); Prothrombin Time 33.5 sec (9.1-11.1)
== END 2025-06-20 10:38 | disposition home or self-care (01) ==
LOC: LOS 10:37
PROVIDERS: PCP Family Medicine; Visit Provider Nurse Practitioner Acute Care
DX: S76.319A Strain of muscle, fascia and tendon of the posterior muscle group at thigh level, unspecified thigh, initial encounter (principal); Z79.01 Long term (current) use of anticoagulants
CPT/HCPCS: 36415; 85025; 85610